=== PATIENT | female | born 1965 | race Caucasian/White ===

== ENCOUNTER → 2017-07-21 07:54 | Outpatient (CLI) | payer BC, SELFPAY ==
--- NOTE | 2017-07-21 08:01 | US_ITS ---
US liver HISTORY: ITS.REASON: ELEVATED LIVER ENZYMES ORDERING PHYSICIAN: Mary Aragon PATIENT AGE: 51 years COMPARISON: None FINDINGS: PANCREAS:Unremarkable. No obvious mass or abnormal fluid collection. No ductal dilatation. There is a small area of decreased echogenicity adjacent to the gallbladder in the left hepatic lobe measuring 7 mm nonspecific. LIVER:Increased echogenicity of the liver consistent with hepatic steatosis. No ductal dilatation. RIGHT KIDNEY:Unremarkable. Normal size and echogenicity. No hydronephrosis GALLBLADDER:No gallstones, gallbladder wall thickening, pericholecystic fluid, or biliary dilatation. IMPRESSION: 1. Fatty liver with small area of decreased echogenicity anterior to the gallbladder of questionable clinical significance. 2. Otherwise negative right upper quadrant ultrasound
== END ==
PROVIDERS: PCP Nurse Practitioner Family; Visit Provider Nurse Practitioner Family
DX: R74.8 Abnormal levels of other serum enzymes (principal)
CPT/HCPCS: 76705

== ENCOUNTER → 2017-08-03 08:17 | Outpatient (CLI) | payer BC, SELFPAY ==
--- NOTE | 2017-08-03 08:44 | MM_ITS ---
MM Dig screening mamm BI w/CAD CAD Screening COMPARISON: None, this is baseline INDICATION: There is a history of breast cancer patient's mother diagnosed at age 71 TECHNIQUE: Standard CC and MLO images were obtained. R2 CAD reviewed. FINDINGS: Moderate fibroglandular densities are seen in the central portions of both breast and the findings are bilateral and symmetrical. However there is a small asymmetric density inner quadrant of the right breast with benign features. There is faint arterial calcification in each breast. There are no suspicious microcalcifications. IMPRESSION: Moderate breast density with small asymmetric density right breast with benign features however the the family history and the fact that there are no previous studies for comparison. Recommend the patient have spot compression views right breast, ultrasound may be necessary as well. BI-RADS Category: 0 Need Additional Imaging Evaluation RECOMMENDED FOLLOW-UP: IMM - IMMEDIATE FOLLOW-UP RECOMMENDED (A letter has been sent to the patient regarding results of the study.)
== END ==
PROVIDERS: PCP Internal Medicine Adolescent Medicine; Visit Provider Nurse Practitioner Family
DX: I34.1 Nonrheumatic mitral (valve) prolapse (principal); R06.02 Shortness of breath; Z12.31 Encounter for screening mammogram for malignant neoplasm of breast
CPT/HCPCS: 77067

== ENCOUNTER → 2017-08-22 12:41 | Outpatient (CLI) | payer BC, SELFPAY ==
--- NOTE | 2017-08-22 12:45 | US_ITS ---
US breast RT complete COMPARISON: None HISTORY: Evaluation of asymmetric density on recent mammogram TECHNIQUE: Targeted ultrasound right breast FINDINGS: 2 tiny hypoechoic likely cystic lesions with internal debris arch is identified at the 2:00 position and 5:00 position, the 5:00 position cyst likely corresponding to the density on the mammogram. There is no suspicious solid lesions seen. See mammogram report for better description. IMPRESSION: Benign-appearing hypoechoic lesion is likely tiny debris-filled cysts one of which corresponds in size and location to the asymmetric density on recent mammogram and no additional evaluation is indicated.
--- NOTE | 2017-08-22 12:46 | MM_ITS ---
MM Dig mamm DX unilat RT CAD COMPARISON: Digital mammograms 08/03/2017 INDICATION: Evaluation of asymmetric density right breast TECHNIQUE: Spot compression MLO and CC views were obtained along with rolled CC views. FINDINGS: The small somewhat tubular asymmetric density is persistent and does not press out. It has benign features with fairly well-defined borders. Ultrasound performed same date showed a few tiny appearing cyst 1 which corresponds in size and location to the density on the mammogram at the 5:00 position measuring 0.3 x 0.1 0.3 cm. This is too small to definitely characterize but appears to have internal echoes likely cyst debris. There is a similar appearing small hypoechoic cystic lesion at the 2:00 position near the nipple measuring 0.3 x 0.5 0.3 cm also likely showing internal echoes. There is a normal-appearing node in the axilla. IMPRESSION: Benign-appearing density inner quadrant right breast likely secondary to a tiny debris-filled cyst I feel no additional evaluation is indicated, recommend the patient continue with yearly screening mammography BI-RADS Category: 2 Benign Finding(s) RECOMMENDED FOLLOW-UP: 1YR - 1 YEAR FOLLOW-UP (A letter has been sent to the patient regarding results of the study.)
== END ==
PROVIDERS: PCP Internal Medicine Adolescent Medicine; Visit Provider Nurse Practitioner Family
DX: R92.8 Other abnormal and inconclusive findings on diagnostic imaging of breast (principal)
CPT/HCPCS: 76641; 77065

== ENCOUNTER → 2018-08-23 19:10 | Outpatient (CLI) | payer BC, SELFPAY ==
[2018-08-23 19:22] LABS: Basophils # 0.1 K/mm3 (0-0.2); Basophils % 0.6 % (0.1-2.0); Eosinophils # 0.1 K/mm3 (0.0-0.4); Eosinophils % 0.9 % (0.1-12.0); Hematocrit 43.3 % (37.0-47.0); Hemoglobin 13.8 g/dL (12.2-16.2); Lymphocytes # 1.4 K/mm3 (0.7-4.5); Lymphocytes % 18.3 % (10-50); Mean Corpuscular HGB Conc 31.9 g/dL (31.8-35.4); Mean Corpuscular Volume 100.2 fl (81-99); Mean Platelet Volume 8.4 fl (7.4-10.4); Monocytes # 0.4 K/mm3 (0.1-1.0); Monocytes % 4.6 % (1.7-9.3); Neutrophils # 5.8 K/mm3 (1.8-7.8); Neutrophils % 75.6 % (37.0-80.0); Platelet Count 327 K/mm3 (142-424); Red Blood Count 4.32 M/mm3 (4.20-5.40); White Blood Count 7.7 K/mm3 (4.8-10.8)
[2018-08-23 19:56] LABS: Erythrocyte Sedimentation Rate 38 mm/hr (0-30)
[2018-08-23 19:58] LABS: Alanine Aminotransferase 49 U/L (12-78); Albumin Level 3.8 gm/dL (3.4-5.0); Albumin/Globulin Ratio 0.9 (1.1-1.8); Alkaline Phosphatase 299 U/L (46-116); Aspartate Amino Transferase 73 U/L (15-37); Bilirubin,Total 0.5 mg/dL (0.2-1.0); Blood Urea Nitrogen 6 mg/dL (7-18); Calcium 9.4 mg/dL (8.5-10.1); Carbon Dioxide 25 mmol/L (21.0-32.0); Chloride 101 mmol/L (98-107); Chol/HDL Ratio 5.4 (1-3.5); Cholesterol 194 mg/dL (140-200); Creatinine,Serum 0.72 mg/dL (0.55-1.02); Estimated Glomerular Filt Rate 84 ml/min (>60); Free T4 (Free Thyroxine) 0.84 ng/dl (0.76-1.46); GFR (African American) 102 ML/MIN (>60); Globulin 4.2 gm/dl (1.3-3.2); Glucose 101 mg/dL (74-106); HDL Cholesterol 36 mg/dL (29-89); LDL Cholesterol 134 mg/dL (0-130); Sodium 137 mmol/L (136-145); Triglycerides 122 mg/dL (30-200); VLDL Cholesterol 24 mg/dL (0-40)
[2018-08-25 23:10] LABS: Vitamin B12 327 pg/mL (232-1245)
[2018-08-25 23:11] LABS: Folate 3.7 ng/mL (>3.0); Vitamin D 25 Hydroxy 30.4 ng/mL (30.0-100.0)
== END ==
PROVIDERS: Visit Provider Emergency Medicine
DX: M79.604 Pain in right leg (principal); M79.605 Pain in left leg; R53.83 Other fatigue
CPT/HCPCS: 80053; 80061; 82607; 82652; 82746; 84439; 84443; 85025; 85651

== ENCOUNTER → 2018-09-20 13:27 | Outpatient (CLI) | payer BC, SELFPAY ==
[2018-09-20 15:08] LABS: Alanine Aminotransferase 44 U/L (12-78); Albumin Level 3.9 gm/dL (3.4-5.0); Albumin/Globulin Ratio 0.8 (1.1-1.8); Alkaline Phosphatase 375 U/L (46-116); Anion Gap 17.4 mEq/L (5-15); Aspartate Amino Transferase 62 U/L (15-37); Bilirubin,Total 0.5 mg/dL (0.2-1.0); Blood Urea Nitrogen 6 mg/dL (7-18); Calcium 9.4 mg/dL (8.5-10.1); Carbon Dioxide 24 mmol/L (21.0-32.0); Chloride 100 mmol/L (98-107); Estimated Glomerular Filt Rate 87 ml/min (>60); GFR (African American) 105 ML/MIN (>60); Globulin 4.8 gm/dl (1.3-3.2); Glucose 95 mg/dL (74-106); Potassium 4.4 mmoL/L (3.5-5.1); Sodium 137 mmol/L (136-145); Total Protein,Serum 8.7 gm/dL (6.4-8.2)
[2018-09-20 15:38] LABS: Gamma Glutamyl Transpeptidase 1473 U/L (5-55)
[2018-09-22 07:02] LABS: Mitochondrial (M2) Antibody 22.1 Units (0.0-20.0)
== END ==
PROVIDERS: Visit Provider Physician Assistant
DX: R74.8 Abnormal levels of other serum enzymes (principal)
CPT/HCPCS: 80053; 82977; 86256

== ENCOUNTER → 2020-01-29 09:30 | Outpatient (CLI) | payer BC, SELFPAY ==
--- NOTE | 2020-01-29 09:48 | XR_ITS ---
PROCEDURE: XR FOOT RT MIN 3V CLINICAL INDICATION: right foot pain COMPARISON: No exams were available for comparison FINDINGS: No fracture or dislocation. No lytic or blastic change. There is normal mineralization. The joint spaces are well-preserved. No significant degenerative/arthritic changes. No erosive changes evident. Other findings:None. IMPRESSION: No acute findings. Dictated by: Vick Laureano MD 01/29/2020 18:57 Vick Laureano MD in [place] 01/29/2020 18:57
--- NOTE | 2020-01-29 09:48 | XR_ITS ---
PROCEDURE: XR CHEST 2V CLINICAL HISTORY: cough COMPARISON: No exams were available for comparison FINDINGS: The cardiomediastinal silhouette and pulmonary vascularity are within normal limits. The lungs are clear without infiltrates, suspicious nodules, or pleural effusions. There is calcified granuloma in the left lower lobe. No lobar consolidation or collapse. No acute bony findings. IMPRESSION: No acute findings. Dictated by: Vick Laureano MD 01/29/2020 18:56 Vick Laureano MD in [facility] 01/29/2020 18:56
[2020-01-29 10:19] LABS: Basophils # 0.1 K/mm3 (0-0.2); Basophils % 0.6 % (0.1-2.0); Eosinophils # 0.2 K/mm3 (0.0-0.4); Eosinophils % 1.4 % (0.1-12.0); Hematocrit 36.7 % (37.0-47.0); Hemoglobin 11.9 g/dL (12.2-16.2); Lymphocytes # 1.5 K/mm3 (0.7-4.5); Mean Corpuscular HGB Conc 32.4 g/dL (31.8-35.4); Mean Corpuscular Hemoglobin 34.2 pg (27.0-31.2); Mean Corpuscular Volume 105.5 fl (81-99); Mean Platelet Volume 7.4 fl (7.4-10.4); Monocytes # 0.5 K/mm3 (0.1-1.0); Monocytes % 4.4 % (1.7-9.3); Neutrophils # 9.2 K/mm3 (1.8-7.8); Neutrophils % 80.6 % (37.0-80.0); Platelet Count 314 K/mm3 (142-424); Red Blood Count 3.48 M/mm3 (4.20-5.40); Red Cell Distribution Width 14.8 % (11.5-17.5); White Blood Count 11.4 K/mm3 (4.8-10.8)
[2020-01-29 12:10] LABS: Alanine Aminotransferase 43 U/L (12-78); Albumin Level 3.6 g/dl (3.5-5.0); Albumin/Globulin Ratio 0.8 (1.1-1.8); Alkaline Phosphatase 364 U/L (38-126); Anion Gap 12.2 mEq/L (5-15); Aspartate Amino Transferase 161 U/L (14-36); Bilirubin,Total 3.7 mg/dl (0.2-1.3); Blood Urea Nitrogen 5 mg/dl (7-17); Calcium 9.5 mg/dl (8.4-10.2); Carbon Dioxide 26 mmol/L (22.0-30.0); Chloride 103 mmol/L (98-107); Chol/HDL Ratio 6.7 (1-3.5); Cholesterol 180 mg/dl (140-200); Estimated Glomerular Filt Rate 128 ml/min (>60); GFR (African American) 154 ML/MIN (>60); Globulin 4.7 g/dL (1.3-3.2); Glucose 143 mg/dl (74-100); HDL Cholesterol 27 mg/dl (40-60); Potassium 4.2 mmoL/L (3.5-5.1); Sodium 137 mmol/L (136-145); Total Protein,Serum 8.3 g/dl (6.3-8.2); Triglycerides 132 mg/dl (30-150); VLDL Cholesterol 26 mg/dL (0-40)
[2020-01-29 12:22] LABS: Direct LDL Cholesterol 108.43 mg/dL (100-129)
[2020-01-29 12:27] LABS: 25-OH Vitamin D, Total 90.4 ng/mL (30-100)
[2020-01-29 12:29] LABS: T4 (Thyroxine) 13.6 ug/dl (5.53-11.0)
[2020-01-29 12:42] LABS: Thyroid Stimulating Hormone 9.87 uIU/mL (0.465-4.68)
[2020-01-29 13:17] LABS: Vitamin B12 950 pg/mL (239-931)
[2020-01-29 13:29] LABS: Folate 2.22 ng/mL
[2020-01-30 10:23] LABS: PSA, Free <0.02 ng/mL; Prostate Specific Ag <0.1 ng/mL (Not Estab.)
[2020-01-30 13:37] LABS: Hep A Ab, IgM Negative (Negative); Hepatitis B Core Antibody IgM Negative (Negative); Hepatitis B Surface Antigen Negative (Negative)
[2020-01-30 16:31] LABS: Hemoglobin A1C 5.2 % (4.0-6.0)
[2020-01-30 18:39] LABS: Hepatitis C Antibody 0.1 s/co ratio (0.0-0.9)
== END ==
PROVIDERS: Visit Provider Physician Assistant
DX: R06.02 Shortness of breath (principal); R05 Cough; I34.1 Nonrheumatic mitral (valve) prolapse; R53.83 Other fatigue; R60.9 Edema, unspecified; R73.09 Other abnormal glucose; R11.2 Nausea with vomiting, unspecified; R82.998 Other abnormal findings in urine; Z68.27 Body mass index [BMI] 27.0-27.9, adult
CPT/HCPCS: 36415; 71046; 73630; 80053; 80061; 80074; 82306; 82607; 82746; 83036; 84153; 84154; 84436; 84443; 85025

== ENCOUNTER → 2020-02-04 09:12 | Outpatient (CLI) | payer OTHER, BC, SELFPAY ==
--- NOTE | 2020-02-04 09:24 | US_ITS ---
PROCEDURE: US ABDOMEN COMPLETE CLINICAL INDICATION: ELEVATED LFT'S COMPARISON: No exams were available for comparison FINDINGS: PANCREAS: Unremarkable. No obvious mass or abnormal fluid collection. No ductal dilatation LIVER: There is heterogeneous echogenicity of the anterior aspect the left hepatic lobe with decreased echogenicity anteriorly with irregular margins between normal appearing and abnormal appearing liver. Turbulent blood flow is noted within the portal vein. Portal vein is not appear enlarged. No biliary dilatation. RIGHT KIDNEY: Unremarkable. Normal size and echogenicity. No hydronephrosis LEFT KIDNEY: Unremarkable. Normal size and echogenicity. No hydronephrosis GALLBLADDER: There is a small echogenic focus along the posterior wall the gallbladder and could represent a small polyp without posterior acoustical shadowing and non mobile. A nonshadowing adherent stone is included in the differential diagnosis. No gallbladder wall thickening or pericholecystic fluid. Common bile duct is normal at 4 mm. AORTA: No evidence of aneurysmal dilatation. SPLEEN: Borderline splenomegaly at 13 cm with echogenic foci in the spleen consistent with granulomas. ASCITES: None demonstrated. IMPRESSION: 1. Abnormal appearing liver with heterogeneous echogenicity anteriorly and some irregularity of the liver surface possibly related to cirrhosis. Consider CT without and with contrast to exclude underlying mass. 2. Turbulent blood flow within the portal vein 3. Probable small gallbladder wall polyp 4. Borderline splenomegaly Dictated by: Vick Laureano MD 02/04/2020 18:46 Vick Laureano MD in [place] 02/04/2020 18:46
--- NOTE | 2020-02-04 10:01 | CA_ITS ---
APPROVED REPORT EXAM: Comprehensive 2D, Doppler, and color-flow Echocardiogram Thaw Shed Heater Tender: Reyna Clemons RDCS Ht: 5 ft 6 in Wt: 178lbs BSA: 1.90 BP: 122/78 mmHg Indications: SOA.MVP,EDEMA, 2D Dimensions LVOT 1.83 cm (M/F) 1.5-2.5 M-Mode Dimensions RVDd 3.56 cm (0.9-2.6) LVDd 5.92 cm (3.5-5.7) LVDs 4.17 cm (3.5-5.7) IVSd 0.83 cm (0.6-1.1) PWd 1.10 cm (0.6-1.1) EF (Teich) 55.70% FS 29.60% EDV (Teich) 174.60 mL ESV (Teich) 77.30 mL Left Ventricle Left atrium is mildly enlarged, left ventricle is normal size, there is no concentric left ventricular hypertrophy, visually estimated ejection fraction 55% with no regional wall motion abnormality, diastolic parameters are inconclusive. Right Ventricle Right atrium right ventricular normal size and contractility. Aortic Valve Aortic valve is minimally thickened and fibrosed, there is no aortic stenosis or aortic insufficiency. Mitral Valve Mitral valve is grossly normal, there is no obvious mitral valve prolapse seen in this study, there is mild mitral regurgitation. Tricuspid Valve Tricuspid valve grossly normal, there is mild tricuspid regurgitation. Pulmonic Valve Pulmonic valve is poorly visualized. Great Vessels Aortic root is normal size. Pericardium No significant pericardial effusion noted Conclusion 1. Mildly enlarged left atrium, normal left ventricular size, visually estimated ejection fraction 55% with no regional wall motion abnormality, diastolic parameters are inconclusive. 2. No obvious mitral valve prolapse seen in this study, there is mild mitral regurgitation. 3. Mild tricuspid regurgitation. 4. No significant pericardial effusion noted. Electronically signed by : Krzysztof Alvarado, 02/04/2020 18:19:29
== END ==
PROVIDERS: PCP Physician Assistant; Visit Provider Physician Assistant
DX: R06.02 Shortness of breath (principal); R05 Cough; I34.1 Nonrheumatic mitral (valve) prolapse; R53.83 Other fatigue; R60.9 Edema, unspecified
CPT/HCPCS: 76700; 93306

== ENCOUNTER → 2020-02-15 09:15 | Outpatient (CLI) | payer OTHER, BC, SELFPAY ==
--- NOTE | 2020-02-15 09:26 | CT_ITS ---
PROCEDURE: CT ABDOMEN WO/W CON CLINICAL HISTORY: r/o underlying mass on liver Elevated LFTs, bloating COMPARISON: US LIVER US liver from 07/21/2017 US US ABDOMEN COMPLETE from 02/04/2020 TECHNIQUE: Hemangioma protocol without and with contrast. 75 mL Optiray 350 utilized IV Axial images obtained with sagittal and coronal reformats. All CT scans at the facility use one or more dose reduction, viz: automated exposure control, ma/kV adjustment per patient size (including targeted exams where dose is matched to indication, i.e. head), or iterative reconstruction technique. FINDINGS: There are mild atelectatic or fibrotic changes in the lung bases. There is heterogeneous density of the liver with irregular margins anteriorly. There is heterogeneous density of the liver throughout on all imaging sequences. Small cystic areas present in the right hepatic lobe anteriorly. There is a persistent rounded area of slight decrease heterogeneous density within the left hepatic lobe measuring 3.2 cm at segment 4 a just superior to the gallbladder fossa.. This has a somewhat suspicious appearance for a mass. There is generating nodule is also consideration. No other focal liver lesions are evident. There is mild splenomegaly at 13 cm. Varices are present in the perisplenic region and paraesophageal area and perigastric region consistent with portal hypertension. No evidence of portal vein thrombosis. There are some small nodes in the periportal area. There is a small amount fluid anterior to the liver There is haziness of the mesenteric fat. Increased density with stranding noted in the right upper quadrant adjacent to the duodenum there is a small hiatal hernia. There is moderate narrowing of the ostium of the celiac artery of at least 50 percent or greater. No acute bony findings. The kidneys, adrenal glands, and pancreas have an unremarkable appearance. IMPRESSION: 1. There is diffuse heterogeneous density of the hepatic parenchyma with some irregularity of the liver margin consistent with cirrhosis and portal hypertension with mild splenomegaly and associated varices. Small amount ascites 2. There is a rounded area of slight decreased heterogeneous density in the left hepatic lobe segment 4 a just superior to the gallbladder fossa which may represent a hepatic mass/neoplasm versus regenerating nodule. A recanalized umbilical vein is present along the anterior aspect of this lesion making percutaneous biopsy somewhat risky. Therefore would recommend MRI without and with gadolinium enhancement to confirm the presence of a nodule before percutaneous tissue sampling performed 3. Stranding of the fat in the right upper quadrant along the anterior pararenal fascia and lateral to the duodenum. This is nonspecific and may be seen with pancreatitis or duodenal inflammation. Dictated by: Vick Laureano MD 02/16/2020 07:50 Vick Laureano MD in [place] 02/16/2020 07:50
[2020-02-15 09:41] LABS: Chloride 101 mmol/L (98-107); Sodium 137 mmol/L (136-145)
[2020-02-15 09:45] LABS: Blood Urea Nitrogen 3 mg/dl (7-17); Calcium 9.3 mg/dl (8.4-10.2); Carbon Dioxide 26 mmol/L (22.0-30.0); Estimated Glomerular Filt Rate 103 ml/min (>60); GFR (African American) 125 ML/MIN (>60); Glucose 161 mg/dl (74-100)
== END ==
PROVIDERS: PCP Physician Assistant; Visit Provider Physician Assistant
DX: K74.60 Unspecified cirrhosis of liver (principal)
CPT/HCPCS: 36415; 74170; 80048; Q9967

== ENCOUNTER → 2020-02-18 14:23 | Outpatient (POV) | payer OTHER, BC, SELFPAY | PROVIDERS: Visit Provider Nurse Practitioner Family | DX: Z00.00 Encounter for general adult medical examination without abnormal findings (principal) ==

== ENCOUNTER → 2020-02-21 07:20 | Outpatient (CLI) | payer OTHER, BC, SELFPAY ==
[2020-02-21 08:12] LABS: Basophils # 0.1 K/mm3 (0-0.2); Basophils % 0.7 % (0.1-2.0); Eosinophils # 0.2 K/mm3 (0.0-0.4); Eosinophils % 1.5 % (0.1-12.0); Hematocrit 34.5 % (37.0-47.0); Hemoglobin 10.6 g/dL (12.2-16.2); Lymphocytes # 1.3 K/mm3 (0.7-4.5); Mean Corpuscular HGB Conc 30.7 g/dL (31.8-35.4); Mean Corpuscular Hemoglobin 33.3 pg (27.0-31.2); Mean Corpuscular Volume 108.6 fl (81-99); Mean Platelet Volume 7.3 fl (7.4-10.4); Monocytes # 0.5 K/mm3 (0.1-1.0); Monocytes % 4.7 % (1.7-9.3); Neutrophils # 8.1 K/mm3 (1.8-7.8); Neutrophils % 80.2 % (37.0-80.0); Platelet Count 244 K/mm3 (142-424); Red Blood Count 3.17 M/mm3 (4.20-5.40); Red Cell Distribution Width 15.8 % (11.5-17.5); White Blood Count 10.1 K/mm3 (4.8-10.8)
[2020-02-21 08:27] LABS: Ammonia 46 umol/L (9-30)
[2020-02-21 08:31] LABS: INR 1.37 (0.9-1.1); Prothrombin Time 14.8 seconds (9.4-11.8)
[2020-02-21 10:56] LABS: Chloride 102 mmol/L (98-107); Potassium 3.8 mmoL/L (3.5-5.1); Sodium 137 mmol/L (136-145)
[2020-02-21 10:58] LABS: Blood Urea Nitrogen 5 mg/dl (7-17); Estimated Glomerular Filt Rate 87 ml/min (>60); GFR (African American) 105 ML/MIN (>60)
[2020-02-21 10:59] LABS: Alanine Aminotransferase 30 U/L (12-78); Albumin Level 3.3 g/dl (3.5-5.0); Albumin/Globulin Ratio 0.7 (1.1-1.8); Alkaline Phosphatase 279 U/L (38-126); Anion Gap 14.8 mEq/L (5-15); Aspartate Amino Transferase 138 U/L (14-36); Bilirubin,Total 4.2 mg/dl (0.2-1.3); Calcium 9.1 mg/dl (8.4-10.2); Carbon Dioxide 24 mmol/L (22.0-30.0); Globulin 4.6 g/dL (1.3-3.2); Glucose 124 mg/dl (74-100); Iron 99 ug/dL (37-170); Total Protein,Serum 7.9 g/dl (6.3-8.2)
[2020-02-21 11:13] LABS: Total Iron Binding Capacity 169 ug/dL (265-497)
[2020-02-21 11:40] LABS: Ferritin 773 ng/ml (11.1-264)
[2020-02-22 11:53] LABS: Ceruloplasmin 19.5 mg/dL (19.0-39.0); Immunoglobulin A, Qn 595 mg/dL (87-352); Immunoglobulin G, Qn 2067 mg/dL (586-1602)
[2020-02-22 13:27] LABS: AFP, Tumor Marker 6.9 ng/mL (0.0-8.3); Immunoglobulin M, Qn 899 mg/dL (26-217)
[2020-02-22 18:36] LABS: Angiotensin Converting Enzyme 88 U/L (14-82)
[2020-02-23 10:24] LABS: Actin (Smooth Muscle) Antibody 10 Units (0-19); Deamidated Gliadin Abs, IgA 13 units (0-19); Deamidated Gliadin Abs, IgG 15 units (0-19); Endomysial IgA Antibody Negative (Negative); Mitochondrial (M2) Antibody 51.4 Units (0.0-20.0); Tissue Transglutaminase IgA Ab <2 U/mL (0-3); Tissue Transglutaminase IgG Ab 4 U/mL (0-5)
[2020-02-23 10:25] LABS: Reticulin IgA Antibody Negative titer (Neg:<1:2.5)
[2020-02-26 05:12] LABS: ALT (SGPT) P5P 25 IU/L (0-40); AST (SGOT) P5P 136 IU/L (0-40); Alpha 2-Macroglobulins, Qn 283 mg/dL (110-276); Apolipoprotein A-1 70 mg/dL (116-209); Bilirubin, Total 3.2 mg/dL (0.0-1.2); Cholesterol, Total 185 mg/dL (100-199); Fibrosis Score 0.94 (0.00-0.21); GGT 402 IU/L (0-60); Glucose 128 mg/dL (65-99); Haptoglobin 136 mg/dL (33-346); Triglycerides 130 mg/dL (0-149)
[2020-02-27 16:56] LABS: Alpha-1-Antitrypsin 210 mg/dL (101-187)
[2020-03-29 20:03] LABS: Antinuclear Antibodies (ANA) NEGATIVE
== END ==
PROVIDERS: Visit Provider Nurse Practitioner Family
DX: R11.2 Nausea with vomiting, unspecified (principal); R19.4 Change in bowel habit; R19.7 Diarrhea, unspecified; R14.0 Abdominal distension (gaseous); K70.31 Alcoholic cirrhosis of liver with ascites; K76.6 Portal hypertension; F10.10 Alcohol abuse, uncomplicated; R05 Cough
CPT/HCPCS: 36415; 80053; 81256; 82103; 82104; 82105; 82140; 82164; 82390; 82728; 82784; 83516; 83540; 83550; 85025; 85610; 86038; 86255; 86256; 86376

== ENCOUNTER → 2020-02-25 07:03 | Outpatient (CLI) | payer OTHER, BC, SELFPAY ==
--- NOTE | 2020-02-25 07:54 | MR_ITS ---
PROCEDURE: MR ABDOMEN WO/W CON CLINICAL INDICATION: ALTERED BOWEL FUNCTION abnormal ct 02-15-20. nausea and vomiting. swelling of rt foot. joint pain. x6-7months. 16ml prohance given. lot:[id number] exp: apr 2022 bun:5 cre:0.7 gfr:87. prior ct 02-15-20 COMPARISON: CT CT ABDOMEN WO/W CON from 02/15/2020 TECHNIQUE: Routine multiplanar multi echo sequences are performed without gadolinium enhancement. FINDINGS: There is diffuse heterogeneous signal intensity of the liver. There was a question of a nodule within the left hepatic lobe on the previous CT scan in and out of phase imaging does show some decreased signal in this area on the out of phase images suggesting focal fatty liver. Pre and post enhanced images of the liver show diffuse heterogeneous enhancement. The area of concern in the left hepatic lobe does not demonstrate any typical type enhancement pattern that would be suspicious has similar signal intensity on all post enhanced images. The liver margin has a slightly irregular appearance which could be seen with cirrhosis. Perisplenic varices are noted. The adrenal glands and kidneys and pancreas have an unremarkable appearance. There is a small hepatic cyst in the right hepatic lobe anteriorly at 7 mm. Previously noted ascites has resolved IMPRESSION: 1. There is diffuse heterogeneous signal intensity of the liver which shows some mild signal dropout on the out of phase images consistent with heterogeneous fatty liver replacement. The nodular area in the left hepatic lobe does not show any typical enhancement pattern and may be due to a regenerating nodule with an area of focal fatty infiltration. This does show some loss of signal on out of phase imaging. Suspect cirrhosis of the liver with somewhat irregular margin anteriorly. Recommend [address] follow-up without and with contrast to confirm stability. 2. Perisplenic varices. Dictated by: Vick Laureano MD 02/26/2020 10:01 Vick Laureano MD in [place] 02/26/2020 10:01
== END ==
PROVIDERS: PCP Physician Assistant; Visit Provider Nurse Practitioner Family
DX: R19.4 Change in bowel habit (principal); K59.00 Constipation, unspecified; R19.7 Diarrhea, unspecified; R14.0 Abdominal distension (gaseous); R11.2 Nausea with vomiting, unspecified; K70.31 Alcoholic cirrhosis of liver with ascites; K76.6 Portal hypertension; F10.10 Alcohol abuse, uncomplicated
CPT/HCPCS: 74183; A9576

== ENCOUNTER → 2020-03-08 11:00 | Outpatient (CLI) | payer OTHER, BC, SELFPAY ==
[2020-03-08 13:23] LABS: Coronavirus 19 IgG Antibody Negative (Negative); Coronavirus 19 IgM Antibody Negative (Negative)
== END ==
PROVIDERS: Visit Provider Internal Medicine Gastroenterology
DX: Z01.818 Encounter for other preprocedural examination (principal); Z13.810 Encounter for screening for upper gastrointestinal disorder; Z12.11 Encounter for screening for malignant neoplasm of colon
CPT/HCPCS: 36415; 86328

== ENCOUNTER → 2020-04-05 11:22 | Outpatient (CLI) | payer OTHER, BC, SELFPAY ==
[2020-04-05 12:45] LABS: Coronavirus 19 IgG Antibody Negative (Negative); Coronavirus 19 IgM Antibody Negative (Negative)
== END ==
PROVIDERS: Visit Provider Internal Medicine Gastroenterology
DX: Z01.818 Encounter for other preprocedural examination (principal); Z13.810 Encounter for screening for upper gastrointestinal disorder; Z12.11 Encounter for screening for malignant neoplasm of colon
CPT/HCPCS: 36415; 86328

== ENCOUNTER 2020-04-07 10:54 | Day surgery (SDC) | payer OTHER, BC, SELFPAY ==
[2020-03-27 13:54] VITALS: BMI 26.6
[2020-04-07 11:30] VITALS: BP 165/75; PULSE 85; RESP 18; TEMP 36.2; O2SAT 100
--- NOTE | 2020-04-07 12:32 | P.PCN_ITS ---
[facility] Procedure Note Procedure Note:: Upper Endoscopy Procedure Report: Esophagogastroduodenoscopy with cold biopsies Endoscopost: Aj Thomas II, MD Referring Physician: Martha De Jesus PA-C Date of Procedure: April 07, 2020 Equipment: Olympus GIF 180 standard upper endoscope Sedation: MAC sedation Indications: Mrs. Hendricks is a 54-year-old female with cirrhosis and elevated liver chemistries. She does have alcoholic liver disease and was drinking between 12 and 18 beers nightly up until 2 to 3 months ago. The patient did have fatty liver disease diagnosed several years ago. She did have ascites and lower extremity edema. She also had an ultrasound that showed cirrhosis with possible portal hypertension and possible liver mass. Her CAT scan showed cirrhosis with portal hypertension and mild splenomegaly. There was a small amount of ascites. The patient also reports some constipation and dyspepsia. She has had bloating, belching, gassiness and abdominal distention. She reports some nausea and fullness. She does have a history of psoriasis. Procedure: Prior to the procedure, a history and physical exam was performed, and patient's medications and allergies were reviewed. The risks, benefits and alternatives of the sedation and procedure were discussed with the patient. All questions were answered and informed consent was obtained. The patient was brought to the procedure room. Patient identification and proposed procedure were verified by the physician and the nurse. The patient was placed in a left lateral decubitus position and the scope was passed under direct vision. Throughout the procedure, the patient's blood pressure, pulse, and oxygen saturations were monitored continuously. The upper GI endoscopy was accomplished without difficulty. The patient tolerated the procedure well. Findings: The scope was passed directly into the upper esophagus and advanced to the third portion of the duodenum. The post bulbar duodenum and duodenal bulb were normal with normal mucosa and conniventes. The scope was withdrawn through a normal duodenal bulb and pylorus into the stomach. There was very mild reactive gastropathy of the antrum. There was no significant portal gastropathy or GAVE. There was no gastric varices. The remainder of the antrum, body and fundus of the stomach were grossly normal. Upon retroflexion there was a small 1 to 2 cm hiatal hernia. 2 biopsies were taken in the antrum and along the lesser curvature for histology to rule out gastritis and/or H pylori. The scope was then withdrawn into the esophagus. There were small grade 1 esophageal varices. There was also whitish exudate and cold biopsies were taken in the midesophagus to rule out mild candidal esophagitis. The remainder of the esophageal mucosa was normal. Impression: 1. Small grade 1 esophageal varices 2. Possible mild candidal esophagitis 3. Bile reflux with mild reactive gastropathy Plan: I will follow-up the biopsies. The patient does have some dyspepsia. Fortunately, there are no signs of significant portal hypertension. I will proceed with colonoscopy.
--- NOTE | 2020-04-07 12:34 | P.PN_ITS ---
[facility] Anesthesia Checklist - Patient Identification Patient Identification: Arm Band, Verbal (Name & ) - Structural Data Admitted From: Home Planned Operative Procedure/s: EGD/Colonoscopy Consent for Planned Operative Procedure(s) Verified: Yes Verified Documents: Surgical Consent, History and Physical - NPO Status Verified Time NPO: 00:00 - Chart Verification Results Verified: CBC, BMP, PT, PTT, INR - Additional verifications Anesthesia Reactions: No - Airway Assessment C-Spine Mobility Assessed: Yes TMJ Mobility Assessed: Yes Dentition: Good Dentition (missing teeth) - Neurological Assessment Level of Consciousness: Awake, Alert, Appropriate, Follows Commands Hx Seizures: No Numbness or tingling in extremities: No - Anesthesia Plan Anesthesia Risk discussed: Yes Anesthesia Plan: Verified ASA Class: III Anesthesia Type: MAC [facility] History I have reviewed the patient's past medical history: Yes Medical History: Reports:: Anxiety, Depression, Hypertension, Valvular Heart Disease Denies:: Cancer, Diabetes Mellitus Type 1, Diabetes Mellitus Type 2, Internal Pacemaker, Lung Disease, MRSA, Seizures *Have you ever received a pneumonia vaccine?: No *Have you received a flu vaccine this season?: No Other Medical History: Reports: Liver Disease (cirrhosis) Anesthesia experience/problems:: None Laterality Cases: Left: Arthroscopy Knee Other Surgeries: No: Pacemaker Amputation: No Fractures: No - *Social History Last grade of school completed: Some college Smoking Status: Never smoker Alcohol Intake: never Alcohol Intake Frequency:: 0-2 drinks per day Substance Use Type: denies use *Occupational Status:: employed Housing: house Household Members: family *Travel in the last 8 weeks: None - Psychiatric History Pschychiatric History:: Reports:: Anxiety, Depression Family Hx:: Coronary Artery Disease, Diabetes, Cancer, Heart Attack, Stroke, Hypertension, Thyroid Disorder, Asthma
--- NOTE | 2020-04-07 12:50 | HMH.PROC ---
[facility] Procedure Note Procedure Note:: Colonoscopy Procedure Report: Colonoscopy Endoscopist: Aj Thomas II, MD Referring physician: Martha De Jesus PA-C Date of Procedure: April 07, 2020 Equipment: Olympus 180 variable stiffness pediatric colonoscope Sedation: MAC sedation Indication: Mrs. Hendricks is a 54-year-old female who is here for diagnostic colonoscopy. The patient has had constipation with smaller caliber stools and incomplete defecation. She will have some intermittent breakthrough diarrhea. The patient also has had some bloating and abdominal distention. She reports some generalized abdominal discomfort. She reports no rectal bleeding, weight loss or family history of colon cancer. Her mother had cancer of unknown primary. This is the patient's initial colonoscopy. She does have cirrhosis. 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 She did have an elevated angiotensin-converting enzyme level and mitochondrial antibody. She also had elevated levels of immunoglobulins (elevated IgG, IgA and IgM). Her fibrotic markers were in the range of cirrhosis with marked steatosis. Her hemochromatosis genetic assay was indicative of no hemochromatosis. She also had some hepatic lesions. Her alpha-fetoprotein was 6.9. The patient did have normal values of antigliadin IgA and IgG antibody. Procedure: Prior to the procedure, a history and physical exam was performed, and patient's medications and allergies were reviewed. The risks, benefits and alternatives of the sedation and procedure were discussed with the patient. All questions were answered and informed consent was obtained. The patient was brought to the procedure room. Patient identification and proposed procedure were verified by the physician and the nurse. The patient was placed in a left lateral decubitus position and the scope was passed under direct vision. Throughout the procedure, the patient's blood pressure, pulse, and oxygen saturations were monitored continuously. The colonoscopy was accomplished without difficulty. The patient tolerated the procedure well. Findings: On digital rectal examination there was normal rectal tone. There were no external hemorrhoids. The colonoscope was introduced through the anal canal to the rectum and advanced to the cecum. The ileocecal valve and appendiceal orifice were identified. The scope was advanced a short distance into the ileum which appeared grossly normal. The scope was then withdrawn into the colon. The cecum, ascending and transverse colon and mucosa were grossly normal. There were scattered diverticuli throughout the descending and sigmoid colon (LEFT colon). The rectum itself was normal. Upon retroflexion within the rectum there were grade 1-2 internal hemorrhoids. The preparation was excellent throughout with [place] Preparation Score of 9. The cecal time was 12 minutes. Impression: 1. Left-sided diverticulosis 2. Grade 1-2 internal hemorrhoids Plan: The patient will not require screening/surveillance colonoscopy again for 10 years by ACS guidelines. I would continue the fiber bowel regimen (combined MiraLAX plus Citrucel) on a long-term daily maintenance basis.
[2020-04-07 12:51] VITALS: BP 120/73; PULSE 77; RESP 20; TEMP 36.2; O2SAT 92
[2020-04-07 13:01] VITALS: BP 154/85; PULSE 71; RESP 20; O2SAT 98
[2020-04-07 13:11] VITALS: BP 160/83; PULSE 71; RESP 20; O2SAT 99
[2020-04-07 13:21] VITALS: BP 141/76; PULSE 71; RESP 20; O2SAT 100
[2020-04-07 13:42] VITALS: BP 159/75; PULSE 73; RESP 20; O2SAT 100
[2020-04-07 14:17] LABS: Chloride 107 mmol/L (98-107); Potassium 4.3 mmoL/L (3.5-5.1); Sodium 141 mmol/L (136-145)
[2020-04-07 14:19] LABS: Alanine Aminotransferase 43 U/L (12-78); Aspartate Amino Transferase 79 U/L (14-36); Blood Urea Nitrogen 22 mg/dl (7-17); Creatinine Clearance Estimated 93 mL/min (50-200); Estimated Glomerular Filt Rate 74 ml/min (>60); GFR (African American) 90 ML/MIN (>60)
[2020-04-07 14:20] LABS: Albumin Level 4.2 g/dl (3.5-5.0); Alkaline Phosphatase 309 U/L (38-126); Anion Gap 14.3 mEq/L (5-15); Bilirubin,Total 3.7 mg/dl (0.2-1.3); Calcium 10.2 mg/dl (8.4-10.2); Carbon Dioxide 24 mmol/L (22.0-30.0); Globulin 4.3 g/dL (1.3-3.2); Glucose 131 mg/dl (74-100); Total Protein,Serum 8.5 g/dl (6.3-8.2)
== END 2020-04-07 13:42 | disposition home or self-care (01) ==
PROVIDERS: PCP Physician Assistant; Visit Provider Internal Medicine Gastroenterology
PROC: 0DJ08ZZ Inspection of Upper Intestinal Tract, Via Natural or Artificial Opening Endoscopic (ICD-10-PCS; CPT 43235; principal; 2020-04-07 11:30)
DX: K57.30 Diverticulosis of large intestine without perforation or abscess without bleeding (principal); K64.0 First degree hemorrhoids; I85.00 Esophageal varices without bleeding; K22.9 Disease of esophagus, unspecified; K31.9 Disease of stomach and duodenum, unspecified; K70.30 Alcoholic cirrhosis of liver without ascites; K75.4 Autoimmune hepatitis; Z80.9 Family history of malignant neoplasm, unspecified; R74.9 Abnormal serum enzyme level, unspecified; K70.0 Alcoholic fatty liver; R16.1 Splenomegaly, not elsewhere classified; R18.8 Other ascites
CPT/HCPCS: 45378; 43239; 36415; 80053; J2704

== ENCOUNTER 2020-04-17 13:05 | Outpatient (RCR) | payer OTHER, BC, SELFPAY ==
--- NOTE | 2020-04-17 14:34 | HMH.PTOPEV ---
PT Outpatient Evaluation Rehab PT Outpatient Evaluation Start: 04/17/20 13:17 Freq: Status: Active Protocol: Document 04/17/20 14:08 DIEGO (Rec: 04/17/20 14:34 DIEGO [id number]) Electronically Signed By Steve Agosto, PT 04/17/20 14:08 Outpatient Therapy Subjective History Subjective History Pt is 54 yowfm who presents with c/o generalized weakness for several years, but worse x ~ 4 mos after diagnosis of cirrhosis of the liver. She reports her condition is related to an autoimmune disorder, but does not know exactly what that might be. She had increased edema due to ascites, but this is more under control now with medication. She reports difficulty with sit/stand transfers and stairs. She also reports peripheral neuropathy to B feet and hands. PMH: anxiety, depression, HTN Chief Complaint Weakness Symptoms Relieved By Rest/Positioning Symptoms Aggravated By Physical Activity Prior Functional Limitations None Current Functional Limitations Recreation Activity,Stairs Symptom Description Activity Dependent Level of pain today (0-10) 0 Pain scale - at its worst (0-10) 0 Hip/Knee Eval MMT bilateral Hip Flexion Strength Grade 4- Good- Hip Abduction Strength Grade 4 Good Hip Adduction Strength Grade 5 Normal Hip Extension Strength Grade 5 Normal Gluteus Ag Strength Grade 4 Good Knee Extension Strength Grade 5 Normal Knee Flexion Strength Grade 5 Normal Balance Eval Gait/Posture Asssessment General Gait Observation Wide Based Gait,Shuffling Step Timed Up and Go Test 3. Is the Timed Up and Go Test result < yes 12 seconds? Outpatient Therapy Assessment Impairments Problems/Impairmments Impaired Strength,Impaired Endurance,Impaired Gait Pattern,Impaired Walking, Impaired Standing,Impaired Stair Climbing,Impaired Recreational Activities, Impaired Self Care/Self Management Prognosis Rehab Potential Good Clinical Impression Consistent with Diagnosis Yes Short Term Goals Number of Weeks 4 Increase Strength
== END 2020-04-17 13:10 | disposition home or self-care (01) ==
LOC: PT 13:05
PROVIDERS: PCP Physician Assistant; Visit Provider Physician Assistant
DX: M62.81 Muscle weakness (generalized) (principal); K74.60 Unspecified cirrhosis of liver
CPT/HCPCS: 97163

== ENCOUNTER → 2020-04-21 08:40 | Outpatient (CLI) | payer OTHER, BC, SELFPAY ==
[2020-04-21 09:12] LABS: Basophils % 0.1 % (0.1-2.0); Eosinophils # 0.1 K/mm3 (0.0-0.4); Eosinophils % 0.5 % (0.1-12.0); Hemoglobin 11.4 g/dL (12.2-16.2); Lymphocytes # 0.6 K/mm3 (0.7-4.5); Lymphocytes % 4.6 % (10-50); Mean Corpuscular HGB Conc 32.6 g/dL (31.8-35.4); Mean Corpuscular Hemoglobin 34.2 pg (27.0-31.2); Mean Corpuscular Volume 104.7 fl (81-99); Monocytes # 0.5 K/mm3 (0.1-1.0); Monocytes % 3.2 % (1.7-9.3); Neutrophils # 12.6 K/mm3 (1.8-7.8); Neutrophils % 91.6 % (37.0-80.0); Platelet Count 231 K/mm3 (142-424); Red Blood Count 3.35 M/mm3 (4.20-5.40); Red Cell Distribution Width 15.9 % (11.5-17.5); White Blood Count 13.8 K/mm3 (4.8-10.8)
[2020-04-21 09:28] LABS: MANUAL DIFFERENTIAL MANUAL DIFFERENTIAL (MANUAL DIFF)
[2020-04-21 10:19] LABS: Lymphocytes % 7 % (10-50); Monocytes % 2 % (2-9); Neutrophils % 91 % (42-76); Platelet Estimate Normal; Total Cells Counted 100
[2020-04-21 10:20] LABS: Macrocytosis 1+
[2020-04-21 15:52] LABS: Chloride 97 mmol/L (98-107); Sodium 133 mmol/L (136-145)
[2020-04-21 15:55] LABS: Alanine Aminotransferase 69 U/L (12-78); Alkaline Phosphatase 460 U/L (38-126); Aspartate Amino Transferase 58 U/L (14-36); Bilirubin,Total 2.3 mg/dl (0.2-1.3); Blood Urea Nitrogen 18 mg/dl (7-17); Calcium 9.5 mg/dl (8.4-10.2); Carbon Dioxide 26 mmol/L (22.0-30.0); Estimated Glomerular Filt Rate 57 ml/min (>60); GFR (African American) 69 ML/MIN (>60); Globulin 3.9 g/dL (1.3-3.2); Glucose 247 mg/dl (74-100); Total Protein,Serum 7.9 g/dl (6.3-8.2)
== END ==
PROVIDERS: Visit Provider Nurse Practitioner Family
DX: K70.31 Alcoholic cirrhosis of liver with ascites (principal); K75.4 Autoimmune hepatitis
CPT/HCPCS: 36415; 80053; 85007; 85025

== ENCOUNTER → 2020-04-21 10:41 | Outpatient (POV) | payer OTHER, BC, SELFPAY | PROVIDERS: Visit Provider Nurse Practitioner Family | DX: Z00.00 Encounter for general adult medical examination without abnormal findings (principal) ==

== ENCOUNTER → 2020-05-05 10:30 | Outpatient (CLI) | payer OTHER, BC, SELFPAY ==
[2020-05-05 10:57] LABS: Basophils % 0.1 % (0.1-2.0); Eosinophils # 0.1 K/mm3 (0.0-0.4); Eosinophils % 0.6 % (0.1-12.0); Hemoglobin 11.7 g/dL (12.2-16.2); Lymphocytes # 0.7 K/mm3 (0.7-4.5); Lymphocytes % 5.2 % (10-50); Mean Corpuscular HGB Conc 30.6 g/dL (31.8-35.4); Mean Corpuscular Hemoglobin 32.7 pg (27.0-31.2); Mean Corpuscular Volume 106.7 fl (81-99); Mean Platelet Volume 7.8 fl (7.4-10.4); Monocytes # 0.5 K/mm3 (0.1-1.0); Monocytes % 4.3 % (1.7-9.3); Neutrophils # 11.4 K/mm3 (1.8-7.8); Neutrophils % 89.8 % (37.0-80.0); Platelet Count 295 K/mm3 (142-424); Red Blood Count 3.56 M/mm3 (4.20-5.40); Red Cell Distribution Width 15.6 % (11.5-17.5); White Blood Count 12.7 K/mm3 (4.8-10.8)
[2020-05-05 10:59] LABS: MANUAL DIFFERENTIAL MANUAL DIFFERENTIAL (MANUAL DIFF)
[2020-05-05 11:12] LABS: Chloride 96 mmol/L (98-107); Sodium 134 mmol/L (136-145)
[2020-05-05 11:13] LABS: Potassium 3.7 mmoL/L (3.5-5.1)
[2020-05-05 11:15] LABS: Alanine Aminotransferase 85 U/L (12-78); Albumin Level 3.9 g/dl (3.5-5.0); Albumin/Globulin Ratio 1.1 (1.1-1.8); Alkaline Phosphatase 383 U/L (38-126); Anion Gap 11.7 mEq/L (5-15); Aspartate Amino Transferase 64 U/L (14-36); Bilirubin,Total 3.9 mg/dl (0.2-1.3); Blood Urea Nitrogen 12 mg/dl (7-17); Carbon Dioxide 30 mmol/L (22.0-30.0); Estimated Glomerular Filt Rate 74 ml/min (>60); GFR (African American) 90 ML/MIN (>60); Globulin 3.5 g/dL (1.3-3.2); Total Protein,Serum 7.4 g/dl (6.3-8.2)
[2020-05-05 11:16] LABS: Calcium 9.4 mg/dl (8.4-10.2)
[2020-05-05 11:23] LABS: Glucose 403 mg/dl (74-100)
[2020-05-05 12:14] LABS: Lymphocytes % 5 % (10-50); Macrocytosis 2+; Monocytes % 9 % (2-9); Neutrophils % 86 % (42-76); Platelet Estimate Normal; Total Cells Counted 100
== END ==
PROVIDERS: Visit Provider Nurse Practitioner Family
DX: K70.31 Alcoholic cirrhosis of liver with ascites (principal); K75.4 Autoimmune hepatitis; R11.2 Nausea with vomiting, unspecified; K76.6 Portal hypertension; F10.10 Alcohol abuse, uncomplicated; K76.9 Liver disease, unspecified; R19.4 Change in bowel habit; R19.7 Diarrhea, unspecified; K59.00 Constipation, unspecified; K30 Functional dyspepsia
CPT/HCPCS: 36415; 80053; 85007; 85025

== ENCOUNTER 2020-05-10 13:16 | Emergency (ER) | payer OTHER, BC, SELFPAY ==
[2020-05-10 13:45] VITALS: BP 152/72; PULSE 114; RESP 20; TEMP 36.3; O2SAT 96; BMI 26.6
--- NOTE | 2020-05-10 14:18 | HMH.EDUTC ---
[facility] [place] Clinical Impression: Viral syndrome, Exposure to COVID-19 virus Disposition: Home, Self-Care Condition on Discharge: Good Instructions: Preventing the Spread of Coronavirus Discharge Instructions Additional Instructions: Drink plenty of fluids. Take tylenol for pain or fever. Follow up with your regular doctor. GO TO THE ER FOR ANY WORSENING SYMPTOMS Referrals: Martha De Jesus PA [Primary Care Provider] - Time of Disposition: 14:34 Medical Decision Making - Medical Records Medical records reviewed: No: I reviewed the patient's medical records. - Timothy Inquiry Pt receiving controlled substance: No Vital Signs: 05/10/20 13:45 05/10/20 14:29 Temperature 97.4 F L 97.4 F L Temperature Source Oral Pulse Rate 114 H Pulse Rate [Right Brachial] 114 H Respiratory Rate 20 20 Blood Pressure 152/72 H Blood Pressure [Right Arm] 152/72 H Blood Pressure Mean [Right Arm] 98 Blood Pressure Source [Right Arm] Automatic Cuff Blood Pressure Position [Right Arm] Sitting 02 Sat by Pulse Oximetry 96 Oxygen Delivery Method Room Air Orders (Tests/Meds): ORDERS Category Date Time Status Covid-19 Nasal PCR ([facility]) Routine Lab 05/10/20 13:45 Received [facility] [place] HPI - General Stated complaint: cough Time Seen by Provider: 05/10/20 14:18 Mode of Arrival: Ambulatory Source of Information: Patient Limitations: No Limitations Description of Symptoms (Recalled from Triage Doc. by RN): PATIENT REQUESTING COVID TEST D/T RETURNING FROM [place]. C/O COUGH AND BODY ACHES HEENT Symptoms (Recalled from RN notes): No Resp Symptoms (Recalled from RN notes): No Skin Symptoms (Recalled from RN notes): No MS Symptoms (Recalled from RN notes): No Functional Status (Recalled from RN notes): WNL - History of Present Illness Provider Complaint: She states that since yesterday she as felt bad. She is also having chilling. She denies any documented fever. - Related Data Home Medications Medication Instructions Recorded Confirmed Furosemide [Furosemide 20mg Tab*] 20 mg PO DAILY 03/04/20 04/10/20 Spironolactone 50 mg PO DAILY 03/04/20 04/10/20 methylPREDNISolone 80 mg PO DAILY 03/27/20 04/10/20 [Methylprednisolone] ursodioL [Ursodiol] 500 mg PO DAILY 03/27/20 04/10/20 Previous Rx's Medication Instructions Recorded gabapentin 100 mg capsule 200 mg PO BID 30 Days #120 cap 03/28/20 nystatin 100,000 unit/mL oral 10 ml PO QID 10 Days #400 ml 04/28/20 suspension fluconazole 150 mg tablet 150 mg PO .every other day 6 Days 05/05/20 #3 tab Allergies Allergy/AdvReac Type Severity Reaction Status Date / Time No Known Allergies Allergy Verified 04/10/20 10:43 - Worker's Comp Is this a Worker's Comp case?: No [facility] History - Hepatitis A Screen Drug use history?: No High risk sexual behaviors?: No History of sexually transmitted infection?: No Currently employed?: No Childcare worker?: No Do you have indoor plumbing?: Yes Do you have electricity?: Yes Attestation statement:: This patient has been screened for Hepatitis A risk factors. I have reviewed the patient's past medical history: Yes Medical History: Reports:: Anxiety, Depression, Hypertension, Valvular Heart Disease Denies:: Cancer, Diabetes Mellitus Type 1, Diabetes Mellitus Type 2, Internal Pacemaker, Lung Disease, MRSA, Seizures Other Medical History: Reports: Liver Disease Laterality Cases: Left: Arthroscopy Knee Other Surgeries: Yes: Colonoscopy. No: Pacemaker Amputation: No Fractures: No - Social History Smoking Status: Never smoker Alcohol Intake: never Alcohol Intake Frequency:: 0-2 drinks per day Substance Use Type: denies use Occupational Status: other Housing: house Household Members: family - Psychiatric History Pschychiatric History:: Reports:: Anxiety, Depression Family Hx:: Coronary Artery Disease, Diabetes, Cancer, Heart Attack, Stroke, Hypertension, Thyroid Disorder, Asthma RO
[2020-05-10 14:29] VITALS: BP 152/72; PULSE 114; RESP 20; TEMP 36.3; O2SAT 96
== END 2020-05-10 14:30 | disposition home or self-care (01) ==
PROVIDERS: Emergency Provider Nurse Practitioner Family; PCP Physician Assistant
DX: Z20.822 Contact with and (suspected) exposure to COVID-19 (principal); B34.9 Viral infection, unspecified; I10 Essential (primary) hypertension; F41.8 Other specified anxiety disorders; Z79.899 Other long term (current) drug therapy
CPT/HCPCS: 99202; G0463; U0003

== ENCOUNTER 2020-05-12 20:22 | Inpatient (IN) | payer OTHER, BC, SELFPAY ==
[2020-05-12] VITALS (7 sets, daily range): BP systolic 117–172; BP diastolic 44–80; PULSE 106–124; RESP 16–22; TEMP 37.1–37.8; O2SAT 85–98; BMI 26.4
--- NOTE | 2020-05-12 20:26 | XR_ITS ---
PROCEDURE: XR CHEST PORTABLE CLINICAL HISTORY: soa Shortness of breath COMPARISON: DX XR CHEST 2V from 01/29/2020 FINDINGS: The cardiomediastinal silhouette and pulmonary vascularity are within normal limits. Diffuse increased density in the right upper and right lower lobe and left perihilar region consistent with bilateral pneumonia. No acute bony abnormalities. IMPRESSION: Bilateral pneumonia Dictated by: Vick Laureano MD 05/13/2020 05:20 Vick Laureano MD in [place] 05/13/2020 05:20
[2020-05-12 20:39] LABS: Adenovirus,PCR Not Detected (NotDetected); Bordetella Pertussis Not Detected (NotDetected); Chlamydophila Pneumoniae, PCR Not Detected (NotDetected); Coronavirus 19, PCR Not Detected (NotDetected); Coronavirus 229E Not Detected (NotDetected); Coronavirus NL63 Not Detected (NotDetected); Coronavirus OC43 Not Detected (NotDetected); Coronovirus HKU1,PCR Not Detected (NotDetected); Human Metapneumovirus Not Detected (NotDetected); Influenza A, PCR Not Detected (NotDetected); Influenza AH1, 2009 Not Detected (NotDetected); Influenza AH1, PCR Not Detected (NotDetected); Influenza AH3,PCR Not Detected (NotDetected); Influenza B, PCR Not Detected (NotDetected); Mycoplasma Pneumoniae, PCR Not Detected (NotDetected); Parainfluenza 1, PCR Not Detected (NotDetected); Parainfluenza 2, PCR Not Detected (NotDetected); Parainfluenza 3, PCR Not Detected (NotDetected); Parainfluenza 4, PCR Not Detected (NotDetected); Respiratory Syncytial Virus Not Detected (NotDetected); Rhinovirus/Enterovirus Not Detected (NotDetected)
--- NOTE | 2020-05-12 20:49 | HMH.EDGENADL ---
ED Disposition Clinical Impression: Acute respiratory failure with hypoxia Pneumonia Qualifiers: Pneumonia type: due to unspecified organism Laterality: bilateral Lung location: lower lobe of lung Qualified Code(s): J18.9 - Pneumonia, unspecified organism Disposition: Admitted As Inpatient Condition on Discharge: [facility] - Critical Care Critical Care Time: No Attestation: On , the high probability of a clinically significant, sudden or life threatening deterioration of the following system(s) required my full and direct attention, intervention and personal management. The time I documented below is in addition to time spent performing reported procedures but includes the following listed in this critical care notation. Medical Decision Making - Timothy Inquiry Pt receiving controlled substance: No Timothy was queried for this patient: No Vital Signs: 05/12/20 20:22 05/12/20 20:52 05/12/20 21:22 Temperature 100.0 F H Temperature Source Oral Pulse Rate Pulse Rate [Left Radial] 122 H 124 H 118 H Respiratory Rate 22 22 18 Blood Pressure Blood Pressure [Right Arm] 172/63 H 148/64 H 146/71 H Blood Pressure Mean [Right Arm] 99 92 96 Blood Pressure Source Blood Pressure Source [Right Arm] Automatic Cuff Automatic Cuff Automatic Cuff Blood Pressure Position Blood Pressure Position [Right Arm] Sitting Sitting Sitting 02 Sat by Pulse Oximetry 98 93 L 96 Oxygen Delivery Method Nasal Cannula Nasal Cannula Nasal Cannula Oxygen Flow Rate (LPM) 4 4 4 05/12/20 21:52 05/12/20 22:22 05/12/20 22:52 Temperature Temperature Source Pulse Rate Pulse Rate [Left Radial] 117 H 114 H 107 H Respiratory Rate 19 17 16 Blood Pressure Blood Pressure [Right Arm] 136/58 L 126/58 L 119/50 L Blood Pressure Mean [Right Arm] 84 80 73 Blood Pressure Source Blood Pressure Source [Right Arm] Automatic Cuff Automatic Cuff Automatic Cuff Blood Pressure Position Blood Pressure Position [Right Arm] Sitting Sitting Sitting 02 Sat by Pulse Oximetry 95 95 96 Oxygen Delivery Method Nasal Cannula Nasal Cannula Nasal Cannula Oxygen Flow Rate (LPM) 4 4 4 05/12/20 23:39 Temperature 98.7 F Temperature Source Oral Pulse Rate 106 H Pulse Rate [Left Radial] Respiratory Rate 16 Blood Pressure 117/44 L Blood Pressure [Right Arm] Blood Pressure Mean [Right Arm] Blood Pressure Source Automatic Cuff Blood Pressure Source [Right Arm] Blood Pressure Position Sitting Blood Pressure Position [Right Arm] 02 Sat by Pulse Oximetry Oxygen Delivery Method Nasal Cannula Oxygen Flow Rate (LPM) 4 - Lab Data Lab Results 05/12/20 20:30: Chlamy pneumoniae PCR Not detected, Adenovirus (PCR) Not detected, B. pertussis DNA (PCR) Not detected, Coronavirus OC43 (PCR) Not detected, Coronavirus HKU1 (PCR) Not detected, Coronavirus 229E (PCR) Not detected, SARS-CoV-2 (PCR) Not detected, Coronavirus NL63 (PCR) Not detected, Human Metapneumovir PCR Not detected, Influenza A (H1) PCR Not detected, Influ A (H1N1/09) PCR Not detected, Influenza A (H3) PCR Not detected, Influenza Type A (PCR) Not detected, Influenza Type B (PCR) Not detected, M. pneumoniae (PCR) Not detected, Parainfluenza 1 (PCR) Not detected, Parainfluenza 2 (PCR) Not detected, Parainfluenza 3 (PCR) Not detected, Parainfluenza 4 (PCR) Not detected, RSV (PCR) Not detected, Entero/Rhino (PCR) Not detected 05/12/20 20:40: WBC 19.8 H, RBC 3.74 L, Hgb 12.7, Hct 38.1, MCV 101.9 H, MCH 34.1 H, MCHC 33.4, RDW 15.6, Plt Count 299, MPV 9.1, Neut % (Auto) 88.2 H, Lymph % (Auto) 7.2 L, Owsley % (Auto) 2.0, Eos % (Auto) 1.8, Baso % (Auto) 0.8, Neut # (Auto) 17.4 H, Lymph # (Auto) 1.4, Owsley # (Auto) 0.4, Eos # (Auto) 0.4, Baso # (Auto) 0.2, Total Counted 100, Neutrophils % (Manual) 73, Band Neutrophils % 21.0 H, Lymphocytes % (Manual) 4 L, Monocytes % (Manual) 1 L, Eosinophils % (Manual) 1, Platelet Estimate Normal, RBC Morphology Normal, Macrocytosis 1+ 05/12/20 20:40: Sodium 129 L, Potassium 3.6,
[2020-05-12 20:52] LABS: Basophils # 0.2 K/mm3 (0-0.2); Basophils % 0.8 % (0.1-2.0); Eosinophils # 0.4 K/mm3 (0.0-0.4); Eosinophils % 1.8 % (0.1-12.0); Hematocrit 38.1 % (37.0-47.0); Hemoglobin 12.7 g/dL (12.2-16.2); Lymphocytes # 1.4 K/mm3 (0.7-4.5); Lymphocytes % 7.2 % (10-50); Mean Corpuscular HGB Conc 33.4 g/dL (31.8-35.4); Mean Corpuscular Hemoglobin 34.1 pg (27.0-31.2); Mean Corpuscular Volume 101.9 fl (81-99); Mean Platelet Volume 9.1 fl (7.4-10.4); Monocytes # 0.4 K/mm3 (0.1-1.0); Neutrophils # 17.4 K/mm3 (1.8-7.8); Neutrophils % 88.2 % (37.0-80.0); Platelet Count 299 K/mm3 (142-424); Red Blood Count 3.74 M/mm3 (4.20-5.40); Red Cell Distribution Width 15.6 % (11.5-17.5); White Blood Count 19.8 K/mm3 (4.8-10.8)
[2020-05-12 20:57] LABS: MANUAL DIFFERENTIAL MANUAL DIFFERENTIAL (MANUAL DIFF)
[2020-05-12 20:59] LABS: Chloride 90 mmol/L (98-107); Potassium 3.6 mmoL/L (3.5-5.1); Sodium 129 mmol/L (136-145)
[2020-05-12 21:01] LABS: Alanine Aminotransferase 52 U/L (12-78); Aspartate Amino Transferase 62 U/L (14-36); Blood Urea Nitrogen 13 mg/dl (7-17); Creatinine Clearance Estimated 92 mL/min (50-200); Estimated Glomerular Filt Rate 74 ml/min (>60); GFR (African American) 90 ML/MIN (>60)
[2020-05-12 21:02] LABS: Albumin Level 3.7 g/dl (3.5-5.0); Albumin/Globulin Ratio 1.1 (1.1-1.8); Alkaline Phosphatase 374 U/L (38-126); Anion Gap 16.6 mEq/L (5-15); Bilirubin,Total 6.5 mg/dl (0.2-1.3); Calcium 9.3 mg/dl (8.4-10.2); Carbon Dioxide 26 mmol/L (22.0-30.0); Globulin 3.5 g/dL (1.3-3.2); Glucose 144 mg/dl (74-100); Total Protein,Serum 7.2 g/dl (6.3-8.2)
[2020-05-12 21:10] LABS: Eosinophils % 1 % (0-3); Lymphocytes % 4 % (10-50); Macrocytosis 1+; Monocytes % 1 % (2-9); Neutrophils % 73 % (42-76); Platelet Estimate Normal; RBC Morphology Normal; Total Cells Counted 100
[2020-05-12 21:11] LABS: NT Pro Brain Natriuretic Pep. 460 pg/mL (0-125)
[2020-05-12 21:14] LABS: Troponin I 0.02 ng/ml (0.00-0.034)
[2020-05-12 21:34] LABS: INR 1.32 (0.9-1.1); Prothrombin Time 14.3 seconds (9.4-11.8)
[2020-05-12 22:26] LABS: Lactic Acid 4.3 mmol/L (0.7-2.1)
--- NOTE | 2020-05-12 22:31 | INFXCTL.NOTE ---
MD notified of critical lactic level and informed of the pt meeting septic shock and criteria for the sepsis bolus. stated that she didnt want the full bolus and only wanted to order 1L of fluid due to pts poor liver function.
--- NOTE | 2020-05-12 23:01 | PC.NURSE ---
Patient assigned to [id number]
--- NOTE | 2020-05-12 23:28 | PC.NURSE ---
ADVISED FLOOR SUPPLY CHAIN [id number] ARE READY FOR ADMIT OF PATIENT.
[2020-05-12 23:58] LABS: Troponin I 0.03 ng/ml (0.00-0.034)
[2020-05-13] VITALS (11 sets, daily range): BP systolic 115–140; BP diastolic 44–72; PULSE 90–111; RESP 17–21; TEMP 36.4–37.3; O2SAT 84–94; BMI 26.6
[2020-05-13 00:09] LABS: Reflex Lactic Add Lactic Reflex
--- NOTE | 2020-05-13 00:19 | PC.NURSE ---
PT ARRIVED TO THE FLOOR VIA WHEELCHAIR @ [id number]
[2020-05-13 00:54] LABS: Lactic Acid Follow Up (RFLX 1) 2.4 mmol/L (0.7-2.1)
[2020-05-13 02:21] LABS: Reflex Lactic (2 hrs) Add Lactic Reflex
[2020-05-13 03:12] LABS: Lactic Acid Follow up (RFLX 2) 2.2 mmol/L (0.7-2.1)
--- NOTE | 2020-05-13 06:00 | XR_ITS ---
PROCEDURE: XR CHEST PORTABLE CLINICAL HISTORY: pneumonia COMPARISON: DX XR CHEST 2V from 01/29/2020 CR XR CHEST PORTABLE from 05/12/2020 FINDINGS: The cardiomediastinal silhouette and pulmonary vascularity are within normal limits. There is diffuse bilateral pneumonia once again noted appears slightly worse in the left midlung unchanged on the right. No acute bony abnormalities. IMPRESSION: Diffuse bilateral pneumonia slightly worse on the left Dictated by: Vick Laureano MD 05/13/2020 06:52 Vick Laureano MD in [facility] 05/13/2020 06:52
--- NOTE | 2020-05-13 06:15 | PC.NURSE ---
0500 pt complained of nausea, states that Mylanta works best for her. pt had received a dose in ER at 2230. one time dose for 30ml maalox received from Dr Smith.
--- NOTE | 2020-05-13 06:20 | PC.NURSE ---
Patient has rested well since this RN assumed care. Only patient complaint is of nausea, received 1 time dose of maalox. nausea resolved. nad noted. will monitor.
[2020-05-13 06:57] LABS: Basophils # 0.1 K/mm3 (0-0.2); Basophils % 0.5 % (0.1-2.0); Eosinophils # 0.1 K/mm3 (0.0-0.4); Eosinophils % 0.8 % (0.1-12.0); Hematocrit 32.1 % (37.0-47.0); Lymphocytes # 0.4 K/mm3 (0.7-4.5); Lymphocytes % 2.6 % (10-50); Mean Corpuscular HGB Conc 33.9 g/dL (31.8-35.4); Mean Corpuscular Hemoglobin 34.3 pg (27.0-31.2); Mean Corpuscular Volume 101.2 fl (81-99); Mean Platelet Volume 7.7 fl (7.4-10.4); Monocytes # 0.4 K/mm3 (0.1-1.0); Monocytes % 2.4 % (1.7-9.3); Neutrophils # 13.9 K/mm3 (1.8-7.8); Neutrophils % 93.8 % (37.0-80.0); Platelet Count 206 K/mm3 (142-424); Red Blood Count 3.18 M/mm3 (4.20-5.40); Red Cell Distribution Width 15.6 % (11.5-17.5); White Blood Count 14.8 K/mm3 (4.8-10.8)
[2020-05-13 07:00] LABS: Hemoglobin 10.9 g/dL (12.2-16.2); MANUAL DIFFERENTIAL MANUAL DIFFERENTIAL (MANUAL DIFF)
[2020-05-13 07:06] LABS: Anion Gap 12.6 mEq/L (5-15); Blood Urea Nitrogen 14 mg/dl (7-17); Carbon Dioxide 26 mmol/L (22.0-30.0); Chloride 95 mmol/L (98-107); Creatinine Clearance Estimated 106 mL/min (50-200); Estimated Glomerular Filt Rate 87 ml/min (>60); GFR (African American) 105 ML/MIN (>60); Glucose 171 mg/dl (74-100); Potassium 3.6 mmoL/L (3.5-5.1); Sodium 130 mmol/L (136-145)
[2020-05-13 07:10] LABS: Calcium 8.3 mg/dl (8.4-10.2)
--- NOTE | 2020-05-13 07:41 | P.CONPHA_ITS ---
[facility] Pharmacy VTE Monitoring - Patient Demographics Admission date: 05/12/20 Report Date: 05/13/20 Time: 07:41 Allergies/Adverse Reactions: Patient Allergies No Known Allergies Allergy (Verified 04/10/20 10:43) Height: 1.68 m Weight: 74.928 kg Patient Problems: Current Active Problems Pneumonia (Acute) Acute respiratory failure with hypoxia (Acute) - VTE Risk Labs: VTE Related Lab Results Hgb 10.9 g/dL (12.2-16.2) L D 05/13/20 06:50 Hct 32.1 % (37.0-47.0) L 05/13/20 06:50 Plt Count 206 K/mm3 (142-424) D 05/13/20 06:50 PT 14.3 seconds (9.4-11.8) H 05/12/20 21:10 INR 1.32 (0.9-1.1) H 05/12/20 21:10 BUN 14 mg/dl (7-17) 05/13/20 06:50 Creatinine 0.70 mg/dl (0.52-1.04) 05/13/20 06:50 Estimated Creat Clear 106 mL/min (50-200) 05/13/20 06:50 Was VTE Risk Assessment Performed: Yes VTE Score: 1 VTE Risk Level: Very Low Risk - Prophylaxis VTE Prophylaxis Ordered?: Yes Types of VTE Prophylaxis: IPCS Thigh High Location of Applied Device: Bilateral Lower Extremeties
--- NOTE | 2020-05-13 08:59 | PC.NURSE ---
patient states that she could not take medication at this time.
[2020-05-13 09:03] LABS: Lymphocytes % 19 % (10-50); Monocytes % 3 % (2-9); Neutrophils % 78 % (42-76); Platelet Estimate Normal; RBC Morphology Normal; Total Cells Counted 100
--- NOTE | 2020-05-13 09:38 | HMH.HP ---
*Admission Date: 05/12/20 *Chief complaint: sob *History of present illness: this pt with progressive sob and cough and dec po intake over the last few days presented to the ed - he patient is a 54 year old female with a history of autoimmune hepatitis who presents to the ED with shortness of breath. The patient states for the last 2 days she had had cough and shortness of breath. She also notes subjective fever and chills. She has chronic diarrhea but no new nausea vomiting or abdominal pain. She had a negative COVID test 2 days ago. She had recent travel to [place] over the holidaysh patient is a 54 year old female with a history of autoimmune hepatitis who presents to the ED with shortness of breath and cough. On arrival she has an elevated temperature to 100.0F and is tachycardic, she is satting in the mid 80s on room air. She was placed on 5L NC with improvement to the mid 90s. She has coarse bilateral breath sounds on exam. Labs including CBC, CMP, INR, troponin, BNP were ordered. BNP was elevated to the 400s. WBC was 19. INR was mildly elevated. CXR was obtained which shows bilateral diffuse infiltrates. Despite her recent covid negative test I am concerned for COVID-19 pneumonia based on her presentation and work up. COVID PCR was ordered. She was given ceftriaxone and azithromycin IV for possible overlying bacterial pneumonia. Spoke with Dr. Smith who agreed to admit the patient for pneumonia and acute hypoxic respiratory failure- pt with underlying liver disease followed by dr freed and cap with hypoxia - admitted for ivf and abx and resp treatment [facility] History I have reviewed the patient's past medical history: Yes Medical History: Reports:: Anxiety, Depression, Hypertension, Valvular Heart Disease Denies:: Cancer, Diabetes Mellitus Type 1, Diabetes Mellitus Type 2, Internal Pacemaker, Lung Disease, MRSA, Seizures *Have you ever received a pneumonia vaccine?: Yes *Have you received a flu vaccine this season?: Yes Other Medical History: Reports: Hypothyroidism, Liver Disease Laterality Cases: Left: Arthroscopy Knee Other Surgeries: Yes: Colonoscopy. No: Pacemaker Amputation: No Fractures: No - *Social History Last grade of school completed: Some college Smoking Status: Never smoker Alcohol Intake: former Alcohol Intake Frequency:: 0-2 drinks per day Substance Use Type: denies use *Occupational Status:: employed Housing: house Household Members: children *Travel in the last 8 weeks: Inside the [place] - Psychiatric History Pschychiatric History:: Reports:: Anxiety, Depression Family Hx:: Cancer Review of Systems - Review of Systems Review of systems:: pertinent systems reviewed and negative unless documented below - Constitutional Reports fatigue, Reports malaise, Denies fever(s) - Eyes Denies change in vision - ENT Denies dizziness - *Cardiovascular Reports shortness of breath, Denies chest pain at rest - *Respiratory Reports cough, Reports shortness of breath, Denies coughing up blood - *Gastrointestinal Denies abdominal pain - *Genitourinary Denies blood in urine - *Musculoskeletal Denies joint pain - Integumentary/Breasts Denies rash - *Neurologic Denies seizure-like activity, Denies headache(s), Denies tingling/numbness/burning sensations, Denies seizure-like activity Meds Home Medications Medication Instructions Recorded Confirmed Type Furosemide [Furosemide 20mg Tab*] 20 mg PO DAILY 03/04/20 05/12/20 History Spironolactone 50 mg PO DAILY 03/04/20 05/12/20 History methylPREDNISolone 4 mg PO DAILY 03/27/20 05/13/20 History [Methylprednisolone] ursodioL [Ursodiol] 300 mg PO BID 03/27/20 05/13/20 History gabapentin 100 mg capsule 200 mg PO BID 30 Days #120 cap 03/28/20 05/12/20 Rx Levothyroxine Sodium 25 mcg PO DAILY 05/12/20 05/12/20 History [Levothyroxine] Allergies Allergy/AdvReac Type Severity Reaction Status Date / Time No Known Allergies Allergy Verified
--- NOTE | 2020-05-13 09:47 | CA_ITS ---
APPROVED REPORT EXAM: Comprehensive 2D, Doppler, and color-flow Echocardiogram Debarker Operator: Katia Lemos CRT Ht: 5 ft 6 in Wt: 165lbs BSA: 1.84 BP: 140/65 mmHg Indications: Mitral Valve Prolapse, Shortness of Breath, Hypertension/HDD, cirrhosis, hepatitis, pneumonia 2D Dimensions LVOT 1.86 cm (M/F) 1.5-2.5 M-Mode Dimensions RVDd 2.49 cm (0.9-2.6) LA Diam 4.41 cm (1.9-4.0) LVDd 4.94 cm (3.5-5.7) Ao Diam 3.28 cm (2.0-3.7) LVDs 3.53 cm (3.5-5.7) IVSd 1.81 cm (0.6-1.1) PWd 1.00 cm (0.6-1.1) EF (Teich) 54.90% FS 28.50% EDV (Teich) 115.00 mL ESV (Teich) 51.90 mL LV Diastology E Decel Time 213.00 (160-240 msec) E/A Ratio 0.90 MED E' 8.60 (< 7 cm/sec) E'/MED E' Ratio 9.26 (>14) LAT E' 6.20 (<10 cm/sec) E/LAT E' Ratio 12.84 (>14) Aortic Valve LVOT Max 183.00 (70-110 cm/s) LVOT VTI 32.23 cm AoV Peak Jose Luis. 190.00 (50-130 cm/s) AO Peak GR. 14.50 mmHg AO Mean GR. 6.80 (<5 mmHg) AO VTI 30.34 (18-25 cm) GUSTAVO (VTI) 2.89 (2.5-4.5 cm2) Mitral Valve MV A Velocity 89.00 (40-130 cm/s) E/A Ratio 0.90 MV Decel. Time 213.00 (160-240 ms) Pulmonary Valve PV Peak Velocity 85.00 (50-150 cm/s) Tricuspid Valve TR P. Velocity 263.00 cm/s RAP Estimate 10.00 mmHg RVSP 37.70 mmHg Left Ventricle Left atrium is normal size, left ventricle is normal size, hyperdynamic left ventricular systolic function, visually estimated ejection fraction over 65% with no regional wall motion abnormality. Diastolic parameters are inconclusive. Right Ventricle Right atrium and right ventricle are normal size and contractility. Aortic Valve Aortic valve is minimally thickened and fibrosed, there is no aortic stenosis or aortic insufficiency. Mitral Valve Mitral valve is grossly normal, there is no obvious mitral valve prolapse seen, there is no mitral regurgitation. Tricuspid Valve Tricuspid valve is grossly normal, there is trace tricuspid regurgitation. Pulmonic Valve Pulmonic valve is poorly visualized. Great Vessels Aortic root is normal size. Pericardium No significant pericardial effusion noted. Conclusion 1. Normal left ventricular size, hyperdynamic left ventricular systolic function, visually estimated ejection fraction over 65% with no regional wall motion abnormality, diastolic parameters are inconclusive. 2. No obvious mitral valve prolapse seen, there is no mitral regurgitation. 3. Trace tricuspid regurgitation. 4. No significant pericardial effusion noted. Electronically signed by : Krzysztof Alvarado, 05/14/2020 05:56:04
--- NOTE | 2020-05-13 09:59 | HMH.PULMCON ---
*Admission Date: 05/12/20 *Reason for consult:: Acute hypoxic respiratory failure, community-acquired pneumonia *History of present illness: Ms. Hendricks is 54-year-old female never smoker no prior respiratory complaints history of autoimmune hepatitis has been on ursodiol, decompensated cirrhosis with ascites, on spironolactone and Lasix at home, recently completed a course of high-dose steroids presented to the emergency department complaining of 5-day history of fevers along with worsening cough and pleuritic chest pain. Patient denies any productive phlegm with her cough. Patient denies any sick contacts. Patient denies any hemoptysis. Patient denies any history of prior respiratory infections. Denies any childhood or frequent respiratory infections [facility] History Medical History: Reports:: Anxiety, Depression, Hypertension, Valvular Heart Disease Denies:: Cancer, Diabetes Mellitus Type 1, Diabetes Mellitus Type 2, Internal Pacemaker, Lung Disease, MRSA, Seizures *Have you ever received a pneumonia vaccine?: Yes *Have you received a flu vaccine this season?: Yes Other Medical History: Reports: Hypothyroidism, Liver Disease Laterality Cases: Left: Arthroscopy Knee Other Surgeries: Yes: Colonoscopy. No: Pacemaker Amputation: No Fractures: No - *Social History Last grade of school completed: Some college Smoking Status: Never smoker Alcohol Intake: former Alcohol Intake Frequency:: 0-2 drinks per day Substance Use Type: denies use *Occupational Status:: employed Housing: house Household Members: children *Travel in the last 8 weeks: Inside the [place] - Psychiatric History Pschychiatric History:: Reports:: Anxiety, Depression Family Hx:: Cancer ROS - Review of Systems Review of systems:: pertinent systems reviewed and negative unless documented below - Cons Reports body ache(s), Reports chills, Reports fatigue, Reports fever(s) - Card Reports chest pain, Reports excessive sweating, Reports shortness of breath, Reports shortness of breath with activity - Resp Respiratory: Yes shortness of breath, Yes chest congestion, Yes cough, Yes non-productive cough, Yes dyspnea on exertion, No coughing up blood, Yes pain on inspiration, Yes pain with cough, No cough with sputum production, Yes pain with breathing - GI Gastrointestingal: Reports: system reviewed and no additional complaints, except as docu - [place] Musculoskeletal: Reports system reviewed and no additional complaints, except as docu Meds Home Medications Medication Instructions Recorded Confirmed Type Furosemide [Furosemide 20mg Tab*] 20 mg PO DAILY 03/04/20 05/12/20 History Spironolactone 50 mg PO DAILY 03/04/20 05/12/20 History methylPREDNISolone 4 mg PO DAILY 03/27/20 05/13/20 History [Methylprednisolone] ursodioL [Ursodiol] 300 mg PO BID 03/27/20 05/13/20 History gabapentin 100 mg capsule 200 mg PO BID 30 Days #120 cap 03/28/20 05/12/20 Rx Levothyroxine Sodium 25 mcg PO DAILY 05/12/20 05/12/20 History [Levothyroxine] Allergies Allergy/AdvReac Type Severity Reaction Status Date / Time No Known Allergies Allergy Verified 04/10/20 10:43 Exam Radiology reports for Last 24 Hours: Chest x-ray from admission reviewed showing bilateral airspace disease. Chest x-ray from March 2020 within normal limits - Constitutional Constitutional:: comfortable Comment:: Mild respiratory distress - HENMT Exam HENMT: normocephalic, atraumatic - Eye Exam Eyes:: eyelids normal - Neck Exam Neck:: normal visual inspection, thyroid normal, no lymphadenopathy - Respiratory Exam Respiratory:: able to speak in complete sentences (Mild respiratory distress. Bilateral coarse breath sounds in mid lung carrillo. No wheeze heard. Able to talk in complete sentences.) - Cardiovascular Exam Cardiac:: S1, S2 - GI Exam GI:: soft, no hepatosplenomegaly - Skin Exam Skin: warm, no rash - Neurological Exam Neurological: alert, awake, normal co
--- NOTE | 2020-05-13 10:23 | PC.NURSE ---
patient noted to be nauseated and continues to refuse meds till 1200. she is stating that she feels like she is continually going to the bathroom. notified md about patient request for maalox stating it helped better than zofran, then asked about getting a diarrhea panel, he stated to place order and to start patient on flagyl 500mg iv tid. maaolx 30ml q6hprn for nausea.
--- NOTE | 2020-05-13 12:08 | HMH.PHAINT ---
MEDICATION RECONCILIATION COMPLETED ON PATIENT USING EXTERNAL FILL HISTORY FROM PHARMACY AND LIST ROM MD OFFICE. -IMTIAZ BYERSD
--- NOTE | 2020-05-13 12:50 | PC.NURSE ---
Addendum entered by Claudia Yao RN 05/13/20 12:56: patient rechecked and is 88%. does not wear oxygen at home. no distress noted Original Note: patient switched over to a 50% venti mask with sats at 87%. contacted pulmonology to see what they wanted us to maintain patient sats at. patient complains of slight shortness of breath but no other symptoms.
[2020-05-13 15:15] LABS: Adenovirus F 40/41, stool Not Detected (NotDetected); Astrovirus Not Detected (NotDetected); Campylobacter Not Detected (NotDetected); Clostridium Difficile A/B, PCR Not Detected (NotDetected); Cryptosporidium Not Detected (NotDetected); Cyclospora Cayetanesis Not Detected (NotDetected); Entamoeba histolytica Not Detected (NotDetected); Enteroaggregative E coli Not Detected (NotDetected); Enteropathogenic E coli Not Detected (NotDetected); Enterotoxigenic E coli Not Detected (NotDetected); Giardia lamblia Not Detected (NotDetected); Norovirus Not Detected (NotDetected); Plesimonas Shigalloides, PCR Not Detected (NotDetected); Rotavirus A Not Detected (NotDetected); Salmonella, PCR Not Detected (NotDetected); Shiga-like toxin E coli Not Detected (NotDetected); Shigella Enterovasive E coli Not Detected (NotDetected); Vibrio Cholerae Not Detected (NotDetected); Vibrio, PCR Not Detected (NotDetected); Yersinia Entercolitica, PCR Not Detected (NotDetected)
--- NOTE | 2020-05-13 16:16 | PC.NURSE ---
patient has been weak this shift. she has been incontinent of stool this shift. this morning it was brown and liquid, and now has become yellow mucous. she has tolerated her venti mask at 50% well. patient mood has been a little better. not tolerating food. only urinated once this shift. lungs have some ronchi but seemed clear. patient states nausea mathias so may be heart burn she states, maalox tends to help. states she sees richard edmonds in dr. freed office for her autoimmune disease. refusing all vitamins at this time stating they upset her stomach too much. she has been somewhat short of breath but states the mask has helped. vitals stable.
[2020-05-14] VITALS (9 sets, daily range): BP systolic 119–157; BP diastolic 48–90; PULSE 88–107; RESP 20–44; TEMP 35.6–37.1; O2SAT 87–95; BMI 26.9
--- NOTE | 2020-05-14 05:45 | PC.NURSE ---
Pt has rested well since taking a shower this shift. when sleeping pt is noted to take the venti mask off and requires frequent checks. when pt is sleeping with mask off, she is noted to make grunting like sounds in her sleep. pt was given an IS ans is attempting to use it. nad noted, will continue to monitor.
--- NOTE | 2020-05-14 10:30 | CT_ITS ---
PROCEDURE: CT ANGIO CHEST CLINCIAL INDICATION: pneumonia Shortness of air, cough, Covid19 positive COMPARISON: CR XR CHEST PORTABLE from 05/13/2020 TECHNIQUE: IV Contrast: 70ML Isovue 370 Axial images obtained with sagittal and coronal reformats. All CT scans at the facility use one or more dose reduction, viz: automated exposure control, ma/kV adjustment per patient size (including targeted exams where dose is matched to indication, i.e. head), or iterative reconstruction technique. FINDINGS: No evidence of aortic aneurysm or dissection. There is mild cardiomegaly. No central pulmonary embolus is apparent. Mild motion artifact somewhat obscures fine detail of the peripheral pulmonary arteries. There is diffuse bilateral airspace consolidation with some sparing of the peripheral aspect of the lung carrillo. There is also some sparing of the lung bases from consolidation but there are atelectatic changes noted in the lung bases. There are trace bilateral pleural effusions. No cavitation. No mediastinal or hilar adenopathy. The diffuse bilateral airspace opacification could very well obscure underlying pulmonary nodules. There is a small hiatal hernia. Upper abdominal images show mild perihepatic fluid. The liver contour is slightly irregular. There is a 8 mm hypodense nodule in the right hepatic lobe superiorly. There is mild thickening of the distal esophagus which is nonspecific. Perisplenic varices are present. IMPRESSION: 1. No evidence of pulmonary embolus. 2. Diffuse bilateral alveolar consolidation which may represent diffuse pneumonia. Pulmonary edema would be included in the differential diagnosis. There are trace bilateral effusions and bibasilar atelectasis. 3. Cirrhosis with portal hypertension with perisplenic varices and trace perihepatic fluid with nonspecific 8 mm hypodense lesion in the hepatic dome. Dictated by: Vick Laureano MD 05/15/2020 09:35 Vick Laureano MD in [place] 05/15/2020 09:35
--- NOTE | 2020-05-14 10:47 | [facility]H.PULMPN ---
Internal Medicine - PN: Subj *Date: 05/14/20 *Time: 10:47 Interval history: Respiratory status worsened from yesterday, so requirement escalated to Ventimask, saturating 95% this morning. Exam - Constitutional Constitutional:: no acute distress, comfortable - HENMT Exam HENMT: normocephalic, atraumatic - Eye Exam Eyes:: eyelids normal, normal conjunctiva - Neck Exam Neck:: thyroid normal, no lymphadenopathy - Respiratory Exam Respiratory:: able to speak in complete sentences Comments: Patient appeared to be in mild respiratory distress, auscultation reveals worsening coarse breath sounds in the right lung carrillo. Left lung field auscultation remained the same. No audible wheeze heard. - Cardiovascular Exam Cardiac:: S1, S2 - GI Exam GI:: soft, no hepatosplenomegaly - Skin Exam Skin: warm, no rash - Neurological Exam Neurological: alert, awake, normal cognition - Extremities Exam Extremities: no cyanosis, no clubbing, edema Assessment and Plan (1) Acute respiratory failure with hypoxia Status: Acute Category: Medical Code(s): J96.01 - Acute respiratory failure with hypoxia (2) Cirrhosis Status: Chronic Qualifiers: Hepatic cirrhosis type: unspecified hepatic cirrhosis Ascites presence: unspecified Qualified Code(s): K74.60 - Unspecified cirrhosis of liver Category: Medical Code(s): K74.60 - Unspecified cirrhosis of liver (3) Neuropathy Status: Chronic Category: Medical Code(s): G62.9 - Polyneuropathy, unspecified (4) Severe sepsis with acute organ dysfunction Status: Acute Category: Medical Code(s): A41.9 - Sepsis, unspecified organism; R65.20 - Severe sepsis without septic shock (5) Hyponatremia Status: Acute Category: Medical Code(s): E87.1 - Hypo-osmolality and hyponatremia (6) Hypothyroidism (acquired) Status: Acute Category: Medical Code(s): E03.9 - Hypothyroidism, unspecified (7) Overweight (BMI 25.0-29.9) Status: Acute Category: Medical Code(s): E66.3 - Overweight - Assessment and plan all Dx Assessment and Plan for all problems:: #Acute hypoxic respiratory failure: #Community-acquired pneumonia: #Pneumonia in immunocompromised: 54-year-old autoimmune hepatitis decompensated cirrhosis on Lasix and spironolactone, recently completed one month of high-dose steroids 80 mg of methylprednisolone daily currently on taper presented with worsening respiratory failure, pleuritic chest pain and chest x-ray showed bilateral pulmonary infiltrates consistent with pneumonia. No prior respiratory complaints. Patient last dose of high-dose steroids was 10 years ago. Never Smoker. ~Patient respiratory failure likely from community-acquired pneumonia however given immunocompromise state atypical organisms cannot be completely ruled out. Resp viral PCR including COVID-19 PCR resulted negative. CBC left shift with leukocytosis. Interval update: Patient respiratory status slightly worsened from yesterday, milligrams increased to Ventimask. Auscultation of worsening coarse breath sounds in the right lung carrillo. Given patient's immunocompromise state will escalate ceftriaxone to cefepime. Echo performed, relatively normal with EF 65%. Diastolic parameters inconclusive. Plan: - Follow with CT PE protocol - Continue azithromycin and change ceftriaxone to cefepime -Continue home diuretic regimen - F/U sputum for bacterial, silver and VIVIAN stain, and culture - F/U LDH, beta glucan and galactomannan -F/U Urine strep Legionella antigens -We will monitor clinically for improvement of patient over to worsen will consider bronchoscopy if the sputum studies are unyielding #Thank you for involving pulmonary in this patient care. We will continue to follow.
[2020-05-14 10:58] LABS: Lactate Dehydrogenase 479 U/L (313-618)
--- NOTE | 2020-05-14 11:52 | HMH.ACPN2 ---
Internal Medicine - PN: Subj *Date: 05/14/20 *Time: 14:39 Interval history: 54-year-old female patient resting in bed with Ventimask on, currently oxygen saturations 93%. She does report she feels better today but there has been an increase in oxygen requirements. Pulmonology has seen and recommends: Plan: - Continue ceftriaxone azithromycin for possible community-acquired pneumonia. - We will induce sputum for bacterial, silver and VIVIAN stain, and culture -Serum LDH, beta glucan and galactomannan -Urine strep Legionella antigens -We will monitor clinically for improvement of patient over to worsen will consider bronchoscopy if the sputum studies are unyielding Exam Vital signs and Labs for Last 24 Hours: Temp Pulse Resp BP Pulse Ox 97.9 F 99 H 24 157/73 H 95 05/14/20 08:00 05/14/20 08:00 05/14/20 08:00 05/14/20 08:00 05/14/20 08:00 Laboratory Results - last 24 hr 05/14/20 10:18: Lactate Dehydrogenase 479 I & O for Last 24 hours: Intake & Output 05/11/20 05/12/20 05/13/20 05/14/20 23:59 23:59 23:59 23:59 Intake Total 2647 / 2647 1447 / 1447 Balance 2647 / 2647 1447 / 1447 Weight 164 lb 165 lb 3 oz 167 lb 8.821 oz - Constitutional no acute distress - *Routine HEENT Exam Head: Present: normocephalic, facial swelling ENT: Present: mucous membranes moist - *Routine Neck Exam Present: supple, trachea midline. Absent: tracheal deviation - *Routine Respiratory Exam Present: rales. Absent: accessory muscle use - *Routine Cardiovascular Exam Present: RRR - *Routine Abdominal Exam Present: soft, normoactive bowel sounds. Absent: rigid, hernia - *Routine Extremities Exam Present: full ROM, pulses intact. Absent: cyanosis, calf tenderness - *Routine Skin Exam Present: intact, dry, warm. Absent: cyanosis, erythema - *Routine Neurological Exam Present: alert, oriented X3. Absent: altered mental status - Routine Psychiatric Exam Present: normal affect, normal thought process. Absent: auditory hallucinations, visual hallucinations Assessment and Plan (1) Acute respiratory failure with hypoxia Status: Acute Category: Medical Code(s): J96.01 - Acute respiratory failure with hypoxia (2) Cirrhosis Status: Chronic Qualifiers: Hepatic cirrhosis type: unspecified hepatic cirrhosis Ascites presence: unspecified Qualified Code(s): K74.60 - Unspecified cirrhosis of liver Category: Medical Code(s): K74.60 - Unspecified cirrhosis of liver (3) Neuropathy Status: Chronic Category: Medical Code(s): G62.9 - Polyneuropathy, unspecified (4) Severe sepsis with acute organ dysfunction Status: Acute Category: Medical Code(s): A41.9 - Sepsis, unspecified organism; R65.20 - Severe sepsis without septic shock (5) Hyponatremia Status: Acute Category: Medical Code(s): E87.1 - Hypo-osmolality and hyponatremia (6) Hypothyroidism (acquired) Status: Acute Category: Medical Code(s): E03.9 - Hypothyroidism, unspecified (7) Overweight (BMI 25.0-29.9) Status: Acute Category: Medical Code(s): E66.3 - Overweight - Assessment and plan all Dx Assessment and Plan for all problems:: Rounded with Dr. Friedman, all orders per Dr. Friedman: 1. Covid-[address]
--- NOTE | 2020-05-14 12:21 | PC.NURSE ---
patient pump beeping and turned pump off twice so cefepime is still running will give flagyl once done
--- NOTE | 2020-05-14 14:51 | PC.NURSE ---
md is aware that patient is covid positive. precautions had been implemented. transferred patient over to covid unit. report given to al craig. patient in stable condition. tolerating venturi mask well. has been up to bsc. still some episodes of incontinence. vitas stable.
--- NOTE | 2020-05-14 17:20 | DIET.NUTRFU ---
Addendum entered by Wendy Key 05/16/20 15:46: Pt with improvement PO intakes- 50-75%, Boost TID, plus snacks by request. Volume overload and hyperglycemia(~220) both noted. Diet altered to No Salt Added with sugar free beverages/desserts. Weight not taken today but has remained stable within 3#. Original Note: Nutritional assessment, IP completed. Pt at risk malnutrition rt COVID-19 with Cirrhosis. Will continue Regular diet (without salt on trays) given minimal intakes/poor ability to tolerate PO intakes and diarrhea. Fat free clear liquid protein supplement TID on diet order. Will monitor closely and adjust nutritional care plan as indicated.
--- NOTE | 2020-05-14 19:00 | PC.NURSE ---
WHILE UNDER THIS NURSE'S CARE, PT TOLERATED 15L ON VENTI MASK OK. SHE DESATS QUICKLY IF SHE TAKES IT OFF TO GET A DRINK OF TALKS ON THE PHONE, BUT RECOVERS WITHIN A FEW MINUTES. RESPIRATIONS REGULAR AND UNLABORED. ACTIVE BOWEL SOUNDS HEARD IN ALL 4 QUADRANTS. SOFT AND NONTENDER ABDOMEN. +2 PULSES NOTED THROUGHOUT. HAND SUPERVISOR FISH PROCESSING EQUAL. PT VOIDS PER BSC WITH STANDBY ASSIST. 1 LOOSE BM NOTED. NO REPORTS OF NAUSEA. PT HAS REMAINED AFEBRILE. CALL LIGHT WITHIN REACH. BED IN LOWEST POSITION. VSS. WILL CONTINUE TO MONITOR.
[2020-05-14 19:18] LABS: Basophils # 0.1 K/mm3 (0-0.2); Basophils % 0.6 % (0.1-2.0); Eosinophils % 0.1 % (0.1-12.0); Hematocrit 35.1 % (37.0-47.0); Hemoglobin 11.7 g/dL (12.2-16.2); Lymphocytes # 0.7 K/mm3 (0.7-4.5); Lymphocytes % 3.3 % (10-50); Mean Corpuscular HGB Conc 33.3 g/dL (31.8-35.4); Mean Corpuscular Hemoglobin 33.7 pg (27.0-31.2); Mean Corpuscular Volume 101.2 fl (81-99); Monocytes # 0.5 K/mm3 (0.1-1.0); Monocytes % 2.1 % (1.7-9.3); Neutrophils # 20.5 K/mm3 (1.8-7.8); Platelet Count 278 K/mm3 (142-424); Red Blood Count 3.47 M/mm3 (4.20-5.40); Red Cell Distribution Width 17.2 % (11.5-17.5); White Blood Count 21.8 K/mm3 (4.8-10.8)
[2020-05-14 19:22] LABS: Chloride 100 mmol/L (98-107); Sodium 134 mmol/L (136-145)
[2020-05-14 19:25] LABS: Alanine Aminotransferase 45 U/L (12-78); Alkaline Phosphatase 329 U/L (38-126); Aspartate Amino Transferase 59 U/L (14-36); Bilirubin,Total 2.3 mg/dl (0.2-1.3); Blood Urea Nitrogen 19 mg/dl (7-17); Creatinine Clearance Estimated 108 mL/min (50-200); Estimated Glomerular Filt Rate 87 ml/min (>60); GFR (African American) 105 ML/MIN (>60); MANUAL DIFFERENTIAL MANUAL DIFFERENTIAL (MANUAL DIFF)
[2020-05-14 19:26] LABS: Albumin Level 3.4 g/dl (3.5-5.0); Calcium 8.8 mg/dl (8.4-10.2); Globulin 3.3 g/dL (1.3-3.2); Glucose 331 mg/dl (74-100); Potassium 2.8 mmoL/L (3.5-5.1); Total Protein,Serum 6.7 g/dl (6.3-8.2)
[2020-05-14 20:22] LABS: Lymphocytes % 2 % (10-50); Macrocytosis 1+; Neutrophils % 97 % (42-76); Platelet Estimate Normal; RBC Morphology Normal; Total Cells Counted 100
[2020-05-14 20:23] LABS: Burr Cells 1+
[2020-05-14 20:53] LABS: Anion Gap 14.8 mEq/L (5-15); Carbon Dioxide 22 mmol/L (22.0-30.0)
--- NOTE | 2020-05-14 21:06 | PC.NURSE ---
Pt O2 desat to 75% on venti mask 50%. Pt was placed on 100% nonrebreather. MD Goldberg notified of pt condition and potassium of 2.8. Potassium 60 mg PO ordered x1.
[2020-05-15] VITALS (12 sets, daily range): BP systolic 126–135; BP diastolic 59–81; PULSE 99–114; RESP 20–34; TEMP 36.2–36.9; O2SAT 88–97; BMI 27.1
--- NOTE | 2020-05-15 00:20 | PC.NURSE ---
Addendum entered by Amaya Munoz RN 05/15/20 00:23: Per MD Goldberg: Keep O2 sats 85% or greater. Original Note: Attempted to place pt back on venti mask @50%. Pt desat in the 70s. Pt placed back on 100% nonrebreather. O2 sat is currently 93%.
--- NOTE | 2020-05-15 04:54 | PC.NURSE ---
No acute changes since last assessment. Pt remains on 100% nonrebreather. She has c/o soa at times and is tachypneic. Lungs are diminished t/o. Other VSS. Medications administered per jul. Pt has been incontinent of urine this shift. No other concerns at this time. Will continue to monitor.
[2020-05-15 08:24] LABS: Basophils % 0.1 % (0.1-2.0); Eosinophils % 0.2 % (0.1-12.0); Hematocrit 33.6 % (37.0-47.0); Lymphocytes # 0.7 K/mm3 (0.7-4.5); Lymphocytes % 4.2 % (10-50); Mean Corpuscular HGB Conc 30.3 g/dL (31.8-35.4); Mean Corpuscular Hemoglobin 32.6 pg (27.0-31.2); Mean Corpuscular Volume 107.5 fl (81-99); Mean Platelet Volume 7.7 fl (7.4-10.4); Monocytes # 0.4 K/mm3 (0.1-1.0); Neutrophils # 16.9 K/mm3 (1.8-7.8); Neutrophils % 93.6 % (37.0-80.0); Platelet Count 240 K/mm3 (142-424); Red Blood Count 3.12 M/mm3 (4.20-5.40); Red Cell Distribution Width 15.6 % (11.5-17.5); White Blood Count 18.1 K/mm3 (4.8-10.8)
[2020-05-15 08:25] LABS: MANUAL DIFFERENTIAL MANUAL DIFFERENTIAL (MANUAL DIFF)
[2020-05-15 08:37] LABS: Anion Gap 12.7 mEq/L (5-15); Blood Urea Nitrogen 17 mg/dl (7-17); Calcium 8.7 mg/dl (8.4-10.2); Carbon Dioxide 23 mmol/L (22.0-30.0); Chloride 105 mmol/L (98-107); Creatinine Clearance Estimated 108 mL/min (50-200); Estimated Glomerular Filt Rate 87 ml/min (>60); GFR (African American) 105 ML/MIN (>60); Glucose 247 mg/dl (74-100); Potassium 4.7 mmoL/L (3.5-5.1); Sodium 136 mmol/L (136-145)
[2020-05-15 09:05] LABS: Alanine Aminotransferase 37 U/L (12-78); Albumin Level 3.1 g/dl (3.5-5.0); Alkaline Phosphatase 297 U/L (38-126); Amylase 56 U/L (30-110); Aspartate Amino Transferase 57 U/L (14-36); Bilirubin,Indirect 0.8 mg/dL (0.0-0.9); Bilirubin,Total 1.8 mg/dl (0.2-1.3); Bilirubin,Unconjugated 0.8 mg/dL (0.0-1.1); Lipase 136 U/L (23-300); Phosphorous 2.7 mg/dl (2.5-4.5); Total Protein,Serum 6.3 g/dl (6.3-8.2)
[2020-05-15 09:55] LABS: Lymphocytes % 2 % (10-50); Monocytes % 2 % (2-9); Neutrophils % 96 % (42-76); Platelet Estimate Normal; Total Cells Counted 100
[2020-05-15 09:56] LABS: Macrocytosis 2+
[2020-05-15 10:01] LABS: Hemoglobin 10.2 g/dL (12.2-16.2)
--- NOTE | 2020-05-15 10:43 | HMH.PULMPN ---
Internal Medicine - PN: Subj *Date: 05/15/20 *Time: 10:43 Interval history: Patient respiratory status improved to remained stable yesterday, this morning on 6 L nasal cannula saturating 92 to 94%. Patient also tested positive for COVID-19 by nasal MRSA PCR yesterday after 2 negative tests, eventually was transferred to ICU Exam - Constitutional Constitutional:: no acute distress, comfortable - HENMT Exam HENMT: normocephalic, atraumatic - Eye Exam Eyes:: eyelids normal, normal conjunctiva - Neck Exam Neck:: thyroid normal, no lymphadenopathy - Respiratory Exam Respiratory:: able to speak in complete sentences, bibailar crackels heard Comments: Mild respiratory distress. Bibasilar crackles and coarse breath sounds bilaterally. No audible wheeze heard. - Cardiovascular Exam Cardiac:: S1, S2 - GI Exam GI:: soft Comments: No guarding. No rebound tenderness. - Skin Exam Skin: no rash, dry - Neurological Exam Neurological: alert, normal cognition - Extremities Exam Extremities: no cyanosis, no clubbing, edema - Psychiatric Exam Psychiatric: normal affect Assessment and Plan (1) Acute respiratory failure with hypoxia Status: Acute Category: Medical Code(s): J96.01 - Acute respiratory failure with hypoxia (2) Cirrhosis Status: Chronic Qualifiers: Hepatic cirrhosis type: unspecified hepatic cirrhosis Ascites presence: unspecified Qualified Code(s): K74.60 - Unspecified cirrhosis of liver Category: Medical Code(s): K74.60 - Unspecified cirrhosis of liver (3) Neuropathy Status: Chronic Category: Medical Code(s): G62.9 - Polyneuropathy, unspecified (4) Severe sepsis with acute organ dysfunction Status: Acute Category: Medical Code(s): A41.9 - Sepsis, unspecified organism; R65.20 - Severe sepsis without septic shock (5) Hyponatremia Status: Acute Category: Medical Code(s): E87.1 - Hypo-osmolality and hyponatremia (6) Hypothyroidism (acquired) Status: Acute Category: Medical Code(s): E03.9 - Hypothyroidism, unspecified (7) Overweight (BMI 25.0-29.9) Status: Acute Category: Medical Code(s): E66.3 - Overweight - Assessment and plan all Dx Assessment and Plan for all problems:: #Acute hypoxic respiratory failure: #Community-acquired pneumonia: #Pneumonia in immunocompromised: #COVID-19 pneumonia 54-year-old autoimmune hepatitis decompensated cirrhosis on Lasix and spironolactone, recently completed one month of high-dose steroids 80 mg of methylprednisolone daily currently on taper presented with worsening respiratory failure, pleuritic chest pain and chest x-ray showed bilateral pulmonary infiltrates consistent with pneumonia. CT PE did not show any evidence of pulmonary them but showed bilateral diffuse groundglass opacity along with trace pleural effusions patient during the hospital course on day 3 tested positive for COVID-19 after prior negative testing on admission. Patient along with continuation of antibiotics for possible community-acquired pneumonia, with Ceftipime azithromycin patient was started on remdesivir dexamethasone for COVID-19 pneumonia. Yesterday patient respiratory status relatively stable/slightly improved, this morning on 6 L nasal cannula saturating 93 to 94%. [address] also showed evidence of cirrhosis with portal hypertension. Sputum VIVIAN did not show any fungal elements. Awaiting bacterial Gram stain culture. Blood cultures no growth at 48 hours Serum LDH at 479, less concerned for PJP pneumonia at this point of time. Will monitor clinically. Plan: - Continue home diuretic regimen with strict I&O's, achieve net negative volume status daily - Continue remdesivir and dexamethasone for COVID-19 pneumonia - Continue azithromycin and cefepime - F/U sputum for bacterial culture - F/U beta glucan and galactomannan -F/U Urine strep Legionella antigens #Thank you for involving pulmonary in this patient care. We will continu
--- NOTE | 2020-05-15 14:09 | HMH.ACPN2 ---
Internal Medicine - PN: Subj *Date: 05/15/20 *Time: 09:00 Interval history: pt sitting on side of bed. Exam Vital signs and Labs for Last 24 Hours: Temp Pulse Resp BP Pulse Ox 97.1 F L 104 H 28 H 132/72 88 L 05/15/20 03:36 05/15/20 06:40 05/15/20 04:00 05/15/20 04:00 05/15/20 06:40 Laboratory Results - last 24 hr 05/14/20 18:59: WBC 21.8 H* D, RBC 3.47 L, Hgb 11.7 L, Hct 35.1 L, MCV 101.2 H, MCH 33.7 H, MCHC 33.3, RDW 17.2, Plt Count 278 D, MPV 11.0 H, Neut % (Auto) 94.0 H, Lymph % (Auto) 3.3 L, [place] % (Auto) 2.1, Eos % (Auto) 0.1, Baso % (Auto) 0.6, Neut # (Auto) 20.5 H, Lymph # (Auto) 0.7, [place] # (Auto) 0.5, Eos # (Auto) 0.0, Baso # (Auto) 0.1, Total Counted 100, Neutrophils % (Manual) 97 H, Band Neutrophils % 1.0, Lymphocytes % (Manual) 2 L, Platelet Estimate Normal, RBC Morphology Normal, Macrocytosis 1+, Ruben Cells 1+ 05/14/20 18:59: Sodium 134 L, Potassium 2.8 L* D, Chloride 100, Carbon Dioxide 22, Anion Gap 14.8, BUN 19 H D, Creatinine 0.70, Estimated Creat Clear 108, Estimated GFR 87, Est GFR ( Amer) 105, Glucose 331 H, Calcium 8.8, Total Bilirubin 2.3 H, AST 59 H, ALT 45, Alkaline Phosphatase 329 H, Total Protein 6.7, Albumin 3.4 L, Globulin 3.3 H, Albumin/Globulin Ratio 1.0 L 05/15/20 08:08: WBC 18.1 H, RBC 3.12 L, Hgb 10.2 L D, Hct 33.6 L, MCV 107.5 H, MCH 32.6 H, MCHC 30.3 L, RDW 15.6, Plt Count 240, MPV 7.7, Neut % (Auto) 93.6 H, Lymph % (Auto) 4.2 L, [place] % (Auto) 2.0, Eos % (Auto) 0.2, Baso % (Auto) 0.1, Neut # (Auto) 16.9 H, Lymph # (Auto) 0.7, [place] # (Auto) 0.4, Eos # (Auto) 0.0, Baso # (Auto) 0.0, Total Counted 100, Neutrophils % (Manual) 96 H, Lymphocytes % (Manual) 2 L, Monocytes % (Manual) 2, Platelet Estimate Normal, Macrocytosis 2+ 05/15/20 08:08: Sodium 136, Potassium 4.7 D, Chloride 105, Carbon Dioxide 23, Anion Gap 12.7, BUN 17, Creatinine 0.70, Estimated Creat Clear 108, Estimated GFR 87, Est GFR ( Amer) 105, Glucose 247 H D, Calcium 8.7 05/15/20 08:08: Phosphorus 2.7, Total Bilirubin 1.8 H, Direct Bilirubin 1.0 H, Conjugated Bilirubin 0.0, Indirect Bilirubin 0.8, Unconjugated Bilirubin 0.8, AST 57 H, ALT 37, Alkaline Phosphatase 297 H, Total Protein 6.3, Albumin 3.1 L, Amylase 56, Lipase 136 I & O for Last 24 hours: Intake & Output 05/13/20 05/14/20 05/15/20 05/16/20 11:59 11:59 11:59 11:59 Intake Total 240 / 240 3854 / 3854 621 / 621 Balance 240 / 240 3854 / 3854 621 / 621 Weight 165 lb 3 oz 167 lb 8.821 oz 168 lb 8 oz Microbiology Reports for the Last 24 Hours: Microbiology 05/14/20 08:14 Sputum - Expectorated Sputum Gram Stain - Final 05/14/20 08:14 Sputum - Expectorated Sputum Sputum Culture - Preliminary 05/12/20 20:40 Blood Blood Culture - Preliminary NO GROWTH AFTER 48 HOURS 05/12/20 20:40 Blood Blood Culture - Preliminary NO GROWTH AFTER 48 HOURS 05/14/20 10:18 Nasopharyngeal Coronavirus COVID-19 PCR - Final 05/14/20 08:14 Sputum - Expectorated Sputum VIVIAN Preparation - Final - Constitutional no acute distress - *Routine HEENT Exam Head: Present: normocephalic Eye: Present: PERRL ENT: Present: mucous membranes moist - *Routine Neck Exam Present: supple. Absent: lymphadenopathy - *Routine Respiratory Exam Present: CTA bilaterally - *Routine Cardiovascular Exam Present: RRR - *Routine Abdominal Exam Present: soft, normoactive bowel sounds. Absent: tenderness - *Routine Extremities Exam Present: normal capillary refill. Absent: cyanosis, clubbing, edema - *Routine Skin Exam Present: warm. Absent: rash - *Routine Neurological Exam Present: alert, oriented X3 - Routine Psychiatric Exam Present: normal affect Assessment and Plan (1) Acute respiratory failure with hypoxia Status: Acute Category: Medical Code(s): J96.01 - Acute respiratory failure with hypoxia (2) Cirrhosis Status: Chronic Qualifiers: Hepatic cirrhosis type: unspecified
--- NOTE | 2020-05-15 18:09 | PC.NURSE ---
RT gave pt. cup for SPT and told her to call nurse if she does cough up anything. Pt agrees.
--- NOTE | 2020-05-15 19:10 | PC.NURSE ---
PATIENT A&O X4, LUNGS CLEAR, PULSES EQUAL. PATIENT HAS BEEN SWITCHED TO VAPOTHERM AND HAS TOLERATED WELL. PATIENT UP TO BEDSIDE COMMODE 2X DURING THIS RN SHIFT. PATIENT HAS TOLERATED MEALS. NO NEW CONCERNS AT THIS TIME.
[2020-05-16] VITALS (10 sets, daily range): BP systolic 126–159; BP diastolic 61–83; PULSE 95–111; RESP 20–26; TEMP 36.3–37; O2SAT 91–95
--- NOTE | 2020-05-16 04:15 | PC.NURSE ---
Pt is A&Ox4 and has ambulated to the [facility] with staff assist and tolerated well. Lungs diminished and scattered rhonchi noted on auscultation. Pt has removed O2 on multiple occasions for several different reasons, mostly while asleep and pt was slightly confused when attempting to replace Vapotherm NC. Pt c/o tightness around neck and heaviness of O2 tubing, pt educated on proper mechanics of Vapotherm tubing and to keep clip in place to alleviate pulling and pressure but pt will reposition tubing on own after staff leaves and has caused it to kink the tubing on occasion. O2 sat while at sleep and rest was 93-96%. Room air sat this shift was 83%. Pt has had a persistent cough, non-productive but pt feels like she might cough up some phlegm late . Pt instructed on the need for sputum sample and has cup at bedside. Pt has had loose stool today and incontinent of bowel with exertion, brief in place. Pt received total basin bath sitting at bedside and tolerated very well with no SOA expierience and sat stayed 89-91%. Vapotherm has been maintained at 35LPM and 55% FiO2. Lovenox for VTE. No edema noted. Pulses and RELATIONS COORDINATOR WNL. Heart rate has continued to be tachy, low 100s. Pt was afebrile t/to shift.
[2020-05-16 07:55] LABS: Aspergillus Antigen, BAL/Serum 0.04 Index (0.00-0.49); Fungitell(Beta D-Glucan) Serum >500 pg/mL (<80)
[2020-05-16 08:48] LABS: Hematocrit 32.1 % (37.0-47.0); Hemoglobin 10.3 g/dL (12.2-16.2); Lymphocytes # 0.9 K/mm3 (0.7-4.5); Lymphocytes % 7.6 % (10-50); Mean Corpuscular HGB Conc 32.2 g/dL (31.8-35.4); Mean Corpuscular Hemoglobin 33.5 pg (27.0-31.2); Mean Corpuscular Volume 104.2 fl (81-99); Mean Platelet Volume 8.7 fl (7.4-10.4); Monocytes # 0.3 K/mm3 (0.1-1.0); Monocytes % 2.5 % (1.7-9.3); Neutrophils # 10.6 K/mm3 (1.8-7.8); Neutrophils % 89.7 % (37.0-80.0); Platelet Count 251 K/mm3 (142-424); Red Blood Count 3.08 M/mm3 (4.20-5.40); Red Cell Distribution Width 15.9 % (11.5-17.5); White Blood Count 11.8 K/mm3 (4.8-10.8)
[2020-05-16 08:49] LABS: MANUAL DIFFERENTIAL MANUAL DIFFERENTIAL (MANUAL DIFF)
[2020-05-16 08:55] LABS: Chloride 105 mmol/L (98-107); Sodium 133 mmol/L (136-145)
[2020-05-16 08:58] LABS: Alanine Aminotransferase 34 U/L (12-78); Alkaline Phosphatase 263 U/L (38-126); Aspartate Amino Transferase 58 U/L (14-36); Bilirubin,Total 1.9 mg/dl (0.2-1.3); Blood Urea Nitrogen 22 mg/dl (7-17); Carbon Dioxide 18 mmol/L (22.0-30.0); Creatinine Clearance Estimated 95 mL/min (50-200); Estimated Glomerular Filt Rate 74 ml/min (>60); GFR (African American) 90 ML/MIN (>60)
[2020-05-16 08:59] LABS: Albumin Level 2.9 g/dl (3.5-5.0); Albumin/Globulin Ratio 0.9 (1.1-1.8); Calcium 8.4 mg/dl (8.4-10.2); Globulin 3.1 g/dL (1.3-3.2); Glucose 282 mg/dl (74-100)
--- NOTE | 2020-05-16 09:23 | HMH.ACPN2 ---
Internal Medicine - PN: Subj *Date: 05/16/20 *Time: 09:23 Interval history: pt sitting up in bed states she feels better not as soa Exam Vital signs and Labs for Last 24 Hours: Temp Pulse Resp BP Pulse Ox 97.9 F 102 H 26 H 126/77 93 L 05/16/20 00:00 05/16/20 06:47 05/16/20 04:41 05/16/20 00:00 05/16/20 06:47 Laboratory Results - last 24 hr 05/13/20 11:56: A. galactomannan Ag 0.04, Beta-(1,3)-D-Glucan >500 H 05/15/20 08:08: Hgb 10.2 L D, Total Counted 100, Neutrophils % (Manual) 96 H, Lymphocytes % (Manual) 2 L, Monocytes % (Manual) 2, Platelet Estimate Normal, Macrocytosis 2+ 05/16/20 05:15: WBC 11.8 H D, RBC 3.08 L, Hgb 10.3 L, Hct 32.1 L, MCV 104.2 H, MCH 33.5 H, MCHC 32.2, RDW 15.9, Plt Count 251, MPV 8.7, Neut % (Auto) 89.7 H, Lymph % (Auto) 7.6 L, [place] % (Auto) 2.5, Eos % (Auto) 0.0 L, Baso % (Auto) 0.0 L, Neut # (Auto) 10.6 H, Lymph # (Auto) 0.9, [place] # (Auto) 0.3, Eos # (Auto) 0.0, Baso # (Auto) 0.0 05/16/20 05:15: Sodium 133 L, Potassium 4.0, Chloride 105, Carbon Dioxide 18 L D, Anion Gap 14.0, BUN 22 H D, Creatinine 0.80, Estimated Creat Clear 95, Estimated GFR 74, Est GFR ( Amer) 90, Glucose 282 H, Calcium 8.4, Total Bilirubin 1.9 H, AST 58 H, ALT 34, Alkaline Phosphatase 263 H, Total Protein 6.0 L, Albumin 2.9 L, Globulin 3.1, Albumin/Globulin Ratio 0.9 L I & O for Last 24 hours: Intake & Output 05/13/20 05/14/20 05/15/2021 11:59 11:59 11:59 11:59 Intake Total 240 / 240 3854 / 3854 741 / 741 4213 / 4213 Output Total 1401 / 1401 Balance 240 / 240 3854 / 3854 741 / 741 2812 / 2812 Weight 165 lb 3 oz 167 lb 8.821 oz 168 lb 8 oz Microbiology Reports for the Last 24 Hours: Microbiology 05/14/20 08:14 Sputum - Expectorated Sputum Gram Stain - Final 05/14/20 08:14 Sputum - Expectorated Sputum Sputum Culture - Final Normal Respiratory Kaycee - Constitutional no acute distress - *Routine HEENT Exam Head: Present: normocephalic Eye: Present: PERRL ENT: Present: mucous membranes moist - *Routine Neck Exam Present: supple. Absent: lymphadenopathy - *Routine Respiratory Exam Present: CTA bilaterally - *Routine Cardiovascular Exam Present: RRR - *Routine Abdominal Exam Present: soft, normoactive bowel sounds. Absent: tenderness - *Routine Extremities Exam Present: normal capillary refill. Absent: cyanosis, clubbing, edema - *Routine Skin Exam Present: warm. Absent: rash - *Routine Neurological Exam Present: alert, oriented X3 - Routine Psychiatric Exam Present: normal affect Assessment and Plan (1) Acute respiratory failure with hypoxia Status: Acute Category: Medical Code(s): J96.01 - Acute respiratory failure with hypoxia (2) Cirrhosis Status: Chronic Qualifiers: Hepatic cirrhosis type: unspecified hepatic cirrhosis Ascites presence: unspecified Qualified Code(s): K74.60 - Unspecified cirrhosis of liver Category: Medical Code(s): K74.60 - Unspecified cirrhosis of liver (3) Neuropathy Status: Chronic Category: Medical Code(s): G62.9 - Polyneuropathy, unspecified (4) Severe sepsis with acute organ dysfunction Status: Acute Category: Medical Code(s): A41.9 - Sepsis, unspecified organism; R65.20 - Severe sepsis without septic shock (5) Hyponatremia Status: Acute Category: Medical Code(s): E87.1 - Hypo-osmolality and hyponatremia (6) Hypothyroidism (acquired) Status: Acute Category: Medical Code(s): E03.9 - Hypothyroidism, unspecified (7) Overweight (BMI 25.0-29.9) Status: Acute Category: Medical Code(s): E66.3 - Overweight - Assessment and plan all Dx Assessment and Plan for all problems:: rounded with dr ordaz all orders per dr ordaz
[2020-05-16 09:29] LABS: Anisocytosis 1+; Lymphocytes % 6 % (10-50); Macrocytosis 1+; Monocytes % 5 % (2-9); Neutrophils % 89 % (42-76); Platelet Estimate Normal; Total Cells Counted 100
--- NOTE | 2020-05-16 13:44 | P.PN_ITS ---
Internal Medicine - PN: Subj *Date: 05/16/20 *Time: 13:44 Exam Vital signs and Labs for Last 24 Hours: Temp Pulse Resp BP Pulse Ox 98.0 F 101 H 24 159/83 H 91 L 05/16/20 12:00 05/16/20 13:04 05/16/20 12:00 05/16/20 12:00 05/16/20 12:00 Laboratory Results - last 24 hr 05/13/20 11:56: A. galactomannan Ag 0.04, Beta-(1,3)-D-Glucan >500 H 05/16/20 05:15: WBC 11.8 H D, RBC 3.08 L, Hgb 10.3 L, Hct 32.1 L, MCV 104.2 H, MCH 33.5 H, MCHC 32.2, RDW 15.9, Plt Count 251, MPV 8.7, Neut % (Auto) 89.7 H, Lymph % (Auto) 7.6 L, [place] % (Auto) 2.5, Eos % (Auto) 0.0 L, Baso % (Auto) 0.0 L , Neut # (Auto) 10.6 H, Lymph # (Auto) 0.9, [place] # (Auto) 0.3, Eos # (Auto) 0.0, Baso # (Auto) 0.0, Total Counted 100, Neutrophils % (Manual) 89 H, Lymphocytes % (Manual) 6 L, Monocytes % (Manual) 5, Platelet Estimate Normal, Anisocytosis 1+, Macrocytosis 1+ 05/16/20 05:15: Sodium 133 L, Potassium 4.0, Chloride 105, Carbon Dioxide 18 L D , Anion Gap 14.0, BUN 22 H D, Creatinine 0.80, Estimated Creat Clear 95, Estimated GFR 74, Est GFR ( Amer) 90, Glucose 282 H, Calcium 8.4, Total Bilirubin 1.9 H, AST 58 H, ALT 34, Alkaline Phosphatase 263 H, Total Protein 6.0 L, Albumin 2.9 L, Globulin 3.1, Albumin/Globulin Ratio 0.9 L I & O for Last 24 hours: Intake & Output 05/13/20 05/14/20 05/15/20 05/16/20 23:59 23:59 23:59 23:59 Intake Total 2647 / 2647 2068 / 2068 2848 / 2848 1725 / 1725 Output Total 400 / 400 1001 / 1001 Balance 264 / 7 2067 2448 / 2448 724 / 724 Weight 74.928 kg 76 kg 76.43 kg Microbiology Reports for the Last 24 Hours: Microbiology 05/14/20 08:14 Sputum - Expectorated Sputum Gram Stain - Final 05/14/20 08:14 Sputum - Expectorated Sputum Sputum Culture - Final Normal Respiratory Kaycee Assessment and Plan (1) Acute respiratory failure with hypoxia Status: Acute Category: Medical Code(s): J96.01 - Acute respiratory failure with hypoxia (2) Cirrhosis Status: Chronic Qualifiers: Hepatic cirrhosis type: unspecified hepatic cirrhosis Ascites presence: unspecified Qualified Code(s): K74.60 - Unspecified cirrhosis of liver Category: Medical Code(s): K74.60 - Unspecified cirrhosis of liver (3) Neuropathy Status: Chronic Category: Medical Code(s): G62.9 - Polyneuropathy, unspecified (4) Severe sepsis with acute organ dysfunction Status: Acute Category: Medical Code(s): A41.9 - Sepsis, unspecified organism; R65.20 - Severe sepsis without septic shock (5) Hyponatremia Status: Acute Category: Medical Code(s): E87.1 - Hypo-osmolality and hyponatremia (6) Hypothyroidism (acquired) Status: Acute Category: Medical Code(s): E03.9 - Hypothyroidism, unspecified (7) Overweight (BMI 25.0-29.9) Status: Acute Category: Medical Code(s): E66.3 - Overweight The patient's infection will respond to the chosen ABx?: Yes Is the patient receiving the right drug, dose, and route?: Yes Could a more targeted ABx be ordered?: No
--- NOTE | 2020-05-16 14:38 | HMH.PULMPN ---
Internal Medicine - PN: Subj *Date: 05/16/20 *Time: 14:38 Interval history: No acute respiratory events overnight. Patient respiratory status remained stable. Exam - Constitutional Constitutional:: no acute distress, comfortable - HENMT Exam HENMT: normocephalic, atraumatic - Neck Exam Neck:: thyroid normal, no lymphadenopathy - Respiratory Exam Respiratory:: able to speak in complete sentences Comments: Bilateral coarse breath sounds unchanged from yesterday. - Cardiovascular Exam Cardiac:: S1, S2 - GI Exam GI:: soft, no hepatosplenomegaly - Skin Exam Skin: warm - Neurological Exam Neurological: alert, awake, normal cognition - Extremities Exam Extremities: no cyanosis, no clubbing, edema - Psychiatric Exam Psychiatric: normal affect, appearance grossly normal Assessment and Plan (1) Acute respiratory failure with hypoxia Status: Acute Category: Medical Code(s): J96.01 - Acute respiratory failure with hypoxia (2) Cirrhosis Status: Chronic Qualifiers: Hepatic cirrhosis type: unspecified hepatic cirrhosis Ascites presence: unspecified Qualified Code(s): K74.60 - Unspecified cirrhosis of liver Category: Medical Code(s): K74.60 - Unspecified cirrhosis of liver (3) Neuropathy Status: Chronic Category: Medical Code(s): G62.9 - Polyneuropathy, unspecified (4) Severe sepsis with acute organ dysfunction Status: Acute Category: Medical Code(s): A41.9 - Sepsis, unspecified organism; R65.20 - Severe sepsis without septic shock (5) Hyponatremia Status: Acute Category: Medical Code(s): E87.1 - Hypo-osmolality and hyponatremia (6) Hypothyroidism (acquired) Status: Acute Category: Medical Code(s): E03.9 - Hypothyroidism, unspecified (7) Overweight (BMI 25.0-29.9) Status: Acute Category: Medical Code(s): E66.3 - Overweight - Assessment and plan all Dx Assessment and Plan for all problems:: #Acute hypoxic respiratory failure: #Community-acquired pneumonia: #Pneumonia in immunocompromised: #COVID-19 pneumonia 54-year-old autoimmune hepatitis decompensated cirrhosis on Lasix and spironolactone, recently completed one month of high-dose steroids 80 mg of methylprednisolone daily currently on taper presented with worsening respiratory failure, pleuritic chest pain and chest x-ray showed bilateral pulmonary infiltrates consistent with pneumonia. CT PE did not show any evidence of pulmonary them but showed bilateral diffuse groundglass opacity along with trace pleural effusions patient during the hospital course on day 3 tested positive for COVID-19 after prior negative testing on admission. Patient along with continuation of antibiotics for possible community-acquired pneumonia, with Ceftipime azithromycin patient was started on remdesivir dexamethasone for COVID-[address] also showed evidence of cirrhosis with portal hypertension. Sputum VIVIAN did not show any fungal elements. Awaiting bacterial Gram stain culture. Blood cultures no growth at 48 hours Serum LDH at 479, less concerned for PJP pneumonia at this point of time. Interval update: Patient respiratory status remained stable with no worsening. Auscultation bilateral coarse breath sounds unchanged. Serum beta glucan elevated galactomannan within normal limits. Given patient is on high-dose steroids and elevated serum beta glucan highly concerned for P RUTH pneumonia. Patient also appears to be volume overloaded today. Sputum culture normal respiratory radhames Plan: - Initiate Bactrim DS once daily for PJP pneumonia - Lasix 40 mg IV once today along with 20 mg IV daily from tomorrow - Sputum for PJP PCR / Silver staining - Continue remdesivir and dexamethasone for COVID-19 pneumonia - Continue azithromycin x 5 days and cefepime x 7 days - F/U Urine strep Legionella antigens #Thank you for involving pulmonary in this patient care. We will continue to follow.
[2020-05-16 14:51] LABS: Body Fluid Culture, Sterile Not indicated. (.); Organism ID Not indicated. (.); Specimen Source Urine (.); Streptococcus pneumoniae Ag Negative (Negative)
[2020-05-16 17:10] LABS: Sapovirus Not Detected (NotDetected)
--- NOTE | 2020-05-16 18:41 | PC.NURSE ---
PATIENT A&O X4, LUNGS CLEAR, PULSES EQUAL. PATIENT UP TO BEDSIDE COMMODE SEVERAL TIMES DURING THIS RN SHIFT. AFTER ADMINISTRATION OF 40 LASIX IV, PATIENT TOTAL OUTPUT FOR THIS RN 4000 ML. PATIENT TOLERATED WELL. NO NEW CONCERNS AT THIS TIME.
[2020-05-16 18:54] LABS: Legionella pneumophila Urinary Negative (Negative)
[2020-05-17] VITALS (11 sets, daily range): BP systolic 107–165; BP diastolic 58–79; PULSE 88–112; RESP 20–22; TEMP 36.4–36.9; O2SAT 90–96
[2020-05-17 06:32] LABS: Basophils % 0.3 % (0.1-2.0); Eosinophils % 0.1 % (0.1-12.0); Hematocrit 35.1 % (37.0-47.0); Hemoglobin 10.9 g/dL (12.2-16.2); Lymphocytes % 8.6 % (10-50); Mean Corpuscular Hemoglobin 32.9 pg (27.0-31.2); Mean Corpuscular Volume 106.2 fl (81-99); Mean Platelet Volume 8.9 fl (7.4-10.4); Monocytes # 0.3 K/mm3 (0.1-1.0); Monocytes % 2.4 % (1.7-9.3); Neutrophils # 10.6 K/mm3 (1.8-7.8); Neutrophils % 88.6 % (37.0-80.0); Platelet Count 247 K/mm3 (142-424); Red Blood Count 3.31 M/mm3 (4.20-5.40); Red Cell Distribution Width 15.7 % (11.5-17.5)
[2020-05-17 06:35] LABS: MANUAL DIFFERENTIAL MANUAL DIFFERENTIAL (MANUAL DIFF)
[2020-05-17 06:37] LABS: Chloride 100 mmol/L (98-107)
[2020-05-17 06:41] LABS: Blood Urea Nitrogen 19 mg/dl (7-17); Calcium 8.8 mg/dl (8.4-10.2); Carbon Dioxide 17 mmol/L (22.0-30.0); Creatinine Clearance Estimated 108 mL/min (50-200); Estimated Glomerular Filt Rate 87 ml/min (>60); GFR (African American) 105 ML/MIN (>60); Glucose 304 mg/dl (74-100); Sodium 130 mmol/L (136-145)
[2020-05-17 07:15] LABS: Hypochromasia 1+; Lymphocytes % 3 % (10-50); Macrocytosis 1+; Monocytes % 4 % (2-9); Neutrophils % 92 % (42-76); Platelet Estimate Normal; RBC Morphology Normal; Total Cells Counted 100
--- NOTE | 2020-05-17 07:28 | PC.NURSE ---
Pt is A&Ox4. Pt did not sleep at all this shift. Pt has had many tearful episodes this shift, but would quickly calm down after speaking with staff. Scattered expiratory rhonchi heard per auscultation. Dry, nonproductive cough noted this shift. Spec cup placed at bedside, pt educated on need for a sputum sample. Pt verbalized understanding. Pt continues to be on vapotherm and is tolerating appropriately. No other acute changes or complaints at this time.
[2020-05-17 07:30] LABS: Anion Gap 17.9 mEq/L (5-15); Potassium 4.9 mmoL/L (3.5-5.1)
--- NOTE | 2020-05-17 09:47 | HMH.ACPN2 ---
Internal Medicine - PN: Subj *Date: 05/17/20 *Time: 09:48 Interval history: doing better - has sense of anxiety in covid-19 unit Exam Vital signs and Labs for Last 24 Hours: Temp Pulse Resp BP Pulse Ox 97.9 F 98 H 22 146/79 H 90 L 05/17/20 07:43 05/17/20 07:43 05/17/20 07:43 05/17/20 07:43 05/17/20 07:43 Laboratory Results - last 24 hr 05/13/20 14:47: Stl Aeromonas (PCR) Not detected, Stl C. cayetanensis PCR Not detected, Stool Rotavirus (PCR) Not detected, Stl Adenov F 40/41 PCR Not detected, Stool Astrovirus (PCR) Not detected, Stool Campylobacter PCR Not detected, Stl C.difficile Tox PCR Not detected, Stool Cryptosporidium PCR Not detected, Stl E.coli Shiga Tox PCR Not detected, Stool E coli O157 PCR Not detected, Stl Enterotoxigenic E PCR Not detected, Stool EPEC (PCR) Not detected, Stool EAEC (PCR) Not detected, Stl E. histolytica PCR Not detected, Stool Giardia Lamblia PCR Not detected, Stool Salmonella PCR Not detected, Stool Sapovirus (PCR) Not detected, Stl P. shigelloides PCR Not detected, Stl Shigella/EIEC PCR Not detected, St Y.enterocolitica PCR Not detected, Stool Vibrio (PCR) Not detected, Stl Vibrio cholerae PCR Not detected, Stl Norovirus GI/GII PCR Not detected 05/14/20 10:30: Ur L.pneumophila Ag Negative 05/14/20 10:30: Fluid Culture Not indicated., S. pneumoniae Antigen Negative, S. pneumoniae Ag Source Urine, Organism ID Not indicated. 05/17/20 04:30: WBC 12.0 H, RBC 3.31 L, Hgb 10.9 L, Hct 35.1 L, MCV 106.2 H, MCH 32.9 H, MCHC 31.0 L, RDW 15.7, Plt Count 247, MPV 8.9, Neut % (Auto) 88.6 H, Lymph % (Auto) 8.6 L, [place] % (Auto) 2.4, Eos % (Auto) 0.1, Baso % (Auto) 0.3, Neut # (Auto) 10.6 H, Lymph # (Auto) 1.0, [place] # (Auto) 0.3, Eos # (Auto) 0.0, Baso # (Auto) 0.0, Total Counted 100, Neutrophils % (Manual) 92 H, Band Neutrophils % 1.0, Lymphocytes % (Manual) 3 L, Monocytes % (Manual) 4, Platelet Estimate Normal, RBC Morphology Normal, Hypochromasia 1+, Macrocytosis 1+ 05/17/20 04:30: Sodium 130 L, Potassium 4.9 D, Chloride 100, Carbon Dioxide 17 L, Anion Gap 17.9 H, BUN 19 H, Creatinine 0.70, Estimated Creat Clear 108, Estimated GFR 87, Est GFR ( Amer) 105, Glucose 304 H, Calcium 8.8 I & O for Last 24 hours: Intake & Output 05/14/20 05/15/20 05/16/20 05/17/20 11:59 11:59 11:59 11:59 Intake Total 3854 / 3854 741 / 741 4453 / 4453 2120 / 2120 Output Total 1401 / 1401 1150 / 1150 Balance 3854 / 3854 741 / 741 3052 / 3052 970 / 970 Weight 167 lb 8.821 oz 168 lb 8 oz Microbiology Reports for the Last 24 Hours: Microbiology 05/14/20 08:14 Sputum - Expectorated Sputum Gram Stain - Final 05/14/20 08:14 Sputum - Expectorated Sputum Sputum Culture - Final Normal Respiratory Kaycee - Constitutional no acute distress - *Routine HEENT Exam Head: Present: normocephalic Eye: Present: EOMI, PERRL ENT: Present: mucous membranes dry - *Routine Neck Exam Present: supple - *Routine Respiratory Exam Present: decreased breath sounds - *Routine Cardiovascular Exam Present: RRR, murmur - *Routine Abdominal Exam Present: soft - *Routine Extremities Exam Present: edema. Absent: calf tenderness - *Routine Skin Exam Present: intact - *Routine Neurological Exam Present: alert, oriented X3, CN II-XII intact. Absent: motor deficit - Routine Psychiatric Exam Present: anxious Assessment and Plan (1) Acute respiratory failure with hypoxia Status: Acute Category: Medical Code(s): J96.01 - Acute respiratory failure with hypoxia (2) Cirrhosis Status: Chronic Qualifiers: Hepatic cirrhosis type: unspecified hepatic cirrhosis Ascites presence: unspecified Qualified Code(s): K74.60 - Unspecified cirrhosis of liver Category: Medical Code(s): K74.60 - Unspecified cirrhosis of liver (3) Neuropathy Status: Chronic Category: Medical Code(s): G62.9 - Polyneuropathy, unspecified (4) Severe sepsis with acute organ dysfunc
--- NOTE | 2020-05-17 09:51 | XR_ITS ---
PROCEDURE: XR CHEST PORTABLE CLINICAL HISTORY: sob-icu Shortness of breath, pneumonia COMPARISON: DX XR CHEST 2V from 01/29/2020 CR XR CHEST PORTABLE from 05/12/2020 CR XR CHEST PORTABLE from 05/13/[address] ANGIO CHEST from 05/14/2020 FINDINGS: The cardiomediastinal silhouette and pulmonary vascularity are within normal limits. There remains diffuse bilateral pneumonia. This appears slightly worse in the left upper lobe and right lower lobe. No acute bony abnormalities. IMPRESSION: Slight worsening bilateral pneumonia Dictated by: Vick Laureano MD 05/17/2020 11:28 Vick Laureano MD in [facility] 05/17/2020 11:28
--- NOTE | 2020-05-17 12:17 | HMH.ACPN ---
Internal Medicine - PN: Subj *Date: 05/17/20 *Time: 12:17 Exam Vital signs and Labs for Last 24 Hours: Temp Pulse Resp BP Pulse Ox 97.6 F 112 H 22 107/58 L 92 L 05/17/20 11:57 05/17/20 11:57 05/17/20 11:57 05/17/20 11:57 05/17/20 11:57 Laboratory Results - last 24 hr 05/13/20 14:47: Stl Aeromonas (PCR) Not detected, Stl C. cayetanensis PCR Not detected, Stool Rotavirus (PCR) Not detected, Stl Adenov F 40/41 PCR Not detected, Stool Astrovirus (PCR) Not detected, Stool Campylobacter PCR Not detected, Stl C.difficile Tox PCR Not detected, Stool Cryptosporidium PCR Not detected, Stl E.coli Shiga Tox PCR Not detected, Stool E coli O157 PCR Not detected, Stl Enterotoxigenic E PCR Not detected, Stool EPEC (PCR) Not detected, Stool EAEC (PCR) Not detected, Stl E. histolytica PCR Not detected, Stool Giardia Lamblia PCR Not detected, Stool Salmonella PCR Not detected, Stool Sapovirus (PCR) Not detected, Stl P. shigelloides PCR Not detected, Stl Shigella/EIEC PCR Not detected, St Y.enterocolitica PCR Not detected, Stool Vibrio (PCR) Not detected, Stl Vibrio cholerae PCR Not detected, Stl Norovirus GI/GII PCR Not detected 05/14/20 10:30: Ur L.pneumophila Ag Negative 05/14/20 10:30: Fluid Culture Not indicated., S. pneumoniae Antigen Negative, S. pneumoniae Ag Source Urine, Organism ID Not indicated. 05/17/20 04:30: WBC 12.0 H, RBC 3.31 L, Hgb 10.9 L, Hct 35.1 L, MCV 106.2 H, MCH 32.9 H, MCHC 31.0 L, RDW 15.7, Plt Count 247, MPV 8.9, Neut % (Auto) 88.6 H, Lymph % (Auto) 8.6 L, [place] % (Auto) 2.4, Eos % (Auto) 0.1, Baso % (Auto) 0.3, Neut # (Auto) 10.6 H, Lymph # (Auto) 1.0, [place] # (Auto) 0.3, Eos # (Auto) 0.0, Baso # (Auto) 0.0, Total Counted 100, Neutrophils % (Manual) 92 H, Band Neutrophils % 1.0, Lymphocytes % (Manual) 3 L, Monocytes % (Manual) 4, Platelet Estimate Normal, RBC Morphology Normal, Hypochromasia 1+, Macrocytosis 1+ 05/17/20 04:30: Sodium 130 L, Potassium 4.9 D, Chloride 100, Carbon Dioxide 17 L, Anion Gap 17.9 H, BUN 19 H, Creatinine 0.70, Estimated Creat Clear 108, Estimated GFR 87, Est GFR ( Amer) 105, Glucose 304 H, Calcium 8.8 I & O for Last 24 hours: Intake & Output 05/14/20 05/15/20 05/16/20 05/17/20 23:59 23:59 23:59 23:59 Intake Total 2067 2848 / 2848 2585 / 3365 1260 / 1260 Output Total 400 / 400 1001 / 2151 1150 / 1150 Balance 2067 2448 / 2448 1584 / 1214 110 / 110 Weight 76 kg 76.43 kg Microbiology Reports for the Last 24 Hours: Microbiology 05/14/20 08:14 Sputum - Expectorated Sputum Gram Stain - Final 05/14/20 08:14 Sputum - Expectorated Sputum Sputum Culture - Final Normal Respiratory Kaycee Assessment and Plan (1) Acute respiratory failure with hypoxia Status: Acute Category: Medical Code(s): J96.01 - Acute respiratory failure with hypoxia (2) Cirrhosis Status: Chronic Qualifiers: Hepatic cirrhosis type: unspecified hepatic cirrhosis Ascites presence: unspecified Qualified Code(s): K74.60 - Unspecified cirrhosis of liver Category: Medical Code(s): K74.60 - Unspecified cirrhosis of liver (3) Neuropathy Status: Chronic Category: Medical Code(s): G62.9 - Polyneuropathy, unspecified (4) Severe sepsis with acute organ dysfunction Status: Acute Category: Medical Code(s): A41.9 - Sepsis, unspecified organism; R65.20 - Severe sepsis without septic shock (5) Hyponatremia Status: Acute Category: Medical Code(s): E87.1 - Hypo-osmolality and hyponatremia (6) Hypothyroidism (acquired) Status: Acute Category: Medical Code(s): E03.9 - Hypothyroidism, unspecified (7) Overweight (BMI 25.0-29.9) Status: Acute Category: Medical Code(s): E66.3 - Overweight (8) Anxiety Status: Acute Category: Medical Code(s): F41.9 - Anxiety disorder, unspecified (9) COVID-19 virus detected Status: Acute Category: Medical Code(s): U07.1 - COVID-19 The patient's infection will respond t
--- NOTE | 2020-05-17 18:17 | PC.NURSE ---
PT HAS BEEN AWAKE ENTIRE SHIFT, HAS MADE LENGTHY PHONE CALLS THROUGHOUT THE DAY. O2 >90% ON VAPOTHERM. CURRENT SETTINGS ARE 30L 45%. WILL CONT. TO MONITOR.
[2020-05-18] VITALS (10 sets, daily range): BP systolic 123–151; BP diastolic 62–81; PULSE 95–112; RESP 19–22; TEMP 36.1–37; O2SAT 90–98; BMI 27.6
[2020-05-18 06:19] LABS: Basophils % 0.2 % (0.1-2.0); Eosinophils % 0.1 % (0.1-12.0); Hematocrit 30.4 % (37.0-47.0); Lymphocytes # 0.9 K/mm3 (0.7-4.5); Lymphocytes % 9.3 % (10-50); Mean Corpuscular HGB Conc 32.7 g/dL (31.8-35.4); Mean Corpuscular Hemoglobin 33.8 pg (27.0-31.2); Mean Corpuscular Volume 103.4 fl (81-99); Mean Platelet Volume 8.5 fl (7.4-10.4); Monocytes # 0.3 K/mm3 (0.1-1.0); Monocytes % 3.7 % (1.7-9.3); Neutrophils # 8.1 K/mm3 (1.8-7.8); Neutrophils % 86.7 % (37.0-80.0); Platelet Count 203 K/mm3 (142-424); Red Blood Count 2.94 M/mm3 (4.20-5.40); Red Cell Distribution Width 15.9 % (11.5-17.5); White Blood Count 9.4 K/mm3 (4.8-10.8)
[2020-05-18 06:30] LABS: MANUAL DIFFERENTIAL MANUAL DIFFERENTIAL (MANUAL DIFF)
--- NOTE | 2020-05-18 07:50 | PC.NURSE ---
Pt has been increasingly confused this shift following PRN ativan administration for anxiety and restlessness. Pt would continuously be disoriented and stated I'm where the aly are, there are aly everywhere , pt would be easily reoriented when staff would speak to her and let her know where she was. Pt has pulled off vapotherm countless times this shift w/ o2 sats dropping to 68%. Pt would recover after about five minutes back to 89-91%. No other acute changes or complaints at this time.
[2020-05-18 07:58] LABS: Anisocytosis 1+; Lymphocytes % 11 % (10-50); Macrocytosis 1+; Monocytes % 6 % (2-9); Neutrophils % 83 % (42-76); Platelet Estimate Normal; Total Cells Counted 100
--- NOTE | 2020-05-18 09:54 | HMH.ACPN2 ---
Internal Medicine - PN: Subj *Date: 05/18/20 *Time: 08:45 Interval history: alert still on vasotherm - cxr report reviewed Exam Vital signs and Labs for Last 24 Hours: Temp Pulse Resp BP Pulse Ox 97.7 F 97 H 20 123/65 98 05/18/20 08:00 05/18/20 08:00 05/18/20 08:00 05/18/20 08:00 05/18/20 08:00 Laboratory Results - last 24 hr 05/18/20 05:15: WBC 9.4, RBC 2.94 L, Hgb 10.0 L, Hct 30.4 L, MCV 103.4 H, MCH 33.8 H, MCHC 32.7, RDW 15.9, Plt Count 203, MPV 8.5, Neut % (Auto) 86.7 H, Lymph % (Auto) 9.3 L, [place] % (Auto) 3.7, Eos % (Auto) 0.1, Baso % (Auto) 0.2, Neut # (Auto) 8.1 H, Lymph # (Auto) 0.9, [place] # (Auto) 0.3, Eos # (Auto) 0.0, Baso # (Auto) 0.0, Total Counted 100, Neutrophils % (Manual) 83 H, Lymphocytes % (Manual) 11, Monocytes % (Manual) 6, Platelet Estimate Normal, Anisocytosis 1+, Macrocytosis 1+ I & O for Last 24 hours: Intake & Output 05/15/20 05/16/20 05/17/20 05/18/20 11:59 11:59 11:59 11:59 Intake Total 741 / 741 4453 / 4453 2120 / 2120 2160 / 2160 Output Total 1401 / 1401 1150 / 1150 2150 / 2150 Balance 741 / 741 3052 / 3052 970 / 970 Weight 168 lb 8 oz 172 lb 4.8 oz Microbiology Reports for the Last 24 Hours: Microbiology 05/12/20 20:40 Blood Blood Culture - Final NO GROWTH AFTER 5 DAYS 05/12/20 20:40 Blood Blood Culture - Final NO GROWTH AFTER 5 DAYS - Constitutional no acute distress - *Routine HEENT Exam Head: Present: normocephalic Eye: Present: EOMI, PERRL ENT: Present: mucous membranes dry - *Routine Neck Exam Present: supple - *Routine Respiratory Exam Present: decreased breath sounds - *Routine Cardiovascular Exam Present: RRR - *Routine Abdominal Exam Present: soft - *Routine Extremities Exam Absent: calf tenderness - *Routine Skin Exam Present: intact - *Routine Neurological Exam Present: alert, CN II-XII intact - Routine Psychiatric Exam Present: normal affect Assessment and Plan (1) Acute respiratory failure with hypoxia Status: Acute Category: Medical Code(s): J96.01 - Acute respiratory failure with hypoxia (2) Cirrhosis Status: Chronic Qualifiers: Hepatic cirrhosis type: unspecified hepatic cirrhosis Ascites presence: unspecified Qualified Code(s): K74.60 - Unspecified cirrhosis of liver Category: Medical Code(s): K74.60 - Unspecified cirrhosis of liver (3) Neuropathy Status: Chronic Category: Medical Code(s): G62.9 - Polyneuropathy, unspecified (4) Severe sepsis with acute organ dysfunction Status: Acute Category: Medical Code(s): A41.9 - Sepsis, unspecified organism; R65.20 - Severe sepsis without septic shock (5) Hyponatremia Status: Acute Category: Medical Code(s): E87.1 - Hypo-osmolality and hyponatremia (6) Hypothyroidism (acquired) Status: Acute Category: Medical Code(s): E03.9 - Hypothyroidism, unspecified (7) Overweight (BMI 25.0-29.9) Status: Acute Category: Medical Code(s): E66.3 - Overweight (8) Anxiety Status: Acute Category: Medical Code(s): F41.9 - Anxiety disorder, unspecified (9) COVID-19 virus detected Status: Acute Category: Medical Code(s): U07.1 - COVID-19 (10) Anemia Status: Acute Qualifiers: Anemia type: unspecified type Qualified Code(s): D64.9 - Anemia, unspecified Category: Medical Code(s): D64.9 - Anemia, unspecified
--- NOTE | 2020-05-18 18:22 | PC.NURSE ---
pt done well today. pt did not want to get up to the chair today. she states she will tomorrow. vss. will cont. to monitor.
[2020-05-19] VITALS (10 sets, daily range): BP systolic 145–155; BP diastolic 74–80; PULSE 92–104; RESP 16–24; TEMP 36.5–36.8; O2SAT 92–98; BMI 28.6
--- NOTE | 2020-05-19 03:55 | PC.NURSE ---
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 Pt is A&Ox4. Diminished breath sounds heard bilat t/o all lung carrillo. Pt continues to have a dry nonproductive cough this shift. Pt remains on 30 L and 45% FiO2 on vapotherm and has tolerated well w/ o2 sats 90-97%. Active bowel sounds in all 4 quads. Pt has had x1 loose stool and x1 soft, formed, brown stool this shift. Pt has required x1 assistance getting to BSC stating she's too weak . No other acute changes or complaints at this time.
[2020-05-19 06:16] LABS: Basophils % 0.3 % (0.1-2.0); Eosinophils % 0.1 % (0.1-12.0); Hemoglobin 10.2 g/dL (12.2-16.2); Lymphocytes # 0.9 K/mm3 (0.7-4.5); Lymphocytes % 8.8 % (10-50); Mean Corpuscular HGB Conc 31.8 g/dL (31.8-35.4); Mean Corpuscular Hemoglobin 34.3 pg (27.0-31.2); Mean Corpuscular Volume 107.9 fl (81-99); Mean Platelet Volume 8.5 fl (7.4-10.4); Monocytes # 0.5 K/mm3 (0.1-1.0); Monocytes % 4.6 % (1.7-9.3); Neutrophils # 9.1 K/mm3 (1.8-7.8); Neutrophils % 86.3 % (37.0-80.0); Platelet Count 217 K/mm3 (142-424); Red Blood Count 2.96 M/mm3 (4.20-5.40); White Blood Count 10.6 K/mm3 (4.8-10.8)
[2020-05-19 06:21] LABS: MANUAL DIFFERENTIAL MANUAL DIFFERENTIAL (MANUAL DIFF)
--- NOTE | 2020-05-19 09:34 | P.PN_ITS ---
Internal Medicine - PN: Subj *Date: 05/19/20 *Time: 08:30 Interval history: pt sitting up in bed states she is feeling the best she has felt in awhile today. Exam Vital signs and Labs for Last 24 Hours: Temp Pulse Resp BP Pulse Ox 98.0 F 96 H 20 155/76 H 93 L 05/19/20 04:00 05/19/20 06:20 05/19/20 04:00 05/19/20 04:00 05/19/20 06:20 Laboratory Results - last 24 hr 05/19/20 05:25: WBC 10.6, RBC 2.96 L, Hgb 10.2 L, Hct 32.0 L, MCV 107.9 H, MCH 34.3 H, MCHC 31.8, RDW 16.0, Plt Count 217, MPV 8.5, Neut % (Auto) 86.3 H, Lymph % (Auto) 8.8 L, [place] % (Auto) 4.6, Eos % (Auto) 0.1, Baso % (Auto) 0.3, Neut # (Auto) 9.1 H, Lymph # (Auto) 0.9, [place] # (Auto) 0.5, Eos # (Auto) 0.0, Baso # (Auto) 0.0 I & O for Last 24 hours: Intake & Output 05/16/20 05/17/20 05/18/20 05/19/20 11:59 11:59 11:59 11:59 Intake Total 4453 / 4453 2120 / 2120 2160 / 2160 1790 / 1790 Output Total 1401 / 1401 1150 / 1150 2150 / 2150 Balance 3052 / 3052 970 / 970 1790 / 1790 Weight 172 lb 4.8 oz 178 lb 3.2 oz - Constitutional no acute distress - *Routine HEENT Exam Head: Present: normocephalic Eye: Present: PERRL ENT: Present: mucous membranes moist - *Routine Neck Exam Present: supple. Absent: lymphadenopathy - *Routine Respiratory Exam Present: CTA bilaterally - *Routine Cardiovascular Exam Present: RRR - *Routine Abdominal Exam Present: soft, normoactive bowel sounds. Absent: tenderness - *Routine Extremities Exam Present: normal capillary refill. Absent: cyanosis, clubbing, edema - *Routine Skin Exam Present: warm. Absent: rash - *Routine Neurological Exam Present: alert, oriented X3 - Routine Psychiatric Exam Present: normal affect Assessment and Plan (1) Acute respiratory failure with hypoxia Status: Acute Category: Medical Code(s): J96.01 - Acute respiratory failure with hypoxia (2) Cirrhosis Status: Chronic Qualifiers: Hepatic cirrhosis type: unspecified hepatic cirrhosis Ascites presence: unspecified Qualified Code(s): K74.60 - Unspecified cirrhosis of liver Category: Medical Code(s): K74.60 - Unspecified cirrhosis of liver (3) Neuropathy Status: Chronic Category: Medical Code(s): G62.9 - Polyneuropathy, unspecified (4) Severe sepsis with acute organ dysfunction Status: Acute Category: Medical Code(s): A41.9 - Sepsis, unspecified organism; R65.20 - Severe sepsis without septic shock (5) Hyponatremia Status: Acute Category: Medical Code(s): E87.1 - Hypo-osmolality and hyponatremia (6) Hypothyroidism (acquired) Status: Acute Category: Medical Code(s): E03.9 - Hypothyroidism, unspecified (7) Overweight (BMI 25.0-29.9) Status: Acute Category: Medical Code(s): E66.3 - Overweight (8) Anxiety Status: Acute Category: Medical Code(s): F41.9 - Anxiety disorder, unspecified (9) COVID-19 virus detected Status: Acute Category: Medical Code(s): U07.1 - COVID-19 (10) Anemia Status: Acute Qualifiers: Anemia type: unspecified type Qualified Code(s): D64.9 - Anemia, unspecified Category: Medical Code(s): D64.9 - Anemia, unspecified - Assessment and plan all Dx Assessment and Plan for all problems:: rounded with dr ordaz all orders per dr ordaz
[2020-05-19 09:39] LABS: Lymphocytes % 17 % (10-50); Monocytes % 4 % (2-9); Neutrophils % 77 % (42-76); Platelet Estimate Normal; RBC Morphology Normal; Total Cells Counted 100
--- NOTE | 2020-05-19 11:21 | HMH.PULMPN ---
Internal Medicine - PN: Subj *Date: 05/19/20 *Time: :21 Interval history: Patient respiratory status remained stable over the weekend, on high flow nasal cannula at 30 L and 45%. Exam - Constitutional Constitutional:: no acute distress, comfortable - HENMT Exam HENMT: normocephalic, atraumatic - Neck Exam Neck:: normal visual inspection - Respiratory Exam Respiratory:: able to speak in complete sentences, no respiratory distress - Neurological Exam Neurological: alert, awake, normal cognition - Extremities Exam Extremities: no cyanosis, no clubbing, edema - Psychiatric Exam Psychiatric: normal affect, appearance grossly normal Assessment and Plan (1) Acute respiratory failure with hypoxia Status: Acute Category: Medical Code(s): J96.01 - Acute respiratory failure with hypoxia (2) Cirrhosis Status: Chronic Qualifiers: Hepatic cirrhosis type: unspecified hepatic cirrhosis Ascites presence: unspecified Qualified Code(s): K74.60 - Unspecified cirrhosis of liver Category: Medical Code(s): K74.60 - Unspecified cirrhosis of liver (3) Neuropathy Status: Chronic Category: Medical Code(s): G62.9 - Polyneuropathy, unspecified (4) Severe sepsis with acute organ dysfunction Status: Acute Category: Medical Code(s): A41.9 - Sepsis, unspecified organism; R65.20 - Severe sepsis without septic shock (5) Hyponatremia Status: Acute Category: Medical Code(s): E87.1 - Hypo-osmolality and hyponatremia (6) Hypothyroidism (acquired) Status: Acute Category: Medical Code(s): E03.9 - Hypothyroidism, unspecified (7) Overweight (BMI 25.0-29.9) Status: Acute Category: Medical Code(s): E66.3 - Overweight (8) Anxiety Status: Acute Category: Medical Code(s): F41.9 - Anxiety disorder, unspecified (9) COVID-19 virus detected Status: Acute Category: Medical Code(s): U07.1 - COVID-19 (10) Anemia Status: Acute Qualifiers: Anemia type: unspecified type Qualified Code(s): D64.9 - Anemia, unspecified Category: Medical Code(s): D64.9 - Anemia, unspecified - Assessment and plan all Dx Assessment and Plan for all problems:: #Acute hypoxic respiratory failure: #Community-acquired pneumonia: #Fungal pneumonia, likely PGP #COVID-19 pneumonia 54-year-old autoimmune hepatitis decompensated cirrhosis on Lasix and spironolactone, recently completed one month of high-dose steroids 80 mg of methylprednisolone daily currently on taper presented with worsening respiratory failure, pleuritic chest pain and chest x-ray showed bilateral pulmonary infiltrates consistent with pneumonia. CT PE did not show any evidence of pulmonary them but showed bilateral diffuse groundglass opacity along with trace pleural effusions patient during the hospital course on day 3 tested positive for COVID-19 after prior negative testing on admission. Patient along with continuation of antibiotics for possible community-acquired pneumonia, with Cefipime azithromycin patient was started on remdesivir dexamethasone for COVID-[address] also showed evidence of cirrhosis with portal hypertension. Sputum VIVIAN did not show any fungal elements. Serum LDH at 479, less concerned for PJP pneumonia at this point of time. We will continue current antibiotic course with cefepime and Bactrim for PJP pneumonia. Patient appears volume overloaded, will give her 40 of additional IV Lasix today and will change her from 20 to 40mg from tomorrow. Spironolactone was stopped given concern for interaction with Bactrim and possible hyperkalemia. Plan: -Continue Bactrim DS once daily for PJP pneumonia x 21 days - Lasix 40 mg IV once today along with 40 mg IV daily from tomorrow - Sputum for PJP PCR / Silver staining -need to be collected - Continue remdesivir and dexamethasone x 10 days for COVID-19 pneumonia - Continue cefepime x 7 days (completed 5-day course of azithromycin, discontinued) #Thank you
--- NOTE | 2020-05-19 17:03 | DIET.NUTRFU ---
PO intake avg. 50% + protein supplement TID, with improvement today of 100% of 2 meals. 6# weight gain past 24 hrs. Also of note pt has had continued hyperglycemia t/o stay despite sugar free beverages/desserts on diet order. While hyperglycemia is expected with COVID, pt has had 2 readings >300. Recommend A1C be taken prior to dc. Continuing to monitor, no changes to nutritional care plan at this time.
--- NOTE | 2020-05-19 18:14 | PC.NURSE ---
Patient is alert and oriented x 5 sitting in recliner. Has been in her recliner since 1200. Respiratory: Patient has been titrated down to 6l nc and is currently satting 95%. IS at bedside. Frequent prompting to use. GI: Patient has had no n/d/v. 1 bm today. Appetite is adequate. : Patient is voiding in bedside. No issues. Lasix 60 mg given today iv. Patient has voided 1000cc in urine. Skin is c/d/i. No issues. Patient is assist x 1 at beginning of shift but as day has worn on patient has been ambulating independently, she states that its because she is losing so much water and edema. Edema is improved in bilateral feet. Still +2. No issues or concerns for patient. Will continue to monitor.
--- NOTE | 2020-05-19 19:40 | PC.NURSE ---
Patient has had a good day day. No issues with orientation. Is currently on 6l nc. NO issues or concerns.
[2020-05-20 00:05] VITALS: BP 140/56; PULSE 107; RESP 20; TEMP 36.4; O2SAT 96
[2020-05-20 04:00] VITALS: BP 140/56; PULSE 97; RESP 20; TEMP 36.8; O2SAT 96
--- NOTE | 2020-05-20 05:00 | PC.NURSE ---
Pt is a&o x4. No acute changes overnight. Pt slept well through the night with no c/o pain or discomfort. Pt was able to be weaned from 6L NC down to 4L NC, with sats in the mid 90s. Lung sounds are diminished with fine crackles scattered throughout. Pt was up to BSC independently, with sats in the 90s during ambulation. UOP was adequate, bowel sounds positive x4, abd soft and nontender. Pt is tolerating diet well and has had adequate intake. VSS, call light in reach. No concerns at this time.
[2020-05-20 06:23] LABS: Anion Gap 15.3 mEq/L (5-15); Blood Urea Nitrogen 19 mg/dl (7-17); Calcium 9.2 mg/dl (8.4-10.2); Carbon Dioxide 23 mmol/L (22.0-30.0); Chloride 93 mmol/L (98-107); Creatinine Clearance Estimated 100 mL/min (50-200); Estimated Glomerular Filt Rate 74 ml/min (>60); GFR (African American) 90 ML/MIN (>60); Potassium 4.3 mmoL/L (3.5-5.1); Sodium 127 mmol/L (136-145)
[2020-05-20 06:31] LABS: Glucose 564 mg/dl (74-100)
--- NOTE | 2020-05-20 06:45 | PC.NURSE ---
reported critical glucose of [address] Rey @ 5116. NOs for Humalog Insulin 10units SQ 1x dose now, check FS in 2hr (0845). Add ACHS FS and Low Intensity SSI (LISSI).
[2020-05-20 06:52] LABS: Basophils # 0.1 K/mm3 (0-0.2); Basophils % 0.8 % (0.1-2.0); Eosinophils % 0.1 % (0.1-12.0); Hematocrit 37.9 % (37.0-47.0); Hemoglobin 12.2 g/dL (12.2-16.2); Lymphocytes % 7.4 % (10-50); Mean Corpuscular HGB Conc 32.2 g/dL (31.8-35.4); Mean Corpuscular Hemoglobin 34.5 pg (27.0-31.2); Mean Corpuscular Volume 107.1 fl (81-99); Mean Platelet Volume 8.4 fl (7.4-10.4); Monocytes # 0.6 K/mm3 (0.1-1.0); Monocytes % 4.3 % (1.7-9.3); Neutrophils # 11.8 K/mm3 (1.8-7.8); Neutrophils % 87.4 % (37.0-80.0); Platelet Count 227 K/mm3 (142-424); Red Blood Count 3.54 M/mm3 (4.20-5.40); Red Cell Distribution Width 15.7 % (11.5-17.5); White Blood Count 13.5 K/mm3 (4.8-10.8)
[2020-05-20 07:12] LABS: MANUAL DIFFERENTIAL MANUAL DIFFERENTIAL (MANUAL DIFF)
--- NOTE | 2020-05-20 07:15 | PC.NURSE ---
@ 0600 Titrated NS to 3LPM and pt tolerated very well main sats 95-97%
[2020-05-20 07:41] VITALS: BP 146/79; PULSE 106; RESP 20; O2SAT 96
[2020-05-20 08:40] LABS: Lymphocytes % 37 % (10-50); Monocytes % 2 % (2-9); Neutrophils % 61 % (42-76); Platelet Estimate Normal; RBC Morphology Normal; Total Cells Counted 100
[2020-05-20 09:28] LABS: POC Glucose,Bedside 469 (70-110)
--- NOTE | 2020-05-20 09:47 | HMH.PULMPN ---
Internal Medicine - PN: Subj *Date: 05/20/20 *Time: 13:25 Interval history: No acute respiratory meds overnight., Patient respiratory status improved, weaned to 3 L nasal cannula today Exam - Constitutional Constitutional:: no acute distress, comfortable - HENMT Exam HENMT: normocephalic, atraumatic - Eye Exam Eyes:: eyelids normal, normal conjunctiva - Neck Exam Neck:: thyroid normal, no lymphadenopathy - Respiratory Exam Respiratory:: able to speak in complete sentences, bibailar crackels heard - Cardiovascular Exam Cardiac:: regular rhythm, S1, S2 - GI Exam GI:: soft, no hepatosplenomegaly - Skin Exam Skin: warm, no rash - Neurological Exam Neurological: alert, awake, normal cognition - Extremities Exam Extremities: no cyanosis, no clubbing, edema - Psychiatric Exam Psychiatric: normal affect Assessment and Plan (1) Acute respiratory failure with hypoxia Status: Acute Category: Medical Code(s): J96.01 - Acute respiratory failure with hypoxia (2) Cirrhosis Status: Chronic Qualifiers: Hepatic cirrhosis type: unspecified hepatic cirrhosis Ascites presence: unspecified Qualified Code(s): K74.60 - Unspecified cirrhosis of liver Category: Medical Code(s): K74.60 - Unspecified cirrhosis of liver (3) Neuropathy Status: Chronic Category: Medical Code(s): G62.9 - Polyneuropathy, unspecified (4) Severe sepsis with acute organ dysfunction Status: Acute Category: Medical Code(s): A41.9 - Sepsis, unspecified organism; R65.20 - Severe sepsis without septic shock (5) Hyponatremia Status: Acute Category: Medical Code(s): E87.1 - Hypo-osmolality and hyponatremia (6) Hypothyroidism (acquired) Status: Acute Category: Medical Code(s): E03.9 - Hypothyroidism, unspecified (7) Overweight (BMI 25.0-29.9) Status: Acute Category: Medical Code(s): E66.3 - Overweight (8) Anxiety Status: Acute Category: Medical Code(s): F41.9 - Anxiety disorder, unspecified (9) COVID-19 virus detected Status: Acute Category: Medical Code(s): U07.1 - COVID-19 (10) Anemia Status: Acute Qualifiers: Anemia type: unspecified type Qualified Code(s): D64.9 - Anemia, unspecified Category: Medical Code(s): D64.9 - Anemia, unspecified - Assessment and plan all Dx Assessment and Plan for all problems:: #Acute hypoxic respiratory failure: #Community-acquired pneumonia: #Fungal pneumonia, likely PGP #COVID-19 pneumonia 54-year-old autoimmune hepatitis decompensated cirrhosis on Lasix and spironolactone, recently completed one month of high-dose steroids 80 mg of methylprednisolone daily currently on taper presented with worsening respiratory failure, pleuritic chest pain and chest x-ray showed bilateral pulmonary infiltrates consistent with pneumonia. CT PE did not show any evidence of pulmonary them but showed bilateral diffuse groundglass opacity along with trace pleural effusions patient during the hospital course on day 3 tested positive for COVID-19 after prior negative testing on admission. Patient along with continuation of antibiotics for possible community-acquired pneumonia, with Cefipime azithromycin patient was started on remdesivir dexamethasone for COVID-[address] also showed evidence of cirrhosis with portal hypertension. Sputum VIVIAN did not show any fungal elements. Serum LDH at 479, hpwever serum Beta-D - glucan elevated and was initiated on bactrim Rx for PJP pneumonia as patient has been on high-dose steroids for the last 1 month. Patient respiratory status gradually improved throughout the hospital admission at 1 point high flow nasal 100%, eventually weaned to 3 L nasal cannula today. Patient also appeared to be volume overloaded throughout her hospital admission and was given Lasix. Interval update: Respiratory significantly improved, weaned from high flow 3 L nasal oxygen supplementation of maintaining oxygen saturations above 92%.
--- NOTE | 2020-05-20 10:13 | SW/DCPLANNER ---
Addendum entered by Claudia Crowley 05/20/20 12:25: Order has also been faxed to [facility] for a bedside commode. Bedside commode will be delivered to patients home. Addendum entered by Claudia Crowley 05/20/20 11:36: Lima with [facility] has stated that portable O2 has been delivered and home concentrator will be set up at home. Original Note: Patient information and order for home O2 and portable tank has been faxed to [facility]. Patient may discharge later today. I will continue to follow up with Carisa until patient information is reviewed.
--- NOTE | 2020-05-20 11:07 | HMH.DCSUM ---
General - General Admission date:: 05/12/20 Discharge date: 05/20/20 HPI HPI: this pt with progressive sob and cough and dec po intake over the last few days presented to the ed - he patient is a 54 year old female with a history of autoimmune hepatitis who presents to the ED with shortness of breath. The patient states for the last 2 days she had had cough and shortness of breath. She also notes subjective fever and chills. She has chronic diarrhea but no new nausea vomiting or abdominal pain. She had a negative COVID test 2 days ago. She had recent travel to [place] over the holidayshe patient is a 54 year old female with a history of autoimmune hepatitis who presents to the ED with shortness of breath and cough. On arrival she has an elevated temperature to 100.0F and is tachycardic, she is satting in the mid 80s on room air. She was placed on 5L NC with improvement to the mid 90s. She has coarse bilateral breath sounds on exam. Labs including CBC, CMP, INR, troponin, BNP were ordered. BNP was elevated to the 400s. WBC was 19. INR was mildly elevated. CXR was obtained which shows bilateral diffuse infiltrates. Despite her recent covid negative test I am concerned for COVID-19 pneumonia based on her presentation and work up. COVID PCR was ordered. She was given ceftriaxone and azithromycin IV for possible overlying bacterial pneumonia. Spoke with Dr. Smith who agreed to admit the patient for pneumonia and acute hypoxic respiratory failure- pt with underlying liver disease followed by dr freed and cap with hypoxia - admitted for ivf and abx and resp treatment Hospital Course Hospital Course: 54-year-old female patient presented to the emergency department with complaints of shortness of breath. She reports she has been short of breath for the last 2 days and having a nonproductive cough. She does have complaints of fever and chills, chronic diarrhea but denies nausea, vomiting, or abdominal pain. She does have a Covid negative test 2 days prior. She does have a past medical history of autoimmune hepatitis and a fever of 100.0 and is tachycardic presently. She was satting 80% on room air, placed on 5 L per nasal cannula and improved to mid 90s. In the emergency department she received azithromycin 500 mg IV, ceftriaxone 1 g IV, and Solu-Medrol 125 mg IV and admitted to the floor After being admitted for 2 days Covid was retested and she did test positive on this 1 05/13/20 ECHO: Conclusion 1. Normal left ventricular size, hyperdynamic left ventricular systolic function, visually estimated ejection fraction over 65% with no regional wall motion abnormality, diastolic parameters are inconclusive. 2. No obvious mitral valve prolapse seen, there is no mitral regurgitation. 3. Trace tricuspid regurgitation. 4. No significant pericardial effusion noted. Electronically signed by : Krzysztof Alvarado 05/14/20 Chest CTA: FINDINGS: No evidence of aortic aneurysm or dissection. There is mild cardiomegaly. No central pulmonary embolus is apparent. Mild motion artifact somewhat obscures fine detail of the peripheral pulmonary arteries. There is diffuse bilateral airspace consolidation with some sparing of the peripheral aspect of the lung carrillo. There is also some sparing of the lung bases from consolidation but there are atelectatic changes noted in the lung bases. There are trace bilateral pleural effusions. No cavitation. No mediastinal or hilar adenopathy. The diffuse bilateral airspace opacification could very well obscure underlying pulmonary nodules. There is a small hiatal hernia. Upper abdominal images show mild perihepatic fluid. The liver contour is slightly irregular. There is a 8 mm hypodense nodule in the right hepatic lobe superiorly. There is mild thickening of the distal esophagus which is nonspecific. Perisplenic varices are present. IMPRESSION: 1. No evidence of pulmonary embolus. 2. Diffuse bila
[2020-05-20 11:27] VITALS: BP 154/81; PULSE 105; RESP 20; TEMP 36; O2SAT 94
--- NOTE | 2020-05-20 12:19 | PC.NURSE ---
PT WILL NEED AQ BEDSIDE COMMODE DUE TO SHORTNESS OF BREATH FROM COVID DIAGNOSIS AND DISTANCE TO RESTROOM IN HOME
[2020-05-20 12:22] LABS: Glucose,Random 482 mg/dL (74-100)
--- NOTE | 2020-05-20 12:23 | PC.NURSE ---
lab called. Glucose is 482. Updated primary RN (Mary), who reports that she will notify Dr. Friedman.
[2020-05-20 12:29] VITALS: TEMP 36.9
--- NOTE | 2020-05-20 12:51 | PC.NURSE ---
20UNITS HUMALOG GIVEN PER DR MURRY FOR GLUCOSE OF 501
== END 2020-05-20 14:19 | disposition home or self-care (01) | DRG 177 ==
LOC: ER 21:46 → 2ND 23:20 → ICU 05-14 14:34
PROVIDERS: Family Medicine; Internal Medicine Adolescent Medicine; Internal Medicine Pulmonary Disease; Nurse Practitioner Family; Admitting Provider Family Medicine; Emergency Provider Emergency Medicine; Visit Provider Emergency Medicine
DX: U07.1 COVID-19 (principal); J12.82 Pneumonia due to coronavirus disease 2019; J96.01 Acute respiratory failure with hypoxia; E03.9 Hypothyroidism, unspecified; K75.4 Autoimmune hepatitis; K74.69 Other cirrhosis of liver
CPT/HCPCS: 36415; 71045; 71275; 80048; 80053; 80076; 82150; 82947; 82962; 83605; 83615; 83690; 83880; 84100; 84484; 85007; 85025; 85610; 87040; 87070; 87081; 87205; 87220; 87305; 87449; 87506; 87581; 87633; 87798; 87899; 93306; 94640; 94760; 94761; 96365; 96367; 96375; 99285; J0456; J0692; J2405; Q9967; U0003

== ENCOUNTER 2020-05-29 19:37 | Emergency (ER) | payer OTHER, BC, SELFPAY ==
[2020-05-29 19:39] VITALS: BP 119/67; PULSE 107; RESP 24; TEMP 37.1; O2SAT 90; BMI 26.3
--- NOTE | 2020-05-29 19:53 | XR_ITS ---
PROCEDURE: XR CHEST PORTABLE CLINICAL HISTORY: soro Covid19 positive COMPARISON: CR XR CHEST PORTABLE from 05/12/2020 CR XR CHEST PORTABLE from 05/13/[address] ANGIO CHEST from 05/14/2020 CR XR CHEST PORTABLE from 05/17/2020 FINDINGS: There is cardiomegaly. There is diffuse bilateral pneumonia in both upper and lower lobes. This has progressed in the upper lobes compared to the previous exam. No evidence of pneumothorax. There are low lung volumes. IMPRESSION: Worsening bilateral pneumonia. Dictated by: Vick Laureano MD 05/29/2020 20:25 Vick Laureano MD in [facility] 05/29/2020 20:25
[2020-05-29 20:06] LABS: Basophils # 0.1 K/mm3 (0-0.2); Basophils % 0.7 % (0.1-2.0); Eosinophils # 0.2 K/mm3 (0.0-0.4); Eosinophils % 1.1 % (0.1-12.0); Hematocrit 32.9 % (37.0-47.0); Hemoglobin 11.2 g/dL (12.2-16.2); Lymphocytes # 2.4 K/mm3 (0.7-4.5); Lymphocytes % 13.5 % (10-50); Mean Corpuscular HGB Conc 34.2 g/dL (31.8-35.4); Mean Corpuscular Hemoglobin 33.4 pg (27.0-31.2); Mean Corpuscular Volume 97.8 fl (81-99); Mean Platelet Volume 7.3 fl (7.4-10.4); Monocytes # 1.1 K/mm3 (0.1-1.0); Monocytes % 6.5 % (1.7-9.3); Neutrophils # 13.7 K/mm3 (1.8-7.8); Neutrophils % 78.3 % (37.0-80.0); Platelet Count 264 K/mm3 (142-424); Red Blood Count 3.36 M/mm3 (4.20-5.40); White Blood Count 17.5 K/mm3 (4.8-10.8)
[2020-05-29 20:08] LABS: MANUAL DIFFERENTIAL MANUAL DIFFERENTIAL (MANUAL DIFF)
--- NOTE | 2020-05-29 20:10 | CT_ITS ---
PROCEDURE: CT ANGIO CHEST CLINCIAL INDICATION: SOA Shortness of air Covid19, COMPARISON: CT CT ANGIO CHEST from 05/14/2020 TECHNIQUE: IV Contrast: 70ML Isovue 370 Axial images obtained with sagittal and coronal reformats. All CT scans at the facility use one or more dose reduction, viz: automated exposure control, ma/kV adjustment per patient size (including targeted exams where dose is matched to indication, i.e. head), or iterative reconstruction technique. FINDINGS: HEART AND MEDIASTINAL STRUCTURES: No evidence of pulmonary embolus aortic aneurysm or dissection. LUNGS AND PLEURAL SPACES: The diffuse ground-glass attenuation has shown some improvement. However, there is now multiple areas of consolidation with atelectatic change/fibrotic bands. There are trace bilateral pleural effusions. The findings are consistent with late stage Covid19 pneumonia. BONY STRUCTURES: Degenerative changes thoracic spine UPPER ABDOMEN: Heterogeneous density of the liver which may be due to scattered areas of fatty replacement. There is some lobularity of the liver surface suggesting cirrhosis with a small amount of perihepatic fluid noted. Multiple perisplenic varices are present. ADDITIONAL FINDINGS: No other significant abnormalities. IMPRESSION: 1. No evidence of pulmonary embolus. 2. Findings compatible with late stage Covid19 pneumonia with bilateral effusions. 3. Cirrhosis with perisplenic varices and ascites Dictated by: Vick Laureano MD 05/30/2020 06:46 Vick Laureano MD in [facility] 05/30/2020 06:46
--- NOTE | 2020-05-29 20:11 | ECG_ITS ---
APPROVED REPORT Exam: Resting ECG HR:97 bpm ECG Measurements Heart Rate 97 AXES WY 164 P 11 QRSd 102 QRS -44 QT 372 T 78 QTc 472 Conclusion Normal sinus rhythm Left axis deviation NSSTTW changes Abnormal ECG Electronically signed by : Irving Goldberg, 05/30/2020 18:05:25
[2020-05-29 20:12] LABS: Alanine Aminotransferase 37 U/L (12-78); Albumin/Globulin Ratio 0.9 (1.1-1.8); Alkaline Phosphatase 321 U/L (38-126); Anion Gap 2.4 mEq/L (5-15); Aspartate Amino Transferase 67 U/L (14-36); Bilirubin,Total 3.7 mg/dl (0.2-1.3); Blood Urea Nitrogen 12 mg/dl (7-17); Calcium 9.5 mg/dl (8.4-10.2); Chloride 88 mmol/L (98-107); Creatinine Clearance Estimated 122 mL/min (50-200); Estimated Glomerular Filt Rate 103 ml/min (>60); GFR (African American) 125 ML/MIN (>60); Globulin 3.2 g/dL (1.3-3.2); Glucose 130 mg/dl (74-100); Lymphocytes % 19 % (10-50); Monocytes % 9 % (2-9); Neutrophils % 72 % (42-76); Potassium 3.4 mmoL/L (3.5-5.1); Sodium 127 mmol/L (136-145); Total Cells Counted 100; Total Protein,Serum 6.2 g/dl (6.3-8.2)
[2020-05-29 20:13] LABS: Carbon Dioxide 40 mmol/L (22.0-30.0); Platelet Estimate Normal; RBC Morphology Normal
[2020-05-29 20:17] LABS: C-Reactive Protein 57.1 mg/L (0-4)
--- NOTE | 2020-05-29 20:29 | HMH.EDSOB ---
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 The time I documented below is in addition to time spent performing reported procedures but includes the following listed in this critical care notation. Medical Decision Making - Medical Records Medical records reviewed: Yes: I reviewed the patient's medical records. - Timothy Inquiry Pt receiving controlled substance: No Vital Signs: 05/29/20 19:39 05/30/20 00:07 05/30/20 00:30 Temperature 98.7 F Temperature Source Oral Pulse Rate [Right] 107 H 98 H 91 H Respiratory Rate 24 16 17 Blood Pressure [Right Arm] 119/67 135/78 129/63 Blood Pressure Mean [Right Arm] 84 97 85 Blood Pressure Source [Right Arm] Automatic Cuff Automatic Cuff Automatic Cuff Blood Pressure Position [Right Arm] Supine Sitting Sitting 02 Sat by Pulse Oximetry 90 L 98 98 Oxygen Delivery Method Nasal Cannula Nasal Cannula Nasal Cannula Oxygen Flow Rate (LPM) 4 3 3 05/30/20 01:00 05/30/20 01:30 05/30/20 02:00 Temperature Temperature Source Pulse Rate [Right] 86 91 H 83 Respiratory Rate 18 18 16 Blood Pressure [Right Arm] 121/60 146/67 H 124/58 L Blood Pressure Mean [Right Arm] 80 93 80 Blood Pressure Source [Right Arm] Automatic Cuff Automatic Cuff Automatic Cuff Blood Pressure Position [Right Arm] Sitting Sitting Sitting 02 Sat by Pulse Oximetry 97 96 96 Oxygen Delivery Method Nasal Cannula Nasal Cannula Nasal Cannula Oxygen Flow Rate (LPM) 3 3 3 05/30/20 02:30 05/30/20 03:00 05/30/20 03:30 Temperature Temperature Source Pulse Rate [Right] 79 74 72 Respiratory Rate 18 16 16 Blood Pressure [Right Arm] 140/59 L 138/56 L 138/62 Blood Pressure Mean [Right Arm] 86 83 87 Blood Pressure Source [Right Arm] Blood Pressure Position [Right Arm] 02 Sat by Pulse Oximetry 96 96 96 Oxygen Delivery Method Nasal Cannula Nasal Cannula Nasal Cannula Oxygen Flow Rate (LPM) 3 3 3 05/30/20 04:00 05/30/20 04:30 05/30/20 05:00 Temperature Temperature Source Pulse Rate [Right] 78 72 70 Respiratory Rate 16 16 16 Blood Pressure [Right Arm] 128/54 L 126/62 122/54 L Blood Pressure Mean [Right Arm] 78 83 76 Blood Pressure Source [Right Arm] Blood Pressure Position [Right Arm] 02 Sat by Pulse Oximetry 96 97 97 Oxygen Delivery Method Nasal Cannula Nasal Cannula Oxygen Flow Rate (LPM) 3 3 3 05/30/20 05:30 05/30/20 06:00 05/30/20 06:37 Temperature Temperature Source Pulse Rate [Right] 69 73 72 Respiratory Rate 16 16 18 Blood Pressure [Right Arm] 120/49 L 127/55 L 106/43 L Blood Pressure Mean [Right Arm] 72 79 64 Blood Pressure Source [Right Arm] Blood Pressure Position [Right Arm] 02 Sat by Pulse Oximetry 96 98 96 Oxygen Delivery Method Nasal Cannula Nasal Cannula Oxygen Flow Rate (LPM) 3 3 3 05/30/20 07:40 Temperature Temperature Source Pulse Rate [Right] 77 Respiratory Rate Blood Pressure [Right Arm] 105/45 L Blood Pressure Mean [Right Arm] 65 Blood Pressure Source [Right Arm] Blood Pressure Position [Right Arm] 02 Sat by Pulse Oximetry 99 Oxygen Delivery Method Oxygen Flow Rate (LPM) - Lab Data Lab results reviewed: Yes: I reviewed the patient's lab results. Lab Results 05/29/20 00:00: Urine Color Yellow, Urine Appearance Clear, Urine pH 6.0, Ur Specific [place] <= 1.005, Urine Protein Negative, Urine Glucose (UA) Negative, Urine Ketones Negative,
[2020-05-29 20:30] LABS: Troponin I 0.01 ng/ml (0.00-0.034)
[2020-05-29 20:31] LABS: Procalcitonin 0.164 ng/mL (0.0-2.0)
[2020-05-29 21:03] LABS: Erythrocyte Sedimentation Rate > 140 mm/hr (0-30)
[2020-05-29 21:13] LABS: ABG Base Excess 7.9 mmol/L (-2.4-2.3); ABG HCO3 30.7 mmhg (22.0-26.0); ABG Oxygen Saturation 93 % (90-100); ABG PCO2 38.5 mmhg (35.0-45.0); ABG PH 7.52 mmol/L (7.35-7.45); ABG PO2 65.3 mmhg (80-100); ABG TCO2 31.9 mmhg (23-27)
[2020-05-29 21:14] LABS: Allen's Test Acceptable; Source Right Radial
[2020-05-30] VITALS (16 sets, daily range): BP systolic 105–146; BP diastolic 43–78; PULSE 69–98; RESP 16–18; TEMP 36.6; O2SAT 96–99
[2020-05-30 00:17] LABS: Adenovirus,PCR Not Detected (NotDetected); Bordetella Pertussis Not Detected (NotDetected); Chlamydophila Pneumoniae, PCR Not Detected (NotDetected); Coronavirus 19, PCR Not Detected (NotDetected); Coronavirus 229E Not Detected (NotDetected); Coronavirus NL63 Not Detected (NotDetected); Coronavirus OC43 Not Detected (NotDetected); Coronovirus HKU1,PCR Not Detected (NotDetected); Human Metapneumovirus Not Detected (NotDetected); Influenza A, PCR Not Detected (NotDetected); Influenza AH1, 2009 Not Detected (NotDetected); Influenza AH1, PCR Not Detected (NotDetected); Influenza AH3,PCR Not Detected (NotDetected); Influenza B, PCR Not Detected (NotDetected); Mycoplasma Pneumoniae, PCR Not Detected (NotDetected); Parainfluenza 1, PCR Not Detected (NotDetected); Parainfluenza 2, PCR Not Detected (NotDetected); Parainfluenza 3, PCR Not Detected (NotDetected); Parainfluenza 4, PCR Not Detected (NotDetected); Respiratory Syncytial Virus Not Detected (NotDetected); Rhinovirus/Enterovirus Not Detected (NotDetected)
[2020-05-30 00:25] LABS: Lactic Acid 1.4 mmol/L (0.7-2.1)
[2020-05-30 00:49] LABS: Microscopic, Urine URINE MICROSCOPIC (MICROSCOPIC)
[2020-05-30 00:52] LABS: Appearance,Urine CLEAR (Clear); Bilirubin,Urine Negative (Negative); Blood, Urine TRACE-I (Negative); Color,Urine YELLOW (Yellow); Glucose,Urine (UA) Negative (Negative); Ketones,Urine Negative (Negative); Leukocyte Esterase,Urine TRACE (Negative); Nitrate,Urine Negative (Negative); Protein,Urine Negative (Negative); Specific Gravity, Urine <= 1.005 (1.005-1.030); Urobilinogen,Urine 0.2 EU/dl (0.2)
[2020-05-30 01:13] LABS: Bacteria,Urine 1+ /lpf
[2020-05-30 03:03] LABS: Ammonia 15 umol/L (9-30)
--- NOTE | 2020-05-30 03:12 | PC.NURSE ---
pt given soup, crackers and a drink. tolerated well
--- NOTE | 2020-05-30 03:23 | PC.NURSE ---
Pt repositioned for comfort, no c/o at this time
--- NOTE | 2020-05-30 04:12 | PC.NURSE ---
Pt resting quietly
--- NOTE | 2020-05-30 05:22 | PC.NURSE ---
Pt resting quietly, v.s. stable
--- NOTE | 2020-05-30 06:13 | PC.NURSE ---
pt sat upright and given breakfast meal to eat.
[2020-05-30 07:30] LABS: Blood Urea Nitrogen 19 mg/dl (7-17); Carbon Dioxide 34 mmol/L (22.0-30.0); Chloride 91 mmol/L (98-107); Creatinine Clearance Estimated 105 mL/min (50-200); Estimated Glomerular Filt Rate 87 ml/min (>60); GFR (African American) 105 ML/MIN (>60); Glucose 327 mg/dl (74-100); Sodium 128 mmol/L (136-145)
--- NOTE | 2020-05-30 07:47 | PC.NURSE ---
spoke with care management regarding possible admission for rehab.
[2020-05-30 07:51] LABS: Basophils % 0.1 % (0.1-2.0); Calcium 8.5 mg/dl (8.4-10.2); Hematocrit 30.1 % (37.0-47.0); Hemoglobin 10.1 g/dL (12.2-16.2); Lymphocytes # 0.8 K/mm3 (0.7-4.5); Lymphocytes % 7.6 % (10-50); Mean Corpuscular HGB Conc 33.7 g/dL (31.8-35.4); Mean Corpuscular Hemoglobin 33.4 pg (27.0-31.2); Mean Corpuscular Volume 99.2 fl (81-99); Mean Platelet Volume 7.5 fl (7.4-10.4); Monocytes # 0.1 K/mm3 (0.1-1.0); Monocytes % 1.4 % (1.7-9.3); Neutrophils # 9.4 K/mm3 (1.8-7.8); Neutrophils % 90.9 % (37.0-80.0); Platelet Count 241 K/mm3 (142-424); Red Blood Count 3.04 M/mm3 (4.20-5.40); Red Cell Distribution Width 14.8 % (11.5-17.5); White Blood Count 10.3 K/mm3 (4.8-10.8)
[2020-05-30 07:53] LABS: MANUAL DIFFERENTIAL MANUAL DIFFERENTIAL (MANUAL DIFF)
[2020-05-30 08:16] LABS: Lymphocytes % 5 % (10-50); Monocytes % 1 % (2-9); Neutrophils % 94 % (42-76); Platelet Estimate Normal; RBC Morphology Normal; Total Cells Counted 100
--- NOTE | 2020-05-30 09:00 | PC.NURSE ---
pt updated on plan of care
--- NOTE | 2020-05-30 09:15 | SW/DCPLANNER ---
Addendum entered by Claudia Crowley 06/05/20 14:24: I just received a call from [facility] of home health nurse (Ludivina Suero) and she has stated that this patient has refused all home health services at this time. Addendum entered by Claudia Crowley 06/02/20 12:00: This patient does have a home health policy under her health insurance. Patient information and order has been faxed to [facility]. Carmen with [facility] has stated that she will follow up patient at home regarding services. Services could start tomorrow if patient is willing to accept services. Addendum entered by Claudia Crowley 05/30/20 11:19: Roro has reviewed this patients information and stated that patient is NOT a candidate for [facility] pending due to fam Medicaid . Patient would have to admit at any skilled facility under private pay. I have informed patient that private pay rate for [facility] would be roughly $190/day. Patient has stated this is not an options. I have faxed patient demographics to [facility]: still waiting to hear back if patient has a home health policy. Patient stated that her son is now COVID positive and she has nowhere to go. I did offer patient a homeless prison resource list and patient has denied at this time. Patient is not interested in private pay at skilled facility or homeless shelters. I provided patient with COVID relief information (explained her this is not a quick fix but future reference) to provide her with a [employer]. I did speak with Dr Friedman regarding discharge plans and he has stated that patient does not medically have a reason to be admitted. I informed patient of situation and explained if admitted this would not change discharge plans. I explained to patient the importance of speaking with her family and friends. Original Note: I have spoke with this patient regarding discharge plans. Patient stated that she is residing at home with her son but needs more care at this time. Patient is interested placement at this time. I have discussed options of Medicaid pending/private pay. Patient is agreeable to [facility] pending at this time and has no preference as to which agency. Patient information has been faxed to [facility] at this time. I will continue to follow up with Roro from [facility] and patient.
--- NOTE | 2020-05-30 10:14 | PC.NURSE ---
pt updated on plan of care. pt given crackers and sprite
--- NOTE | 2020-05-30 11:32 | PC.NURSE ---
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
--- NOTE | 2020-05-30 12:00 | PC.NURSE ---
pt given lunch tray
== END 2020-05-30 14:05 | disposition home or self-care (01) ==
PROVIDERS: Emergency Provider Emergency Medicine
DX: B94.8 Sequelae of other specified infectious and parasitic diseases (principal); Z86.16 Personal history of COVID-19; K74.60 Unspecified cirrhosis of liver; I10 Essential (primary) hypertension; F41.8 Other specified anxiety disorders; E03.9 Hypothyroidism, unspecified; Z79.899 Other long term (current) drug therapy; Z99.81 Dependence on supplemental oxygen
CPT/HCPCS: 71045; 71275; 80048; 80053; 81001; 82140; 82803; 83605; 84145; 84484; 85007; 85025; 85651; 86140; 87040; 87581; 87633; 87798; 93005; 96365; 96375; 99284; J2405; Q9967; U0003

== ENCOUNTER → 2020-06-05 18:29 | Outpatient (CLI) | payer OTHER, BC, SELFPAY ==
--- NOTE | 2020-06-05 18:55 | XR_ITS ---
PROCEDURE: XR ANKLE RT MIN 3V CLINICAL INDICATION: right ankle pain s/p fall Posttraumatic COMPARISON: No exams were available for comparison FINDINGS: No fracture or dislocation. Mild soft tissue swelling medially and. IMPRESSION: Soft tissue swelling otherwise negative Dictated by: Vick Laureano MD 06/06/2020 05:52 Vick Laureano MD in [place] 06/06/2020 05:52
== END ==
PROVIDERS: PCP Physician Assistant; Visit Provider Physician Assistant
DX: M25.571 Pain in right ankle and joints of right foot (principal)
CPT/HCPCS: 73610

== ENCOUNTER → 2020-06-16 10:00 | Outpatient (CLI) | payer OTHER, BC, SELFPAY ==
[2020-06-16 10:29] LABS: Basophils # 0.1 K/mm3 (0-0.2); Basophils % 1.3 % (0.1-2.0); Eosinophils # 0.2 K/mm3 (0.0-0.4); Eosinophils % 1.7 % (0.1-12.0); Hematocrit 31.1 % (37.0-47.0); Hemoglobin 9.9 g/dL (12.2-16.2); Lymphocytes # 3.3 K/mm3 (0.7-4.5); Lymphocytes % 36.2 % (10-50); Mean Corpuscular HGB Conc 31.8 g/dL (31.8-35.4); Mean Corpuscular Hemoglobin 31.3 pg (27.0-31.2); Mean Corpuscular Volume 98.4 fl (81-99); Monocytes # 0.4 K/mm3 (0.1-1.0); Monocytes % 4.2 % (1.7-9.3); Neutrophils # 5.2 K/mm3 (1.8-7.8); Neutrophils % 56.5 % (37.0-80.0); Platelet Count 376 K/mm3 (142-424); Red Blood Count 3.16 M/mm3 (4.20-5.40); Red Cell Distribution Width 14.5 % (11.5-17.5); White Blood Count 9.2 K/mm3 (4.8-10.8)
[2020-06-16 10:40] LABS: Ammonia 21 umol/L (9-30)
[2020-06-16 10:53] LABS: Chloride 107 mmol/L (98-107)
[2020-06-16 10:54] LABS: Potassium 4.1 mmoL/L (3.5-5.1); Sodium 137 mmol/L (136-145)
[2020-06-16 10:56] LABS: Alanine Aminotransferase 28 U/L (12-78); Alkaline Phosphatase 287 U/L (38-126); Aspartate Amino Transferase 53 U/L (14-36); Bilirubin,Total 2.8 mg/dl (0.2-1.3); Blood Urea Nitrogen 4 mg/dl (7-17); Estimated Glomerular Filt Rate 103 ml/min (>60); GFR (African American) 125 ML/MIN (>60)
[2020-06-16 10:57] LABS: Albumin Level 3.6 g/dl (3.5-5.0); Anion Gap 7.1 mEq/L (5-15); Calcium 9.8 mg/dl (8.4-10.2); Carbon Dioxide 27 mmol/L (22.0-30.0); Globulin 3.5 g/dL (1.3-3.2); Glucose 137 mg/dl (74-100); Iron 106 ug/dL (37-170); Total Protein,Serum 7.1 g/dl (6.3-8.2)
[2020-06-16 11:06] LABS: Total Iron Binding Capacity 231 ug/dL (265-497)
[2020-06-16 11:29] LABS: INR 1.14 (0.9-1.1); Prothrombin Time 12.5 seconds (9.4-11.8)
[2020-06-16 11:32] LABS: Ferritin 481 ng/ml (11.1-264)
[2020-06-17 19:34] LABS: AFP, Tumor Marker 9.7 ng/mL (0.0-8.3)
== END ==
PROVIDERS: Visit Provider Nurse Practitioner Family
DX: K70.31 Alcoholic cirrhosis of liver with ascites (principal); R94.5 Abnormal results of liver function studies; K75.4 Autoimmune hepatitis; K76.9 Liver disease, unspecified; K76.6 Portal hypertension; K59.00 Constipation, unspecified; R11.2 Nausea with vomiting, unspecified; F10.10 Alcohol abuse, uncomplicated
CPT/HCPCS: 36415; 80053; 82105; 82140; 82728; 83540; 83550; 85025; 85610

== ENCOUNTER → 2020-11-03 10:02 | Outpatient (CLI) | payer OTHER, BC, SELFPAY ==
[2020-11-03 10:34] LABS: Basophils # 0.1 K/mm3 (0-0.2); Basophils % 1.2 % (0.1-2.0); Eosinophils # 0.3 K/mm3 (0.0-0.4); Eosinophils % 3.9 % (0.1-12.0); Hematocrit 40.6 % (37.0-47.0); Hemoglobin 13.5 g/dL (12.2-16.2); Lymphocytes # 2.1 K/mm3 (0.7-4.5); Lymphocytes % 24.6 % (10-50); Mean Corpuscular HGB Conc 33.3 g/dL (31.8-35.4); Mean Corpuscular Volume 96.2 fl (81-99); Mean Platelet Volume 7.4 fl (7.4-10.4); Monocytes # 0.6 K/mm3 (0.1-1.0); Neutrophils # 5.3 K/mm3 (1.8-7.8); Neutrophils % 63.3 % (37.0-80.0); Platelet Count 258 K/mm3 (142-424); Red Blood Count 4.22 M/mm3 (4.20-5.40); Red Cell Distribution Width 14.4 % (11.5-17.5); White Blood Count 8.4 K/mm3 (4.8-10.8)
[2020-11-03 11:10] LABS: Alanine Aminotransferase 20 U/L (12-78); Albumin Level 4.9 g/dl (3.5-5.0); Albumin/Globulin Ratio 1.2 (1.1-1.8); Alkaline Phosphatase 208 U/L (38-126); Anion Gap 18.3 mEq/L (5-15); Aspartate Amino Transferase 53 U/L (14-36); Bilirubin,Total 5.6 mg/dl (0.2-1.3); Blood Urea Nitrogen 10 mg/dl (7-17); Calcium 10.3 mg/dl (8.4-10.2); Carbon Dioxide 24 mmol/L (22.0-30.0); Chloride 104 mmol/L (98-107); Estimated Glomerular Filt Rate 74 ml/min (>60); GFR (African American) 89 ML/MIN (>60); Globulin 4.1 g/dL (1.3-3.2); Glucose 89 mg/dl (74-100); Potassium 4.3 mmoL/L (3.5-5.1); Sodium 142 mmol/L (136-145)
[2020-11-03 11:16] LABS: C-Reactive Protein 7.2 mg/L (0-4)
[2020-11-03 11:21] LABS: Erythrocyte Sedimentation Rate 31 mm/hr (0-30)
[2020-11-03 12:00] LABS: Vitamin B12 570 pg/mL (239-931)
[2020-11-04 11:26] LABS: RA Latex Turbid. <10.0 IU/mL (0.0-13.9)
[2020-11-04 13:12] LABS: Anti-Centromere B Antibodies <0.2 AI (0.0-0.9); Anti-DNA (DS) Ab Qn 4 IU/mL (0-9); Anti-Jo-1 <0.2 AI (0.0-0.9); Anti-Smith Antibody <0.2 AI (0.0-0.9); Antichromatin Antibodies <0.2 AI (0.0-0.9); Antiscleroderma-70 Antibodies <0.2 AI (0.0-0.9); RNP Antibodies <0.2 AI (0.0-0.9); Sjogren's Anti-SS-A <0.2 AI (0.0-0.9); Sjogren's Anti-SS-B <0.2 AI (0.0-0.9)
[2020-11-05 00:14] LABS: Anti-Cyclic Citrullinated Pept 7 units (0-19)
[2020-11-06 01:08] LABS: Lupus Reflex Interpretation Comment: (.); dRVVT 42.5 sec (0.0-47.0)
== END ==
PROVIDERS: Visit Provider Physician Assistant
DX: M25.50 Pain in unspecified joint (principal); K74.60 Unspecified cirrhosis of liver; B94.8 Sequelae of other specified infectious and parasitic diseases
CPT/HCPCS: 36415; 80053; 82607; 85025; 85613; 85651; 86140; 86200; 86225; 86235; 86431; 86618

== ENCOUNTER → 2020-11-18 09:15 | Outpatient (CLI) | payer OTHER, BC, SELFPAY | PROVIDERS: Visit Provider Physician Assistant | DX: N89.8 Other specified noninflammatory disorders of vagina (principal) | CPT/HCPCS: 87210 ==

== ENCOUNTER → 2021-01-29 10:10 | Outpatient (CLI) | payer OTHER, BC, SELFPAY ==
--- NOTE | 2021-01-29 10:13 | MM_ITS ---
PROCEDURE: MM DIG SCREENING MAMM BI W/CAD Digital Breast Tomosynthesis Included CLINICAL INDICATION: screening There is a history of breast cancer in the patient's mother diagnosed at age 71. COMPARISON: MG SCBI MM Dig screening mamm BI w/CAD from 08/03/2017 MG DXRT MM Dig mamm DX unilat RT CAD from 08/22/2017 TECHNIQUE: Standard CC and MLO images and 3D Tomosynthesis was obtained. R2 CAD reviewed. FINDINGS: Moderate somewhat heterogenic fibroglandular densities are seen in the subareolar regions and central portions both breast. There is a mole marker right breast. CAD markings on each breast were reviewed they appear to be benign primarily due to arterial calcification. There is moderate arterial calcification in each breast. There is no suspicious lesion in either breast and no suspicious microcalcifications. IMPRESSION: Moderate breast density with no suspicious lesions seen BI-RAD Category: 2 Benign Finding(s) FOLLOW-UP: 1YR 1 Year Follow-up (A letter has been sent to the patient regarding results of the study.) Dictated by: Dr. Jeronimo Stone MD 02/12/2021 12:48 Dr. Jeronimo Stone MD in [place] 02/12/2021 12:48
== END ==
PROVIDERS: PCP Physician Assistant; Visit Provider Physician Assistant
DX: Z12.31 Encounter for screening mammogram for malignant neoplasm of breast (principal)
CPT/HCPCS: 77063; 77067

== ENCOUNTER → 2021-02-28 09:07 | Outpatient (CLI) | payer OTHER, BC, SELFPAY ==
[2021-02-28 09:50] LABS: Basophils % 0.5 % (0.1-2.0); Eosinophils # 0.2 K/mm3 (0.0-0.4); Eosinophils % 2.4 % (0.1-12.0); Hematocrit 35.9 % (37.0-47.0); Hemoglobin 11.4 g/dL (12.2-16.2); Lymphocytes # 1.5 K/mm3 (0.7-4.5); Mean Corpuscular HGB Conc 31.6 g/dL (31.8-35.4); Mean Corpuscular Hemoglobin 34.6 pg (27.0-31.2); Mean Corpuscular Volume 109.2 fl (81-99); Mean Platelet Volume 8.1 fl (7.4-10.4); Monocytes # 0.5 K/mm3 (0.1-1.0); Monocytes % 6.9 % (1.7-9.3); Neutrophils # 4.3 K/mm3 (1.8-7.8); Neutrophils % 67.1 % (37.0-80.0); Platelet Count 196 K/mm3 (142-424); Red Blood Count 3.29 M/mm3 (4.20-5.40); Red Cell Distribution Width 14.4 % (11.5-17.5); White Blood Count 6.5 K/mm3 (4.8-10.8)
[2021-02-28 10:08] LABS: Chloride 101 mmol/L (98-107); Sodium 137 mmol/L (136-145)
[2021-02-28 10:11] LABS: Alanine Aminotransferase 37 U/L (12-78); Albumin Level 4.1 g/dl (3.5-5.0); Alkaline Phosphatase 177 U/L (38-126); Ammonia 26 umol/L (9-30); Aspartate Amino Transferase 97 U/L (14-36); Bilirubin,Total 4.8 mg/dl (0.2-1.3); Blood Urea Nitrogen 11 mg/dl (7-17); Calcium 9.7 mg/dl (8.4-10.2); Carbon Dioxide 25 mmol/L (22.0-30.0); Estimated Glomerular Filt Rate 86 ml/min (>60); GFR (African American) 104 ML/MIN (>60); Globulin 4.1 g/dL (1.3-3.2); Glucose 132 mg/dl (74-100); Total Protein,Serum 8.2 g/dl (6.3-8.2)
[2021-02-28 10:41] LABS: Thyroid Stimulating Hormone 2.53 uIU/mL (0.465-4.68)
== END ==
PROVIDERS: PCP Physician Assistant; Visit Provider Physician Assistant
DX: K74.60 Unspecified cirrhosis of liver (principal)
CPT/HCPCS: 36415; 80053; 82140; 84443; 85025

== ENCOUNTER → 2021-04-29 11:02 | Outpatient (CLI) | payer OTHER, BC, SELFPAY | PROVIDERS: PCP Physician Assistant; Visit Provider Nurse Practitioner | DX: Z20.822 Contact with and (suspected) exposure to COVID-19 (principal) | CPT/HCPCS: C9803; U0003; U0005 ==

== ENCOUNTER → 2021-04-30 09:49 | Outpatient (CLI) | payer OTHER, BC, SELFPAY ==
[2021-04-30 10:17] LABS: Hematocrit 32.3 % (37.0-47.0); Hemoglobin 10.5 g/dL (12.2-16.2); Mean Corpuscular HGB Conc 32.4 g/dL (31.8-35.4); Mean Corpuscular Hemoglobin 34.8 pg (27.0-31.2); Mean Corpuscular Volume 107.5 fl (81-99); Platelet Count 121 K/mm3 (142-424); Red Blood Count 3.01 M/mm3 (4.20-5.40); Red Cell Distribution Width 17.5 % (11.5-17.5); White Blood Count 6.4 K/mm3 (4.8-10.8)
[2021-04-30 10:23] LABS: Activated Partial Thrombo Time 32.9 seconds (22.8-30.6); INR 1.41 (0.9-1.1); Prothrombin Time 15.5 seconds (10.1-12.5)
[2021-04-30 11:41] LABS: Chloride 102 mmol/L (98-107); Potassium 4.3 mmoL/L (3.5-5.1); Sodium 139 mmol/L (136-145)
[2021-04-30 11:44] LABS: Alanine Aminotransferase 21 U/L (12-78); Albumin Level 4.3 g/dl (3.5-5.0); Albumin/Globulin Ratio 1.3 (1.1-1.8); Alkaline Phosphatase 265 U/L (38-126); Anion Gap 14.3 mEq/L (5-15); Aspartate Amino Transferase 57 U/L (14-36); Bilirubin,Total 6.7 mg/dl (0.2-1.3); Blood Urea Nitrogen 8 mg/dl (7-17); Carbon Dioxide 27 mmol/L (22.0-30.0); Estimated Glomerular Filt Rate 86 ml/min (>60); GFR (African American) 104 ML/MIN (>60); Globulin 3.4 g/dL (1.3-3.2); Total Protein,Serum 7.7 g/dl (6.3-8.2)
[2021-04-30 11:45] LABS: Calcium 10.3 mg/dl (8.4-10.2); Glucose 104 mg/dl (74-100)
== END ==
PROVIDERS: Visit Provider Physician Assistant
DX: K72.90 Hepatic failure, unspecified without coma (principal)
CPT/HCPCS: 36415; 80053; 85014; 85018; 85048; 85049; 85610; 85730

== ENCOUNTER 2021-06-25 11:03 | Emergency (ER) | payer BC, SELFPAY ==
[2021-06-25 11:24] VITALS: BP 143/55; PULSE 86; RESP 15; TEMP 37; O2SAT 98; BMI 24.5
--- NOTE | 2021-06-25 11:52 | HMH.EDUTC ---
[facility] [place] Disposition Clinical Impression: Right foot pain, Right leg swelling, Ganglion of right ankle and foot Cellulitis Qualifiers: Site of cellulitis: extremity Site of cellulitis of extremity: lower extremity Laterality: right Qualified Code(s): L03.115 - Cellulitis of right lower limb Cirrhosis Qualifiers: Hepatic cirrhosis type: unspecified hepatic cirrhosis Ascites presence: unspecified Qualified Code(s): K74.60 - Unspecified cirrhosis of liver Disposition: Home, Self-Care Condition on Discharge: Good Instructions: Cellulitis, DI for Foot Pain Additional Instructions: Rest the extremity, Elevate the extremity as tolerated while you are resting. Follow up with your transplant team. Follow up with your regular doctor. GO TO THE ER FOR ANY WORSENING SYMPTOMS I recommend that you follow up with podiatry. I put in a referral to Dr. Magana. Please call her office and get an appointment to get your foot rechecked. Prescriptions: methylPREDNISolone [Medrol] 4 mg PO DIRECTED 6 Days #21 packet Transmission Status: Received by [facility] Cefdinir [Omnicef 300mg Capsule] 300 mg PO BID #20 cap Transmission Status: Received by [facility] Referrals: Martha De Jesus PA [Primary Care Provider] - Yu Magana DPM [Staff Physician] - Time of Disposition: 14:30 Medical Decision Making - Medical Records Medical records reviewed: No: I reviewed the patient's medical records. - Timothy Inquiry Pt receiving controlled substance: No Vital Signs: 06/25/21 11:24 06/25/21 14:42 Temperature 98.6 F 98.6 F Temperature Source Oral Pulse Rate 86 Pulse Rate [Left] 86 Respiratory Rate 15 15 Blood Pressure 143/55 H Blood Pressure [Right Arm] 143/55 H Blood Pressure Mean [Right Arm] 84 02 Sat by Pulse Oximetry 98 - Lab Data Lab results reviewed: Yes: I reviewed the patient's lab results. Lab Results 06/25/21 13:25: WBC 5.6, RBC 3.56 L, Hgb 12.1 L, Hct 36.7 L, MCV 103.3 H, MCH 33.9 H, MCHC 32.8, RDW 14.2, Plt Count 170, MPV 7.5, Neut % (Auto) 61.3, Lymph % (Auto) 24.6, [place] % (Auto) 5.6, Eos % (Auto) 6.8, Baso % (Auto) 1.7, Neut # (Auto) 3.4, Lymph # (Auto) 1.4, [place] # (Auto) 0.3, Eos # (Auto) 0.4, Baso # (Auto) 0.1, ESR 24 06/25/21 13:25: Sodium 136, Potassium 4.3, Chloride 103, Carbon Dioxide 27, Anion Gap 10.3, BUN 6 L, Creatinine 0.70, Estimated Creat Clear 97, Estimated GFR 86, Est GFR ( Amer) 104, Glucose 94, Calcium 9.5, Total Bilirubin 7.7 H, AST 63 H, ALT 27, Alkaline Phosphatase 376 H, C-Reactive Protein 7.9 H, Total Protein 7.4, Albumin 4.3, Globulin 3.1, Albumin/Globulin Ratio 1.4 06/25/21 13:25: Uric Acid 3.7 Result diagrams: 06/25/21 13:25 06/25/21 13:25 - Radiology Data #1 Image(s): Foot/Toes Image Reviewed: Yes I reviewed the patient's radiology image, Yes I have reviewed radiologist's interpretation Preliminary Findings: Normal/NAD, No Fracture Seen FINAL REPORT CLINICAL HISTORY: pain FINDINGS: RIGHT FOOT: Three views of the right foot were obtained. There is no acute fracture or dislocation. The joint spaces are intact. There is a small plantar calcaneal spur. IMPRESSION: No acute bony abnormality. Reviewed, Interpreted and Dictated by Igor English III, MD Transcribed by Owen Buckley Authenticated by Igor English III, MD on 06/25/2021 01:27:46 PM [facility] #2 Image(s): Ankle Image Reviewed: Yes I reviewed the patient's radiology image, Yes I have reviewed radiologist's interpretation Preliminary Findings: Normal/NAD, No Fracture Seen FINAL REPORT CLINICAL HISTORY: pain FINDINGS: RIGHT ANKLE: Three views of the right ankle were obtained. There is no acute fracture or dislocation. The joint spaces and mortise are intact. There is a small plantar calcaneal spur. There is soft tissue swelling. IMPRESSION: Swelling with no acute bony abnormality. Reviewed, Interpreted and Dictated by Valerie
--- NOTE | 2021-06-25 12:05 | XR_ITS ---
FINAL REPORT CLINICAL HISTORY: pain FINDINGS: RIGHT FOOT: Three views of the right foot were obtained. There is no acute fracture or dislocation. The joint spaces are intact. There is a small plantar calcaneal spur. IMPRESSION: No acute bony abnormality. Reviewed, Interpreted and Dictated by Igor English III, MD Transcribed by Owen Buckley Authenticated by Igor English III, MD on 06/25/2021 01:27:46 PM [facility]
--- NOTE | 2021-06-25 12:05 | XR_ITS ---
FINAL REPORT CLINICAL HISTORY: pain FINDINGS: RIGHT ANKLE: Three views of the right ankle were obtained. There is no acute fracture or dislocation. The joint spaces and mortise are intact. There is a small plantar calcaneal spur. There is soft tissue swelling. IMPRESSION: Swelling with no acute bony abnormality. Reviewed, Interpreted and Dictated by Igor English III, MD Transcribed by Owen Buckley Authenticated by Igor English III, MD on 06/25/2021 01:27:51 PM [facility]
--- NOTE | 2021-06-25 12:06 | CA_ITS ---
FINAL REPORT TECHNIQUE: Color Doppler, duplex Doppler and compression sonography of the right lower extremity venous system was performed. CLINICAL HISTORY: burning pain from the knee down rle,knot top of rt foot x l day very tender,cirrhosis-needs liver transplant FINDINGS: There is no evidence of deep venous thrombosis from the level of the groin to the calf. The veins are patent and compressible. There is a 1.3 cm partially cystic mass on the top of the right foot of uncertain etiology. This could represent a ganglion cyst or other mass. IMPRESSION: No evidence of deep venous thrombosis right lower extremity. 1.3 cm partially cystic mass at the top of the right foot may represent ganglion cyst or other mass. Reviewed, Interpreted and Dictated by Igor English III, MD Transcribed by ITZEL Berrios Authenticated by Igor English III, MD on 06/25/2021 01:59:[address] [facility]
[2021-06-25 13:41] LABS: Basophils # 0.1 K/mm3 (0-0.2); Basophils % 1.7 % (0.1-2.0); Eosinophils # 0.4 K/mm3 (0.0-0.4); Eosinophils % 6.8 % (0.1-12.0); Hematocrit 36.7 % (37.0-47.0); Hemoglobin 12.1 g/dL (12.2-16.2); Lymphocytes # 1.4 K/mm3 (0.7-4.5); Lymphocytes % 24.6 % (10-50); Mean Corpuscular HGB Conc 32.8 g/dL (31.8-35.4); Mean Corpuscular Hemoglobin 33.9 pg (27.0-31.2); Mean Corpuscular Volume 103.3 fl (81-99); Mean Platelet Volume 7.5 fl (7.4-10.4); Monocytes # 0.3 K/mm3 (0.1-1.0); Monocytes % 5.6 % (1.7-9.3); Neutrophils # 3.4 K/mm3 (1.8-7.8); Neutrophils % 61.3 % (37.0-80.0); Platelet Count 170 K/mm3 (142-424); Red Blood Count 3.56 M/mm3 (4.20-5.40); Red Cell Distribution Width 14.2 % (11.5-17.5); White Blood Count 5.6 K/mm3 (4.8-10.8)
[2021-06-25 13:53] LABS: Chloride 103 mmol/L (98-107); Potassium 4.3 mmoL/L (3.5-5.1); Sodium 136 mmol/L (136-145)
[2021-06-25 13:56] LABS: Alanine Aminotransferase 27 U/L (12-78); Albumin Level 4.3 g/dl (3.5-5.0); Albumin/Globulin Ratio 1.4 (1.1-1.8); Alkaline Phosphatase 376 U/L (38-126); Anion Gap 10.3 mEq/L (5-15); Aspartate Amino Transferase 63 U/L (14-36); Bilirubin,Total 7.7 mg/dl (0.2-1.3); Blood Urea Nitrogen 6 mg/dl (7-17); Carbon Dioxide 27 mmol/L (22.0-30.0); Creatinine Clearance Estimated 97 mL/min (50-200); Estimated Glomerular Filt Rate 86 ml/min (>60); GFR (African American) 104 ML/MIN (>60); Globulin 3.1 g/dL (1.3-3.2); Total Protein,Serum 7.4 g/dl (6.3-8.2)
[2021-06-25 13:57] LABS: Calcium 9.5 mg/dl (8.4-10.2); Glucose 94 mg/dl (74-100)
[2021-06-25 14:02] LABS: C-Reactive Protein 7.9 mg/L (0-4)
[2021-06-25 14:15] LABS: Erythrocyte Sedimentation Rate 24 mm/hr (0-30)
[2021-06-25 14:26] LABS: Uric Acid 3.7 mg/dl (2.5-6.2)
[2021-06-25 14:42] VITALS: BP 143/55; PULSE 86; RESP 15; TEMP 37
== END 2021-06-25 14:44 | disposition home or self-care (01) ==
PROVIDERS: Emergency Provider Nurse Practitioner Family; PCP Physician Assistant
DX: L03.115 Cellulitis of right lower limb (principal); K74.60 Unspecified cirrhosis of liver; F41.8 Other specified anxiety disorders; E03.9 Hypothyroidism, unspecified; I10 Essential (primary) hypertension; Z79.899 Other long term (current) drug therapy
CPT/HCPCS: 73610; 73630; 80053; 84550; 85025; 85651; 86140; 93971; 99202; 99212; 99213; G0463

== ENCOUNTER → 2021-08-05 17:17 | Outpatient (CLI) | payer BC, SELFPAY ==
[2021-08-05 17:52] LABS: Chloride 98 mmol/L (98-107)
[2021-08-05 17:53] LABS: Sodium 137 mmol/L (136-145)
[2021-08-05 17:55] LABS: Alanine Aminotransferase 33 U/L (12-78); Ammonia 40 umol/L (9-30); Aspartate Amino Transferase 72 U/L (14-36); Blood Urea Nitrogen 12 mg/dl (7-17); Carbon Dioxide 30 mmol/L (22.0-30.0); Estimated Glomerular Filt Rate 57 ml/min (>60); GFR (African American) 69 ML/MIN (>60)
[2021-08-05 17:56] LABS: Albumin Level 4.3 g/dl (3.5-5.0); Albumin/Globulin Ratio 1.5 (1.1-1.8); Alkaline Phosphatase 216 U/L (38-126); Bilirubin,Total 14.1 mg/dl (0.2-1.3); Calcium 8.8 mg/dl (8.4-10.2); Globulin 2.8 g/dL (1.3-3.2); Glucose 112 mg/dl (74-100); Total Protein,Serum 7.1 g/dl (6.3-8.2)
== END ==
PROVIDERS: PCP Physician Assistant; Visit Provider Physician Assistant
DX: L29.9 Pruritus, unspecified (principal)
CPT/HCPCS: 36415; 80053; 82140

== ENCOUNTER 2021-11-21 14:01 | Emergency (ER) | payer BC, SELFPAY ==
[2021-11-21 14:32] VITALS: BP 149/39; PULSE 92; RESP 20; TEMP 37.1; O2SAT 99; BMI 23.3
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
[2021-11-21 15:55] LABS: Basophils # 0.2 K/mm3 (0-0.2); Basophils % 1.6 % (0.1-2.0); Eosinophils # 0.9 K/mm3 (0.0-0.4); Eosinophils % 9.9 % (0.1-12.0); Hemoglobin 9.6 g/dL (12.2-16.2); Lymphocytes # 1.5 K/mm3 (0.7-4.5); Lymphocytes % 16.4 % (10-50); Mean Corpuscular HGB Conc 32.1 g/dL (31.8-35.4); Mean Corpuscular Hemoglobin 33.9 pg (27.0-31.2); Mean Corpuscular Volume 105.4 fl (81-99); Mean Platelet Volume 8.4 fl (7.4-10.4); Monocytes # 0.9 K/mm3 (0.1-1.0); Monocytes % 9.8 % (1.7-9.3); Neutrophils # 5.7 K/mm3 (1.8-7.8); Neutrophils % 62.3 % (37.0-80.0); Platelet Count 162 K/mm3 (142-424); Red Blood Count 2.84 M/mm3 (4.20-5.40); Red Cell Distribution Width 17.2 % (11.5-17.5); White Blood Count 9.1 K/mm3 (4.8-10.8)
[2021-11-21 15:57] LABS: Alanine Aminotransferase 43 U/L (12-78); Albumin Level 3.5 g/dl (3.5-5.0); Albumin/Globulin Ratio 1.4 (1.1-1.8); Alkaline Phosphatase 331 U/L (38-126); Anion Gap 14.6 mEq/L (5-15); Aspartate Amino Transferase 73 U/L (14-36); Bilirubin,Total 13.1 mg/dl (0.2-1.3); Blood Urea Nitrogen 22 mg/dl (7-17); Calcium 9.7 mg/dl (8.4-10.2); Carbon Dioxide 27 mmol/L (22.0-30.0); Chloride 98 mmol/L (98-107); Creatinine Clearance Estimated 58 mL/min (50-200); Estimated Glomerular Filt Rate 51 ml/min (>60); GFR (African American) 62 ML/MIN (>60); Globulin 2.5 g/dL (1.3-3.2); Glucose 227 mg/dl (74-100); Potassium 3.6 mmoL/L (3.5-5.1); Sodium 136 mmol/L (136-145)
[2021-11-21 16:50] VITALS: BP 145/50; PULSE 90; RESP 18; TEMP 36.9; O2SAT 99
== END 2021-11-21 16:55 | disposition home or self-care (01) ==
PROVIDERS: Emergency Provider Nurse Practitioner Family; PCP Physician Assistant
DX: R60.9 Edema, unspecified (principal); K72.00 Acute and subacute hepatic failure without coma; I10 Essential (primary) hypertension
CPT/HCPCS: 80053; 85025; 96374; 99212; G0463

== ENCOUNTER 2021-11-25 11:54 | Emergency (ER) | payer BC, SELFPAY ==
[2021-11-25 12:08] VITALS: BP 162/52; PULSE 89; RESP 16; TEMP 36.6; O2SAT 100; BMI 24.3
--- NOTE | 2021-11-25 12:29 | HMH.EDUTC ---
[facility] [place] Clinical Impression: Dependent edema, Nausea Disposition: Home, Self-Care Condition on Discharge: Good Instructions: DI for Peripheral Edema -- Bilateral, Ondansetron Injection, Furosemide Injection Additional Instructions: Go home and rest with your feet elevated. It would be best if you rested tomorrow too. Take the oral medications as directed. Follow up with your regular doctor. GO TO THE ER FOR ANY WORSENING SYMPTOMS OR CONCERN Prescriptions: Ondansetron [Zofran 4mg ODT] 4 mg PO Q8HP PRN #20 tab PRN Reason: Nausea Transmission Status: Received by [facility] Referrals: Martha De Jesus PA [Primary Care Provider] - Time of Disposition: 12:41 Medical Decision Making - Medical Records Medical records reviewed: No: I reviewed the patient's medical records. - Timothy Inquiry Pt receiving controlled substance: No Vital Signs: 11/25/21 12:08 11/25/21 13:16 Temperature 97.9 F 97.9 F Temperature Source Oral Oral Pulse Rate 84 Pulse Rate [Left Radial] 89 Respiratory Rate 16 18 Blood Pressure 155/60 H Blood Pressure [Right Arm] 162/52 H Blood Pressure Mean [Right Arm] 88 02 Sat by Pulse Oximetry 100 Oxygen Delivery Method Room Air - Lab Data Lab results reviewed: Yes: I reviewed the patient's lab results. Orders (Tests/Meds): ED MEDICATIONS Discontinued Medications Generic Name Dose Route Start Last Admin Trade Name Freq PRN Reason Stop Dose Admin Furosemide 60 mg 11/25/21 12:35 11/25/21 13:09 Furosemide 40mg/4ml Vial IV 11/25/21 12:36 40 mg ONCE ONE Administration Ondansetron HCl 4 mg 11/25/21 12:37 11/25/21 13:09 Ondansetron 4mg/2ml Vial IM 11/25/21 12:38 4 mg ONCE ONE Administration [facility] [place]PI - General Stated complaint: Weeping Edema Time Seen by Provider: 11/25/21 12:29 Mode of Arrival: Ambulatory Source of Information: Patient Limitations: No Limitations Description of Symptoms (Recalled from Triage Doc. by RN): pt to [facility] c/o recurring bilateral LE edema. pt states she takes prescribed lasix. HEENT Symptoms (Recalled from RN notes): No Resp Symptoms (Recalled from RN notes): No Skin Symptoms (Recalled from RN notes): Yes MS Symptoms (Recalled from RN notes): No Functional Status (Recalled from RN notes): na - History of Present Illness Provider Complaint: She is back to follow up over her pitting edema. She states that after she recieved the lasix 60 im 3 days ago her swelling got much better. She would like a repeat of this and she has had nausea today that she request zofran im for. - Related Data Home Medications Medication Instructions Recorded Confirmed ursodioL [Ursodiol] 300 mg PO BID 03/27/20 06/15/21 furosemide 20 mg tablet 20 mg PO DAILY PRN 11/03/20 06/15/21 spironolactone 50 mg tablet 50 mg PO DAILY PRN 11/03/20 06/15/21 nadolol 20 mg tablet 40 mg PO DAILY 05/15/21 06/15/21 Previous Rx's Medication Instructions Recorded albuterol sulfate 1.25 mg/3 mL 1.25 mg INHALATION QID PRN #90 ml 06/03/20 solution for nebulization oxazepam 10 mg capsule 10 mg PO TID PRN #30 cap 06/10/20 sodium chloride-aloe vera nasal 1 spray INTRANASAL BID PRN #22 ml 06/10/20 spray albuterol sulfate 90 mcg/actuation 1 inh INHALATION QID PRN #8.5 g 07/21/20 aerosol inhaler azelastine 137 mcg (0.1 %) nasal 1 spray INTRANASAL BID PRN #30 ml 07/21/20 spray aerosol cetirizine 10 mg tablet 10 mg PO DAILY PRN #60 tab 07/21/20 fluticasone propionate 50 1 spray INTRANASAL DAILY #16 g 07/21/20 mcg/actuation nasal spray,suspension gabapentin 300 mg capsule 300 mg PO Q8H #90 cap 05/15/21 sulfamethoxazole 800 1 tab PO BID 10 Days #20 tab 06/15/21 mg-trimethoprim 160 mg tablet Cefdinir [Omnicef 300mg Capsule] 300 mg PO BID #20 cap 06/25/21 methylPREDNISolone [Medrol] 4 mg PO DIRECTED 6 Days #21 06/25/21 packet ondansetron 4 mg disintegrating 4 mg PO Q8H #30 tab 07/17/21 tablet desvenlafa
[2021-11-25 13:16] VITALS: BP 155/60; PULSE 84; RESP 18; TEMP 36.6; O2SAT 100
== END 2021-11-25 13:17 | disposition home or self-care (01) ==
PROVIDERS: Emergency Provider Nurse Practitioner Family; PCP Physician Assistant
DX: R60.0 Localized edema (principal); R11.0 Nausea
CPT/HCPCS: 96374; 96375; 99213; G0463; J2405

== ENCOUNTER 2021-11-30 04:50 | Emergency (ER) | payer BC, SELFPAY ==
[2021-11-30 04:59] VITALS: BP 117/47; PULSE 88; RESP 18; TEMP 36.9; O2SAT 99; BMI 23.3
[2021-11-30 05:00] LABS: Coronavirus 19, PCR Not Detected (NotDetected); Influenza A, PCR Not Detected (NotDetected); Influenza B, PCR Not Detected (NotDetected)
--- NOTE | 2021-11-30 05:04 | XR_ITS ---
PROCEDURE INFORMATION: Exam: XR Chest Exam date and time: 11/30/2021 5:11 AM Age: 56 years old Clinical indication: Cough TECHNIQUE: Imaging protocol: Radiologic exam of the chest. Views: 2 views. COMPARISON: CR XR CHEST PORTABLE 05/29/2020 8:25 PM FINDINGS: Lungs: There is been interval marked improvement in the appearance of the multifocal airspace disease seen on the prior exam. Focal airspace disease versus atelectasis in the right lung base. Diffuse interstitial prominence. Small focus consolidation in the right apex. Pleural spaces: No pleural effusion. No pneumothorax. Heart/Mediastinum: No acute findings or cardiomegaly. Bones/joints: No acute findings. IMPRESSION: Marked interval improvement in the appearance of multifocal pneumonia. Persistent or new mild patchy airspace disease/consolidation in the right lung base and right apex with diffuse mild interstitial prominence.
--- NOTE | 2021-11-30 05:09 | ECG_ITS ---
APPROVED REPORT Exam: Resting ECG HR:84 bpm ECG Measurements Heart Rate 84 AXES VT 145 P 17 QRSd 109 QRS -54 QT 401 T 50 QTc 442 Conclusion SINUS RHYTHM WITH OCCASIONAL VENTRICULAR PREMATURE COMPLEXES LEFT ANTERIOR FASCICULAR BLOCK [QRS AXIS <= -45, QR IN I, RS IN II] ABNORMAL ECG UNCONFIRMED REPORT Electronically signed by : Irving Goldberg MD 12/01/2021 21:10:06
[2021-11-30 05:13] LABS: Basophils # 0.1 K/mm3 (0-0.2); Eosinophils # 0.7 K/mm3 (0.0-0.4); Eosinophils % 5.7 % (0.1-12.0); Hemoglobin 8.4 g/dL (12.2-16.2); Lymphocytes # 2.2 K/mm3 (0.7-4.5); Lymphocytes % 18.7 % (10-50); Mean Corpuscular HGB Conc 35.1 g/dL (31.8-35.4); Mean Corpuscular Hemoglobin 34.4 pg (27.0-31.2); Mean Corpuscular Volume 97.9 fl (81-99); Mean Platelet Volume 7.4 fl (7.4-10.4); Monocytes # 0.9 K/mm3 (0.1-1.0); Monocytes % 7.8 % (1.7-9.3); Neutrophils # 7.7 K/mm3 (1.8-7.8); Neutrophils % 66.9 % (37.0-80.0); Platelet Count 144 K/mm3 (142-424); Red Blood Count 2.43 M/mm3 (4.20-5.40); Red Cell Distribution Width 16.7 % (11.5-17.5); White Blood Count 11.6 K/mm3 (4.8-10.8)
[2021-11-30 05:16] LABS: Hematocrit 23.8 % (37.0-47.0)
--- NOTE | 2021-11-30 05:19 | PC.NURSE ---
pt to xray via wheelchair
[2021-11-30 05:22] LABS: Alanine Aminotransferase 42 U/L (12-78); Albumin Level 3.2 g/dl (3.5-5.0); Albumin/Globulin Ratio 1.3 (1.1-1.8); Alkaline Phosphatase 292 U/L (38-126); Amylase 102 U/L (30-110); Anion Gap 6.2 mEq/L (5-15); Aspartate Amino Transferase 101 U/L (14-36); Bilirubin,Total 16.5 mg/dl (0.2-1.3); Blood Urea Nitrogen 19 mg/dl (7-17); Calcium 9.2 mg/dl (8.4-10.2); Carbon Dioxide 37 mmol/L (22.0-30.0); Chloride 96 mmol/L (98-107); Creatinine Clearance Estimated 91 mL/min (50-200); Estimated Glomerular Filt Rate 86 ml/min (>60); GFR (African American) 104 ML/MIN (>60); Globulin 2.5 g/dL (1.3-3.2); Glucose 140 mg/dl (74-100); Lipase 311 U/L (23-300); Magnesium 1.8 mg/dl (1.6-2.3); Potassium 3.2 mmoL/L (3.5-5.1); Sodium 136 mmol/L (136-145); Total Protein,Serum 5.7 g/dl (6.3-8.2)
[2021-11-30 05:23] LABS: Acetone, Serum (Rapid) None Detected (None Detect)
[2021-11-30 05:27] LABS: C-Reactive Protein 6.7 mg/L (0-4)
[2021-11-30 05:31] VITALS: BP 140/55; PULSE 84; O2SAT 94
[2021-11-30 05:35] LABS: Ammonia 11 umol/L (9-30)
[2021-11-30 05:36] LABS: Troponin I 0.05 ng/ml (0.00-0.034)
[2021-11-30 05:40] LABS: Erythrocyte Sedimentation Rate 7 mm/hr (0-30)
[2021-11-30 05:41] LABS: Procalcitonin 0.326 ng/mL (0.0-2.0)
[2021-11-30 05:43] LABS: NT Pro Brain Natriuretic Pep. 621 pg/mL (0-125)
[2021-11-30 06:01] VITALS: BP 104/34; PULSE 84; O2SAT 95
[2021-11-30 06:07] VITALS: BP 103/40; PULSE 84
--- NOTE | 2021-11-30 07:37 | PC.NURSE ---
ER at BS at this time going over results and POC with pt
--- NOTE | 2021-11-30 07:41 | HMH.EDURI ---
ED Disposition Clinical Impression: Cirrhosis of liver Qualifiers: Hepatic cirrhosis type: unspecified hepatic cirrhosis Ascites presence: unspecified Qualified Code(s): K74.60 - Unspecified cirrhosis of liver Disposition: Home, Self-Care Condition on Discharge: Fair Instructions: DI for Cirrhosis Additional Instructions: fluids and see pcp for follow up Prescriptions: Ondansetron [Zofran 4mg ODT] 4 mg PO TIDP PRN #30 tab PRN Reason: Nausea And Vomiting Transmission Status: Pending to [facility] Referrals: Martha De Jesus PA [Primary Care Provider] - - Critical Care Critical Care Time: No Attestation: On 11/30/21, the high probability of a clinically significant, sudden or life threatening deterioration of the following system(s) required my full and direct attention, intervention and personal management. The time I documented below is in addition to time spent performing reported procedures but includes the following listed in this critical care notation. Medical Decision Making - Medical Records Medical records reviewed: Yes: I reviewed the patient's medical records. - Timothy Inquiry Pt receiving controlled substance: No Vital Signs: 11/30/21 04:59 Temperature 98.4 F Temperature Source Oral Pulse Rate [Apical] 88 Respiratory Rate 18 Blood Pressure [Right Arm] 117/47 L Blood Pressure Mean [Right Arm] 70 Blood Pressure Source [Right Arm] Automatic Cuff Blood Pressure Position [Right Arm] Sitting 02 Sat by Pulse Oximetry 99 Oxygen Delivery Method Room Air - Lab Data Lab results reviewed: Yes: I reviewed the patient's lab results. Lab Results 11/30/21 04:55: SARS-CoV-2 (PCR) Not detected, Influenza A Untype (PCR) Not detected, Influenza Type B (PCR) Not detected 11/30/21 05:02: WBC 11.6 H, RBC 2.43 L, Hgb 8.4 L, Hct 23.8 L, MCV 97.9, MCH 34.4 H, MCHC 35.1, RDW 16.7, Plt Count 144, MPV 7.4, Neut % (Auto) 66.9, Lymph % (Auto) 18.7, [place] % (Auto) 7.8, Eos % (Auto) 5.7, Baso % (Auto) 1.0, Neut # (Auto) 7.7, Lymph # (Auto) 2.2, [place] # (Auto) 0.9, Eos # (Auto) 0.7 H, Baso # (Auto) 0.1, ESR 7 11/30/21 05:02: Sodium 136, Potassium 3.2 L, Chloride 96 L, Carbon Dioxide 37 H, Anion Gap 6.2, BUN 19 H, Creatinine 0.70, Estimated Creat Clear 91, Estimated GFR 86, Est GFR ( Amer) 104, Glucose 140 H, Calcium 9.2, Magnesium 1.8, Total Bilirubin 16.5 H*, AST 101 H, ALT 42, Alkaline Phosphatase 292 H, Troponin I 0.05 H, C-Reactive Protein 6.7 H, Total Protein 5.7 L, Albumin 3.2 L, Globulin 2.5, Albumin/Globulin Ratio 1.3, Amylase 102, Lipase 311 H, Procalcitonin 0.326 11/30/21 05:02: NT-Pro-B Natriuret Pep 621 H, Acetone Level None detected 11/30/21 05:17: Ammonia 11 Result diagrams: 11/30/21 05:02 11/30/21 05:02 Orders (Tests/Meds): ED MEDICATIONS Discontinued Medications Generic Name Dose Route Start Last Admin Trade Name Freq PRN Reason Stop Dose Admin Sodium Chloride 1,000 mls @ 999 mls/hr 11/30/21 05:15 11/30/21 05:43 Sod Chlor 0.9% 1000ml Bag IV 11/30/21 06:15 999 mls/hr .Q1H1M REUBEN Administration Ondansetron HCl 4 mg 11/30/21 05:21 11/30/21 05:42 Ondansetron 4mg/2ml Vial IV 11/30/21 05:22 4 mg ONCE ONE Administration ORDERS Category Date Time Status Troponin I Q3H Lab 11/30/21 08:15 Ordered Troponin I Q3H Lab 11/30/21 11:15 Ordered - Radiology Data #1 Image(s): Chest Image Reviewed: Yes I have reviewed radiologist's interpretation Preliminary Findings: Normal/NAD - ECG Data Tracing #1 Normal Sinus Rhythm: Yes Ischemic changes: non-specific ST-T wave changes Medical Decision Narrative: has sig liver dis and has treatment plan - but stable exam URI/Sore Throat HPI - General Chief Complaint: Upper Respiratory Infection Stated Complaint: SOA, weakness, body aches Time Seen by Provider: 11/30/21 05:10 Mode of Arrival: EMS Source of Information: Patient, EMS, Medical Record Limitations: No Limitations Descrip
--- NOTE | 2021-11-30 07:41 | PC.NURSE ---
RICHARD PEREZ reported to staff at this time he is going to be working on pt d/c paperwork and she is going to call her son to pick her up.
[2021-11-30 08:20] VITALS: BP 130/64; PULSE 100; RESP 18; TEMP 37.2; O2SAT 100
== END 2021-11-30 08:25 | disposition home or self-care (01) ==
PROVIDERS: Emergency Provider Emergency Medicine; PCP Physician Assistant
DX: K74.60 Unspecified cirrhosis of liver (principal); Z79.899 Other long term (current) drug therapy; F41.9 Anxiety disorder, unspecified; F32.A Depression, unspecified; I10 Essential (primary) hypertension; I25.10 Atherosclerotic heart disease of native coronary artery without angina pectoris
CPT/HCPCS: 71046; 80053; 82009; 82140; 82150; 83690; 83735; 83880; 84145; 84484; 85025; 85651; 86140; 93005; 96365; 96375; 99284; C9803; J2405; U0003; U0005

== ENCOUNTER 2021-12-02 08:13 | Emergency (ER) | payer BC, SELFPAY ==
[2021-12-02] VITALS (7 sets, daily range): BP systolic 100–148; BP diastolic 48–64; PULSE 71–89; RESP 17–19; TEMP 36.6; O2SAT 97–100; BMI 28.0; BMI 23.3
--- NOTE | 2021-12-02 | US_ITS ---
FINAL REPORT CLINICAL HISTORY: POSS PARACENTESIS. FINDINGS: Limited sonographic images of the abdomen were obtained. There is a small amount of ascites in all 4 quadrants. The largest pocket in the left upper quadrant is 3 cm in depth. IMPRESSION: All amount of ascites. Reviewed, Interpreted and Dictated by Igor English III, MD Transcribed by Alexsandra Cardona Authenticated and [facility]
--- NOTE | 2021-12-02 09:03 | HMH.EDUTC ---
[facility] [place] Disposition Clinical Impression: Alcoholic cirrhosis of liver with ascites, Peripheral edema Disposition: Home, Self-Care Condition on Discharge: Fair Instructions: DI for Ascites, DI for Cirrhosis, DI for Peripheral Edema -- Bilateral Additional Instructions: Follow-up with your gastroenterology specialist in [place] for further care. Referrals: Martha De Jesus PA [Primary Care Provider] - Time of Disposition: 09:25 Medical Decision Making - Timothy Inquiry Pt receiving controlled substance: No Timothy was queried for this patient: No Vital Signs: 12/02/21 08:45 12/02/21 09:20 12/02/21 09:24 Temperature 97.8 F 97.8 F Temperature Source Oral Oral Pulse Rate 71 Pulse Rate [Left] 89 89 Respiratory Rate 19 17 Blood Pressure 148/48 H Blood Pressure [Right Arm] 145/58 H 148/48 H Blood Pressure Mean 78 Blood Pressure Mean [Right Arm] 87 81 02 Sat by Pulse Oximetry 100 98 99 Oxygen Delivery Method Room Air Room Air 12/02/21 10:01 12/02/21 10:20 12/02/21 11:58 Temperature Temperature Source Pulse Rate 84 84 85 Pulse Rate [Left] Respiratory Rate 18 Blood Pressure 140/55 L 100/53 L 145/64 H Blood Pressure [Right Arm] Blood Pressure Mean 79 70 84 Blood Pressure Mean [Right Arm] 02 Sat by Pulse Oximetry 99 99 97 Oxygen Delivery Method 12/02/21 12:57 Temperature 97.8 F Temperature Source Pulse Rate 85 Pulse Rate [Left] Respiratory Rate 18 Blood Pressure 145/64 H Blood Pressure [Right Arm] Blood Pressure Mean Blood Pressure Mean [Right Arm] 02 Sat by Pulse Oximetry Oxygen Delivery Method Room Air - Lab Data Lab Results 12/02/21 09:56: PT 15.3 H, INR 1.39 H 12/02/21 09:56: Sodium 133 L, Potassium 3.7, Chloride 97 L, Carbon Dioxide 29, Anion Gap 10.7, BUN 21 H, Creatinine 1.00 D, Estimated Creat Clear 64, Estimated GFR 57 L, Est GFR ( Amer) 69 D, Glucose 241 H, Calcium 9.0, Total Bilirubin 15.8 H*, AST 128 H D, ALT 43, Alkaline Phosphatase 383 H, Total Protein 6.3, Albumin 3.5, Globulin 2.8, Albumin/Globulin Ratio 1.3 12/02/21 09:56: Lactate Dehydrogenase 1047 H 12/02/21 10:19: WBC 16.2 H D, RBC 2.37 L, Hgb 8.3 L, Hct 24.4 L, MCV 102.6 H, MCH 34.9 H, MCHC 34.0, RDW 17.8 H, Plt Count 145, MPV 8.0, Neut % (Auto) 76.1, Lymph % (Auto) 12.0, [place] % (Auto) 5.6, Eos % (Auto) 5.7, Baso % (Auto) 0.6, Neut # (Auto) 12.3 H, Lymph # (Auto) 2.0, [place] # (Auto) 0.9, Eos # (Auto) 0.9 H, Baso # (Auto) 0.1, Total Counted 100, Neutrophils % (Manual) 76, Lymphocytes % (Manual) 16, Monocytes % (Manual) 6, Eosinophils % (Manual) 2, Platelet Estimate Slight decrease, Anisocytosis 1+, Macrocytosis 1+, Acanthocytes (Spur) 2+ 12/02/21 11:22: Lactate 2.2 H 12/02/21 12:25: Urine Color [place], Urine Appearance Clear, Urine pH 6.0, Ur Specific [place] 1.025, Urine Protein Negative, Urine Glucose (UA) Negative, Urine Ketones Trace, Urine Blood 1+, Urine Nitrate Positive, Urine Bilirubin 3+ A, Urine Urobilinogen 2.0, Ur Leukocyte Esterase Negative, Urine RBC None, Urine WBC 3-5, Ur Squamous Epith Cells Occasional, Urine Bacteria 1+, Hyaline Casts Occasional Result diagrams: 12/02/21 10:19 12/02/21 09:56 Orders (Tests/Meds): ED MEDICATIONS Discontinued Medications Generic Name Dose Route Start Last Admin Trade Name Freq PRN Reason Stop Dose Admin Furosemide 80 mg 12/02/21 12:02 12/02/21 12:17 Furosemide 40mg/4ml Vial IV 12/02/21 12:03 80 mg ONCE ONE Administration Sodium Chloride 10 ml 12/02/21 09:59 Sodium Chloride 0.9% 10ml Flush Syringe IV 01/01/22 09:58 NEEDED PRN Maintain IV Site ORDERS Category Date Time Status Blood Culture Stat Micro 12/02/21 11:13 Received Medical Decision Narrative: Patient reports hx of Cirrhosis and swelling in abdomen reports unable to button her pants that is worse than normal over the last few days and makes her feel like she cannot get a good breath when she is sitting Due to patient hx and curr
--- NOTE | 2021-12-02 09:18 | PC.NURSE ---
wendie RN assiting pt in bed after transported from [facility] to be seen in ED
--- NOTE | 2021-12-02 09:23 | PC.NURSE ---
pt to ed room 7 from [facility] via wheelchair
--- NOTE | 2021-12-02 09:43 | HMH.EDGENADL ---
ED Disposition Clinical Impression: Alcoholic cirrhosis of liver with ascites, Peripheral edema Disposition: Home, Self-Care Condition on Discharge: Fair Instructions: DI for Cirrhosis, DI for Ascites, DI for Peripheral Edema -- Bilateral Additional Instructions: Follow-up with your gastroenterology specialist in [place] for further care. Referrals: Martha De Jesus PA [Primary Care Provider] - - Critical Care Critical Care Time: No Attestation: On 12/02/21, the high probability of a clinically significant, sudden or life threatening deterioration of the following system(s) required my full and direct attention, intervention and personal management. The time I documented below is in addition to time spent performing reported procedures but includes the following listed in this critical care notation. Medical Decision Making - Timothy Inquiry Pt receiving controlled substance: No Vital Signs: 12/02/21 08:45 12/02/21 09:20 12/02/21 09:24 Temperature 97.8 F 97.8 F Temperature Source Oral Oral Pulse Rate 71 Pulse Rate [Left] 89 89 Respiratory Rate 19 17 Blood Pressure 148/48 H Blood Pressure [Right Arm] 145/58 H 148/48 H Blood Pressure Mean 78 Blood Pressure Mean [Right Arm] 87 81 02 Sat by Pulse Oximetry 100 98 99 Oxygen Delivery Method Room Air Room Air 12/02/21 10:01 12/02/21 10:20 12/02/21 11:58 Temperature Temperature Source Pulse Rate 84 84 85 Pulse Rate [Left] Respiratory Rate 18 Blood Pressure 140/55 L 100/53 L 145/64 H Blood Pressure [Right Arm] Blood Pressure Mean 79 70 84 Blood Pressure Mean [Right Arm] 02 Sat by Pulse Oximetry 99 99 97 Oxygen Delivery Method - Lab Data Lab Results 12/02/21 09:56: PT 15.3 H, INR 1.39 H 12/02/21 09:56: Sodium 133 L, Potassium 3.7, Chloride 97 L, Carbon Dioxide 29, Anion Gap 10.7, BUN 21 H, Creatinine 1.00 D, Estimated Creat Clear 64, Estimated GFR 57 L, Est GFR ( Amer) 69 D, Glucose 241 H, Calcium 9.0, Total Bilirubin 15.8 H*, AST 128 H D, ALT 43, Alkaline Phosphatase 383 H, Total Protein 6.3, Albumin 3.5, Globulin 2.8, Albumin/Globulin Ratio 1.3 12/02/21 09:56: Lactate Dehydrogenase 1047 H 07/27/22 10:19: WBC 16.2 H D, RBC 2.37 L, Hgb 8.3 L, Hct 24.4 L, MCV 102.6 H, MCH 34.9 H, MCHC 34.0, RDW 17.8 H, Plt Count 145, MPV 8.0, Neut % (Auto) 76.1, Lymph % (Auto) 12.0, [place] % (Auto) 5.6, Eos % (Auto) 5.7, Baso % (Auto) 0.6, Neut # (Auto) 12.3 H, Lymph # (Auto) 2.0, [place] # (Auto) 0.9, Eos # (Auto) 0.9 H, Baso # (Auto) 0.1, Total Counted 100, Neutrophils % (Manual) 76, Lymphocytes % (Manual) 16, Monocytes % (Manual) 6, Eosinophils % (Manual) 2, Platelet Estimate Slight decrease, Anisocytosis 1+, Macrocytosis 1+, Acanthocytes (Spur) 2+ 12/02/21 11:22: Lactate 2.2 H Result diagrams: 12/02/21 10:19 12/02/21 09:56 Orders (Tests/Meds): ED MEDICATIONS Generic Name Dose Route Start Last Admin Trade Name Freq PRN Reason Stop Dose Admin Sodium Chloride 10 ml 12/02/21 09:59 Sodium Chloride 0.9% 10ml Flush Syringe IV 01/01/22 09:58 NEEDED PRN Maintain IV Site Discontinued Medications Generic Name Dose Route Start Last Admin Trade Name Freq PRN Reason Stop Dose Admin Furosemide 80 mg 12/02/21 12:02 Furosemide 40mg/4ml Vial IV 12/02/21 12:03 ONCE ONE ORDERS Category Date Time Status XR chest portable Stat Exams 12/02/21 10:57 Ordered Body Fluid: Cell Count w/ Diff Stat Lab 12/02/21 10:56 Ordered Urinalysis and Microscopic Stat Lab 12/02/21 10:57 Ordered Blood Culture Stat Micro 12/02/21 11:13 Received Body Fluid Cult & Gram Stain Stat Micro 12/02/21 11:24 Ordered Paracentesis [US Paracentesis] Stat Ultrasound 12/02/21 10:10 Ordered Medical Decision Narrative: 10:10 AM: I spoke with Ankita, medical coding technician. She says that they should be able to do a paracentesis around 1130. Order placed. 12:00 PM: Radiology reports unable to obtain any fluid on
--- NOTE | 2021-12-02 09:50 | PC.NURSE ---
RICHARD PEREZ at for patient eval
--- NOTE | 2021-12-02 09:57 | PC.NURSE ---
Dr. Lin speaking with Radiology
--- NOTE | 2021-12-02 09:58 | PC.NURSE ---
blood obtained and sent to the lab
--- NOTE | 2021-12-02 09:59 | PC.NURSE ---
spoke to radiology inquiring with the PA about a possible paracentesis. states they will call us back
--- NOTE | 2021-12-02 10:01 | PC.NURSE ---
checked in on pt and placed BP cuff and p. OX
--- NOTE | 2021-12-02 10:07 | PC.NURSE ---
per nilson in lab purple top is clotted, requested they send someone to recollect blood r/t pt was difficult initial stick. notified pt primary nurse luisrn
--- NOTE | 2021-12-02 10:11 | PC.NURSE ---
ER states he has spoken with radiology staff regarding possible paracentesis. Reports pt should be able to go up for procedure between 11-11:30 per Ankita (radiation / chemistry technician).
[2021-12-02 10:14] LABS: Alanine Aminotransferase 43 U/L (12-78); Albumin Level 3.5 g/dl (3.5-5.0); Albumin/Globulin Ratio 1.3 (1.1-1.8); Alkaline Phosphatase 383 U/L (38-126); Anion Gap 10.7 mEq/L (5-15); Aspartate Amino Transferase 128 U/L (14-36); Bilirubin,Total 15.8 mg/dl (0.2-1.3); Blood Urea Nitrogen 21 mg/dl (7-17); Carbon Dioxide 29 mmol/L (22.0-30.0); Chloride 97 mmol/L (98-107); Creatinine Clearance Estimated 64 mL/min (50-200); Estimated Glomerular Filt Rate 57 ml/min (>60); GFR (African American) 69 ML/MIN (>60); Globulin 2.8 g/dL (1.3-3.2); Glucose 241 mg/dl (74-100); Potassium 3.7 mmoL/L (3.5-5.1); Sodium 133 mmol/L (136-145); Total Protein,Serum 6.3 g/dl (6.3-8.2)
--- NOTE | 2021-12-02 10:16 | PC.NURSE ---
MD at the bedside speaking with pt about radiology update.
--- NOTE | 2021-12-02 10:16 | PC.NURSE ---
lab at the bedside for lab draw
[2021-12-02 10:24] LABS: INR 1.39 (0.9-1.1); Prothrombin Time 15.3 seconds (10.1-12.5)
[2021-12-02 10:25] LABS: Basophils # 0.1 K/mm3 (0-0.2); Basophils % 0.6 % (0.1-2.0); Eosinophils # 0.9 K/mm3 (0.0-0.4); Eosinophils % 5.7 % (0.1-12.0); Hematocrit 24.4 % (37.0-47.0); Hemoglobin 8.3 g/dL (12.2-16.2); Mean Corpuscular Hemoglobin 34.9 pg (27.0-31.2); Mean Corpuscular Volume 102.6 fl (81-99); Monocytes # 0.9 K/mm3 (0.1-1.0); Monocytes % 5.6 % (1.7-9.3); Neutrophils # 12.3 K/mm3 (1.8-7.8); Neutrophils % 76.1 % (37.0-80.0); Platelet Count 145 K/mm3 (142-424); Red Blood Count 2.37 M/mm3 (4.20-5.40); Red Cell Distribution Width 17.8 % (11.5-17.5); White Blood Count 16.2 K/mm3 (4.8-10.8)
[2021-12-02 10:27] LABS: MANUAL DIFFERENTIAL MANUAL DIFFERENTIAL (MANUAL DIFF)
--- NOTE | 2021-12-02 10:41 | PC.NURSE ---
attempted IV access with ultrasound without success. Have contacted outpt nursing staff to come assist with IV insertion. Pt given warm blanket and made aware I have contacted other staff to attempted IV insertion, per verbalized understanding
[2021-12-02 10:46] LABS: Eosinophils % 2 % (0-3); Lymphocytes % 16 % (10-50); Monocytes % 6 % (2-9); Neutrophils % 76 % (42-76); Platelet Estimate Slight Decrease; Total Cells Counted 100
[2021-12-02 10:47] LABS: Acanthocytes 2+; Anisocytosis 1+; Macrocytosis 1+
--- NOTE | 2021-12-02 10:56 | PC.NURSE ---
notified ER of pt WBC increased from pt lab work on 11/30/21
--- NOTE | 2021-12-02 10:59 | PC.NURSE ---
nilson SEARS from Out patient is attempting ultrasound guided IV
--- NOTE | 2021-12-02 11:16 | PC.NURSE ---
u/s guided IV established by RENU clements. pt to radiology at this time via wheelchair
--- NOTE | 2021-12-02 11:17 | PC.NURSE ---
say from radiology at BS to transport pt to radiology for procedure.
--- NOTE | 2021-12-02 11:22 | PC.NURSE ---
pt being transported to radiology for paracentesis via wheelchair per rad staff
[2021-12-02 11:26] LABS: Lactate Dehydrogenase 1047 U/L (313-618)
--- NOTE | 2021-12-02 11:26 | PC.NURSE ---
notified electricity trading analyst of body fluid orders placed
--- NOTE | 2021-12-02 11:28 | PC.NURSE ---
v/s delayed d/t attempts to establish IV
[2021-12-02 11:50] LABS: Lactic Acid 2.2 mmol/L (0.7-2.1)
--- NOTE | 2021-12-02 11:55 | PC.NURSE ---
ian from u/s gave verbal report on paracentesis. states PA was unable to retrieve fluid from abdomen. electricity trading analyst states pt refused chest xr. pt back in room at this time from u/s and requests to stay in wheelchair for comfort. no needs voiced by pt at this time.
--- NOTE | 2021-12-02 12:04 | PC.NURSE ---
pt in room sitting in WC she states she wanted to sit in the chair awhile. gave warm blanket to and pt needs nothing else
[2021-12-02 12:33] LABS: Microscopic, Urine URINE MICROSCOPIC (MICROSCOPIC)
[2021-12-02 12:34] LABS: Appearance,Urine CLEAR (Clear); Blood, Urine 1+ (Negative); Color,Urine ORANGE (Yellow); Glucose,Urine (UA) Negative (Negative); Ketones,Urine TRACE (Negative); Leukocyte Esterase,Urine Negative (Negative); Nitrate,Urine POSITIVE (Negative); Protein,Urine Negative (Negative); Specific Gravity, Urine 1.025 (1.005-1.030)
[2021-12-02 12:36] LABS: Bilirubin,Urine 3+ (Negative)
--- NOTE | 2021-12-02 12:37 | PC.NURSE ---
Elsa RN in room to give IM Lasix
--- NOTE | 2021-12-02 12:41 | PC.NURSE ---
IV infiltrated during lasix push. IV was d/c and warm compress applied. MD notified and instructed to give medication IM. medication given. pt remains in the chair with no needs voiced.
[2021-12-02 12:52] LABS: Bacteria,Urine 1+ /lpf; Hyaline Casts,Urine Occasional #/lpf (0); Squamous Epithelial Cell,Urine Occasional #/hpf (0-5)
[2021-12-02 15:37] LABS: Reflex Lactic Add Lactic Reflex
== END 2021-12-02 12:57 | disposition home or self-care (01) ==
LOC: UTC 08:17 → ER 09:18
PROVIDERS: Emergency Provider Emergency Medicine; PCP Physician Assistant
DX: K70.31 Alcoholic cirrhosis of liver with ascites (principal); R60.0 Localized edema; Z79.899 Other long term (current) drug therapy; I10 Essential (primary) hypertension; I25.10 Atherosclerotic heart disease of native coronary artery without angina pectoris; F41.9 Anxiety disorder, unspecified; F32.A Depression, unspecified; E03.9 Hypothyroidism, unspecified
CPT/HCPCS: 76705; 80053; 81001; 83605; 83615; 85007; 85025; 85610; 87040; 87077; 87186; 96374; 99284

== ENCOUNTER 2022-03-12 14:00 | Outpatient (RCR) | payer BC, SELFPAY | END 2022-03-12 14:05 | disposition home or self-care (01) | LOC: PT 14:00 | PROVIDERS: PCP Physician Assistant; Visit Provider Physician Assistant | DX: K72.10 Chronic hepatic failure without coma (principal); E44.0 Moderate protein-calorie malnutrition; R53.1 Weakness | CPT/HCPCS: 97110; 97163; 97530 ==

== ENCOUNTER → 2022-04-14 15:02 | Outpatient (CLI) | payer BC, SELFPAY ==
--- NOTE | 2022-04-14 15:05 | XR_ITS ---
FINAL REPORT TECHNIQUE: Chest PA & Lateral CLINICAL HISTORY: SOA, cough x 1 week COMPARISON: 11/2021 FINDINGS: 2 views of the chest were performed. The heart size is normal. The mediastinum is within normal limits. There is no acute cardiopulmonary process. There are no pleural effusions. There is no pneumothorax. The bony thorax appears intact. IMPRESSION: No acute cardiopulmonary process. Reviewed, Interpreted and Dictated by Igor English III, MD Transcribed by Owen Buckley Authenticated and [facility]
== END ==
PROVIDERS: PCP Nurse Practitioner Family; Visit Provider Nurse Practitioner Family
DX: J20.8 Acute bronchitis due to other specified organisms (principal); B96.89 Other specified bacterial agents as the cause of diseases classified elsewhere
CPT/HCPCS: 71046

== ENCOUNTER → 2022-08-24 23:34 | Outpatient (CLI) | payer MEDICARE, BC, SELFPAY ==
[2022-08-24 16:59] LABS: Adenovirus,PCR Not Detected (NotDetected); Bordetella Pertussis Not Detected (NotDetected); Chlamydophila Pneumoniae, PCR Not Detected (NotDetected); Coronavirus 19, PCR Not Detected (NotDetected); Coronavirus 229E Not Detected (NotDetected); Coronavirus NL63 Not Detected (NotDetected); Coronavirus OC43 Not Detected (NotDetected); Coronovirus HKU1,PCR Not Detected (NotDetected); Human Metapneumovirus Not Detected (NotDetected); Influenza A, PCR Not Detected (NotDetected); Influenza AH1, 2009 Not Detected (NotDetected); Influenza AH1, PCR Not Detected (NotDetected); Influenza AH3,PCR Not Detected (NotDetected); Influenza B, PCR Not Detected (NotDetected); Mycoplasma Pneumoniae, PCR Not Detected (NotDetected); Parainfluenza 1, PCR Not Detected (NotDetected); Parainfluenza 2, PCR Not Detected (NotDetected); Parainfluenza 4, PCR Not Detected (NotDetected); Respiratory Syncytial Virus Not Detected (NotDetected); Rhinovirus/Enterovirus Not Detected (NotDetected)
[2022-08-25] LABS: Parainfluenza 3, PCR Detected (NotDetected)
== END ==
PROVIDERS: PCP Student in an Organized Health Care Education/Training Program; Visit Provider Student in an Organized Health Care Education/Training Program
DX: J02.9 Acute pharyngitis, unspecified (principal); R06.02 Shortness of breath; B34.8 Other viral infections of unspecified site; R06.2 Wheezing; R05.8 Other specified cough
CPT/HCPCS: 87070; 87581; 87632; 87798; C9803; U0003; U0005

== ENCOUNTER 2023-07-26 10:19 | Outpatient (CLI) | payer MEDICARE, BC, SELFPAY ==
[2023-07-26 11:04] LABS: Basophils # 0.1 K/mm3 (0-0.2); Basophils % 1.4 % (0.1-2.0); Eosinophils # 0.3 K/mm3 (0.0-0.4); Eosinophils % 2.9 % (0.1-12.0); Hematocrit 40.1 % (37.0-47.0); Hemoglobin 13.7 g/dL (12.2-16.2); Lymphocytes # 1.2 K/mm3 (0.7-4.5); Lymphocytes % 14.1 % (10-50); Mean Corpuscular HGB Conc 34.1 g/dL (31.8-35.4); Mean Corpuscular Hemoglobin 31.9 pg (27.0-31.2); Mean Corpuscular Volume 93.7 fl (81-99); Mean Platelet Volume 7.3 fl (7.4-10.4); Monocytes # 0.3 K/mm3 (0.1-1.0); Monocytes % 3.4 % (1.7-9.3); Neutrophils # 6.7 K/mm3 (1.8-7.8); Neutrophils % 78.3 % (37.0-80.0); Platelet Count 492 K/mm3 (142-424); Red Blood Count 4.28 M/mm3 (4.20-5.40); Red Cell Distribution Width 13.9 % (11.5-17.5); White Blood Count 8.5 K/mm3 (4.8-10.8)
[2023-07-26 11:09] LABS: Alanine Aminotransferase 29 U/L (12-78); Albumin Level 4.8 g/dl (3.5-5.0); Albumin/Globulin Ratio 1.8 (1.1-1.8); Alkaline Phosphatase 90 U/L (38-126); Anion Gap 16.5 mEq/L (5-15); Aspartate Amino Transferase 34 U/L (14-36); Bilirubin,Total 0.7 mg/dl (0.2-1.3); Blood Urea Nitrogen 23 mg/dl (7-17); Calcium 10.8 mg/dl (8.4-10.2); Carbon Dioxide 22 mmol/L (22.0-30.0); Chloride 101 mmol/L (98-107); Estimated Glomerular Filt Rate 46 ml/min (>60); GFR (African American) 56 ML/MIN (>60); Gamma Glutamyl Transpeptidase 61 U/L (12-43); Globulin 2.7 g/dL (1.3-3.2); Glucose 165 mg/dl (74-100); Magnesium 1.8 mg/dl (1.6-2.3); Potassium 4.5 mmoL/L (3.5-5.1); Sodium 135 mmol/L (136-145); Total Protein,Serum 7.5 g/dl (6.3-8.2)
[2023-07-30 12:30] LABS: Tacrolimus (Prograf) 7.6
== END 2023-07-26 23:59 ==
LOC: LAB 10:21
PROVIDERS: PCP Physician Assistant; Visit Provider Nurse Practitioner Family
DX: Z94.4 Liver transplant status (principal)
CPT/HCPCS: 36415; 80053; 80197; 82977; 83735; 85025

== ENCOUNTER 2023-08-09 12:06 | Outpatient (CLI) | payer MEDICARE, BC, SELFPAY ==
[2023-08-09 14:32] LABS: Gamma Glutamyl Transpeptidase 41 U/L (12-43)
[2023-08-09 15:39] LABS: Alanine Aminotransferase 29 U/L (12-78); Albumin Level 4.8 g/dl (3.5-5.0); Albumin/Globulin Ratio 1.8 (1.1-1.8); Alkaline Phosphatase 106 U/L (38-126); Anion Gap 15.6 mEq/L (5-15); Aspartate Amino Transferase 33 U/L (14-36); Bilirubin,Total 0.5 mg/dl (0.2-1.3); Blood Urea Nitrogen 29 mg/dl (7-17); Calcium 10.4 mg/dl (8.4-10.2); Carbon Dioxide 22 mmol/L (22.0-30.0); Chloride 105 mmol/L (98-107); Estimated Glomerular Filt Rate 46 ml/min (>60); GFR (African American) 56 ML/MIN (>60); Globulin 2.6 g/dL (1.3-3.2); Glucose 205 mg/dl (74-100); Magnesium 1.7 mg/dl (1.6-2.3); Potassium 4.6 mmoL/L (3.5-5.1); Sodium 138 mmol/L (136-145); Total Protein,Serum 7.4 g/dl (6.3-8.2)
[2023-08-13 10:47] LABS: Tacrolimus (Prograf) 3.6
== END 2023-08-09 23:59 ==
LOC: LAB 12:08
PROVIDERS: PCP Physician Assistant; Visit Provider Nurse Practitioner Family
DX: Z94.4 Liver transplant status (principal)
CPT/HCPCS: 36415; 80053; 80197; 82977; 83735

== ENCOUNTER 2023-08-15 08:54 | Outpatient (CLI) | payer MEDICARE, BC, SELFPAY ==
[2023-08-15 09:42] LABS: Hematocrit 43.1 % (37.0-47.0); Hemoglobin 13.8 g/dL (12.2-16.2); Mean Corpuscular HGB Conc 32.1 g/dL (31.8-35.4); Mean Corpuscular Volume 93.5 fl (81-99); Platelet Count 316 K/mm3 (142-424); Red Blood Count 4.61 M/mm3 (4.20-5.40); Red Cell Distribution Width 14.2 % (11.5-17.5); White Blood Count 8.3 K/mm3 (4.8-10.8)
[2023-08-15 10:32] LABS: Alanine Aminotransferase 31 U/L (12-78); Albumin Level 4.6 g/dl (3.5-5.0); Albumin/Globulin Ratio 1.7 (1.1-1.8); Alkaline Phosphatase 98 U/L (38-126); Anion Gap 13.3 mEq/L (5-15); Aspartate Amino Transferase 32 U/L (14-36); Bilirubin,Total 0.5 mg/dl (0.2-1.3); Blood Urea Nitrogen 23 mg/dl (7-17); Calcium 10.5 mg/dl (8.4-10.2); Carbon Dioxide 26 mmol/L (22.0-30.0); Chloride 103 mmol/L (98-107); Estimated Glomerular Filt Rate 64 ml/min (>60); GFR (African American) 77 ML/MIN (>60); Gamma Glutamyl Transpeptidase 35 U/L (12-43); Globulin 2.7 g/dL (1.3-3.2); Glucose 144 mg/dl (74-100); Magnesium 1.9 mg/dl (1.6-2.3); Potassium 4.3 mmoL/L (3.5-5.1); Sodium 138 mmol/L (136-145); Total Protein,Serum 7.3 g/dl (6.3-8.2)
[2023-08-18 08:39] LABS: Tacrolimus (Prograf) 4.1
== END 2023-08-15 23:59 ==
LOC: LAB 08:55
PROVIDERS: PCP Physician Assistant; Visit Provider Nurse Practitioner Family
DX: Z94.4 Liver transplant status (principal); Z79.899 Other long term (current) drug therapy
CPT/HCPCS: 36415; 80053; 80197; 82977; 83735; 85014; 85018; 85048; 85049

== ENCOUNTER 2023-08-29 08:19 | Outpatient (CLI) | payer MEDICARE, BC, SELFPAY ==
[2023-08-29 08:41] LABS: Basophils # 0.1 K/mm3 (0-0.2); Basophils % 1.8 % (0.1-2.0); Eosinophils # 0.1 K/mm3 (0.0-0.4); Eosinophils % 1.9 % (0.1-12.0); Hematocrit 42.2 % (37.0-47.0); Hemoglobin 13.7 g/dL (12.2-16.2); Lymphocytes # 1.4 K/mm3 (0.7-4.5); Lymphocytes % 27.7 % (10-50); Mean Corpuscular HGB Conc 32.4 g/dL (31.8-35.4); Mean Corpuscular Hemoglobin 29.9 pg (27.0-31.2); Mean Corpuscular Volume 92.5 fl (81-99); Mean Platelet Volume 7.1 fl (7.4-10.4); Monocytes # 0.3 K/mm3 (0.1-1.0); Monocytes % 6.4 % (1.7-9.3); Neutrophils # 3.1 K/mm3 (1.8-7.8); Neutrophils % 62.4 % (37.0-80.0); Platelet Count 298 K/mm3 (142-424); Red Blood Count 4.57 M/mm3 (4.20-5.40); Red Cell Distribution Width 14.6 % (11.5-17.5)
[2023-08-29 09:48] LABS: Alanine Aminotransferase 37 U/L (12-78); Albumin Level 4.7 g/dl (3.5-5.0); Albumin/Globulin Ratio 1.8 (1.1-1.8); Alkaline Phosphatase 102 U/L (38-126); Anion Gap 12.7 mEq/L (5-15); Aspartate Amino Transferase 36 U/L (14-36); Bilirubin,Total 0.5 mg/dl (0.2-1.3); Blood Urea Nitrogen 26 mg/dl (7-17); Calcium 10.2 mg/dl (8.4-10.2); Carbon Dioxide 26 mmol/L (22.0-30.0); Chloride 105 mmol/L (98-107); Estimated Glomerular Filt Rate 57 ml/min (>60); GFR (African American) 68 ML/MIN (>60); Gamma Glutamyl Transpeptidase 34 U/L (12-43); Globulin 2.6 g/dL (1.3-3.2); Glucose 106 mg/dl (74-100); Magnesium 1.7 mg/dl (1.6-2.3); Potassium 4.7 mmoL/L (3.5-5.1); Sodium 139 mmol/L (136-145); Total Protein,Serum 7.3 g/dl (6.3-8.2)
[2023-09-01 08:46] LABS: Tacrolimus (Prograf) 6.3
== END 2023-08-29 23:59 | disposition home or self-care (01) ==
PROVIDERS: PCP Physician Assistant; Visit Provider Nurse Practitioner Family
DX: Z94.4 Liver transplant status (principal); Z79.899 Other long term (current) drug therapy
CPT/HCPCS: 36415; 80053; 80197; 82977; 83735; 85025

== ENCOUNTER 2023-09-12 09:53 | Outpatient (CLI) | payer MEDICARE, BC, SELFPAY ==
[2023-09-12 11:20] LABS: Basophils # 0.1 K/mm3 (0-0.2); Eosinophils # 0.1 K/mm3 (0.0-0.4); Hematocrit 40.8 % (37.0-47.0); Hemoglobin 13.1 g/dL (12.2-16.2); Lymphocytes # 1.9 K/mm3 (0.7-4.5); Lymphocytes % 58.5 % (10-50); Mean Corpuscular HGB Conc 32.2 g/dL (31.8-35.4); Mean Corpuscular Hemoglobin 29.5 pg (27.0-31.2); Mean Corpuscular Volume 91.7 fl (81-99); Mean Platelet Volume 7.6 fl (7.4-10.4); Monocytes # 0.2 K/mm3 (0.1-1.0); Monocytes % 6.9 % (1.7-9.3); Neutrophils % 30.6 % (37.0-80.0); Platelet Count 312 K/mm3 (142-424); Red Blood Count 4.45 M/mm3 (4.20-5.40); Red Cell Distribution Width 14.4 % (11.5-17.5); White Blood Count 3.2 K/mm3 (4.8-10.8)
[2023-09-12 11:24] LABS: MANUAL DIFFERENTIAL MANUAL DIFFERENTIAL (MANUAL DIFF)
[2023-09-12 11:36] LABS: Alanine Aminotransferase 31 U/L (12-78); Albumin Level 4.6 g/dl (3.5-5.0); Alkaline Phosphatase 105 U/L (38-126); Anion Gap 12.3 mEq/L (5-15); Aspartate Amino Transferase 29 U/L (14-36); Bilirubin,Total 0.5 mg/dl (0.2-1.3); Blood Urea Nitrogen 20 mg/dl (7-17); Calcium 10.2 mg/dl (8.4-10.2); Carbon Dioxide 27 mmol/L (22.0-30.0); Chloride 106 mmol/L (98-107); Estimated Glomerular Filt Rate 64 ml/min (>60); GFR (African American) 77 ML/MIN (>60); Gamma Glutamyl Transpeptidase 33 U/L (12-43); Globulin 2.3 g/dL (1.3-3.2); Glucose 114 mg/dl (74-100); Magnesium 1.6 mg/dl (1.6-2.3); Potassium 4.3 mmoL/L (3.5-5.1); Sodium 141 mmol/L (136-145); Total Protein,Serum 6.9 g/dl (6.3-8.2)
[2023-09-12 12:19] LABS: Eosinophils % 4 % (0-3); Lymphocytes % 51 % (10-50); Monocytes % 7 % (2-9); Neutrophils % 38 % (42-76); Platelet Estimate Normal; RBC Morphology Normal; Total Cells Counted 100
== END 2023-09-12 23:59 | disposition home or self-care (01) ==
LOC: LAB 09:54
PROVIDERS: PCP Physician Assistant; Visit Provider Nurse Practitioner Family
DX: Z94.4 Liver transplant status (principal)
CPT/HCPCS: 36415; 80053; 80197; 82977; 83735; 85007; 85025

== ENCOUNTER 2023-09-19 09:33 | Outpatient (CLI) | payer MEDICARE, BC, SELFPAY ==
[2023-09-19 10:37] LABS: Basophils # 0.1 K/mm3 (0-0.2); Basophils % 1.1 % (0.1-2.0); Eosinophils # 0.1 K/mm3 (0.0-0.4); Hematocrit 41.2 % (37.0-47.0); Hemoglobin 13.1 g/dL (12.2-16.2); Lymphocytes # 1.7 K/mm3 (0.7-4.5); Mean Corpuscular HGB Conc 31.8 g/dL (31.8-35.4); Mean Corpuscular Hemoglobin 29.2 pg (27.0-31.2); Mean Corpuscular Volume 91.7 fl (81-99); Mean Platelet Volume 6.8 fl (7.4-10.4); Monocytes # 0.2 K/mm3 (0.1-1.0); Monocytes % 3.7 % (1.7-9.3); Neutrophils # 3.2 K/mm3 (1.8-7.8); Neutrophils % 62.2 % (37.0-80.0); Platelet Count 290 K/mm3 (142-424); Red Blood Count 4.49 M/mm3 (4.20-5.40); Red Cell Distribution Width 14.2 % (11.5-17.5); White Blood Count 5.2 K/mm3 (4.8-10.8)
[2023-09-19 11:20] LABS: Chloride 107 mmol/L (98-107); Potassium 4.2 mmoL/L (3.5-5.1); Sodium 138 mmol/L (136-145)
[2023-09-19 11:22] LABS: Blood Urea Nitrogen 25 mg/dl (7-17); Estimated Glomerular Filt Rate 64 ml/min (>60); GFR (African American) 77 ML/MIN (>60)
[2023-09-19 11:23] LABS: Alanine Aminotransferase 26 U/L (12-78); Albumin Level 4.3 g/dl (3.5-5.0); Albumin/Globulin Ratio 1.7 (1.1-1.8); Alkaline Phosphatase 105 U/L (38-126); Anion Gap 10.2 mEq/L (5-15); Aspartate Amino Transferase 27 U/L (14-36); Bilirubin,Total 0.4 mg/dl (0.2-1.3); Calcium 10.1 mg/dl (8.4-10.2); Carbon Dioxide 25 mmol/L (22.0-30.0); Globulin 2.6 g/dL (1.3-3.2); Glucose 99 mg/dl (74-100); Magnesium 1.5 mg/dl (1.6-2.3); Total Protein,Serum 6.9 g/dl (6.3-8.2)
[2023-09-19 12:05] LABS: Gamma Glutamyl Transpeptidase 30 U/L (12-43)
== END 2023-09-19 23:59 | disposition home or self-care (01) ==
LOC: LAB 09:35
PROVIDERS: PCP Physician Assistant; Visit Provider Nurse Practitioner Family
DX: Z94.4 Liver transplant status (principal); Z79.899 Other long term (current) drug therapy
CPT/HCPCS: 36415; 80053; 80197; 82977; 83735; 85025

== ENCOUNTER 2023-10-04 10:10 | Outpatient (CLI) | payer MEDICARE, BC, SELFPAY ==
[2023-10-04 10:57] LABS: Basophils # 0.1 K/mm3 (0-0.2); Basophils % 1.4 % (0.1-2.0); Eosinophils # 0.1 K/mm3 (0.0-0.4); Eosinophils % 1.8 % (0.1-12.0); Hematocrit 41.9 % (37.0-47.0); Hemoglobin 13.5 g/dL (12.2-16.2); Lymphocytes # 1.3 K/mm3 (0.7-4.5); Lymphocytes % 24.7 % (10-50); Mean Corpuscular HGB Conc 32.2 g/dL (31.8-35.4); Mean Corpuscular Hemoglobin 28.2 pg (27.0-31.2); Mean Corpuscular Volume 87.3 fl (81-99); Mean Platelet Volume 7.1 fl (7.4-10.4); Monocytes # 0.3 K/mm3 (0.1-1.0); Monocytes % 5.4 % (1.7-9.3); Neutrophils # 3.6 K/mm3 (1.8-7.8); Neutrophils % 66.7 % (37.0-80.0); Platelet Count 256 K/mm3 (142-424); Red Blood Count 4.79 M/mm3 (4.20-5.40); Red Cell Distribution Width 14.4 % (11.5-17.5); White Blood Count 5.4 K/mm3 (4.8-10.8)
[2023-10-04 11:28] LABS: Alanine Aminotransferase 28 U/L (12-78); Albumin Level 4.3 g/dl (3.5-5.0); Albumin/Globulin Ratio 1.7 (1.1-1.8); Alkaline Phosphatase 98 U/L (38-126); Anion Gap 13.5 mEq/L (5-15); Aspartate Amino Transferase 35 U/L (14-36); Bilirubin,Total 0.5 mg/dl (0.2-1.3); Blood Urea Nitrogen 19 mg/dl (7-17); Calcium 10.1 mg/dl (8.4-10.2); Carbon Dioxide 27 mmol/L (22.0-30.0); Chloride 102 mmol/L (98-107); Estimated Glomerular Filt Rate 51 ml/min (>60); GFR (African American) 61 ML/MIN (>60); Gamma Glutamyl Transpeptidase 31 U/L (12-43); Globulin 2.5 g/dL (1.3-3.2); Glucose 108 mg/dl (74-100); Magnesium 1.7 mg/dl (1.6-2.3); Potassium 4.5 mmoL/L (3.5-5.1); Sodium 138 mmol/L (136-145); Total Protein,Serum 6.8 g/dl (6.3-8.2)
[2023-10-09 08:20] LABS: Tacrolimus (Prograf) 5.9
== END 2023-10-04 23:59 | disposition home or self-care (01) ==
LOC: LAB 10:11
PROVIDERS: PCP Physician Assistant; Visit Provider Nurse Practitioner Family
DX: Z94.4 Liver transplant status (principal)
CPT/HCPCS: 36415; 80053; 80197; 82977; 83735; 85025

== ENCOUNTER 2023-10-18 09:16 | Outpatient (CLI) | payer MEDICARE, SELFPAY ==
[2023-10-18 09:57] LABS: Hematocrit 41.8 % (37.0-47.0); Hemoglobin 13.6 g/dL (12.2-16.2); Mean Corpuscular HGB Conc 32.6 g/dL (31.8-35.4); Mean Corpuscular Hemoglobin 28.2 pg (27.0-31.2); Mean Corpuscular Volume 86.7 fl (81-99); Platelet Count 349 K/mm3 (142-424); Red Blood Count 4.82 M/mm3 (4.20-5.40); Red Cell Distribution Width 13.9 % (11.5-17.5); White Blood Count 7.5 K/mm3 (4.8-10.8)
[2023-10-18 10:52] LABS: Chloride 104 mmol/L (98-107); Potassium 5.2 mmoL/L (3.5-5.1); Sodium 139 mmol/L (136-145)
[2023-10-18 10:55] LABS: Albumin Level 4.6 g/dl (3.5-5.0); Albumin/Globulin Ratio 1.8 (1.1-1.8); Alkaline Phosphatase 111 U/L (38-126); Anion Gap 16.2 mEq/L (5-15); Bilirubin,Total 0.3 mg/dl (0.2-1.3); Calcium 10.5 mg/dl (8.4-10.2); Carbon Dioxide 24 mmol/L (22.0-30.0); Globulin 2.6 g/dL (1.3-3.2); Glucose 116 mg/dl (74-100); Magnesium 1.8 mg/dl (1.6-2.3); Total Protein,Serum 7.2 g/dl (6.3-8.2)
[2023-10-18 13:20] LABS: Alanine Aminotransferase 24 U/L (12-78); Aspartate Amino Transferase 26 U/L (14-36); Blood Urea Nitrogen 24 mg/dl (7-17); Estimated Glomerular Filt Rate 57 ml/min (>60); GFR (African American) 68 ML/MIN (>60); Gamma Glutamyl Transpeptidase 34 U/L (12-43)
== END 2023-10-18 23:59 | disposition home or self-care (01) ==
LOC: LAB 09:18
PROVIDERS: PCP Physician Assistant; Visit Provider Nurse Practitioner Family
DX: Z94.4 Liver transplant status (principal); Z79.899 Other long term (current) drug therapy
CPT/HCPCS: 36415; 80053; 80197; 82977; 83735; 85014; 85018; 85048; 85049

== ENCOUNTER 2023-11-07 07:54 | Outpatient (CLI) | payer MEDICARE, SELFPAY ==
[2023-11-07 08:22] LABS: Hemoglobin 12.8 g/dL (12.2-16.2)
[2023-11-07 09:30] LABS: Chloride 105 mmol/L (98-107); Potassium 5.2 mmoL/L (3.5-5.1); Sodium 138 mmol/L (136-145)
[2023-11-07 09:32] LABS: Blood Urea Nitrogen 26 mg/dl (7-17); Estimated Glomerular Filt Rate 51 ml/min (>60); GFR (African American) 61 ML/MIN (>60)
[2023-11-07 09:33] LABS: Alanine Aminotransferase 22 U/L (12-78); Albumin Level 4.3 g/dl (3.5-5.0); Albumin/Globulin Ratio 1.7 (1.1-1.8); Alkaline Phosphatase 119 U/L (38-126); Anion Gap 13.2 mEq/L (5-15); Aspartate Amino Transferase 28 U/L (14-36); Bilirubin,Total 0.5 mg/dl (0.2-1.3); Calcium 10.2 mg/dl (8.4-10.2); Carbon Dioxide 25 mmol/L (22.0-30.0); Globulin 2.5 g/dL (1.3-3.2); Glucose 129 mg/dl (74-100); Magnesium 1.7 mg/dl (1.6-2.3); Total Protein,Serum 6.8 g/dl (6.3-8.2)
[2023-11-07 10:17] LABS: Gamma Glutamyl Transpeptidase 30 U/L (12-43)
== END 2023-11-07 23:59 | disposition home or self-care (01) ==
LOC: LAB 07:55
PROVIDERS: PCP Physician Assistant; Visit Provider Nurse Practitioner Family
DX: Z94.4 Liver transplant status (principal); Z79.899 Other long term (current) drug therapy
CPT/HCPCS: 36415; 80053; 80197; 82977; 83735; 85018

== ENCOUNTER 2023-11-21 09:24 | Outpatient (CLI) | payer MEDICARE, SELFPAY ==
[2023-11-21 10:05] LABS: Basophils # 0.1 K/mm3 (0-0.2); Eosinophils # 0.1 K/mm3 (0.0-0.4); Eosinophils % 2.4 % (0.1-12.0); Hematocrit 41.6 % (37.0-47.0); Hemoglobin 13.7 g/dL (12.2-16.2); Lymphocytes # 1.3 K/mm3 (0.7-4.5); Lymphocytes % 21.5 % (10-50); Mean Corpuscular HGB Conc 32.9 g/dL (31.8-35.4); Mean Corpuscular Volume 85.1 fl (81-99); Mean Platelet Volume 7.2 fl (7.4-10.4); Monocytes # 0.3 K/mm3 (0.1-1.0); Monocytes % 5.5 % (1.7-9.3); Neutrophils # 4.1 K/mm3 (1.8-7.8); Neutrophils % 69.7 % (37.0-80.0); Platelet Count 241 K/mm3 (142-424); Red Blood Count 4.89 M/mm3 (4.20-5.40); Red Cell Distribution Width 14.3 % (11.5-17.5)
[2023-11-21 10:34] LABS: Alanine Aminotransferase 26 U/L (12-78); Albumin Level 4.5 g/dl (3.5-5.0); Albumin/Globulin Ratio 1.7 (1.1-1.8); Alkaline Phosphatase 135 U/L (38-126); Anion Gap 11.1 mEq/L (5-15); Aspartate Amino Transferase 31 U/L (14-36); Bilirubin,Total 0.8 mg/dl (0.2-1.3); Blood Urea Nitrogen 23 mg/dl (7-17); Calcium 10.3 mg/dl (8.4-10.2); Carbon Dioxide 24 mmol/L (22.0-30.0); Chloride 107 mmol/L (98-107); Estimated Glomerular Filt Rate 64 ml/min (>60); GFR (African American) 77 ML/MIN (>60); Gamma Glutamyl Transpeptidase 32 U/L (12-43); Globulin 2.6 g/dL (1.3-3.2); Glucose 125 mg/dl (74-100); Magnesium 1.4 mg/dl (1.6-2.3); Potassium 4.1 mmoL/L (3.5-5.1); Sodium 138 mmol/L (136-145); Total Protein,Serum 7.1 g/dl (6.3-8.2)
[2023-12-26 14:44] LABS: Tacrolimus (FK506), Blood 6.3
== END 2023-11-21 23:59 | disposition home or self-care (01) ==
LOC: LAB 09:26
PROVIDERS: PCP Physician Assistant; Visit Provider Nurse Practitioner Family
DX: Z94.4 Liver transplant status (principal)
CPT/HCPCS: 36415; 80053; 80197; 82977; 83735; 85025

== ENCOUNTER 2023-12-05 07:32 | Outpatient (CLI) | payer MEDICARE, SELFPAY ==
[2023-12-05 08:01] LABS: Basophils # 0.1 K/mm3 (0-0.2); Basophils % 1.1 % (0.1-2.0); Eosinophils # 0.1 K/mm3 (0.0-0.4); Eosinophils % 1.9 % (0.1-12.0); Hematocrit 40.9 % (37.0-47.0); Hemoglobin 12.9 g/dL (12.2-16.2); Lymphocytes # 1.4 K/mm3 (0.7-4.5); Lymphocytes % 27.7 % (10-50); Mean Corpuscular HGB Conc 31.6 g/dL (31.8-35.4); Mean Corpuscular Hemoglobin 27.7 pg (27.0-31.2); Mean Corpuscular Volume 87.5 fl (81-99); Mean Platelet Volume 7.4 fl (7.4-10.4); Monocytes # 0.3 K/mm3 (0.1-1.0); Monocytes % 5.8 % (1.7-9.3); Neutrophils # 3.3 K/mm3 (1.8-7.8); Neutrophils % 63.4 % (37.0-80.0); Platelet Count 261 K/mm3 (142-424); Red Blood Count 4.67 M/mm3 (4.20-5.40); Red Cell Distribution Width 14.3 % (11.5-17.5); White Blood Count 5.1 K/mm3 (4.8-10.8)
[2023-12-05 08:26] LABS: Alanine Aminotransferase 32 U/L (12-78); Albumin Level 4.2 g/dl (3.5-5.0); Albumin/Globulin Ratio 1.7 (1.1-1.8); Alkaline Phosphatase 117 U/L (38-126); Anion Gap 10.3 mEq/L (5-15); Aspartate Amino Transferase 35 U/L (14-36); Bilirubin,Total 0.4 mg/dl (0.2-1.3); Blood Urea Nitrogen 28 mg/dl (7-17); Calcium 9.7 mg/dl (8.4-10.2); Carbon Dioxide 27 mmol/L (22.0-30.0); Chloride 106 mmol/L (98-107); Estimated Glomerular Filt Rate 51 ml/min (>60); GFR (African American) 61 ML/MIN (>60); Gamma Glutamyl Transpeptidase 29 U/L (12-43); Globulin 2.5 g/dL (1.3-3.2); Glucose 100 mg/dl (74-100); Magnesium 1.8 mg/dl (1.6-2.3); Potassium 4.3 mmoL/L (3.5-5.1); Sodium 139 mmol/L (136-145); Total Protein,Serum 6.7 g/dl (6.3-8.2)
[2023-12-12 16:00] LABS: Tacrolimus (FK506), Blood 5.8
== END 2023-12-05 23:59 | disposition home or self-care (01) ==
LOC: LAB 07:33
PROVIDERS: PCP Physician Assistant; Visit Provider Nurse Practitioner Family
DX: Z94.4 Liver transplant status (principal)
CPT/HCPCS: 36415; 80053; 80197; 82977; 83735; 85025

== ENCOUNTER 2023-12-16 07:52 | Outpatient (CLI) | payer MEDICARE, SELFPAY ==
--- NOTE | 2023-12-16 07:52 | MM_ITS ---
PROCEDURE INFORMATION: Exam: MG Bilateral Screening 3D Mammography Exam date and time: 12/16/2023 7:49 AM Age: 58 years old Clinical indication: Screening. Her mother had breast cancer at age 71. TECHNIQUE: Imaging protocol: Bilateral Screening tomosynthesis and 2D mammography including computer-aided detection (CAD) when performed. COMPARISON: 1. MG MM DIG SCREENING MAMM BI W/CAD 01/29/2021 10:21 AM 2. MG DXRT MM Dig mamm DX unilat RT CAD 08/22/2017 1:18 PM 3. MG SCBI MM Dig screening mamm BI w/CAD 08/03/2017 9:01 AM 4. BREASTRT US breast RT complete 08/22/2017 1:59 PM FINDINGS: MAMMOGRAPHY: Breast composition: The breasts are heterogeneously dense, which may obscure small masses. Mass: None. Architectural distortion: None. Calcifications: No suspicious calcifications. Asymmetric density: No developing asymmetry. Skin thickening: None. Axillary adenopathy: None. IMPRESSION: No mammographic evidence of malignancy. Annual screening is recommended unless otherwise clinically indicated. ASSESSMENT: BI-RADS Category 1: Negative
== END 2023-12-16 23:59 | disposition home or self-care (01) ==
LOC: RAD 07:52
PROVIDERS: PCP Internal Medicine; Visit Provider Internal Medicine
DX: Z12.31 Encounter for screening mammogram for malignant neoplasm of breast (principal)
CPT/HCPCS: 77063; 77067

== ENCOUNTER 2023-12-19 07:14 | Outpatient (CLI) | payer MEDICARE, SELFPAY ==
[2023-12-19 07:37] LABS: Basophils # 0.1 K/mm3 (0-0.2); Basophils % 1.4 % (0.1-2.0); Eosinophils # 0.1 K/mm3 (0.0-0.4); Eosinophils % 2.7 % (0.1-12.0); Hematocrit 44.3 % (37.0-47.0); Hemoglobin 13.9 g/dL (12.2-16.2); Lymphocytes # 1.3 K/mm3 (0.7-4.5); Lymphocytes % 28.3 % (10-50); Mean Corpuscular HGB Conc 31.4 g/dL (31.8-35.4); Mean Corpuscular Hemoglobin 27.5 pg (27.0-31.2); Mean Corpuscular Volume 87.8 fl (81-99); Mean Platelet Volume 7.3 fl (7.4-10.4); Monocytes # 0.3 K/mm3 (0.1-1.0); Monocytes % 6.1 % (1.7-9.3); Neutrophils # 2.7 K/mm3 (1.8-7.8); Neutrophils % 61.5 % (37.0-80.0); Platelet Count 317 K/mm3 (142-424); Red Blood Count 5.04 M/mm3 (4.20-5.40); Red Cell Distribution Width 14.5 % (11.5-17.5); White Blood Count 4.4 K/mm3 (4.8-10.8)
[2023-12-19 08:02] LABS: Albumin Level 4.8 g/dl (3.5-5.0); Chloride 108 mmol/L (98-107); Sodium 139 mmol/L (136-145)
[2023-12-19 08:04] LABS: Blood Urea Nitrogen 15 mg/dl (7-17); Estimated Glomerular Filt Rate 57 ml/min (>60); GFR (African American) 68 ML/MIN (>60)
[2023-12-19 08:05] LABS: Alanine Aminotransferase 28 U/L (12-78); Albumin/Globulin Ratio 1.9 (1.1-1.8); Alkaline Phosphatase 148 U/L (38-126); Aspartate Amino Transferase 40 U/L (14-36); Bilirubin,Total 0.9 mg/dl (0.2-1.3); Calcium 9.8 mg/dl (8.4-10.2); Carbon Dioxide 25 mmol/L (22.0-30.0); Globulin 2.5 g/dL (1.3-3.2); Glucose 122 mg/dl (74-100); Magnesium 1.7 mg/dl (1.6-2.3); Total Protein,Serum 7.3 g/dl (6.3-8.2)
[2023-12-19 08:25] LABS: Gamma Glutamyl Transpeptidase 32 U/L (12-43)
[2023-12-30 09:35] LABS: Tacrolimus (FK506), Blood 7.1
== END 2023-12-19 23:59 | disposition home or self-care (01) ==
PROVIDERS: PCP Physician Assistant; Visit Provider Nurse Practitioner Family
DX: Z94.4 Liver transplant status (principal)
CPT/HCPCS: 36415; 80053; 80197; 82977; 83735; 85025

== ENCOUNTER 2024-01-11 07:35 | Outpatient (CLI) | payer MEDICARE, SELFPAY ==
[2024-01-11 07:56] LABS: Hematocrit 43.8 % (37.0-47.0); Hemoglobin 13.8 g/dL (12.2-16.2); Mean Corpuscular HGB Conc 31.6 g/dL (31.8-35.4); Mean Corpuscular Volume 88.7 fl (81-99); Platelet Count 296 K/mm3 (142-424); Red Blood Count 4.94 M/mm3 (4.20-5.40); Red Cell Distribution Width 14.6 % (11.5-17.5); White Blood Count 5.8 K/mm3 (4.8-10.8)
[2024-01-11 09:45] LABS: Alanine Aminotransferase 24 U/L (12-78); Albumin Level 4.3 g/dl (3.5-5.0); Albumin/Globulin Ratio 1.5 (1.1-1.8); Alkaline Phosphatase 134 U/L (38-126); Anion Gap 10.4 mEq/L (5-15); Aspartate Amino Transferase 32 U/L (14-36); Bilirubin,Total 0.6 mg/dl (0.2-1.3); Blood Urea Nitrogen 16 mg/dl (7-17); Calcium 9.9 mg/dl (8.4-10.2); Carbon Dioxide 27 mmol/L (22.0-30.0); Chloride 106 mmol/L (98-107); Estimated Glomerular Filt Rate 73 ml/min (>60); GFR (African American) 89 ML/MIN (>60); Gamma Glutamyl Transpeptidase 27 U/L (12-43); Globulin 2.8 g/dL (1.3-3.2); Glucose 115 mg/dl (74-100); Magnesium 1.6 mg/dl (1.6-2.3); Potassium 4.4 mmoL/L (3.5-5.1); Sodium 139 mmol/L (136-145); Total Protein,Serum 7.1 g/dl (6.3-8.2)
[2024-01-15 07:00] LABS: Tacrolimus (FK506), Blood 7.5
== END 2024-01-11 23:59 | disposition home or self-care (01) ==
LOC: LAB 07:36
PROVIDERS: PCP Physician Assistant; Visit Provider Nurse Practitioner Family
DX: Z94.4 Liver transplant status (principal); Z79.899 Other long term (current) drug therapy
CPT/HCPCS: 36415; 80053; 80197; 82977; 83735; 85014; 85018; 85048; 85049

== ENCOUNTER 2024-01-25 07:43 | Outpatient (CLI) | payer MEDICARE, SELFPAY ==
[2024-01-25 08:13] LABS: Basophils # 0.1 K/mm3 (0-0.2); Basophils % 0.9 % (0.1-2.0); Eosinophils # 0.2 K/mm3 (0.0-0.4); Eosinophils % 2.8 % (0.1-12.0); Hematocrit 44.1 % (37.0-47.0); Hemoglobin 13.8 g/dL (12.2-16.2); Lymphocytes # 1.6 K/mm3 (0.7-4.5); Mean Corpuscular HGB Conc 31.3 g/dL (31.8-35.4); Mean Corpuscular Hemoglobin 27.7 pg (27.0-31.2); Mean Corpuscular Volume 88.5 fl (81-99); Mean Platelet Volume 6.6 fl (7.4-10.4); Monocytes # 0.4 K/mm3 (0.1-1.0); Monocytes % 6.9 % (1.7-9.3); Neutrophils # 3.1 K/mm3 (1.8-7.8); Neutrophils % 58.3 % (37.0-80.0); Platelet Count 283 K/mm3 (142-424); Red Blood Count 4.99 M/mm3 (4.20-5.40); Red Cell Distribution Width 14.1 % (11.5-17.5); White Blood Count 5.3 K/mm3 (4.8-10.8)
[2024-01-25 09:17] LABS: Alanine Aminotransferase 22 U/L (12-78); Albumin Level 4.2 g/dl (3.5-5.0); Albumin/Globulin Ratio 1.6 (1.1-1.8); Alkaline Phosphatase 135 U/L (38-126); Anion Gap 10.4 mEq/L (5-15); Aspartate Amino Transferase 28 U/L (14-36); Bilirubin,Total 0.5 mg/dl (0.2-1.3); Blood Urea Nitrogen 16 mg/dl (7-17); Carbon Dioxide 25 mmol/L (22.0-30.0); Chloride 109 mmol/L (98-107); Estimated Glomerular Filt Rate 73 ml/min (>60); GFR (African American) 89 ML/MIN (>60); Gamma Glutamyl Transpeptidase 27 U/L (12-43); Globulin 2.6 g/dL (1.3-3.2); Glucose 112 mg/dl (74-100); Magnesium 1.4 mg/dl (1.6-2.3); Potassium 4.4 mmoL/L (3.5-5.1); Sodium 140 mmol/L (136-145); Total Protein,Serum 6.8 g/dl (6.3-8.2)
[2024-02-01 10:03] LABS: Tacrolimus (FK506), Blood 5.5
== END 2024-01-25 23:59 | disposition home or self-care (01) ==
LOC: LAB 07:44
PROVIDERS: PCP Physician Assistant; Visit Provider Nurse Practitioner Family
DX: Z94.4 Liver transplant status (principal)
CPT/HCPCS: 36415; 80053; 80197; 82977; 83735; 85025

== ENCOUNTER 2024-02-07 08:41 | Outpatient (CLI) | payer MEDICARE, SELFPAY ==
[2024-02-07 09:00] LABS: Mean Corpuscular HGB Conc 31.8 g/dL (31.8-35.4); Mean Corpuscular Hemoglobin 28.4 pg (27.0-31.2); Mean Corpuscular Volume 89.4 fl (81-99); Platelet Count 272 K/mm3 (142-424); Red Blood Count 4.92 M/mm3 (4.20-5.40); Red Cell Distribution Width 14.5 % (11.5-17.5); White Blood Count 6.6 K/mm3 (4.8-10.8)
[2024-02-07 10:34] LABS: Alanine Aminotransferase 31 U/L (12-78); Albumin Level 4.7 g/dl (3.5-5.0); Alkaline Phosphatase 144 U/L (38-126); Anion Gap 9.5 mEq/L (5-15); Aspartate Amino Transferase 41 U/L (14-36); Bilirubin,Total 0.7 mg/dl (0.2-1.3); Blood Urea Nitrogen 25 mg/dl (7-17); Calcium 10.3 mg/dl (8.4-10.2); Carbon Dioxide 27 mmol/L (22.0-30.0); Chloride 102 mmol/L (98-107); Estimated Glomerular Filt Rate 64 ml/min (>60); GFR (African American) 77 ML/MIN (>60); Gamma Glutamyl Transpeptidase 28 U/L (12-43); Globulin 2.4 g/dL (1.3-3.2); Glucose 99 mg/dl (74-100); Magnesium 1.7 mg/dl (1.6-2.3); Potassium 4.5 mmoL/L (3.5-5.1); Sodium 134 mmol/L (136-145); Total Protein,Serum 7.1 g/dl (6.3-8.2)
[2024-02-10 16:07] LABS: Tacrolimus (FK506), Blood 6.2 ng/mL (2.0-20.0)
== END 2024-02-07 23:59 | disposition home or self-care (01) ==
LOC: LAB 08:42
PROVIDERS: PCP Physician Assistant; Visit Provider Nurse Practitioner Family
DX: Z94.4 Liver transplant status (principal)
CPT/HCPCS: 36415; 80053; 80197; 82977; 83735; 85027

== ENCOUNTER 2024-02-22 07:45 | Outpatient (CLI) | payer MEDICARE, SELFPAY ==
--- NOTE | 2024-02-22 08:02 | XR_ITS ---
FINAL REPORT CLINICAL HISTORY: Chronic R knee pain FINDINGS: Right knee Two views were obtained. There is no acute fracture or dislocation. The joint spaces appear normal. No soft tissue abnormality is identified. IMPRESSION: No acute process. Reviewed, Interpreted and Dictated by Dg Hall MD Transcribed by Alexsandra Cardona Authenticated and [facility] [place]
--- NOTE | 2024-02-22 08:02 | XR_ITS ---
FINAL REPORT CLINICAL HISTORY: chronic RLE joint pain FINDINGS: Right hip Three views were obtained. There is no acute fracture or dislocation. The joint spaces appear normal. No soft tissue abnormality is identified. IMPRESSION: No acute process. Reviewed, Interpreted and Dictated by Dg Hall MD Transcribed by Alexsandra Cardona Authenticated and [facility]
--- NOTE | 2024-02-22 08:02 | XR_ITS ---
FINAL REPORT CLINICAL HISTORY: chronic RLE joint pain COMPARISON: 06/25/2021 FINDINGS: Right ankle Three views were obtained. There is no acute fracture or dislocation. The joint spaces appear normal. The mortise is intact. The previously identified soft tissue swelling has been resolved. IMPRESSION: No acute process. Reviewed, Interpreted and Dictated by Dg Hall MD Transcribed by Alexsandra Cardona Authenticated and [facility]
--- NOTE | 2024-02-22 08:02 | XR_ITS ---
FINAL REPORT CLINICAL HISTORY: chronic back pain FINDINGS: THORACIC SPINE Three views demonstrate no acute fracture. The disc spaces are well preserved. There is minimal anterior osteophyte formation. There is no malalignment. IMPRESSION: No acute process. Reviewed, Interpreted and Dictated by Dg Hall MD Transcribed by Alexsandra Cardona Authenticated and [facility]
--- NOTE | 2024-02-22 08:02 | XR_ITS ---
FINAL REPORT CLINICAL HISTORY: cough, wheezing COMPARISON: 11/30/2021 FINDINGS: TWO-VIEW CHEST The heart size is normal. The mediastinum is normal. The lungs are underinflated with mild chronic changes at the bases. There is no pneumothorax. IMPRESSION: No acute cardiopulmonary process. Reviewed, Interpreted and Dictated by Dg Hall MD Transcribed by Alexsandra Cardona Authenticated and [facility]
[2024-02-22 08:36] LABS: Hemoglobin 13.1 g/dL (12.2-16.2); Mean Corpuscular HGB Conc 33.6 g/dL (31.8-35.4); Mean Corpuscular Hemoglobin 27.8 pg (27.0-31.2); Mean Corpuscular Volume 82.8 fl (81-99); Platelet Count 221 K/mm3 (142-424); Red Blood Count 4.71 M/mm3 (4.20-5.40); Red Cell Distribution Width 14.2 % (11.5-17.5); White Blood Count 6.1 K/mm3 (4.8-10.8)
[2024-02-22 08:49] LABS: Hemoglobin A1C 5.5 % (4.0-6.0)
[2024-02-22 08:55] LABS: Alanine Aminotransferase 27 U/L (12-78); Albumin Level 4.2 g/dl (3.5-5.0); Alkaline Phosphatase 146 U/L (38-126); Anion Gap 5.3 mEq/L (5-15); Aspartate Amino Transferase 34 U/L (14-36); Bilirubin,Total 0.6 mg/dl (0.2-1.3); Blood Urea Nitrogen 19 mg/dl (7-17); Calcium 9.5 mg/dl (8.4-10.2); Carbon Dioxide 26 mmol/L (22.0-30.0); Chloride 108 mmol/L (98-107); Estimated Glomerular Filt Rate 73 ml/min (>60); GFR (African American) 89 ML/MIN (>60); Gamma Glutamyl Transpeptidase 29 U/L (12-43); Globulin 2.1 g/dL (1.3-3.2); Glucose 104 mg/dl (74-100); Magnesium 1.5 mg/dl (1.6-2.3); Potassium 4.3 mmoL/L (3.5-5.1); Sodium 135 mmol/L (136-145); Total Protein,Serum 6.3 g/dl (6.3-8.2)
[2024-02-22 08:56] LABS: Chol/HDL Ratio 2.4 (1-3.5); Cholesterol 188 mg/dl (140-200); HDL Cholesterol 79 mg/dl (40-60); Triglycerides 80 mg/dl (30-150); VLDL Cholesterol 16 mg/dL (0-40)
[2024-02-22 09:07] LABS: Direct LDL Cholesterol 88.07 mg/dL (100-129)
[2024-02-22 09:14] LABS: 25-OH Vitamin D, Total 50.2 ng/mL (30-100); Free T4 (Free Thyroxine) 0.83 ng/dl (0.78-2.19)
[2024-02-22 09:57] LABS: Thyroid Stimulating Hormone 3.31 uIU/mL (0.465-4.68)
[2024-02-22 10:02] LABS: Vitamin B12 771 pg/mL (239-931)
[2024-02-22 10:11] LABS: Folate > 20.00 ng/mL
[2024-02-23 08:23] LABS: RA Latex Turbid. <10.0 IU/mL (<14.0)
[2024-02-23 13:26] LABS: Anti-Cyclic Citrullinated Pept 5 units (0-19)
[2024-02-23 14:24] LABS: Anti-Centromere B Antibodies <0.2 AI (0.0-0.9); Anti-DNA (DS) Ab Qn 4 IU/mL (0-9); Anti-Jo-1 <0.2 AI (0.0-0.9); Anti-Smith Antibody <0.2 AI (0.0-0.9); Antichromatin Antibodies <0.2 AI (0.0-0.9); Antiscleroderma-70 Antibodies <0.2 AI (0.0-0.9); RNP Antibodies 0.3 AI (0.0-0.9); Sjogren's Anti-SS-A <0.2 AI (0.0-0.9); Sjogren's Anti-SS-B <0.2 AI (0.0-0.9)
[2024-02-25 01:08] LABS: Tacrolimus (FK506), Blood 4.5 ng/mL (2.0-20.0)
== END 2024-02-22 23:59 | disposition home or self-care (01) ==
LOC: LAB 07:47
PROVIDERS: Nurse Practitioner Family; PCP Student in an Organized Health Care Education/Training Program; Visit Provider Student in an Organized Health Care Education/Training Program
DX: M54.2 Cervicalgia (principal); G89.29 Other chronic pain; M85.80 Other specified disorders of bone density and structure, unspecified site; E03.9 Hypothyroidism, unspecified; R73.9 Hyperglycemia, unspecified; Z94.4 Liver transplant status; M25.551 Pain in right hip; M54.9 Dorsalgia, unspecified; M25.561 Pain in right knee; M25.571 Pain in right ankle and joints of right foot; R05.9 Cough, unspecified; R06.2 Wheezing
CPT/HCPCS: 36415; 71046; 72072; 73502; 73560; 73610; 80053; 80061; 80197; 82306; 82607; 82746; 82977; 83036; 83735; 84439; 84443; 85027; 86200; 86225; 86235; 86431

== ENCOUNTER 2024-03-12 07:41 | Outpatient (CLI) | payer MEDICARE, SELFPAY ==
[2024-03-12 08:20] LABS: Hematocrit 43.3 % (37.0-47.0); Hemoglobin 14.3 g/dL (12.2-16.2); Mean Corpuscular HGB Conc 33.1 g/dL (31.8-35.4); Mean Corpuscular Volume 81.8 fl (81-99); Platelet Count 273 K/mm3 (142-424); Red Blood Count 5.29 M/mm3 (4.20-5.40); White Blood Count 5.2 K/mm3 (4.8-10.8)
[2024-03-12 08:55] LABS: Iron 73 ug/dL (37-170); Magnesium 1.8 mg/dl (1.6-2.3)
[2024-03-12 08:57] LABS: Alanine Aminotransferase 20 U/L (12-78); Albumin Level 4.3 g/dl (3.5-5.0); Alkaline Phosphatase 145 U/L (38-126); Anion Gap 7.5 mEq/L (5-15); Aspartate Amino Transferase 27 U/L (14-36); Bilirubin,Total 0.6 mg/dl (0.2-1.3); Blood Urea Nitrogen 10 mg/dl (7-17); Calcium 9.5 mg/dl (8.4-10.2); Carbon Dioxide 27 mmol/L (22.0-30.0); Chloride 105 mmol/L (98-107); Estimated Glomerular Filt Rate 85 ml/min (>60); GFR (African American) 103 ML/MIN (>60); Gamma Glutamyl Transpeptidase 28 U/L (12-43); Globulin 2.2 g/dL (1.3-3.2); Glucose 97 mg/dl (74-100); Potassium 4.5 mmoL/L (3.5-5.1); Sodium 135 mmol/L (136-145); Total Protein,Serum 6.5 g/dl (6.3-8.2)
[2024-03-12 09:01] LABS: C-Reactive Protein 6.6 mg/L (0-4); Erythrocyte Sedimentation Rate 23 mm/hr (0-30)
[2024-03-12 09:04] LABS: Total Iron Binding Capacity 326 ug/dL (265-497)
[2024-03-12 09:31] LABS: Ferritin 35.8 ng/ml (11.1-264)
[2024-03-15 00:08] LABS: Tacrolimus (FK506), Blood 3.6 ng/mL (2.0-20.0)
[2024-03-19 18:09] LABS: HLA-B27 Positive (.)
== END 2024-03-12 23:59 | disposition home or self-care (01) ==
LOC: LAB 07:42
PROVIDERS: Nurse Practitioner Family; PCP Student in an Organized Health Care Education/Training Program; Visit Provider Student in an Organized Health Care Education/Training Program
DX: M54.9 Dorsalgia, unspecified (principal); G89.29 Other chronic pain; M19.90 Unspecified osteoarthritis, unspecified site; R79.89 Other specified abnormal findings of blood chemistry; M45.9 Ankylosing spondylitis of unspecified sites in spine; M54.50 Low back pain, unspecified; R70.0 Elevated erythrocyte sedimentation rate; E83.42 Hypomagnesemia; Z94.4 Liver transplant status
CPT/HCPCS: 36415; 80053; 80197; 82728; 82977; 83540; 83550; 83735; 85027; 85651; 86140; 86812

== ENCOUNTER 2024-04-02 12:03 | Outpatient (CLI) | payer MEDICARE, SELFPAY ==
[2024-04-02 13:22] LABS: Basophils # 0.1 K/mm3 (0-0.2); Basophils % 1.6 % (0.1-2.0); Eosinophils % 0.7 % (0.1-12.0); Hemoglobin 16.3 g/dL (12.2-16.2); Lymphocytes # 1.2 K/mm3 (0.7-4.5); Lymphocytes % 32.9 % (10-50); Mean Corpuscular Hemoglobin 31.6 pg (27.0-31.2); Mean Corpuscular Volume 83.3 fl (81-99); Mean Platelet Volume 7.4 fl (7.4-10.4); Monocytes # 0.3 K/mm3 (0.1-1.0); Monocytes % 9.1 % (1.7-9.3); Neutrophils % 55.7 % (37.0-80.0); Platelet Count 185 K/mm3 (142-424); Red Blood Count 5.16 M/mm3 (4.20-5.40); Red Cell Distribution Width 14.1 % (11.5-17.5); White Blood Count 3.6 K/mm3 (4.8-10.8)
[2024-04-02 13:49] LABS: Alanine Aminotransferase 25 U/L (12-78); Albumin Level 4.5 g/dl (3.5-5.0); Alkaline Phosphatase 158 U/L (38-126); Anion Gap 16.4 mEq/L (5-15); Aspartate Amino Transferase 34 U/L (14-36); Bilirubin,Total 0.6 mg/dl (0.2-1.3); Blood Urea Nitrogen 23 mg/dl (7-17); Calcium 9.4 mg/dl (8.4-10.2); Carbon Dioxide 23 mmol/L (22.0-30.0); Chloride 103 mmol/L (98-107); Estimated Glomerular Filt Rate 57 ml/min (>60); GFR (African American) 68 ML/MIN (>60); Gamma Glutamyl Transpeptidase 28 U/L (12-43); Globulin 2.2 g/dL (1.3-3.2); Glucose 144 mg/dl (74-100); Magnesium 1.8 mg/dl (1.6-2.3); Potassium 4.4 mmoL/L (3.5-5.1); Sodium 138 mmol/L (136-145); Total Protein,Serum 6.7 g/dl (6.3-8.2)
[2024-04-05 13:09] LABS: Tacrolimus (FK506), Blood 7.5 ng/mL (2.0-20.0)
== END 2024-04-02 23:59 | disposition home or self-care (01) ==
LOC: RAD 12:07
PROVIDERS: Nurse Practitioner Family; PCP Student in an Organized Health Care Education/Training Program; Visit Provider Student in an Organized Health Care Education/Training Program
DX: Z94.4 Liver transplant status (principal); Z79.899 Other long term (current) drug therapy
CPT/HCPCS: 36415; 80053; 80197; 82977; 83735; 85025

== ENCOUNTER 2024-04-10 09:17 | Outpatient (CLI) | payer MEDICARE, SELFPAY ==
--- NOTE | 2024-04-10 09:20 | XR_ITS ---
FINAL REPORT CLINICAL HISTORY: Foot pain COMPARISON: None FINDINGS: LEFT FOOT: Three views of the left foot were obtained. There is no acute fracture or dislocation. There are mild degenerative changes. There is no soft tissue abnormality. The small calcaneal spurs are noted. There is a pes planus deformity. IMPRESSION: Degenerative changes without acute bony abnormality. Reviewed, Interpreted and Dictated by Igor English III, MD Transcribed by Chyna Hernandez Authenticated and . [facility]
--- NOTE | 2024-04-10 09:20 | XR_ITS ---
FINAL REPORT CLINICAL HISTORY: Foot pain COMPARISON: 06/25/2021 FINDINGS: RIGHT FOOT: Three views of the right foot were obtained. There is no acute fracture or dislocation. There are mild degenerative changes. There is no soft tissue abnormality. There is a small calcaneal spur. There is a pes planus deformity. IMPRESSION: Degenerative changes without acute bony abnormality. Reviewed, Interpreted and Dictated by Igor English III, MD Transcribed by Chyna Hernandez Authenticated and . [facility]
--- NOTE | 2024-04-10 09:20 | XR_ITS ---
FINAL REPORT CLINICAL HISTORY: Foot pain COMPARISON: 02/22/2024 FINDINGS: RIGHT ANKLE: Three views of the right ankle were obtained. There is no acute fracture or dislocation. The joint spaces and mortise are intact. There is no soft tissue abnormality. IMPRESSION: No acute bony abnormality. Reviewed, Interpreted and Dictated by Igor English III, MD Transcribed by Chyna Hernandez Authenticated and [facility]
--- NOTE | 2024-04-10 09:20 | XR_ITS ---
FINAL REPORT CLINICAL HISTORY: Foot pain COMPARISON: None FINDINGS: LEFT ANKLE: Three views of the left ankle were obtained. There is no acute fracture or dislocation. Mild degenerative change is present. There is a probable small loose body medial to the tibiotalar joint. There is no soft tissue abnormality. IMPRESSION: No acute bony abnormality. Probable small loose body medial to the tibiotalar joint. Reviewed, Interpreted and Dictated by Igor English III, MD Transcribed by Leonila Chavez Authenticated and [facility]
== END 2024-04-10 23:59 | disposition home or self-care (01) ==
LOC: RAD 09:18
PROVIDERS: PCP Student in an Organized Health Care Education/Training Program; Visit Provider Student in an Organized Health Care Education/Training Program
DX: M79.671 Pain in right foot (principal); M79.672 Pain in left foot
CPT/HCPCS: 73610; 73630

== ENCOUNTER 2024-04-23 08:12 | Outpatient (CLI) | payer MEDICARE, SELFPAY ==
[2024-04-23 08:43] LABS: Basophils % 0.9 % (0.1-2.0); Eosinophils # 0.1 K/mm3 (0.0-0.4); Eosinophils % 2.7 % (0.1-12.0); Hematocrit 40.8 % (37.0-47.0); Hemoglobin 13.5 g/dL (12.2-16.2); Lymphocytes # 1.1 K/mm3 (0.7-4.5); Lymphocytes % 24.3 % (10-50); Mean Corpuscular HGB Conc 33.1 g/dL (31.8-35.4); Mean Corpuscular Hemoglobin 27.7 pg (27.0-31.2); Mean Corpuscular Volume 83.6 fl (81-99); Monocytes # 0.3 K/mm3 (0.1-1.0); Monocytes % 5.6 % (1.7-9.3); Neutrophils # 3.1 K/mm3 (1.8-7.8); Neutrophils % 66.5 % (37.0-80.0); Platelet Count 252 K/mm3 (142-424); Red Blood Count 4.88 M/mm3 (4.20-5.40); Red Cell Distribution Width 14.3 % (11.5-17.5); White Blood Count 4.6 K/mm3 (4.8-10.8)
[2024-04-23 09:06] LABS: Albumin Level 4.2 g/dl (3.5-5.0); Chloride 106 mmol/L (98-107); Potassium 4.3 mmoL/L (3.5-5.1); Sodium 133 mmol/L (136-145)
[2024-04-23 09:09] LABS: Alanine Aminotransferase 21 U/L (12-78); Alkaline Phosphatase 157 U/L (38-126); Anion Gap 7.3 mEq/L (5-15); Aspartate Amino Transferase 30 U/L (14-36); Bilirubin,Total 0.7 mg/dl (0.2-1.3); Blood Urea Nitrogen 18 mg/dl (7-17); Calcium 9.2 mg/dl (8.4-10.2); Carbon Dioxide 24 mmol/L (22.0-30.0); Estimated Glomerular Filt Rate 73 ml/min (>60); GFR (African American) 89 ML/MIN (>60); Globulin 2.1 g/dL (1.3-3.2); Glucose 142 mg/dl (74-100); Magnesium 1.6 mg/dl (1.6-2.3); Total Protein,Serum 6.3 g/dl (6.3-8.2)
[2024-04-23 17:31] LABS: Gamma Glutamyl Transpeptidase 24 U/L (12-43)
[2024-04-25 05:02] LABS: Tacrolimus (FK506), Blood 7.3 ng/mL (2.0-20.0)
== END 2024-04-23 23:59 | disposition home or self-care (01) ==
LOC: LAB 08:16
PROVIDERS: PCP Student in an Organized Health Care Education/Training Program; Visit Provider Nurse Practitioner Family
DX: Z94.4 Liver transplant status (principal); Z79.899 Other long term (current) drug therapy
CPT/HCPCS: 36415; 80053; 80197; 82977; 83735; 85025

== ENCOUNTER 2024-05-08 14:00 | Outpatient (RCR) | payer MEDICARE, SELFPAY ==
--- NOTE | 2024-04-19 11:29 | HMH.PTOPEV ---
PT Outpatient Evaluation Rehab PT Outpatient Evaluation Start: 04/19/24 11:03 Freq: Status: Active Protocol: Document 04/19/24 11:03 BRODY (Rec: 04/19/24 11:29 BRODY [id number]) E-signed By Andrea Blood, PT Outpatient Therapy Subjective History Subjective History Patient is a 58 year old female presenting to outpatient PT with reports of chronic thoracolumbar spine pain with associated intermittent RLE radicular symptoms. Symptoms of insidious onset following a liver transplant 06/2023. Main complaint is overall generalized deconditioning. Other comorbidities include hx of R knee arthroscopy. New diagnosis of cancer in past 12 No months? Chief Complaint Pain,Paresthesia Symptom Type Ache,Throb Symptoms Aggravated By Standing,Bending/Stooping, Physical Activity,Lifting Prior Functional Limitations None Current Functional Limitations Lifting,Housework,Standing, Squatting,Walking,Bending/ Stooping Symptom Description Constant but Variable Level of pain today (0-10) 2 Pain scale - at its best (0-10) 2 Pain scale - at its worst (0-10) 8 Lumbopelvic Eval Posture Thoracic Spine Posture Standing Position Increased Kyphosis Lumbar Spine Posture Standing Position Increased Lordosis Palapation tenderness bilateral lumbar spinal tenderness Yes: L3-S1 3/4 Accessory Movement L3 bilateral L4 bilateral L5 bilateral S1 bilateral Range of Motion Lumbar Spine Active Flexion Range of 55 Motion (degrees) Lumbar Spine Active Extension Range of 18 Motion (degrees) Left Lumbar Spine Lateral Flexion Active 12 Range of Motion (degrees) Right Lumbar Spine Lateral Flexion 14 Active Range of Motion (degrees) Lumbar Spine ROM Limitations Soft Tissue Tightness,Bony Restriction Manual Muscle Test Bilateral Knee Extension Strength Grade 4 Good Knee Flexion Strength Grade 4 Good Hip Flexion Strength Grade 4- Good- Extensor Hallucis Longus Strength Grade 4 Good Ankle Dorsiflexion Strength Grade 4 Good Gastronemius/Soleus Strength Grade 4 Good Altered Sensation Right LE Dermatome Level L4,L5,S1 Comment intermittent NT Special Tests Hip Gray (JAVAN) Test Positive Left,Positive Right Hip Evi Test Positive Left,Positive Right Hip Piriformis Test Positive Left,Positive Right Jin Test Positive Sacroiliac Joint Compression Test Negative Left,Negative Right Sacroiliac Joint Distraction Test Negative Left,Negative Right Lumbar [place] Distraction Test/Manual Positive Traction Oswestry Index Section 1 Pain Intensity The pain comes and goes and is severe Section 2 Personal Care (Washing,Dresing) my way of washing or dressing even though it causes some pain Section 3 Lifting lifting heavy weights off the floor, but I can manage if they are Section 4 Walking I cannot walk more than 1/4 mile without increasing pain Section 5 Sitting I can sit in my favorite chair for as long as I like Section 6 Standing I cannot stand more than 10 minutes without increasing pain Section 7 Sleeping Because of my pain, my normal night's sleep is less than 6 hours sleep Section 8 Social Life Pain has restricted my social life to my home Section 9 Traveling I get extra pain while traveling which compels me to seek alternate fo Section 10 Changing Degreee of Pain My pain is gradually getting worse Score and Risk Level Oswestry Sc 30 Oswestry Risk Level Severe Disability Outpatient Therapy Assessment Prognosis Rehab Potential Good Clinical Impression Consistent with Diagnosis Yes Short Term Goals Number of Weeks 2 Decrease Subjective C/O Pain Yes: 5/10 at worst Patient to be Ind w/ HEP Yes Pipe Stem Aligner Goals Number of Weeks 4-6 Decreased Palpation Tenderness Yes: 1/4 Increase Strength Yes: BLE 5/5 Increase Ability to Walk Yes: 30' without difficulty Increase Ability to Stand Yes: Improve Ability For Household Care Yes Improve Ability to Climb Stairs Yes: 1 flight up/down without difficulty Improve Oswestry Score Yes: mild disability Decrease Subjective C/O Pain Yes: 2/10 at worst Outpatient Therapy Plan of Care Treatment Plan May Include Therapeutic Exercise Including Home Yes Exercise Program Manual Therapy Techniques Yes Neuromuscular Re-education Yes Therapeutic Activities to Return to Yes Previous Functional/Work Level Gait Training Yes ADL/Self Care Education Yes Mechanical Traction Yes Dry Needling Yes Thermal Modalities Yes Electrical Stimulation Yes Ultrasound/Phonophoresis Yes Iontophoresis Yes Orthotics/Bracing/Splinting Yes Massage Yes Eval/Re-Eval Yes Aquatic Therapy Yes Frequency Times per week 2-3 Duration Number of Weeks 4-6 Addendums This patient is a candidate for social No or vocational rehab? Patient/Guardian verbally acknowledges Yes understanding of treatment program and consents to further treatment? Patient/Guardian verbally acknowledges Yes understanding of diagnosis, prognosis and goals for treatment? Eval Complexity PT Charges 29227 - Moderate Complexity Shoulder/Elbow Eval Shoulder Objective Measurements Elbow Objective Measurements PHYSICIAN CERTIFICATION: I certify the specified therapy services for Krista Hendricks are required, authorized, and reviewed every 30 days.
== END 2024-05-08 23:59 | disposition home or self-care (01) ==
LOC: PT 14:00
PROVIDERS: PCP Student in an Organized Health Care Education/Training Program; Visit Provider Student in an Organized Health Care Education/Training Program
DX: M79.604 Pain in right leg (principal); M54.9 Dorsalgia, unspecified; G89.29 Other chronic pain
CPT/HCPCS: 97014; 97110; 97163; 97530; G0283

== ENCOUNTER 2024-05-21 08:09 | Outpatient (CLI) | payer MEDICARE, SELFPAY ==
[2024-05-21 08:33] LABS: Hematocrit 41.1 % (37.0-47.0); Hemoglobin 13.4 g/dL (12.2-16.2); Mean Corpuscular HGB Conc 32.6 g/dL (31.8-35.4); Mean Corpuscular Volume 82.7 fl (81-99); Platelet Count 236 K/mm3 (142-424); Red Blood Count 4.97 M/mm3 (4.20-5.40); White Blood Count 4.2 K/mm3 (4.8-10.8)
[2024-05-21 09:09] LABS: Alanine Aminotransferase 23 U/L (12-78); Albumin Level 4.3 g/dl (3.5-5.0); Albumin/Globulin Ratio 2.2 (1.1-1.8); Alkaline Phosphatase 152 U/L (38-126); Anion Gap 14.3 mEq/L (5-15); Aspartate Amino Transferase 30 U/L (14-36); Bilirubin,Total 0.3 mg/dl (0.2-1.3); Blood Urea Nitrogen 19 mg/dl (7-17); Calcium 9.3 mg/dl (8.4-10.2); Carbon Dioxide 25 mmol/L (22.0-30.0); Chloride 103 mmol/L (98-107); Estimated Glomerular Filt Rate 64 ml/min (>60); GFR (African American) 77 ML/MIN (>60); Gamma Glutamyl Transpeptidase 24 U/L (12-43); Glucose 94 mg/dl (74-100); Magnesium 1.8 mg/dl (1.6-2.3); Potassium 4.3 mmoL/L (3.5-5.1); Sodium 138 mmol/L (136-145); Total Protein,Serum 6.3 g/dl (6.3-8.2)
[2024-05-24 09:10] LABS: Tacrolimus (FK506), Blood 11.3 ng/mL (2.0-20.0)
== END 2024-05-21 23:59 | disposition home or self-care (01) ==
LOC: LAB 08:10
PROVIDERS: PCP Student in an Organized Health Care Education/Training Program; Visit Provider Nurse Practitioner Family
DX: Z94.4 Liver transplant status (principal); Z79.899 Other long term (current) drug therapy
CPT/HCPCS: 36415; 80053; 80197; 82977; 83735; 85027

== ENCOUNTER 2024-05-22 08:00 | Outpatient (RCR) | payer MEDICARE, SELFPAY | END 2024-05-22 23:59 | disposition home or self-care (01) | LOC: PT 08:00 | PROVIDERS: PCP Student in an Organized Health Care Education/Training Program; Visit Provider Student in an Organized Health Care Education/Training Program | DX: M79.604 Pain in right leg (principal); M54.9 Dorsalgia, unspecified; G89.29 Other chronic pain | CPT/HCPCS: 97014; 97110; 97530; G0283 ==

== ENCOUNTER 2024-05-28 08:14 | Outpatient (CLI) | payer MEDICARE, SELFPAY ==
[2024-05-28 08:33] LABS: Hematocrit 41.2 % (37.0-47.0); Hemoglobin 13.4 g/dL (12.2-16.2); Mean Corpuscular HGB Conc 32.5 g/dL (31.8-35.4); Mean Corpuscular Hemoglobin 27.2 pg (27.0-31.2); Mean Corpuscular Volume 83.7 fl (81-99); Platelet Count 274 K/mm3 (142-424); Red Blood Count 4.92 M/mm3 (4.20-5.40); Red Cell Distribution Width 13.1 % (11.5-17.5); White Blood Count 5.6 K/mm3 (4.8-10.8)
[2024-05-28 09:10] LABS: Albumin Level 4.4 g/dl (3.5-5.0); Chloride 104 mmol/L (98-107)
[2024-05-28 09:11] LABS: Potassium 4.6 mmoL/L (3.5-5.1); Sodium 139 mmol/L (136-145)
[2024-05-28 09:13] LABS: Alanine Aminotransferase 27 U/L (12-78); Albumin/Globulin Ratio 1.9 (1.1-1.8); Anion Gap 14.6 mEq/L (5-15); Aspartate Amino Transferase 30 U/L (14-36); Blood Urea Nitrogen 18 mg/dl (7-17); Carbon Dioxide 25 mmol/L (22.0-30.0); Estimated Glomerular Filt Rate 73 ml/min (>60); GFR (African American) 89 ML/MIN (>60); Globulin 2.3 g/dL (1.3-3.2); Total Protein,Serum 6.7 g/dl (6.3-8.2)
[2024-05-28 09:14] LABS: Alkaline Phosphatase 148 U/L (38-126); Bilirubin,Total 0.4 mg/dl (0.2-1.3); Glucose 100 mg/dl (74-100); Magnesium 1.7 mg/dl (1.6-2.3)
[2024-05-28 10:05] LABS: Gamma Glutamyl Transpeptidase 23 U/L (12-43)
[2024-05-30 12:09] LABS: Tacrolimus (FK506), Blood 5.4 ng/mL (2.0-20.0)
== END 2024-05-28 23:59 | disposition home or self-care (01) ==
LOC: LAB 08:15
PROVIDERS: PCP Student in an Organized Health Care Education/Training Program; Visit Provider Nurse Practitioner Family
DX: Z94.4 Liver transplant status (principal); Z79.899 Other long term (current) drug therapy
CPT/HCPCS: 36415; 80053; 80197; 82977; 83735; 85027

== ENCOUNTER 2024-06-16 08:55 | Outpatient (CLI) | payer MEDICARE, SELFPAY ==
[2024-06-16 09:31] LABS: Hematocrit 42.4 % (37.0-47.0); Mean Corpuscular Hemoglobin 27.3 pg (27.0-31.2); Mean Corpuscular Volume 82.7 fl (81-99); Platelet Count 174 K/mm3 (142-424); Red Blood Count 5.13 M/mm3 (4.20-5.40); Red Cell Distribution Width 13.2 % (11.5-17.5); White Blood Count 3.5 K/mm3 (4.8-10.8)
[2024-06-16 10:19] LABS: Alanine Aminotransferase 28 U/L (12-78); Albumin Level 4.6 g/dl (3.5-5.0); Albumin/Globulin Ratio 2.2 (1.1-1.8); Alkaline Phosphatase 141 U/L (38-126); Anion Gap 17.6 mEq/L (5-15); Aspartate Amino Transferase 38 U/L (14-36); Bilirubin,Total 0.3 mg/dl (0.2-1.3); Blood Urea Nitrogen 22 mg/dl (7-17); Calcium 8.9 mg/dl (8.4-10.2); Carbon Dioxide 27 mmol/L (22.0-30.0); Chloride 98 mmol/L (98-107); Estimated Glomerular Filt Rate 64 ml/min (>60); GFR (African American) 77 ML/MIN (>60); Gamma Glutamyl Transpeptidase 25 U/L (12-43); Globulin 2.1 g/dL (1.3-3.2); Glucose 107 mg/dl (74-100); Magnesium 2.1 mg/dl (1.6-2.3); Potassium 4.6 mmoL/L (3.5-5.1); Sodium 138 mmol/L (136-145); Total Protein,Serum 6.7 g/dl (6.3-8.2)
[2024-06-20 07:09] LABS: Tacrolimus (FK506), Blood 10.7 ng/mL (5.0-20.0)
== END 2024-06-16 23:59 | disposition home or self-care (01) ==
LOC: LAB 08:58
PROVIDERS: Visit Provider Nurse Practitioner Family
DX: Z94.4 Liver transplant status (principal); Z79.899 Other long term (current) drug therapy
CPT/HCPCS: 36415; 80053; 80197; 82977; 83735; 85027

== ENCOUNTER 2024-06-28 07:43 | Outpatient (CLI) | payer MEDICARE, SELFPAY ==
[2024-06-28 08:09] LABS: Basophils # 0.1 K/mm3 (0-0.2); Basophils % 1.1 % (0.1-2.0); Eosinophils # 0.1 K/mm3 (0.0-0.4); Hematocrit 42.4 % (37.0-47.0); Lymphocytes # 1.3 K/mm3 (0.7-4.5); Lymphocytes % 30.1 % (10-50); Mean Corpuscular Hemoglobin 27.5 pg (27.0-31.2); Mean Corpuscular Volume 83.1 fl (81-99); Mean Platelet Volume 8.9 fl (7.4-10.4); Monocytes # 0.3 K/mm3 (0.1-1.0); Monocytes % 7.1 % (1.7-9.3); Neutrophils # 2.5 K/mm3 (1.8-7.8); Neutrophils % 58.5 % (37.0-80.0); Platelet Count 309 K/mm3 (142-424); Red Cell Distribution Width 13.1 % (11.5-17.5); White Blood Count 4.4 K/mm3 (4.8-10.8)
[2024-06-28 08:37] LABS: Albumin Level 4.6 g/dl (3.5-5.0); Chloride 106 mmol/L (98-107); Potassium 4.3 mmoL/L (3.5-5.1); Sodium 140 mmol/L (136-145)
[2024-06-28 08:40] LABS: Alanine Aminotransferase 23 U/L (12-78); Albumin/Globulin Ratio 1.9 (1.1-1.8); Alkaline Phosphatase 150 U/L (38-126); Anion Gap 13.3 mEq/L (5-15); Aspartate Amino Transferase 33 U/L (14-36); Bilirubin,Total 0.8 mg/dl (0.2-1.3); Blood Urea Nitrogen 18 mg/dl (7-17); Calcium 9.6 mg/dl (8.4-10.2); Carbon Dioxide 25 mmol/L (22.0-30.0); Cholesterol 155 mg/dl (140-200); Estimated Glomerular Filt Rate 85 ml/min (>60); GFR (African American) 103 ML/MIN (>60); Globulin 2.4 g/dL (1.3-3.2); Glucose 108 mg/dl (74-100); Triglycerides 114 mg/dl (30-150); VLDL Cholesterol 23 mg/dL (0-40)
[2024-06-28 08:41] LABS: Chol/HDL Ratio 2.5 (1-3.5); HDL Cholesterol 63 mg/dl (40-60); Magnesium 1.7 mg/dl (1.6-2.3)
[2024-06-28 08:52] LABS: Direct LDL Cholesterol 64.13 mg/dL (100-129)
[2024-06-28 10:41] LABS: Hemoglobin A1C 5.6 % (4.0-6.0)
[2024-06-28 17:42] LABS: Gamma Glutamyl Transpeptidase 24 U/L (12-43)
[2024-06-30 21:26] LABS: Tacrolimus (FK506), Blood 5.1 ng/mL (5.0-20.0)
== END 2024-06-28 23:59 | disposition home or self-care (01) ==
LOC: LAB 07:47
PROVIDERS: Visit Provider Transplant Surgery
DX: Z94.4 Liver transplant status (principal); Z79.899 Other long term (current) drug therapy
CPT/HCPCS: 36415; 80053; 80061; 80197; 82977; 83036; 83735; 85025

== ENCOUNTER 2024-07-31 08:41 | Outpatient (CLI) | payer MEDICARE, SELFPAY ==
[2024-07-31 09:11] LABS: Hematocrit 43.1 % (37.0-47.0); Mean Corpuscular HGB Conc 32.5 g/dL (31.8-35.4); Mean Corpuscular Hemoglobin 27.6 pg (27.0-31.2); Platelet Count 251 K/mm3 (142-424); Red Blood Count 5.07 M/mm3 (4.20-5.40); Red Cell Distribution Width 13.1 % (11.5-17.5)
[2024-07-31 09:39] LABS: Alanine Aminotransferase 39 U/L (12-78); Albumin Level 4.7 g/dl (3.5-5.0); Albumin/Globulin Ratio 1.9 (1.1-1.8); Alkaline Phosphatase 118 U/L (38-126); Aspartate Amino Transferase 40 U/L (14-36); Bilirubin,Total 0.6 mg/dl (0.2-1.3); Blood Urea Nitrogen 22 mg/dl (7-17); Carbon Dioxide 28 mmol/L (22.0-30.0); Chloride 104 mmol/L (98-107); Estimated Glomerular Filt Rate 85 ml/min (>60); GFR (African American) 103 ML/MIN (>60); Gamma Glutamyl Transpeptidase 25 U/L (12-43); Globulin 2.5 g/dL (1.3-3.2); Glucose 99 mg/dl (74-100); Magnesium 2.1 mg/dl (1.6-2.3); Sodium 137 mmol/L (136-145); Total Protein,Serum 7.2 g/dl (6.3-8.2)
[2024-07-31 09:57] LABS: Anion Gap 9.5 mEq/L (5-15); Potassium 4.5 mmoL/L (3.5-5.1)
[2024-08-03 16:12] LABS: Tacrolimus (FK506), Blood 4.5 ng/mL (5.0-20.0)
== END 2024-07-31 23:59 | disposition home or self-care (01) ==
LOC: LAB 08:43
PROVIDERS: Visit Provider Nurse Practitioner Acute Care
DX: Z94.4 Liver transplant status (principal)
CPT/HCPCS: 36415; 80053; 80197; 82977; 83735; 85027

== ENCOUNTER 2024-08-08 14:00 | Outpatient (CLI) | payer MEDICARE, SELFPAY ==
[2024-08-08 19:44] LABS: Microalbumin/Creatinine Ratio 19.8
[2024-08-08 20:08] LABS: Creatinine,Urine Random 114 mg/dL (Not Estab.)
== END 2024-08-08 23:59 | disposition home or self-care (01) ==
LOC: LAB.DROPOF 08-09 09:43
PROVIDERS: PCP Nurse Practitioner Family; Visit Provider Nurse Practitioner Family
DX: Z94.4 Liver transplant status (principal)
CPT/HCPCS: 82043; 82570

== ENCOUNTER 2024-09-10 07:55 | Outpatient (CLI) | payer MEDICARE, SELFPAY ==
--- OUTSIDE RECORDS SUMMARY | 2024-09-10 07:58 | XMS_ITS | Continuity of Care Document ---
Author Organization [facility]. If a dditional information is needed, contact Health Information Management at [phone] Address [address] [place] [address] Phone Care Team Providers Care Type Casting Machine Operator Name Role Phone Unavailable Unavailable Unavailable
--- OUTSIDE RECORDS SUMMARY | 2024-09-10 07:58 | XMS_ITS ---
Author Organization Unknown TREATMENT PLAN Planned Care Start Date Provider Encounter for Check-up [phone] [facility]
[2024-09-10 08:17] LABS: Hemoglobin 13.9 g/dL (12.2-16.2); Mean Corpuscular HGB Conc 32.3 g/dL (31.8-35.4); Mean Corpuscular Hemoglobin 28.1 pg (27.0-31.2); Nucleated Red Blood Cells # 0 10^3/uL; Nucleated Red Blood Cells % 0 %; Platelet Count 227 K/mm3 (142-424); Red Blood Count 4.94 M/mm3 (4.20-5.40); Red Cell Distribution Width 13.4 % (11.5-17.5); Red Cell Distribution Width-SD 42.5 fL
[2024-09-10 08:36] LABS: Alanine Aminotransferase 168 U/L (12-78); Albumin Level 4.6 g/dl (3.5-5.0); Albumin/Globulin Ratio 1.7 (1.1-1.8); Alkaline Phosphatase 167 U/L (38-126); Anion Gap 10.1 mEq/L (5-15); Aspartate Amino Transferase 163 U/L (14-36); Bilirubin,Total 0.5 mg/dl (0.2-1.3); Blood Urea Nitrogen 17 mg/dl (7-17); Calcium 9.8 mg/dl (8.4-10.2); Carbon Dioxide 28 mmol/L (22.0-30.0); Chloride 107 mmol/L (98-107); Estimated Glomerular Filt Rate 85 ml/min (>60); GFR (African American) 103 ML/MIN (>60); Gamma Glutamyl Transpeptidase 95 U/L (12-43); Globulin 2.7 g/dL (1.3-3.2); Glucose 93 mg/dl (74-100); Potassium 5.1 mmoL/L (3.5-5.1); Sodium 140 mmol/L (136-145); Total Protein,Serum 7.3 g/dl (6.3-8.2)
[2024-09-13 17:14] LABS: Tacrolimus (FK506), Blood 3.6 ng/mL (5.0-20.0)
== END 2024-09-10 23:59 | disposition home or self-care (01) ==
LOC: LAB 07:56
PROVIDERS: PCP Nurse Practitioner Family; Visit Provider Nurse Practitioner Acute Care
DX: Z94.4 Liver transplant status (principal); Z79.899 Other long term (current) drug therapy
CPT/HCPCS: 36415; 80053; 80197; 82977; 83735; 85027

== ENCOUNTER 2024-09-18 08:12 | Outpatient (CLI) | payer MEDICARE, SELFPAY ==
--- OUTSIDE RECORDS SUMMARY | 2024-09-18 08:14 | XMS_ITS | Continuity of Care Document ---
Author Organization [facility]. If a dditional information is needed, contact Health Information Management at [phone] Address [address] [place] [address] Phone Care Team Providers Care Surgical Instruments Inspector Name Role Phone Unavailable Unavailable Unavailable
[2024-09-18 08:30] LABS: Hemoglobin 14.5 g/dL (12.2-16.2); Mean Corpuscular HGB Conc 32.2 g/dL (31.8-35.4); Mean Corpuscular Hemoglobin 27.9 pg (27.0-31.2); Mean Corpuscular Volume 86.7 fl (81-99); Nucleated Red Blood Cells # 0 10^3/uL; Nucleated Red Blood Cells % 0 %; Platelet Count 274 K/mm3 (142-424); Red Blood Count 5.19 M/mm3 (4.20-5.40); Red Cell Distribution Width 13.3 % (11.5-17.5); Red Cell Distribution Width-SD 42.5 fL; White Blood Count 7.9 K/mm3 (4.8-10.8)
[2024-09-18 08:55] LABS: Alanine Aminotransferase 67 U/L (12-78); Albumin Level 4.4 g/dl (3.5-5.0); Albumin/Globulin Ratio 1.7 (1.1-1.8); Alkaline Phosphatase 165 U/L (38-126); Aspartate Amino Transferase 41 U/L (14-36); Bilirubin,Total 0.6 mg/dl (0.2-1.3); Blood Urea Nitrogen 16 mg/dl (7-17); Calcium 9.2 mg/dl (8.4-10.2); Carbon Dioxide 28 mmol/L (22.0-30.0); Chloride 106 mmol/L (98-107); Estimated Glomerular Filt Rate 85 ml/min (>60); GFR (African American) 103 ML/MIN (>60); Gamma Glutamyl Transpeptidase 94 U/L (12-43); Globulin 2.6 g/dL (1.3-3.2); Glucose 96 mg/dl (74-100); Magnesium 2.1 mg/dl (1.6-2.3); Sodium 137 mmol/L (136-145)
== END 2024-09-18 23:59 | disposition home or self-care (01) ==
LOC: LAB 08:13
PROVIDERS: Nurse Practitioner Family; PCP Nurse Practitioner Family; Visit Provider Nurse Practitioner Acute Care
DX: Z94.4 Liver transplant status (principal); Z79.899 Other long term (current) drug therapy
CPT/HCPCS: 80053; 80197; 82977; 83735; 85027

== ENCOUNTER 2024-10-11 07:22 | Outpatient (CLI) | payer MEDICARE, SELFPAY ==
[2024-10-11 07:48] LABS: Basophils % 0.4 % (0.1-2.0); Eosinophils # 0.1 Kmm3 (0.0-0.4); Eosinophils % 0.9 % (0.1-12.0); Hematocrit 44.2 % (37.0-47.0); Hemoglobin 14.6 g/dL (12.2-16.2); Immature Granulocytes # 0.08 10^3uL; Immature Granulocytes % 0.8 %; Lymphocytes # 3.2 K/mm3 (0.7-4.5); Lymphocytes % 33.2 % (10-50); Mean Corpuscular Hemoglobin 28.6 pg (27.0-31.2); Mean Corpuscular Volume 86.5 fl (81-99); Monocytes # 0.6 K/mm3 (0.1-1.0); Monocytes % 6.7 % (1.7-9.3); Neutrophils # 5.5 K/mm3 (1.8-7.8); Nucleated Red Blood Cells # 0 10^3/uL; Nucleated Red Blood Cells % 0 %; Platelet Count 254 K/mm3 (142-424); Red Blood Count 5.11 M/mm3 (4.20-5.40); Red Cell Distribution Width 13.1 % (11.5-17.5); Red Cell Distribution Width-SD 41.1 fL; White Blood Count 9.5 K/mm3 (4.8-10.8)
[2024-10-11 08:29] LABS: Albumin Level 4.3 g/dl (3.5-5.0); Chloride 104 mmol/L (98-107)
[2024-10-11 08:30] LABS: Potassium 4.6 mmoL/L (3.5-5.1); Sodium 136 mmol/L (136-145)
[2024-10-11 08:32] LABS: Anion Gap 11.6 mEq/L (5-15); Blood Urea Nitrogen 19 mg/dl (7-17); Carbon Dioxide 25 mmol/L (22.0-30.0); Estimated Glomerular Filt Rate 85 ml/min (>60); GFR (African American) 103 ML/MIN (>60)
[2024-10-11 08:33] LABS: Alanine Aminotransferase 53 U/L (12-78); Albumin/Globulin Ratio 1.5 (1.1-1.8); Alkaline Phosphatase 152 U/L (38-126); Aspartate Amino Transferase 37 U/L (14-36); Bilirubin,Total 0.7 mg/dl (0.2-1.3); Calcium 9.2 mg/dl (8.4-10.2); Globulin 2.8 g/dL (1.3-3.2); Glucose 142 mg/dl (74-100); Magnesium 1.8 mg/dl (1.6-2.3); Total Protein,Serum 7.1 g/dl (6.3-8.2)
[2024-10-11 08:56] LABS: Gamma Glutamyl Transpeptidase 156 U/L (12-43)
== END 2024-10-11 23:59 | disposition home or self-care (01) ==
LOC: LAB 07:23
PROVIDERS: Nurse Practitioner Family; PCP Nurse Practitioner Family; Visit Provider Nurse Practitioner Acute Care
DX: Z94.4 Liver transplant status (principal)
CPT/HCPCS: 36415; 80053; 80197; 82977; 83735; 85025

== ENCOUNTER 2024-10-26 08:26 | Outpatient (CLI) | payer MEDICARE, SELFPAY ==
--- OUTSIDE RECORDS SUMMARY | 2024-10-26 08:29 | XMS_ITS | Encounter Summary ---
Author Organization [facility] Address [address] [place] [address] Care Team Providers Care Bank Analyst Name Role Phone Martha De Jesus Primary Care Provider [phone] Reason for Referral * Consultation (Routine) - Closed Specialty Diagnoses / Procedures Referred By Contac t Referred To Contact Rheumatology Diagnoses Elevated C-reactive protein Elevated sed rate Martha De Jesus PA [address] [place] [address] Phone: tel: fax: Referral ID Status Reason Start Date Expiration Date V isits Requested Visits Authorized [id number] Closed Specialty Services Required 11/14/2020 05/13/2021 1 1 Encounter Details Date Type Department Care Team (Late st Contact Info) Description 11/14/2020 Community [facility] [address] [place] [address] Martha De Jesus PA [address] [place] [address] Elevated C-reactive protein (Primary Dx); Elevated sed rate Social History Tobacco Use Types Packs/Day Years Used Date Smoking Tobacco: Never Assessed Comments Unknown Sex and Gender Information Value Date Recorded Sex Assigned at Not on file Legal Sex Female 7:30 PM EDT Gender Identity Not on file Sexual Orientation Not on file documented as of this encounter Plan of Treatment Upcoming Encounters Date Type Department Care Team (Late st Contact Info) Description 07/02/2025 1:20 PM EST Office Visit [facility] [address] [place] [address] Surgeon, Transplant Liver Scheduled Referrals Name Type Priority Associated Diagnoses Order Schedule Ambulatory referral to Rheumatology Outpatient Referral Routine Elevated C-reactive protein Elevated sed rate Expected: 11/14/2020 (Approximate), Expires: 05/17/2021 documented as of this encounter Visit Diagnoses Diagnosis Elevated C-reactive protein- Primary Elevated C-reactive protein (CRP) Elevated sed rate Elevated sedimentation rate documented in this encounter Additional Health Concerns Infection Onset Date Last Indicated Resolved Time 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 Patient will require contact precautions for the duration of the hospital admission. 07/01/2023 07/01/2023 documented as of this encounter Care Teams Bank Analyst Relationship Specialty Start Date End Date Martha De Jesus PA [address] [place] [address] PCP - General 09/19/20 documented as of this encounter
--- OUTSIDE RECORDS SUMMARY | 2024-10-26 08:29 | XMS_ITS | Encounter Summary ---
Author Organization [facility] Address [address] [place] [address] Care Team Providers Care Computer Installer Name Role Phone Martha De Jesus Primary Care Provider [phone] Encounter Details Date Type Department Care Team (Late st Contact Info) Description 09/20/2024 Telephone [facility] [address] [place] [address] Benedicto Cardoza, PharmD Social History Tobacco Use Types Packs/Day Years Used Date Smoking Tobacco: Never Smokeless Tobacco: Never Alcohol Use Standard Drinks/Week Comments Not Currently 0 (1 standard drink = 0.6 oz pur e alcohol) Last drink Humiliation, Afraid, Rape, and Kick questionnair e Answer Date Recorded Within the last year, have y ou been afraid of your partner or ex-partner? No 05/10/2023 Within the last year, have y ou been humiliated or emotionally abused in other ways by your partner or ex-partner? No Within the last year, have y ou been kicked, hit, slapped, or otherwise physically hurt by your partner or ex-partner? No 05/10/2023 Within the last year, have y ou been raped or forced to have any kind of sexual activity by your partner or ex-partner? No 05/10/2023 AUDIT-C Answer Date Recorded Q1: How often do you have a drink containing alcohol? Never 05/10/2023 Q2: How many drinks containi ng alcohol do you have on a typical day when you are drinking? Patient does not drink Q3: How often do you have si x or more drinks on one occasion? Never 05/10/2023 PHQ-2 Answer Date Recorded Patient Health Questionnaire-2 Score 0 07/03/2024 Hunger Vital Sign Answer Date Recorded Within the past 12 months, y ou worried that your food would run out before you got the money to buy more. Never true 05/10/19 24 Within the past 12 months, t he food you bought just didn't last and you didn't have money to get more. Never true 05/10/2023 PRAPARE - Transportation Answer Date Re corded In the past 12 months, has l ack of transportation kept you from medical appointments or from getting medications? No 06/2023 In the past 12 months, has l ack of transportation kept you from meetings, work, or from getting things needed for daily living? No 05/10/2023 Housing Stability Vital Sign Answer Babar e Recorded In the last 12 months, was t here a time when you were not able to pay the mortgage or rent on time? No 05/10/2023 In the last 12 months, how many places have you lived? 1 05/10/2023 In the last 12 months, was t here a time when you did not have a steady place to sleep or slept in a prison (including now)? No 05/10/2023 PHQ-9 Answer Date Recorded Patient Health Questionnaire-9 Score 2 07/03/2024 CAGE ASSESSMENT Answer Date Recorded Cage unable to access Not on file 05/11/2023 Cage max number of drinks Not on file 2023 Cage Beverages a week Not on file 05/11/2023 Have you ever felt you should CUT down on your d rinking? 1 05/11/2023 Have you been ANNOYED by people criticizing your drinking? 1 05/11/2023 Have you felt GUILTY about your drinking? 1 05/11/2023 Have you had a drink first t marika in the morning (EYE-TORPEDO MAN) to steady your nerves or to get rid of a hangover? 1 05/11/2023 CAGE Questionnaire Score 4 024 Utilities Answer Date Recorded In the past 12 months has th e [employer], oil, or water [employer] threatened to shut off services in your home? No 05/10/2023 PHQ-2A Answer Date Recorded Patient Health Questionnaire-2 Score 0 02/11/2023 Comments Unknown Sex and Gender Information Value Date Recorded Sex Assigned at Not on file Legal Sex Female 7:30 PM EDT Gender Identity Not on file Sexual Orientation Not on file documented as of this encounter Miscellaneous Notes * Telephone Encounter - Benedicto Cardoza PharmD - 09/20/2024 11:53 AM EDT [facility] Plan of Care - [facility] Review Reviewed patient's current medication list for drug interaction with specialty medication: No interaction identified Adherence Summary: No issues identified Adverse events/side effect summary: No adverse events/side effects identified Storage, disposal, and administration summary: No issues identified Condition Summary: Stable Plan of care goal: Achieve custodial survival of patient, Minimize/manage side effects or toxicities, and Preventing acute/chronic graft rejection Therapeutic Goal Summary: Patient is achieving progress toward goal Patients therapy is appropriate to: Continue Did the patient have any additional questions or needs to be coordinated with additional members ofthe care team (Physical therapy, Social Work, etc)? no Summary: Dose Change Care Plan The patient was contacted to discuss a change to their medication care plan. Patient's dose of Tacrolimus (Prograf) was changed from 1/1 to 2/2 per MD order on 09/14/24. Patient/caregiver already notified and aware of dose change. Patient treatment goals of therapy remain unchanged. Assessment is based on communication with patient/caregiver who is agreeable and understanding of the care plan. Benedicto Cardoza PharmD 09/20/24 11:54 AM documented in this encounter Plan of Treatment Upcoming Encounters Date Type Department Care Team (Late st Contact Info) Description 07/02/2025 1:20 PM EST Office Visit [facility] [address] [place] [address] Surgeon, Transplant Liver documented as of this encounter Visit Diagnoses Not on filedocumented in this encounter Additional Health Concerns Infection Onset Date Last Indicated Resolved Time 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 Patient will require contact precautions for the duration of the hospital admission. 07/01/2023 07/01/2023 Assessment Noted Time PHQ-9 Depression Total Score: 2 07/03/19 25 1:58 PM EST A fall risk assessment has been complete d for the patient 07/03/2024 2:01 PM EST A Body Mass Index follow-up plan has been documented for the patient 07/03/2024 2:55 PM EST documented as of this encounter Care Teams Computer Installer Relationship Specialty Start Date End Date Martha De Jesus PA [address] [place] [address] PCP - General 09/19/20 documented as of this encounter
--- OUTSIDE RECORDS SUMMARY | 2024-10-26 08:29 | XMS_ITS | Encounter Summary ---
Author Organization Healthcare Address [address] [place] [address] Care Team Providers Care Physical Anthropologist Name Role Phone Martha De Jesus Primary Care Provider [phone] Encounter Details Date Type Department Care Team (Late st Contact Info) Description 09/10/2024 Results Follow-Up [facility] [address] [facility] [address] [place] [address] Yumiko Benz, [facility]U [facility] LIVER [id number] [address] [id number] Social History Tobacco Use Types Packs/Day Years [...] place to sleep or slept in a fdc (including now)? No 05/10/2023 PHQ-9 Answer Date [...] drink first t marika in the morning (EYE-RETIREMENT ADMINISTRATOR) to steady your nerves or to get rid of a hangover? 1 05/11/2023 CAGE Questionnaire Score 4 024 Utilities Answer Date Recorded In the past 12 months has [employer] electric, gas, oil, or water company threatened to shut off services in your home? No 05/10/2023 PHQ-2A Answer Date Recorded Patient Health Questionnaire-2 Score 0 02/11/2023 Comments Unknown Sex and Gender Information Value Date Recorded Sex Assigned at Not on file Legal Sex Female 7:30 PM EDT Gender Identity Not on file Sexual Orientation Not on file documented as of this encounter Miscellaneous Notes * Telephone Encounter - uYmiko Benz RN - 09/14/2024 2:08 PM EDT Addendum: Pt returned call confirming to increase FK 2/2 and rpt labs next week. Left vm for pt to increase FK to 2/2. Requested call back to confirm. ----- Message from Abi Lyles APRN, DNP sent at 09/14/2024 9:18 AM EDT ----- Fk 3.6 on 05/09 with elevated LFTs. Please increase her to 2/2. MAR updated. ----- Message ----- From: Yumiko Benz RN Sent: 09/14/2024 9:17 AM EDT To: Post-Liver Transplant Results Review FK resulted, 3.6 ----- Message ----- From: Yumiko Benz RN Sent: 09/10/2024 2:59 PM EDT To: Yumiko Benz RN * Result Encounter Note - Abi Lyles APRN, DNP - 09/14/2024 9:18 AM EDT Fk 3.6 on 05/09 with elevated LFTs. Please increase her to 2/2. MAR updated. * Result Encounter Note - Yumiko Benz RN - 09/14/2024 9:17 AM EDT FK resulted, 3.6 * Result Encounter Note - Abi Lyles APRN, DNP - 09/11/2024 9:55 AM EDT Please send her in a pred taper - 60x 3 days, 50x 3 days, 40x 3 days, 30x 3 days and stop at 20mg for now. Repeat labs 1 week please. Awaiting most recent FK. * Result Encounter Note - Yumiko Benz RN - 09/11/2024 9:23 AM EDT Labs completed. Ready to review. FK pending. LFTs elevated. Spoke with pt, she denies recent illness, no ETOH use. Pt recently started omega 3 vit and Vit B 12. Pt confirmed she is taking FK 1mg BID and MMF 250mg BID. * Telephone Encounter - Yumiko Benz RN - 09/10/2024 4:02 PM EDT Left 2 vm's for pt to contact me regarding elevated liver enzymes. documented in this encounter Plan of Treatment Upcoming Encounters Date Type Department Care Team (Late st Contact Info) Description 07/02/2025 1:20 PM EST Office Visit [facility] [address] [place] [phone] Surgeon, Transplant Liver documented as of this [...] Time PHQ-9 Depression Total Score: 2 07/03/19 1:58 PM EST A fall risk assessment has been complete d for the patient 07/03/2024 2:01 PM EST A Body Mass Index follow-up plan has been documented for the patient 07/03/2024 2:55 PM EST documented as of this encounter Care Teams Physical Anthropologist Relationship Specialty Start Date End Date Martha De Jesus PA [address] [place] [address] PCP - General 09/19/20 documented as of this encounter
--- OUTSIDE RECORDS SUMMARY | 2024-10-26 08:29 | XMS_ITS | Encounter Summary ---
Author Organization Healthcare Address [address] [place] [address] Care Team Providers Care Organ Tuner Electronic Name Role Phone Martha De Jesus Primary Care Provider [phone] Encounter Details Date Type Department Care Team (Late st Contact Info) Description 09/21/2024 Results Follow-Up [facility] [address] [facility] [address] [place] [phone] Yumiko Benz, [facility] LIVER [id number] [address] [phone] Social History Tobacco Use Types Packs/Day Years [...] place to sleep or slept in a senior care (including now)? No 05/10/2023 PHQ-9 Answer Date [...] drink first t marika in the morning (EYE-IRON PELLET TESTER) to steady your nerves or to get rid of a hangover? 1 05/11/2023 CAGE Questionnaire Score 4 024 Utilities Answer Date Recorded In the past 12 months has th e electric, gas, oil, or water company threatened [...] as of this encounter Miscellaneous Notes * Result Encounter Note - Anitra Hanna APRN - 09/21/2024 4:07 PM EDT 09/18 labs reviewed, tacrolimus level 5.2, creatinine 0.7, liver enzymes greatly improved from a previous of 09/10 on a prednisone taper. Continue with current prednisone taper and tacrolimus and CellCept at current dosing. Repeat labs in 2 weeks * Result Encounter Note - Yumiko Benz RN - 09/21/2024 4:01 PM EDT Labs completed. Ready to review. documented in this encounter Plan of Treatment Upcoming Encounters Date Type Department Care Team (Late st Contact Info) Description 07/02/2025 1:20 PM EST Office Visit [facility] [address] [facility] [address] [place] [address] Surgeon, Transplant Liver documented as of this [...] documented as of this encounter Care Teams Organ Tuner Electronic Relationship Specialty Start Date End Date Martha De Jesus PA [address] [place] [address] PCP - General 09/19/20 documented as of this encounter
--- OUTSIDE RECORDS SUMMARY | 2024-10-26 08:29 | XMS_ITS | Encounter Summary ---
Author Organization Healthcare Address [address] [place] [address] Care Team Providers Care Threat Monitoring Analyst Name Role Phone Martha De Jesus Primary Care Provider [phone] Encounter Details Date Type Department Care Team (Late st Contact Info) Description 10/16/2024 Results Follow-Up [facility] [address] [facility] [address] [place] [address] Yumiko Benz, R[facility]U [facility] LIVER [id number] [address] [phone] Social History Tobacco Use Types Packs/Day Years [...] place to sleep or slept in a nursing home (including now)? No 05/10/2023 PHQ-9 Answer Date [...] drink first t marika in the morning (EYE-PATHOLOGIST ASSISTANT) to steady your nerves or to get rid of a hangover? 1 05/11/2023 CAGE Questionnaire Score 4 024 Utilities Answer Date Recorded In the past 12 months has [employer], gas, oil, or water company threatened [...] encounter Miscellaneous Notes * Telephone Encounter - Yumiko Benz RN - 10/17/2024 12:40 PM EDT Left vm for pt to decrease her pred to 10mg daily. Requested call back to confirm. ----- Message from Abi Lyles APRN, DNP sent at 10/16/2024 4:28 PM EDT ----- FK 7.0 on 06/10 with improving Lfts. Please decrease her pred to 10mg for now. ----- Message ----- From: Yumiko Benz RN Sent: 10/16/2024 12:53 PM EDT To: Post-Liver Transplant Results Review Labs completed. Ready to review. ----- Message ----- From: Connie Little RN Sent: 10/12/2024 9:39 PM EDT To: Yumiko Benz RN * Result Encounter Note - Abi Lyles APRN, DNP - 10/16/2024 4:28 PM EDT FK 7.0 on 06/10 with improving Lfts. Please decrease her pred to 10mg for now. * Result Encounter Note - Yumiko Benz RN - 10/16/2024 12:53 PM EDT Labs completed. Ready to review. documented in this encounter Plan of Treatment Upcoming Encounters Date Type Department Care Team (Late st Contact Info) Description 07/02/2025 1:20 PM EST Office Visit [facility] [address] [place] [address] Surgeon, Transplant Liver documented as of this [...] documented as of this encounter Care Teams Threat Monitoring Analyst Relationship Specialty Start Date End Date Martha De Jesus PA [address] [place] [address] PCP - General 09/19/20 documented as of this encounter
--- OUTSIDE RECORDS SUMMARY | 2024-10-26 08:29 | XMS_ITS | Encounter Summary ---
Author Organization [facility] Address [address] [place] [address] Care Team Providers Care Cnc Manufacturing Engineer Name Role Phone Martha De Jesus Primary Care Provider [phone] Encounter Details Date Type Department Care Team (Late st Contact Info) Description 06/27/2020 Legacy OTTR Encounter Historical OTTR [address] [place] [address] [place] [address] Social History Tobacco Use Types Packs/Day Years Used Date Smoking Tobacco: Never Assessed Comments Unknown Sex and Gender Information Value Date Recorded Sex Assigned at Not on file Legal Sex Female 7:30 PM EDT Gender Identity Not on file Sexual Orientation Not on file documented as of this encounter Miscellaneous Notes * Progress Notes - Lulu Restrepo - 09/30/2020 9:42 AM EDT Pt called and left vm stating that she has strep and will be unable to come in for eval today and tomorrow. Will cx in [facility]. Reschedule pending. * Progress Notes - Vanessa Wolf RN - 08/25/2020 10:38 AM EDT Rec'd ph call from patient. She would like results from autoimmune testing. Will review with provider. * Progress Notes - Marjorie Rahman - 08/22/2020 9:28 AM EDT Ms. Hendricks appears to be an appropriate social candidate for liver transplant evaluation at this time. Pt is NOT cleared for listing. Primary Transit Planning Director will need to follow up to establish sobriety date. * Progress Notes - ProviderLuis Fernando MD - 08/20/2020 7:33 AM EDT DOS 09/30/[address] Liver 14815 CTA Cardiac 41185 Echo 29536 EVALUATION AUTHORIZATION: Evaluation authorization #[id number] expires on 12/11/2020. Authorization can be extended as needed. DOS 10/01/2020 Chest Xray 25959 Mandible Panorex 62693, 83678 BMD Dexa Scan 30945 EVALUATION AUTHORIZATION: Evaluation authorization #[id number] expires on 12/11/2020. Authorization can be extended as needed. Updating IAuth and nurse. * Progress Notes - Lulu Restrepo - 08/19/2020 4:35 PM EDT Pt is scheduled for Standard Liver Eval on 09/30 for Labs/Surgeon ICE/Echo/CTA and CT Liver/PFT ABG/Pharm arriving at Transplant at 8:00am and 10/01 for CXR Panorex/BMD/Hep/SW/Diet arriving at first floor radiology in the [facility] at 7:15am. Spoke to the pt and confirmed dates and times with her. Ptstated that she is having a PFT done tomorrow as fu from [facility] in May. She asked if she would need to have both tests done. Advised pt to keep PFT tomorrow as this was ordered by a different physician and that we could look over the results to determine if she would need the one in September. Pt verbalized understanding. Note to TH to check on pre-cert. * Progress Notes - Vanessa Wolf RN - 08/19/2020 1:06 PM EDT Patient to RTC 10-01-20. Will need to schedule patient for a standard eval. Orders in SCM< msg to CBB to schedule. Patient will need to have Surgeon ICE. * Progress Notes - Luis Fernando Bishop MD - 08/19/2020 7:44 AM EDT Financial clearance letter saved to All Docs. 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 NOt evaled yet. Decompensated alcohol-related cirrhosis Alcohol use disorder, last drink 02/2020, relapsed after doing rehab Elevated AMA, IgM and ALP, on Ursodiol Elevated LEONEL level of unclear significance No evidence of AIH (normal ALT and IgG) No h/o liver biopsy - Added LAUREN, ASMA and repeat AMA today, normal IGG and elevated IgM today. 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 Alcohol related hepatitis can cause cholestatic picture as well and it's hard to know which one is predominant at this time. She has been sober for 6 month, but still have elevated bili and ALP. At this time, I will keep her on Ursodioland treat as PBC, Jim 13-15mg/kg/day. - I advised seeking counseling/rehab to maintain sobriety. She is seeing SW as well today - I counseled the patient and her son about cirrhosis, natural history, prognosis, potential complications of cirrhosis and management of complications of cirrhosis, indications/contraindications forliver transplant, benefits/risks of transplant including process of transplant evaluation. - Will need DEXA and vit D level - Start standard evaluation if cleared by SW today. Ascites, leg edema- Resolved Had ascites in 03/2020, currently off diuretics low salt diet advised never LVP HCC screening- Recent outside imaging with no suspicious liver lesions Add HCC surveillance imaging to next visit. AFP normal Esophageal varices: NO prior bleed EGD 04/07/20: small gr 1 esophageal varices, possible mid mary esophagitis, bile reflux with mild reactive gastropathy Repeat in one year if remained compensated Educated about SandS of variceal bleed, advised to report to ER should they occur Risk for protein-calorie malnutrition- Counseled again on high protein diet, risk of sarcopenia Advised bedtime snack/late evening snack such as nutritional supplement Health maintenance- Immune to hep A, will need hep B vaccine ( currently taking COVID vaccine) colonoscopy 03/2020: left-sided diverticulosis and gr 1-2 internal hemorrhoids RTC 6 weeks, start standard eval if cleared by SW. * Progress Notes - Philippe Santoro MD - 08/13/2020 5:46 PM EDT start standard evaluation pending SW evaluation today. * Progress Notes - Lulu Restrepo - 07/17/2020 1:14 PM EST Added SW to pt's RTC on 08/13. No changes to pt's arrival time of 6:45am. Mailing schedule for pt's review. * Progress Notes - Vanessa Wolf RN - 07/16/2020 3:02 PM EST Patient to RTC 08-13-2020, will need to add SW consult to visit. Msg to CBB to schedule. * Progress Notes - Yesenia Hernandez MD - 07/08/2020 1:38 PM EST 4 y/o F with decompensated alcohol-related cirrhosis, here for initial transplant evaluation Decompensated alcohol-related cirrhosis History of persistent elevated alkaline phosphatase up to 300s Hyperbilirubinemia, total bilirubin of 3 Positive AMA 51.4; elevated LEONEL level Alcohol use disorder hx of covid19 pneumonia in 05/14/2020 - In March she had AST 161, ALT 43, Tbili 3.7, alk phos 364 and due to positive AMA and elevatedACE level-- she was started on solumedrol by her health care liaison, as well as UDCA. 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 I do not have LAUREN, IgG, ASMA results, toassess if she had concern for autoimmune hepatitis. She did not have liver biopsy prior to steroid initiation. Her ALT was only 43 at the time of steroid initiation. There was a plan for liver biopsyin May, but she developed covid19 in May. Although primary biliary cholangitis can cause positive AMA and alkaline phosphatase elevation, alcohol-related hepatitis, can also cause AST elevation, as well as a cholestatic picture. Her alkalinephosphatase did not respond to few months of steroids or UDCA. Today, her alkaline phosphatase has improved to 160s. In May, still had alk phos elevation, but infection can also cause alkaline phosphatase elevation. Unclear if this was just AH-related cholestasis or there is a component of primary biliary cholangitis but I could not completely rule out PBC component. Since her ALT was only 43(before steroids), AIH is less likely. Her ALT is currently 14. I would not recommend a biopsy at this time, given normal ALT to 14 (from 43 when she was first ) and alk phos down to 162. Uncertain if LEONEL level is nonspecific in the alcohol-related liver disease. - Will obtain Ig profile, repeat AMA, LAUREN,ASMA, LEONEL level next visit. - MELD score 15 today - She has had prior attempt at alcohol rehab in 2016, but relapsed after 3- 4months and she has stopped alcohol since February 2020 (when she was told to have cirrhosis) She did not hx of cirrhosis when she resumed drinking a few months after rehab. I advised her to start counseling to maintain sobriety from alcohol and I gave her resources through [facility] alcohol treatment navigator. - Her ascites/edema has resolved and not recurred, even off diuretics for 3 weeks. - Will bring her back in 1month and reassess her MELD score and have her see transplant social work case manager. If MELD remains 15 and above, despite 6months of abstinence, will start transplant evaluation, but will need clearance from our txp social work case manager. * Progress Notes - Aimee Bishop - 07/07/2020 9:22 AM EST Called pt to go over covid screening, all answers were negative. Pt had covid back in 05/2020, May 20, 2020 pt was released from hospital and tested covid free at that point. Reminded pt to bring photo ID, insurance card, list of meds, and filled out liver questionnaire. Reminded pt to wear a mask covering her nose and mouth at the same time. * Progress Notes - Aimee Bishop - 06/27/2020 2:37 PM EST CD images received from YAHAIRA Matamoros took disk to radiology for upload. * Progress Notes - Aimee Bishop - 06/13/2020 2:40 PM EST Called referring drs office, spoke with Kaye and advised pt is scheduled to be seen at 07/08/2020 arriving at 6:15am. * Progress Notes - Aimee Bsihop - 06/13/2020 12:15 PM EST ICE packet mailed USPS with no tracking. Faxed CD images request to [facility]. * Progress Notes - Aimee Bishop - 06/13/2020 11:39 AM EST Called pt to schedule ICE apt, spoke with pt and scheduled ICE apt for 07/08/2020 arriving at 6:15am. * Progress Notes - Provider, MD Luis Fernando - 06/13/2020 10:57 AM EST Pt is financially clear for ICE. [facility] evaluation authorization #[id number] expires on 12/11/2020. * Progress Notes - Aimee Bishop - 06/11/2020 3:04 PM EST Called referring drs office, spoke with Kaye and requested most recent labs be faxed over. * Progress Notes - Aimee Bishop - 06/11/2020 2:43 PM EST Received new referral, 54 yo with ETOH cirrhosis and lesion. Images at [facility]. MRI report from 02/25/2020 impression states, There is diffuse heterogenous signal intensity of the liver which shows some mild signal dropout of the out phase images consistent with heterogenous fatty liver replacement. The nodular area in the left hepatic lobe does not show any typical enhancement patternand may be due to a regenerating nodule with an area of focal fatty infiltration. * Progress Notes - Aimee Bishop - 06/11/2020 2:37 PM EST Received new referral, pt with [employer] insurance. Requesting financial clearance before scheduling ICE apt. Sending note to [facility]. documented in this encounter Plan of Treatment Upcoming Encounters Date Type Department Care Team (Late st Contact Info) Description 07/02/2025 1:20 PM EST Office Visit [facility] [place] [id number] Surgeon, Transplant Liver documented as of this encounter Procedures Procedure Name Priority Date/Time Associated Diagnosis Comments OTTR LAB RESULTS (MANUAL) Routine 08/13/2020 6:44 AM EDT OTTR LAB RESULTS (MANUAL) Routine 05/29/2020 12:00 AM EST OTTR LAB RESULTS (MANUAL) Routine 05/12/2020 12:00 AM EST documented in this encounter Results * OTTR LAB RESULTS (MANUAL) (08/13/2020 6:44 AM EDT) External Estimated GFR 96.42 EXTERNAL LAB 08/13/2020 6:44 AM EDT Narrative EXTERNAL LAB - 08/13/2020 7:49 AM EDT Automated LAB Interface us Historical Provider LAB BLOOD ORDERABLES Nicci l Result EXTERNAL LAB * OTTR LAB RESULTS (MANUAL) (05/29/2020 12:00 AM EST) External Glucose 130 mg/dL EXTERNAL LAB External BUN 12 mg/dL EXTERNAL LAB External Creatinine Blood 0.60 mg/dL EXTERNAL LAB External Sodium (Na) 127 mmol/L EXTERNAL LAB External Potassium (K) 3.4 mmol/L EXTERNAL LAB External Chloride (Cl) 88 mmol/L EXTERNAL LAB External Carbon Dioxide (CO2) 40 mmol/L EXTERNAL LAB External Calcium (Ca) 9.5 mg/dL EXTERNAL LAB External AST (SGOT) 67 units/L EXTERNAL LAB External ALT (SGPT) 37 units/L EXTERNAL LAB External Alkaline Phosphatase 321 U/L EXTERNAL LAB External Bilirubin Total 3.7 mg/dL EXTERNAL LAB External Total Protein 6.2 g/dL EXTERNAL LAB External Albumin 3.0 g/dL EXTERNAL LAB External Estimated GFR 109.52 EXTERNAL LAB 05/29/2020 Narrative EXTERNAL LAB - 06/11/2020 3:37 PM EST Other Historical Provider MD LAB BLOOD ORDERABLES Nicci l Result Performing Organization Address City/[facility]/ZIP Co de Phone Number EXTERNAL LAB * OTTR LAB RESULTS (MANUAL) (05/12/2020 12:00 AM EST) External Prothrombin Time (PT) 14.3 seconds EXTERNAL LAB External INR - Internormal Ratio 1.32 EXTERNAL LAB 05/12/2020 Narrative EXTERNAL LAB - 06/11/2020 3:36 PM EST Other Historical Provider MD LAB BLOOD ORDERABLES Nicci l Result Performing Organization Address [facility] Co de Phone Number EXTERNAL LAB documented in this encounter Visit Diagnoses Not on filedocumented in this encounter Additional Health Concerns Infection Onset Date Last Indicated Resolved Time 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 Patient will require contact precautions for the duration of the hospital admission. 07/01/2023 07/01/2023 documented as of this encounter Care Teams Cnc Manufacturing Engineer Relationship Specialty Start Date End Date Martha De Jesus PA [address] [place] [address] PCP - General 09/19/20 documented as of this encounter
--- OUTSIDE RECORDS SUMMARY | 2024-10-26 08:29 | XMS_ITS | Encounter Summary ---
Author Organization Healthcare Address [address] [place] [address] Care Team Providers Care Canine Service Instructor Trainer Name Role Phone Martha De Jesus Primary Care Provider [phone] Encounter Details Date Type Department Care Team (Late st Contact Info) Description 10/18/2024 Telephone [facility] [address] [facility] [address] [place] [phone] Yumiko Benz, RENU [facility] LIVER [id number] [address] [place] [address] Social History Tobacco Use Types Packs/Day Years [...] place to sleep or slept in a assisted (including now)? No 05/10/2023 PHQ-9 Answer Date [...] drink first t marika in the morning (EYE-CONDITIONER TUMBLER OPERATOR) to steady your nerves or to get [...] Telephone Encounter - Yumiko Benz RN - 10/18/2024 9:38 AM EDT Pt returned call confirming instructions to decrease Pred to 10mg daily and rpt labs in 2 wks. documented in this encounter Plan of Treatment Upcoming Encounters Date Type Department Care Team (Late st Contact Info) Description 07/02/2025 1:20 PM EST Office Visit [facility] [address] [place] [phone] Surgeon, Transplant Liver documented as of this [...] documented as of this encounter Care Teams Canine Service Instructor Trainer Relationship Specialty Start Date End Date Martha De Jesus PA [address] [place] [address] PCP - General 09/19/20 documented as of this encounter
--- OUTSIDE RECORDS SUMMARY | 2024-10-26 08:29 | XMS_ITS | Encounter Summary ---
Author Organization Healthcare Address [address] [place] [address] Care Team Providers Care Transportation Economics Teacher Name Role Phone Martha De Jesus Primary Care Provider [phone] Encounter Details Date Type Department Care Team (Late st Contact Info) Description 08/06/2024 Results Follow-Up [facility] [address] [facility] [address] [place] [address] Yumiko Benz, RENU [facility] LIVER [id number] [address] [place] [id number] Social History Tobacco Use Types Packs/Day Years [...] place to sleep or slept in a snf (including now)? No 05/10/2023 PHQ-9 Answer Date [...] drink first t marika in the morning (EYE-GUEST RELATIONS MANAGER) to steady your nerves or to get [...] Miscellaneous Notes * Result Encounter Note - Angeles Jacobsen APRN - 08/06/2024 1:32 PM EDT Labs: stable LFTs/ Cr. No changes in tacro or MMF. If remain stable, may stop MMF in near future. * Result Encounter Note - Yumiko Benz RN - 08/06/2024 8:16 AM EDT Labs completed. Ready to review. documented in this encounter Plan of Treatment Upcoming Encounters Date Type Department Care Team (Late st Contact Info) Description 07/02/2025 1:20 PM EST Office Visit [facility] [address] [place], [place] [address]estone [facility] [address] [place] [phone] Surgeon, Transplant Liver documented as of this [...] documented as of this encounter Care Teams Transportation Economics Teacher Relationship Specialty Start Date End Date Martha De Jesus PA [address] [place] [address] PCP - General 09/19/20 documented as of this encounter
--- OUTSIDE RECORDS SUMMARY | 2024-10-26 08:29 | XMS_ITS | Encounter Summary ---
Author Organization Healthcare Address [address] [place] [address] Care Team Providers Care Nurse Educator Name Role Phone Martha De Jesus Primary Care Provider [phone] Encounter Details Date Type Department Care Team (Late st Contact Info) Description 09/14/2024 Orders Only [facility] [address] [address] Abi Lyles, GRILL ATTENDANT, DNP [address] [facility] [place] [address] Status post liver transplantation (CMS/HCC) Social History Tobacco Use Types Packs/Day Years [...] place to sleep or slept in a intermediate (including now)? No 05/10/2023 PHQ-9 Answer Date [...] drink first t marika in the morning (EYE-BONE PLANT SUPERVISOR) to steady your nerves or to get [...] Description 07/02/2025 1:20 PM EST Office Visit [facility] [address] [place] [address] Surgeon, Transplant Liver documented as of this encounter Visit Diagnoses Diagnosis Status post liver transplantation (CMS/HCC) Liver replaced by transplant documented in this encounter Additional Health Concerns [...] documented as of this encounter Care Teams Nurse Educator Relationship Specialty Start Date End Date Martha De Jesus PA [address] [place] [address] PCP - General 09/19/20 documented as of this encounter
--- OUTSIDE RECORDS SUMMARY | 2024-10-26 08:29 | XMS_ITS ---
Author Organization [facility] Address [address] [place] [address] Care Team Providers Care Washtub Worker Helper Name Role Phone Martha De Jesus Primary Care Provider Transplant Episode Liver Recipient [facility] ([place], [place]) [facility] Organ Received: Liver Transplanted on 06/29/2023 Marked as Active Follow-up on 06/29/2023 Liver CoordinatorYumiko Benz RN Fax: N/A Email: N/A [place] Organ Diagnosis Organ Primary Contributory Liver Acute Alcohol-Associ ated Hepatitis With or Without Cirrhosis Primary Biliary Cirrhosis (PBC) Donor Information Organ ABO Source Meets Risk Criteria HLA Match Mismatches Cross Match Liver Transplanted B DCD No A: B: DR: Liver Donor Serology Results Anti-CMV CMV IgG: Positive EBV IgG EBV VCA IgG: Positive Anti-HBcAb HBC Total: Negative HBsAg HBsAg: Negative HBV DNA HBV ANIVAL: Negative Anti-HCV HCV: Negative Anti-HIV I/II HIV-1: Negative Anti-HTLV I/II HTLV: Not Done RPR/VDRL RPR: Negative EBV IgM EBV VCA IgM: Positive HBsAb HBsAb: Not Done EBNA No results on file SARS CoV-2 No results on file Care Team Name Role Phone Fax Email Yumiko Benz RN Liver Coordinator [phone] N/A N /A Liseth Shin APRN Referring Physician [phone] N/A Gloria Gutierrez Metal Fabricating Supervisor [phone] N/A N/A Events Post-Transplant Pre-Transplant Admitted: 06/28/2023 Referred: 06/11/2020 Transplanted: 06/29/2023 Evaluation began: 3 Discharged: 07/05/2023 Committee: 09/13/2022 Center waitlisted: 3
--- OUTSIDE RECORDS SUMMARY | 2024-10-26 08:29 | XMS_ITS | Clinical Summary ---
Author Organization [facility] Address [address] [place] [address] Care Team Providers Care Learning Disabilities Specialist Name Role Phone Martha De Jesus Primary Care Provider [phone] Allergies No known active allergies Medications levothyroxine (Synthroid, Levoxyl) 25 MCG tablet Take 1 tablet (25 mcg) by mouth daily before breakfast. Active levocetirizine (Xyzal) 5 MG tablet Take 1 tablet (5 mg) by mouth at night as needed for allergies. Active albuterol 108 (90 Base) MCG/ACT inhaler Inhale 2 puffs every 6 hours as needed for shortness of breath or wheezing. Active Calcium Carbonate-Conchita min D (CALCIUM-CARB 600 + D PO) Take 1 tablet by mouth 1 (one) time each day. Active famotidine (Pepcid) 20 MG tablet Take 1 tablet (20 mg) by mouth 2 (two) times a day if needed for heartburn. 09/27/19 24 Active NIFEdipine XL (Procardia XL) 60 MG 24 hr tablet Take 1 tablet (60 mg) by mouth 1 (one) time each day. Do not crush, chew, or split. 30 tablet 1 11/17/19 24 Active carvedilol (Coreg) 6.25 MG tablet Take 1 tablet (6.25 mg) by mouth 2 (two) times a day with meals. 60 tablet 05/18/19 25 Active mycophenolate (CellCept) 250 MG capsule Take 1 capsule (250 mg) by mouth 2 (two) times a day. Z94.4. Txp Date: 06/29/23 60 capsule 11 07/03/19 25 026 Active magnesium oxide (Mag-Ox) 400 MG tablet Take 2 tablets by mouth in the morning and 2 tablets before bedtime. 120 tablet 11 08/17/19 25 Active Multiple Vitamins-Iron (Tab-A-Rigoberto/Ir on/Beta Carotene) tablet Take 1 tablet by mouth daily. 30 tablet 11 08/17/19 25 Active tacrolimus 1 MG PO capsuleIndicat ions:Liver Transplant Status Take 2 capsules by mouth every morning AND 2 capsules every evening. Z94.4. 120 capsule 11 09/15/19 25 026 Active cholestyramine (Questran) 4 g packet Take 1 packet by mouth 1 (one) time each day. 022 Discontinued predniSONE (Deltasone) 20 MG tablet Take 3 tablets by mouth daily for 3 days, THEN 2.5 tablets daily for 3 days, THEN 2 tablets daily for 3 days, THEN 1.5 tablets daily for 3 days, THEN 1 tablet daily. 57 tablet 09/12/19 25 025 Active Problems Problem Noted Date Diagnosed Date Vitamin D deficiency 06/30/2023 Overview (06/30/2023): Hold home calcium carb-vitamin D Overweight (BMI 25.0-29.9) 06/29/2023 Overview (06/29/2023): Complicates all aspects of care. Anxiety and depression 06/29/2023 Hypertension 06/29/2023 Overview (06/30/2023): Hold home medications Continue metoprolol 12.5mg PRN hydralazine, labetolol Hypothyroidism 05/11/2023 Overview (06/29/2023): Continue home synthroid Neuropathy 01/25/2022 Bilateral leg edema 12/21/2021 Osteopenia 12/05/2020 Primary osteoarthritis of knees, bilateral 11/27 Resolved Problems Problem Noted Date Diagnosed Date Resolved Date Hyperglycemia 06/30/2023 07/04/2023 Overview (06/30/2023): A1C 4.1 Likely 2/2 steroids SSI and monitoring per ICU protocol Post-operative pain 06/30/2023 07/04/19 Overview (06/30/2023): PRN dilaudid, oxycodone Decompensation of cirrhosis of liver 06/29/2023 06/30/2023 Overview (06/29/2023): See end stage liver disease overview On mechanically assisted ventilation 06/29/2023 06/30/2023 Overview (06/29/2023): Adjust ventilator for oxygen and ventilation needs Wean Fi02 for SAT>90% PRN ABG and CXR Continue vent bundle components Daily PST ABLA (acute blood loss anemia) 06/29/2023 07/04/2023 Overview (06/29/2023): Stable Will continue to monitor Transfuse as appropriate for Hgb>8 Iron, Folate, B12 as appropriate Electrolyte abnormality 06/29/202306/10 Overview (06/29/2023): Replace per ICU sliding scale policy Continue close assessment Thrombocytopenia 06/29/2023 07/04/2023 Overview (06/30/2023): Due to ESLD, stable Continue to closely monitor Liver disease 05/10/2023 06/29/2023 Moderate protein-calorie malnutrition 01/25/2022 07/04/2023 Overview (06/30/2023): Likely 2/2 chronic illness, postoperative CLD, advance as tolerated Nutrition following, appreciate recs Other ascites 12/21/2021 06/29/2023 Hepatic encephalopathy 12/21/202106/29 Leg wound, left, initial encounter 12/21/2021 07/04/2023 Hypervolemia, unspecified hypervolemia type 12/09/2021 06/29/2023 Pre-liver transplant, listed 04/08/2021 06/29/2023 End-stage liver disease 12/05/202006/10 Overview (06/30/2023): 06/10 ETOh vs. Possible primary biliary cirrhosis S/P OLT 06/29--received 1L 5% albumin, 3L crystalloid, and 1 FFP intraoperatively MELD 16 Drain and immunosuppression per primary Zosyn post-operatively, end 06/30 Serial labs Post-operative liver US pending Pre-transplant evaluation fo r liver transplant 12/05/2020 06/29/2023 Elevated liver enzymes 12/05/202007/04 Overview (06/29/2023): See end stage liver disease overview Secondary esophageal varices without bleeding 12/06/1906/29/2023 Overview (06/29/2023): History of esophageal varices w/o bleed Hyperlipidemia 12/05/2020 06/29/2023 Overview (06/29/2023): Hold home medications Alcoholic cirrhosis of liver without ascites 04/07/2021 LAUREN positive 11/27/2020 07/04/2023 Encounters Date Type Department Care Team Description 10/18/2024 Telephone [facility] [address] [phone] Yumiko Benz, RENU 10/16/2024 Results Follow-Up [facility] [address] [place] [phone] Yumiko Benz, RENU 09/21/2024 Results Follow-Up [facility] [address] [place] [phone] Yumiko Benz, RENU 09/20/2024 Telephone [facility] [address] [place] [address] Benedicto Cardoza, PharmD 09/14/2024 Orders Only [facility] [address] [place] [phone] Abi Lyles, MANAGER IT SECURITY, DNP Status post liver transplantation (CMS/HCC) 09/10/2024 Results Follow-Up [facility] [address] [place] [phone] Yumiko Benz, RENU 08/16/2024 Refill [facility] [address] [phone] Anitra Hanna APRN 08/06/2024 Results Follow-Up [facility] [address] [place] [phone] Yumiko Benz, RENU from Last 3 Months Immunizations Immunization Administration Dates Next Due Influenza, seasonal, injectable, preservative fr ee 07/03/2024 Family History Medical History Relation Name Comments Cancer Father Cancer Mother Relation Name Status Comments Father Mother Social History Tobacco Use Types Packs/Day Years Used Date Smoking Tobacco: Never Smokeless Tobacco: Never Tobacco Cessation:Counseling Given: Not Answered Alcohol Use Standard Drinks/Week Comments Not Currently [...] place to sleep or slept in a skilled nursing (including now)? No 05/10/2023 PHQ-9 Answer Date [...] drink first t marika in the morning (EYE-NURSE EDUCATOR) to steady your nerves or to get [...] on file Sexual Orientation Not on file Last Filed Vital Signs Vital Sign Reading Time Taken Comments Blood Pressure 121/77 07/03/2024 1:50 PM EST Pulse 71 07/03/2024 1:50 PM EST Temperature 36.4 C (97.6 F) 07/03/2024 1:50 PM EST Respiratory Rate 18 07/03/2024 1:50 PM EST Oxygen Saturation 97% 07/03/2024 1:50 PM EST Inhaled Oxygen Concentration - - Weight 79.9 kg (176 lb 2.4 oz) 07/03/2024 1:50 P M EST Height 165.1 cm (5' 5 ) 07/03/2024 1:50 PM EST Body Mass Index 29.31 07/03/2024 1:50 PM EST Plan of Treatment Upcoming Encounters Date Type Department Care Team (Late st Contact Info) Description 07/02/2025 1:20 PM EST Office Visit [facility] [address] [phone] Surgeon, Transplant Liver Health Maintenance Due Date Last Done Comments [facility]-Medicare Annual Wellness (AWV) 1965 [facility]-/Child/Adol SDOH Screenings 1965 [facility]- SDOH Screenings 08/14/1981 [facility]-Adult SDOH Screenings 08/14/1981 [facility]-Zoster Vaccines (1 of 2) 08/14/1982 [facility]-Pap Smear 08/14/1984 [facility]-Cervical Cancer Screening 08/14/1993 [facility]-HPV/Cotest 08/14/1993 CT Colonography 08/14/2008 Colonoscopy 08/14/2008 FIT-DNA 08/14/2008 FIT 08/14/2008 FOBT 08/14/2008 Sigmoidoscopy 08/14/2008 [facility]-Colorectal Cancer Screening 08/14/2008 [facility]-Breast Cancer Screening 08/14/2013 [id number] Vaccine (3 - Moderna risk series) 09/17/2020 08/20/2020, 07/23/2020 [facility]-Pneumococcal Vaccine: 50+ Years (2 of 2 - PCV) 04/10/2021 04/10/2020 [facility]-RSV Vaccine: 60+ Years or (1 - Risk 60-74 years 1-dose series) 2023 [facility]-Depression Screening 07/03/2025 025, 07/03/2024, 12/21/2021 [facility]-DTaP,Tdap,and Td Vaccines (2 - Td or Tdap) 11/18/2030 11/18/2020 [facility]-Hepatitis A Vaccines Aged Out 06/15/2021, 10/08 No longer eligible based on patient's age to complete this topic [facility]-HIV Screening Completed 08/02/2023, , 05/10/2023, Additional history exists [facility]-Hepatitis C Screening Completed 2023, 06/28/2023, 06/28/2023, Additional history exists [facility]-Influenza Vaccine Completed 07/03/2024 , 02/26/2021, 04/10/2020 [facility]-Obesity Intervention Completed 025, 12/27/2023, 09/27/2023, Additional history exists HPV Vaccines Aged Out No longer eligi ble based on patient's age to complete this topic [facility]-HIB Vaccines Aged Out No longer e ligible based on patient's age to complete this topic [facility]-IPV Vaccines Aged Out No longer e ligible based on patient's age to complete this topic [facility]-Rotavirus Vaccines Aged Out No lo nger eligible based on patient's age to complete this topic Procedures Procedure Name Priority Date/Time Associated Diagnosis Comments CBC WITH AUTO DIFFERENTIAL Routine 10/11/2024 7:33 AM EDT COMPREHENSIVE METABOLIC PANEL, PLASMA Routine 10/11/2024 7:33 AM EDT MAGNESIUM, PLASMA Routine 10/11/2024 7:3 3 AM EDT GAMMA GLUTAMYLTRANSFERASE, PLASMA Routine 10/11/2024 7:33 AM EDT TACROLIMUS LEVEL Routine 10/11/2024 TACROLIMUS LEVEL Routine 09/18/2024 CBC W/O DIFFERENTIAL Routine 09/18/2024 COMPREHENSIVE METABOLIC PANEL, PLASMA Routine 09/18/2024 MAGNESIUM, PLASMA Routine 09/18/2024 GAMMA GLUTAMYLTRANSFERASE, PLASMA Routine 09/18/2024 TACROLIMUS LEVEL Routine 09/13/2024 COMPREHENSIVE METABOLIC PANEL, PLASMA Routine 09/10/2024 MAGNESIUM, PLASMA Routine 09/10/2024 GAMMA GLUTAMYLTRANSFERASE, PLASMA Routine 09/10/2024 CBC W/O DIFFERENTIAL Routine 09/10/2024 TACROLIMUS LEVEL Routine 07/31/2024 8:51 AM EDT COMPREHENSIVE METABOLIC PANEL, PLASMA Routine 07/31/2024 MAGNESIUM, PLASMA Routine 07/31/2024 GAMMA GLUTAMYLTRANSFERASE, PLASMA Routine 07/31/2024 CBC W/O DIFFERENTIAL Routine 07/31/2024 HEPATITIS C VIRUS (HCV) QUANTITATIVE PCR Routine 08/02/2023 7:43 AM EDT Status post liver transplantation (CMS/HCC) HUMAN IMMUNODEFICIENCY VIRUS (HIV-1) QUANTITATIVE PCR Routine 08/02/2023 7:43 AM EDT Status post liver transplantation (CMS/HCC) from Last 3 Months or Most Recently Relevant to Health Maintenance Results * CBC and Differential (10/11/2024 7:33 AM EDT) External WBC 9.5 External Red Blood Cell (RBC) 5.11 External Hemoglobin (Hgb) 14.60 External Hematocrit (Hct) 44.2 External Platelet Count (Plt) 254 Blood Venous blood specimen / Unknown 10/11/2024 7:33 AM EDT Result [facility] Provider MD LAB BLOOD ORDERABLES Nicci l Result * Magnesium, Plasma (10/11/2024 7:33 AM EDT) Only the most recent of4 resultswithin the time period is included. External Magnesium (Mg) 1.8 Blood Venous blood specimen / Unknown 10/11/2024 7:33 AM EDT Result [facility] MD LAB BLOOD ORDERABLES Nicci l Result * GGT, Plasma (10/11/2024 7:33 AM EDT) Only the most recent of4 resultswithin the time period is included. External Gamma Glutamyl Transpeptidase (GGT) 156 Blood Venous blood specimen / Unknown 10/11/2024 7:33 AM EDT Result [facility] MD LAB BLOOD ORDERABLES Nicci l Result * Comprehensive Metabolic Panel, Plasma (10/11/2024 7:33 AM EDT) Only the most recent of4 resultswithin the time period is included. External Glucose 142 External BUN 19 External Creatinine Blood 0.70 mg/dL External Sodium (Na) 136 mEq/L External Potassium (K) 4.6 External Chloride (Cl) 104 External Carbon Dioxide (CO2) 25 External Anion Gap (AG) 11.6 External Calcium (Ca) 9.2 External Total Protein 7.1 External Albumin 4.3 g/dL External AST (SGOT) 37 External ALT (SGPT) 53 External Alkaline Phosphatase 152 External Bilirubin Total 0.7 mg/dL External Estimated GFR 103 Blood Venous blood specimen / Unknown 10/11/2024 7:33 AM EDT Result [facility] MD LAB BLOOD ORDERABLES Nicci l Result * Tacrolimus (10/11/2024) Only the most recent of4 resultswithin the time period is included. External FK506 (Prograf, Tacrolimus) 7.0 Blood Venous blood specimen / Unknown 10/11/2024 [facility] Provider MD LAB BLOOD ORDERABLES Nicci l Result * CBC W/O Differential (09/18/2024) Only the most recent of3 resultswithin the time period is included. Pathologist [facility] External WBC 7.9 External Hemoglobin (Hgb) 14.50 External Hematocrit (Hct) 45.0 External Platelet Count (Plt) 274 Blood Venous blood specimen / Unknown 09/18/2024 Result [facility] Provider [place] LAB BLOOD ORDERABLES Nicci l Result * Hepatitis C Virus (HCV) Quantitative PCR (08/02/2023 7:43 AM EDT) Pathologist [facility] Hepatitis C Virus (HCV) Quantitative Interpretation Not Detected Not Detected . 08/03/2023 5:25 AM EDT [facility] Hepatitis C Virus (HCV) Quantitative Viral Load Log Result <1.08 <1.08 log10 IU/mL 08/03/2023 5:25 AM EDT [facility] Hepatitis C Virus (HCV) Quantitative IU/mL Result <12 <12 IU/mL 08/03/2023 5:25 AM EDT [facility] Blood Venous blood specimen / Unknown Venipuncture / Unknown 08/02/2023 7:43 AM EDT 08/02/2023 8:08 AM EDT Narrative [facility] - 08/03/2023 5:25 AM EDT The Estrada M2000 HCV test is a Real Time in vitro nucleic acid amplification test for the quantitation of Hepatitis C Viral (HCV) RNA in human serum in HCV-infected individuals. It is intended for use as an aid in the management of HCV-infected individuals undergoing anti-viral therapy. The dynamic range for this test is log10 = 1.08 to 8.00 and/or 12 to 100,000,000 IU/mL. The limit of detection (LOD) for this assay is 12 IU/mL and the limit of quantitation (LOQ) is 12 IU/mL. This assay is FDA approved for clinical use. Angeles R Ann-Marei MANAGER IT SECURITY LAB BLOOD ORDERABLES Final R esult Performing Organization Address [facility] de Phone Number [facility] [address] [place] [address] * Human Immunodeficiency Virus (HIV) Quantitative PCR (08/02/2023 7:43 AM EDT) Human Immunodeficiency Virus (HIV-1) Quant Interpretation Not Detected Not Detected 08/03/2023 8:46 AM EDT [facility] Human Immunodeficiency Virus (HIV-1) Quant Log Result <1.60 <1.60 log10 copies/mL 08/03/2023 8:46 AM EDT [facility] Human Immunodeficiency Virus (HIV-1) Quant copies/mL Result <40 <40 copies/mL 08/03/2023 8:46 AM EDT [facility] Blood Venous blood specimen / Unknown Venipuncture / Unknown 08/02/2023 7:43 AM EDT 08/02/2023 8:09 AM EDT Narrative [facility] - 08/03/2023 8:46 AM EDT The Estrada M2000 HIV test is a Real Time in vitro nucleic acid amplification test for the quantitation of Human Immunodeficiency Virus (HIV) RNA in human plasma in HIV-infected individuals. It is intended to quantify HIV in patients who are infected with the virus. The dynamic range for this test is log10 = 1.60 to 7.00 and/or 40 to 10,000,000 copies/mL. The limit of detection (LOD) for this assay is 40 copies/mL and the limit of quantitaion (LOQ) is 40 copies/mL. This assay is FDA approved for clinical use. Angeles Jacobsen APRN LAB BLOOD ORDERABLES Final R esult Performing Organization Address [facility] Co de Phone Number [facility] [address] [place] [address] from Last 3 Months or Most Recently Relevant to Health Maintenance Additional Health Concerns Infection Onset Date Last Indicated 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 Patient will require contact precautions for the duration of the hospital admission. 07/01/2023 07/01/2023 Insurance [employer] MEDIC[employer] Advance Directives * Full Code (Latest Code Status on File) Date Activated Date Inactivated Comments 06/29/2023 3:17 PM 07/05/2023 5:29 PM Question Answer Comments Patient has decision-making capacity? Yes Care Teams Learning Disabilities Specialist Relationship Specialty Start Date End Date Martha De Jesus PA [address] [place] [address] PCP - General 09/19/20
--- OUTSIDE RECORDS SUMMARY | 2024-10-26 08:29 | XMS_ITS | Encounter Summary ---
Author Organization [facility] Address [address] [id number] Care Team Providers Care Rover Tender Name Role Phone Martha De Jesus Primary Care Provider [phone] Encounter Details Date Type Department Care Team (Late st Contact Info) Description 08/18/2020 [facility] [address] [place] [address] Amaya Clemons, RN [facility] LIVER [id number] [address] [place] [address] Social History Tobacco Use Types Packs/Day Years Used Date Smoking Tobacco: Never Assessed Comments Unknown Sex and Gender Information Value Date Recorded Sex Assigned at Not on file Legal Sex Female 7:30 PM EDT Gender Identity Not on file Sexual Orientation Not on file documented as of this encounter Miscellaneous Notes * Progress Notes - Amaya Clemons RN [...] cleared by SW. * Progress Notes - Yesenia Hernandez MD [...] she was started on solumedrol by her licensed architect, as well as [employer]. Per patient and [...] had prior attempt at alcohol rehab in 2015, but relapsed after 3- 4months and she has stopped alcohol since February 2020 (when she was told to have cirrhosis) She did not hx of cirrhosis when she resumed drinking a few months after rehab. I advised her to start counseling to maintain sobriety from alcohol and I gave her resources through [facility] alcohol treatment navigator. - Her ascites/edema has resolved and not recurred, even off diuretics for 3 weeks. - Will bring her back in 1month and reassess her MELD score and have her see transplant social security assessor. If MELD remains 15 and above, despite 6months of abstinence, will start transplant evaluation, but will need clearance from our txp social security assessor. documented in this encounter Plan of Treatment Upcoming Encounters Date Type Department Care Team (Late st Contact Info) Description 07/02/2025 1:20 PM EST Office Visit [facility] [address] [facility] [address] [place] [address] Surgeon, Transplant Liver documented as of this encounter Visit Diagnoses Not on filedocumented in this encounter Additional Health Concerns Infection Onset Date Last Indicated Resolved Time 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 Patient will require contact precautions for the duration of the hospital admission. 07/01/2023 07/01/2023 documented as of this encounter Care Teams Rover Tender Relationship Specialty Start Date End Date Martha De Jesus PA [address] [place] [address] PCP - General 09/19/20 documented as of this encounter
[2024-10-26 09:28] LABS: Hemoglobin 14.6 g/dL (12.2-16.2); Mean Corpuscular HGB Conc 32.4 g/dL (31.8-35.4); Mean Corpuscular Hemoglobin 27.8 pg (27.0-31.2); Mean Corpuscular Volume 85.7 fl (81-99); Nucleated Red Blood Cells # 0 10^3/uL; Nucleated Red Blood Cells % 0 %; Platelet Count 216 K/mm3 (142-424); Red Blood Count 5.25 M/mm3 (4.20-5.40); Red Cell Distribution Width 12.7 % (11.5-17.5); Red Cell Distribution Width-SD 39.5 fL; White Blood Count 7.6 K/mm3 (4.8-10.8)
[2024-10-26 11:53] LABS: Alanine Aminotransferase 39 U/L (12-78); Albumin Level 3.9 g/dl (3.5-5.0); Albumin/Globulin Ratio 1.3 (1.1-1.8); Alkaline Phosphatase 117 U/L (38-126); Anion Gap 12.7 mEq/L (5-15); Aspartate Amino Transferase 38 U/L (14-36); Blood Urea Nitrogen 15 mg/dl (7-17); Calcium 9.5 mg/dl (8.4-10.2); Carbon Dioxide 27 mmol/L (22.0-30.0); Chloride 98 mmol/L (98-107); Estimated Glomerular Filt Rate 73 ml/min (>60); GFR (African American) 88 ML/MIN (>60); Gamma Glutamyl Transpeptidase 94 U/L (12-43); Globulin 2.9 g/dL (1.3-3.2); Glucose 143 mg/dl (74-100); Magnesium 1.7 mg/dl (1.6-2.3); Potassium 4.7 mmoL/L (3.5-5.1); Sodium 133 mmol/L (136-145); Total Protein,Serum 6.8 g/dl (6.3-8.2)
[2024-10-31 07:11] LABS: Tacrolimus (FK506), Blood 9.5 ng/mL (5.0-20.0)
== END 2024-10-26 23:59 | disposition home or self-care (01) ==
LOC: LAB 08:27
PROVIDERS: PCP Nurse Practitioner Family; Visit Provider Nurse Practitioner Acute Care
DX: Z94.4 Liver transplant status (principal)
CPT/HCPCS: 36415; 80053; 80197; 82977; 83735; 85027

== ENCOUNTER 2024-11-12 08:19 | Outpatient (CLI) | payer MEDICARE, SELFPAY ==
--- OUTSIDE RECORDS SUMMARY | 2024-11-12 08:21 | XMS_ITS | Continuity of Care Document ---
Author Organization [facility]. If a dditional information is needed, contact Health Information Management at [phone] Address [address] [place] [address] Phone Care Team Providers Care Paraffin Machine Operator Name Role Phone Unavailable Unavailable Unavailable
--- OUTSIDE RECORDS SUMMARY | 2024-11-12 08:31 | XMS_ITS | Encounter Summary ---
Author Organization [facility] Address [address] [id number] Care Team Providers Care Traffic Analyst Name Role Phone Martha De Jesus Primary Care Provider [phone] Encounter Details Date Type Department Care Team (Late st Contact Info) Description 08/18/2020 [facility] [address] [place] [address] Amaya Clemons, RN [facility] LIVER [id number] [address] [place] [address] Social History Tobacco Use Types Packs/Day Years [...] she was started on solumedrol by her marketing finance manager, as well as [employer]. Per patient and [...] alcohol and I gave her resources through [facility] alcohol treatment navigator. - Her ascites/edema has resolved and not recurred, even off diuretics for 3 weeks. - Will bring her back in 1month and reassess her MELD score and have her see transplant outreach and education social worker. If MELD remains 15 and above, despite 6months of abstinence, will start transplant evaluation, but will need clearance from our txp outreach and education social worker. documented in this encounter Plan of Treatment Upcoming Encounters Date Type Department Care Team (Late st Contact Info) Description 07/02/2025 1:20 PM EST Office Visit [facility] [address] [place] [address] Surgeon, Transplant Liver documented as of this encounter Visit Diagnoses Not on filedocumented in this encounter Additional Health Concerns Infection Onset Date Last Indicated Resolved Time 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 Patient will require contact precautions for the duration of the hospital admission. 07/01/2023 07/01/2023 documented as of this encounter Care Teams Traffic Analyst Relationship Specialty Start Date End Date Martha De Jesus PA [address] [place] [address] PCP - General 09/19/20 documented as of this encounter
--- OUTSIDE RECORDS SUMMARY | 2024-11-12 08:31 | XMS_ITS | Encounter Summary ---
Author Organization [facility] Address [address] [place] [address] Care Team Providers Care Aviation Boatswain'S Mate Name Role Phone Martha De Jesus Primary Care Provider [phone] Encounter Details Date Type Department Care Team (Late st Contact Info) Description 10/16/2024 Results Follow-Up [facility] [address] [facility] [address] [place] [phone] Yumiko Benz, [facility] [id number] [address] [phone] Social History Tobacco Use Types Packs/Day Years [...] place to sleep or slept in a detention (including now)? No 05/10/2023 PHQ-9 Answer Date [...] drink first t marika in the morning (EYE-DOUGHNUT MAKER) to steady your nerves or to get rid of a hangover? 1 05/11/2023 CAGE Questionnaire Score 4 024 Utilities Answer Date Recorded In the past 12 months has [employer] electric, gas, oil, or water company threatened [...] Description 07/02/2025 1:20 PM EST Office Visit [facility] [address] [place] [address] Surgeon, Transplant Liver documented as of this [...] documented as of this encounter Care Teams Aviation Boatswain'S Mate Relationship Specialty Start Date End Date Martha De Jesus PA [address] [place] [address] PCP - General 09/19/20 documented as of this encounter
--- OUTSIDE RECORDS SUMMARY | 2024-11-12 08:31 | XMS_ITS | Clinical Summary ---
Author Organization [facility] Address [address] [place] [address] Care Team Providers Care Skidder Operator Name Role Phone Martha De Jesus Primary Care Provider [phone] Allergies No known active allergies Medications levothyroxine [...] 2 capsules by mouth every morning AND 1 capsule every evening. Z94.4. 90 capsule 11 11/02/19 25 026 Active predniSONE (Deltasone) 5 MG tablet Take 1 tablet by mouth daily. 30 tablet 1 11/02/19 25 025 Active cholestyramine (Questran) 4 g packet Take 1 packet by mouth 1 (one) time each day. 022 Discontinued predniSONE (Deltasone) 20 MG tablet Take 3 tablets by mouth daily for 3 days, THEN 2.5 tablets daily for 3 days, THEN 2 tablets daily for 3 days, THEN 1.5 tablets daily for 3 days, THEN 1 tablet daily. 57 tablet 09/12/19 25 025 tacrolimus 1 MG PO capsuleIndicat ions:Liver Transplant Status Take 2 capsules by mouth every morning AND 2 capsules every evening. Z94.4. 120 capsule 11 09/15/19 25 025 Discontinued Active Problems Problem Noted Date Diagnosed Date [...] per ICU protocol Post-operative pain 06/30/2023 07/04/19 24 Overview (06/30/2023): PRN dilaudid, oxycodone Decompensation of [...] Encounters Date Type Department Care Team Description 11/01/2024 Orders Only [facility] [place] [address] [place] [address] Abi Lyles, EXECUTIVE BUSINESS COACH, DNP Status post liver transplantation (CMS/HCC) 10/31/2024 Results Follow-Up [facility] [place] [address] [place] [address] Yumiko Benz RN 10/18/2024 Telephone [facility] [place] [address] [place] [address] Yumiko Benz, RENU 10/16/2024 Results Follow-Up [facility] [address] [place] [address] Yumiko Benz, RENU 09/21/2024 Results Follow-Up [facility] [address] [place] [phone] Yumiko Benz, RENU 09/20/2024 Telephone [facility] [address] [place] [address] Benedicto Cardoza, PharmD 09/14/2024 Orders Only [facility] [address] [address] Abi Lyles, ERIS, DNP Status post liver transplantation (CMS/HCC) 09/10/2024 Results Follow-Up [facility] [address] [address] Yumiko Benz, RENU 08/16/2024 Refill [facility] [place] [id number] [address] Anitra Hanna, ERIS from Last 3 Months Immunizations Immunization Administration [...] place to sleep or slept in a residential (including now)? No 05/10/2023 PHQ-9 Answer Date [...] drink first t marika in the morning (EYE-PROVIDER RELATIONS REPRESENTATIVE) to steady your nerves or to get rid of a hangover? 1 05/11/2023 CAGE Questionnaire Score 4 024 Utilities Answer Date Recorded In the past 12 months has e electric, gas, oil, or water company [...] Visit [facility] [address] [facility] [address] [place] [phone] Surgeon, Transplant Liver Health Maintenance Due Date Last Done Comments [facility]-Medicare Annual Wellness (AWV) 1965 [facility]-/Child/Adol SDOH Screenings 1965 [facility]- SDOH Screenings 08/14/1981 [facility]-Adult SDOH Screenings 08/14/1981 [facility]-Zoster Vaccines (1 of 2) 08/14/1982 [facility]-Pap Smear 08/14/1984 [facility]-Cervical Cancer Screening 08/14/1993 [facility]-HPV/Cotest 08/14/1993 CT Colonography 08/14/2008 Colonoscopy 08/14/2008 FIT-DNA 08/14/2008 FIT 08/14/2008 FOBT 08/14/2008 Sigmoidoscopy 08/14/2008 [facility]-Colorectal Cancer Screening 08/14/2008 [facility]-Breast Cancer Screening 08/14/2013 [id number] Vaccine (3 - Moderna risk series) 09/17/2020 08/20/2020, 07/23/2020 [facility]-Pneumococcal Vaccine: 50+ Years (2 of 2 - PCV) 04/10/2021 04/10/2020 [facility]-RSV Vaccine: 60+ Years or (1 - Risk 60-74 years 1-dose series) 2023 [facility]-Influenza Vaccine (#1) 01/07/202507/03, 02/26/2021, 04/10/2020 [facility]-Depression Screening 07/03/2025 025, 07/03/2024, 12/21/2021 [facility]-DTaP,Tdap,and Td Vaccines (2 - Td or Tdap) 11/18/2030 11/18/2020 [facility]-Hepatitis A Vaccines Aged Out 06/15/2021, 10/08 No longer eligible based on patient's age to complete this topic [facility]-HIV Screening Completed 08/02/2023, , 05/10/2023, Additional history exists [facility]-Hepatitis C Screening Completed 2023, 06/28/2023, 06/28/2023, Additional history exists [facility]-Obesity Intervention Completed 025, 12/27/2023, 09/27/2023, Additional [...] Procedure Name Priority Date/Time Associated Diagnosis Comments COMPREHENSIVE METABOLIC PANEL, PLASMA Routine 10/26/2024 8:39 AM EDT MAGNESIUM, PLASMA Routine 10/26/2024 8:3 9 AM EDT GAMMA GLUTAMYLTRANSFERASE, PLASMA Routine 10/26/2024 8:39 AM EDT CBC W/O DIFFERENTIAL Routine 10/26/2024 8:39 AM EDT TACROLIMUS LEVEL Routine 10/26/2024 CBC WITH AUTO DIFFERENTIAL Routine 10/11/2024 7:33 [...] Routine 09/10/2024 CBC W/O DIFFERENTIAL Routine 09/10/2024 HEPATITIS C VIRUS (HCV) QUANTITATIVE PCR Routine 08/02/2023 7:43 AM EDT Status post liver transplantation (CMS/HCC) HUMAN IMMUNODEFICIENCY VIRUS (HIV-1) QUANTITATIVE PCR Routine 08/02/2023 7:43 AM EDT Status post liver transplantation (CMS/HCC) from Last 3 Months or Most Recently Relevant to Health Maintenance Results * CBC W/O Differential (10/26/2024 8:39 AM EDT) Only the most recent of3 resultswithin the time period is included. External WBC 7.6 External Red Blood Cell (RBC) 5.25 External Hemoglobin (Hgb) 14.60 External Hematocrit (Hct) 45.0 External Platelet Count (Plt) 216 Blood Venous blood specimen / Unknown 10/26/2024 8:39 AM EDT Result [facility] Provider MD LAB BLOOD ORDERABLES Nicci l Result * Magnesium, Plasma (10/26/2024 8:39 AM EDT) Only the most recent of4 resultswithin the time period is included. External Magnesium (Mg) 1.7 Blood Venous blood specimen / Unknown 10/26/2024 8:39 AM EDT Result [facility] Provider LAB BLOOD ORDERABLES Nicci l Result * GGT, Plasma (10/26/2024 8:39 AM EDT) Only the most recent of4 resultswithin the time period is included. External Gamma Glutamyl Transpeptidase (GGT) 94 Blood Venous blood specimen / Unknown 10/26/2024 8:39 AM EDT [facility] Provider MD LAB BLOOD ORDERABLES Nicci l Result * Comprehensive Metabolic Panel, Plasma (10/26/2024 8:39 AM EDT) Only the most recent of4 resultswithin the time period is included. External Glucose 143 External BUN 15 External Creatinine Blood 0.80 mg/dL External Sodium (Na) 133 mEq/L External Potassium (K) 4.7 External Chloride (Cl) 98 External Carbon Dioxide (CO2) 27 External Anion Gap (AG) 12.7 External Calcium (Ca) 9.5 External Total Protein 6.8 External Albumin 3.9 g/dL External AST (SGOT) 38 External ALT (SGPT) 39 External Alkaline Phosphatase 117 External Bilirubin Total 1.0 mg/dL External Estimated GFR 73 Blood Venous blood specimen / Unknown 10/26/2024 8:39 AM EDT [facility] Provider MD LAB BLOOD ORDERABLES Nicci l Result * Tacrolimus (10/26/2024) Only the most recent of4 resultswithin the time period is included. [facility] External FK506 (Prograf, Tacrolimus) 9.5 Blood Venous blood specimen / Unknown 10/26/2024 [facility] Provider MD LAB BLOOD ORDERABLES Nicci l Result * CBC and Differential (10/11/2024 7:33 AM EDT) [facility] External WBC 9.5 External Red Blood Cell (RBC) 5.11 External Hemoglobin (Hgb) 14.60 External Hematocrit (Hct) 44.2 External Platelet Count (Plt) 254 Blood Venous blood specimen / Unknown 10/11/2024 7:33 AM EDT [facility] Provider MD LAB BLOOD ORDERABLES Nicci l Result * Hepatitis C Virus (HCV) Quantitative PCR (08/02/2023 7:43 AM EDT) [facility] Hepatitis C Virus (HCV) Quantitative Interpretation Not Detected Not Detected . 08/03/2023 5:25 AM EDT [facility] Hepatitis C Virus (HCV) Quantitative Viral Load Log Result <1.08 <1.08 log10 IU/mL 08/03/2023 5:25 AM EDT [facility] Hepatitis C Virus (HCV) Quantitative IU/mL Result <12 <12 IU/mL 08/03/2023 5:25 AM EDT [facility] Blood Venous blood specimen / Unknown [...] FDA approved for clinical use. Angeles Jacobsen EXECUTIVE BUSINESS COACH LAB BLOOD ORDERABLES Final [facility] [address] [place] [address] * Human Immunodeficiency Virus (HIV) Quantitative PCR (08/02/2023 7:43 AM EDT) [facility] Human Immunodeficiency Virus (HIV-1) Quant Interpretation Not Detected Not Detected 08/03/2023 8:46 AM EDT [facility] Human Immunodeficiency Virus (HIV-1) Quant Log Result <1.60 <1.60 log10 copies/mL 08/03/2023 8:46 AM EDT [facility] Human Immunodeficiency Virus (HIV-1) Quant copies/mL Result <40 <40 copies/mL 08/03/2023 8:46 AM EDT [facility] Blood Venous blood specimen / Unknown [...] assay is FDA approved for clinical use. 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 Patient will require contact precautions for the duration of the hospital admission. 07/01/2023 07/01/2023 Insurance [facility] MEDIC[facility] Advance Directives * Full Code (Latest Code Status on File) Date Activated Date Inactivated Comments 06/29/2023 3:17 PM 07/05/2023 5:29 PM Question Answer Comments Patient has decision-making capacity? Yes Care Teams Skidder Operator Relationship Specialty Start Date End Date Martha De Jesus PA [address] [place] [address] PCP - General 09/19/20
--- OUTSIDE RECORDS SUMMARY | 2024-11-12 08:31 | XMS_ITS | Encounter Summary ---
Author Organization Healthcare Address [address] [place] [address] Care Team Providers Care Oncology Radiation Physician Name Role Phone Martha De Jesus Primary Care Provider [phone] Encounter Details Date Type Department Care Team (Late st Contact Info) Description 11/01/2024 Orders Only [facility] [address] [address] Abi Lyles, PAYROLL TAX SPECIALIST, DNP [address] [facility] [place] [address] Status post liver transplantation (CMS/HCC) [...] place to sleep or slept in a alf (including now)? No 05/10/2023 PHQ-9 Answer Date [...] drink first t marika in the morning (EYE-ORE WASHER) to steady your nerves or to get [...] Description 07/02/2025 1:20 PM EST Office Visit [facility] [address] [place] [address] Surgeon, Transplant Liver documented as of this [...] documented as of this encounter Care Teams Oncology Radiation Physician Relationship Specialty Start Date End Date Martha De Jesus PA [address] [place] [address] PCP - General 09/19/20 documented as of this encounter
--- OUTSIDE RECORDS SUMMARY | 2024-11-12 08:31 | XMS_ITS | Encounter Summary ---
Author Organization Healthcare Address [address] [place] [address] Care Team Providers Care Nozzle Worker Name Role Phone Martha De Jesus Primary Care Provider [phone] Encounter Details Date Type Department Care Team (Late st Contact Info) Description 10/18/2024 Telephone [facility] [address] [facility] [address] [place] [phone] Yumiko Benz, RENU [facility] LIVER [id number] [address] [place] [address] Social History Tobacco Use Types [...] place to sleep or slept in a mcfp (including now)? No 05/10/2023 PHQ-9 Answer Date [...] drink first t marika in the morning (EYE-BENDING ROLL HAND) to steady your nerves or to get [...] 07/02/2025 1:20 PM EST Office Visit [facility] [address] [place] [phone] Surgeon, Transplant Liver documented as of this [...] documented as of this encounter Care Teams Nozzle Worker Relationship Specialty Start Date End Date Martha De Jesus PA [address] [place] [address] PCP - General 09/19/20 documented as of this encounter
--- OUTSIDE RECORDS SUMMARY | 2024-11-12 08:31 | XMS_ITS | Encounter Summary ---
Author Organization Healthcare Address [address] [place] [address] Care Team Providers Care Communications Engineer Name Role Phone Martha De Jesus Primary Care Provider [phone] Encounter Details Date Type Department Care Team (Late st Contact Info) Description 09/21/2024 Results Follow[facility]Up [facility] [address] [facility] [address] [place] [phone] Yumiko Benz, RENU [facility] LIVER [id number] [address] [place] [phone] Social History Tobacco Use Types Packs/Day Years [...] place to sleep or slept in a long-term (including now)? No 05/10/2023 PHQ-9 Answer Date [...] drink first t marika in the morning (EYE-KILN TENDER) to steady your nerves or to get [...] 1:20 PM EST Office Visit [facility] [address] [facility] [address] [place] [phone] Surgeon, Transplant Liver documented as of this [...] documented as of this encounter Care Teams Communications Engineer Relationship Specialty Start Date End Date Martha De Jesus PA [address] [place] [address] PCP - General 09/19/20 documented as of this encounter
--- OUTSIDE RECORDS SUMMARY | 2024-11-12 08:31 | XMS_ITS | Encounter Summary ---
Author Organization [facility] Address [address] [place] [address] Care Team Providers Care Box Machine Operator Name Role Phone Martha De Jesus Primary Care Provider [phone] Encounter Details Date Type Department Care Team (Late st Contact Info) Description 06/27/2020 Legacy OTTR Encounter Historical OTTR [address] [place] [address] [place] [address] Social History Tobacco Use Types Packs/Day Years [...] Pt is NOT cleared for listing. Primary Analog Device Designer will need to follow up to establish sobriety date. * Progress Notes - ProviderLuis Fernando MD - 08/20/2020 7:33 AM EDT DOS 09/30/[address] Liver [address] CTA Cardiac 92978 Echo 52640 EVALUATION AUTHORIZATION: Evaluation authorization #[id number] expires on 12/11/2020. Authorization can be extended as needed. DOS 10/01/2020 Chest Xray 27504 Mandible Panorex 82511, 09321 BMD Dexa Scan 17320 EVALUATION AUTHORIZATION: Evaluation authorization #[id number] expires on 12/11/2020. Authorization can be extended as needed. Updating IAuth and nurse. * Progress Notes - Lulu Restrepo - 08/19/2020 4:35 PM EDT Pt is scheduled for Standard Liver Eval on 09/30 for Labs/Surgeon ICE/Echo/CTA and CT Liver/PFT ABG/Pharm arriving at Transplant at 8:00am and 10/01 for CXR Panorex/BMD/Hep/SW/Diet arriving at first floor radiology in the [facility] at 7:15am. Spoke to the pt and confirmed dates and times with her. Ptstated that she is having a PFT done tomorrow as fu from [facility] in May. She asked if she would [...] ICE. * Progress Notes - Luis Fernando Bsihop MD - 08/19/2020 7:44 AM EDT Financial [...] she was started on solumedrol by her bottle tester, as well as UDCA. Per patient and [...] alcohol and I gave her resources through [facility] alcohol treatment navigator. - Her ascites/edema has resolved and not recurred, even off diuretics for 3 weeks. - Will bring her back in 1month and reassess her MELD score and have her see transplant social economist. If MELD remains 15 and above, despite 6months of abstinence, will start transplant evaluation, but will need clearance from our txp social economist. * Progress Notes - Aimee Bisohp - 07/07/2020 9:22 AM EST Called pt [...] at 6:15am. * Progress Notes - Aimee Bishop - 06/13/2020 12:15 PM EST ICE packet mailed USPS with no tracking. Faxed CD images request to [facility]. * Progress Notes - Aimee Bishop - 06/13/2020 11:39 AM EST Called pt to schedule ICE apt, spoke with pt and scheduled ICE apt for 07/08/2020 arriving at 6:15am. * Progress Notes - Provider, MD Luis Fernando - 06/13/2020 10:57 AM EST Pt is financially clear for ICE. [facility] [employer] evaluation authorization #[id number] expires on 12/11/2020. * Progress Notes - Aimee Bishop - 06/11/2020 3:04 PM EST Called referring drs office, spoke with Kaye and requested most recent labs be faxed over. * Progress Notes - Aimee Bishop - 06/11/2020 2:43 PM EST Received new referral, 54 yo with ETOH cirrhosis and lesion. Images at [facility]. MRI report from 02/25/2020 impression [...] PM EST Received new referral, pt with [employer] insurance. Requesting financial clearance before scheduling ICE apt. Sending note to [facility]. documented in this encounter Plan of Treatment Upcoming Encounters Date Type Department Care Team (Late st Contact Info) Description 07/02/2025 1:20 PM EST Office Visit [facility] Transplant [place] [phone] Surgeon, Transplant Liver documented as of this [...] ORDERABLES Nicci l Result Performing Organization Address City/[facility]/ZIP Co de Phone Number EXTERNAL LAB * OTTR LAB RESULTS (MANUAL) (05/12/2020 12:00 AM EST) External Prothrombin Time (PT) 14.3 seconds EXTERNAL LAB External INR - Internormal Ratio 1.32 EXTERNAL LAB 05/12/2020 Narrative EXTERNAL LAB - 06/11/2020 3:36 PM EST Other Historical Provider MD LAB BLOOD ORDERABLES Nicci l Result Performing Organization Address [facility] Co de Phone Number EXTERNAL LAB documented [...] documented as of this encounter Care Teams Box Machine Operator Relationship Specialty Start Date End Date Martha De Jesus PA [address] [place] [address] PCP - General 09/19/20 documented as of this encounter
--- OUTSIDE RECORDS SUMMARY | 2024-11-12 08:31 | XMS_ITS | Encounter Summary ---
Author Organization [facility] Address [address] [place] [address] Care Team Providers Care Painter Helper Sign Name Role Phone Martha De Jesus Primary Care Provider [phone] Encounter Details Date Type Department Care Team (Late st Contact Info) Description 09/20/2024 Telephone [facility] [address] [place] [address] Benedicto Cardoza, PharmD Social History [...] place to sleep or slept in a longterm (including now)? No 05/10/2023 PHQ-9 Answer Date [...] drink first t marika in the morning (EYE-AUTOMOTIVE SERVICE CONSULTANT) to steady your nerves or to get rid of a hangover? 1 05/11/2023 CAGE Questionnaire Score 4 024 Utilities Answer Date Recorded In the past 12 months has th e [employer], oil, or water [employer] threatened to shut off services in your [...] Cardoza PharmD - 09/20/2024 11:53 AM EDT [facility] Plan of Care - [facility] Review Reviewed patient's current medication list for drug interaction with specialty medication: No interaction identified Adherence Summary: No issues identified Adverse events/side effect summary: No adverse events/side effects identified Storage, disposal, and administration summary: No issues identified Condition Summary: Stable Plan of care goal: Achieve computer terminal operator survival of patient, Minimize/manage side effects or [...] Description 07/02/2025 1:20 PM EST Office Visit [facility] Center [address] [place] [address] Surgeon, Transplant Liver documented as of this [...] documented as of this encounter Care Teams Painter Helper Sign Relationship Specialty Start Date End Date Martha De Jesus PA [address] [place] [address] PCP - General 09/19/20 documented as of this encounter
--- OUTSIDE RECORDS SUMMARY | 2024-11-12 08:31 | XMS_ITS | Encounter Summary ---
Author Organization Healthcare Address [address] [place] [address] Care Team Providers Care Broadcast Chief Engineer Name Role Phone Martha De Jesus Primary Care Provider [phone] Encounter Details Date Type Department Care Team (Late st Contact Info) Description 09/10/2024 Results Follow-Up [facility] Transplant Center [address] [facility] [address] [place] [phone] Yumiko Benz, RENU [facility] LIVER [id number] [address] [place] [phone] Social History Tobacco Use Types Packs/Day Years [...] place to sleep or slept in a care home (including now)? No 05/10/2023 PHQ-9 Answer [...] drink first t marika in the morning (EYE-PROMOTIONS FIRM ACCOUNTS MANAGER) to steady your nerves or to get rid of a hangover? 1 05/11/2023 CAGE Questionnaire Score 4 024 Utilities Answer Date Recorded In the past 12 months has [employer] electric, gas, oil, or water company threatened [...] Telephone Encounter - Yumiko Benz RN - 09/14/2024 2:08 PM EDT [...] Description 07/02/2025 1:20 PM EST Office Visit [facility] Transplant Center [address] [place] [phone] Surgeon, Transplant Liver documented as of this [...] documented as of this encounter Care Teams Broadcast Chief Engineer Relationship Specialty Start Date End Date Martha De Jesus PA [address] [place] [address] PCP - General 09/19/20 documented as of this encounter
--- OUTSIDE RECORDS SUMMARY | 2024-11-12 08:31 | XMS_ITS | Encounter Summary ---
Author Organization Healthcare Address [address] [place] [address] Care Team Providers Care Painter Structural Steel Name Role Phone Martha De Jesus Primary Care Provider [phone] Encounter Details Date Type Department Care Team (Late st Contact Info) Description 08/06/2024 Results Follow-Up [facility]plant Center [address] [facility] [address] [place] [address] Yumiko Benz, RENU [facility] LIVER [id number] [address] [place] [phone] Social History Tobacco Use Types Packs/Day Years [...] place to sleep or slept in a halfway (including now)? No 05/10/2023 PHQ-9 Answer Date [...] drink first t marika in the morning (EYE-SCHOOL BUS MECHANIC) to steady your nerves or to get [...] 07/02/2025 1:20 PM EST Office [facility] Transplant Center [address] [place], [place] [address]estone [facility] [address] [place] [phone] Surgeon, Transplant Liver documented as of this [...] as of this encounter Care Teams Painter Structural Steel Relationship Specialty Start Date End Date Martha De Jesus PA [address] [place] [address] PCP - General 09/19/20 documented as of this encounter
--- OUTSIDE RECORDS SUMMARY | 2024-11-12 08:31 | XMS_ITS | Encounter Summary ---
Author Organization [facility] Address [address] [place] [address] Care Team Providers Care Line Director Name Role Phone Martha De Jesus Primary Care Provider [phone] Reason for Referral * Consultation (Routine) - Closed Specialty Diagnoses / Procedures Referred By Contac t Referred To Contact Rheumatology Diagnoses Elevated C-reactive protein Elevated sed rate Martha De Jesus PA [address] [place] [address] Phone: tel: fax: Referral ID Status Reason Start Date Expiration Date V isits Requested Visits Authorized [id number] Closed Specialty Services Required 11/14/2020 05/13/2021 1 1 Encounter Details Date Type Department Care Team (Late st Contact Info) Description 11/14/2020 Community [facility] [address] [place] [address] Martha De Jesus PA [address] [place] [address] Elevated C-reactive protein (Primary Dx); [...] Description 07/02/2025 1:20 PM EST Office Visit [facility] [address] [place] [address] Surgeon, Transplant Liver Scheduled Referrals Name Type [...] documented as of this encounter Care Teams Line Director Relationship Specialty Start Date End Date Martha De Jesus PA [address] [place] [address] PCP - General 09/19/20 documented as of this encounter
--- OUTSIDE RECORDS SUMMARY | 2024-11-12 08:31 | XMS_ITS ---
Author Organization [facility] Address [address] [place] [address] Care Team Providers Care Manager Cardiology Name Role Phone Martha De Jesus Primary Care Provider Transplant Episode Liver Recipient [facility] ([place], [place]) [facility] Organ Received: Liver Transplanted on 06/29/2023 Marked as Active Follow-up on 06/29/2023 Liver CoordinatorYumiko Benz RN Fax: N/A Email: N/A [place] Organ Diagnosis Organ Primary Contributory Liver Acute [...] Fax Email Yumiko Benz RN Liver Coordinator [phone] N/A N /A Liseth Shin APRN Referring Physician [phone] N/A Gloria Gutierrez Prefabricator [phone] N/A N/A Events Post-Transplant Pre-Transplant Admitted: 06/28/2023 Referred: 06/11/2020 Transplanted: 06/29/2023 Evaluation began: 3 Discharged: 07/05/2023 Committee: 09/13/2022 Center waitlisted: 3
--- OUTSIDE RECORDS SUMMARY | 2024-11-12 08:31 | XMS_ITS | Encounter Summary ---
Author Organization Healthcare Address [address] [place] [address] Care Team Providers Care Press Set Up Person Name Role Phone Martha De Jesus Primary Care Provider [phone] Encounter Details Date Type Department Care Team (Late st Contact Info) Description 10/31/2024 Results Follow-Up [facility] [address] [facility] [address] [place] [phone] Yumiko Benz, RENU [facility] LIVER [id number] [address] [phone] Social History Tobacco Use Types Packs/Day Years [...] place to sleep or slept in a long term (including now)? No 05/10/2023 PHQ-9 Answer Date [...] drink first t marika in the morning (EYE-ACADEMIC SERVICES PROFESSIONAL) to steady your nerves or to get [...] Telephone Encounter - Yumiko Benz RN - 11/01/2024 2:44 PM EDT Spoke with pt, instructed to decrease FK to 06/09, pred 5mg daily. Pt verbalized understanding. ----- Message from Abi Lyles APRN, DNP sent at 11/01/2024 9:39 AM EDT ----- FK 7.9 on 06/10. Decrease to 06/09. LFTs improved to 30s with stable bili. Pred decreased to 5mg please. ----- Message ----- From: Yumiko Benz RN Sent: 10/31/2024 12:52 PM EDT To: Post-Liver Transplant Results Review Labs completed. Ready to review. ----- Message ----- From: Connie Little RN Sent: 10/28/2024 7:31 AM EDT To: Yumiko Benz RN * Result Encounter Note - Abi Lyles APRN, DNP - 11/01/2024 9:39 AM EDT FK 7.9 on 06/10. Decrease to 06/09. LFTs improved to 30s with stable bili. Pred decreased to 5mg please. * Result Encounter Note - Yumiko Benz RN - 10/31/2024 12:52 PM EDT Labs completed. Ready to review. documented in this encounter Plan of Treatment Upcoming Encounters Date Type Department Care Team (Late st Contact Info) Description 07/02/2025 1:20 PM EST Office Visit [facility] [address] [place] [address] Surgeon, Transplant Liver documented as of this [...] documented as of this encounter Care Teams Press Set Up Person Relationship Specialty Start Date End Date Martha De Jesus PA [address] [place] [address] PCP - General 09/19/20 documented as of this encounter
--- OUTSIDE RECORDS SUMMARY | 2024-11-12 08:31 | XMS_ITS | Encounter Summary ---
Author Organization Healthcare Address [address] [place] [address] Care Team Providers Care Cookee Name Role Phone Martha De Jesus Primary Care Provider [phone] Encounter Details Date Type Department Care Team (Late st Contact Info) Description 09/14/2024 Orders Only [facility] [address] [address] Abi Lyles, SURVEY TECHNOLOGIST, DNP [address] [facility] [place] [address] Status post liver transplantation (CMS/HCC) [...] place to sleep or slept in a mcc (including now)? No 05/10/2023 PHQ-9 Answer Date [...] drink first t marika in the morning (EYE-PAPER WOOD CUTTER) to steady your nerves or to get [...] Description 07/02/2025 1:20 PM EST Office Visit [facility] [address] [place] [address] Surgeon, Transplant Liver documented as of this [...] documented as of this encounter Care Teams [place]okee Relationship Specialty Start Date End Date Martha De Jesus PA [address] [place] [address] PCP - General 09/19/20 documented as of this encounter
[2024-11-12 08:44] LABS: Hematocrit 42.3 % (37.0-47.0); Hemoglobin 13.9 g/dL (12.2-16.2); Mean Corpuscular HGB Conc 32.9 g/dL (31.8-35.4); Mean Corpuscular Hemoglobin 28.1 pg (27.0-31.2); Mean Corpuscular Volume 85.5 fl (81-99); Nucleated Red Blood Cells % 0 %; Platelet Count 248 K/mm3 (142-424); Red Blood Count 4.95 M/mm3 (4.20-5.40); Red Cell Distribution Width-SD 40.7 fL; White Blood Count 7.1 K/mm3 (4.8-10.8)
[2024-11-12 09:19] LABS: Alanine Aminotransferase 27 U/L (12-78); Albumin Level 4.3 g/dl (3.5-5.0); Albumin/Globulin Ratio 1.5 (1.1-1.8); Alkaline Phosphatase 118 U/L (38-126); Anion Gap 14.6 mEq/L (5-15); Aspartate Amino Transferase 32 U/L (14-36); Bilirubin,Total 0.7 mg/dl (0.2-1.3); Blood Urea Nitrogen 13 mg/dl (7-17); Calcium 9.4 mg/dl (8.4-10.2); Carbon Dioxide 28 mmol/L (22.0-30.0); Chloride 101 mmol/L (98-107); Creatinine,Serum 0.70 mg/dl (0.52-1.04); Estimated Glomerular Filt Rate 85 ml/min (>60); GFR (African American) 103 ML/MIN (>60); Gamma Glutamyl Transpeptidase 58 U/L (12-43); Globulin 2.8 g/dL (1.3-3.2); Glucose 109 mg/dl (74-100); Magnesium 1.6 mg/dl (1.6-2.3); Potassium 4.6 mmoL/L (3.5-5.1); Sodium 139 mmol/L (136-145); Total Protein,Serum 7.1 g/dl (6.3-8.2)
[2024-11-15 19:26] LABS: Tacrolimus (FK506), Blood 7.0 ng/mL (5.0-20.0)
== END 2024-11-12 23:59 | disposition home or self-care (01) ==
LOC: LAB 08:20
PROVIDERS: PCP Nurse Practitioner Family; Visit Provider Nurse Practitioner Acute Care
DX: Z94.4 Liver transplant status (principal)
CPT/HCPCS: 36415; 80053; 80197; 82977; 83735; 85027

== ENCOUNTER 2024-12-03 10:06 | Outpatient (CLI) | payer MEDICARE, SELFPAY ==
--- OUTSIDE RECORDS SUMMARY | 2024-12-03 10:07 | XMS_ITS | Continuity of Care Document ---
Author Organization [facility]. If a dditional information is needed, contact Health Information Management at [phone] Address [address] [place] [address] Phone Care Team Providers Care Handle Attacher Name Role Phone Unavailable Unavailable Unavailable
--- OUTSIDE RECORDS SUMMARY | 2024-12-03 10:11 | XMS_ITS | Encounter Summary ---
Author Organization Healthcare Address [address] [place] [address] Care Team Providers Care Small Business Director Name Role Phone Martha De Jesus Primary Care Provider [phone] Encounter Details Date Type Department Care Team (Late st Contact Info) Description 11/16/2024 Results Follow-Up [facility]plant [facility] [address] [facility] [address] [place] [phone] Yumiko Benz, RENU [facility] LIVER [id number] [address] [phone] Social History Tobacco Use Types Packs/Day Years [...] drink first t marika in the morning (EYE-LINEWORKER) to steady your nerves or to get [...] Encounter Note - Angeles Jacobsen APRN - 11/16/2024 8:33 AM EDT Labs: LFTs normalized, stop pred. No change to tacro or MMF at this time, repeat in 3 weeks. * Result Encounter Note - Yumiko Benz RN - 11/16/2024 8:20 AM EDT Labs completed. Ready to review. documented in this encounter Plan of Treatment Upcoming Encounters Date Type Department Care Team (Late st Contact Info) Description 07/02/2025 1:20 PM EST Office Visit [facility] [address] [facility] [address] [place] [phone] Surgeon, Transplant Liver documented as of this [...] documented as of this encounter Care Teams Small Business Director Relationship Specialty Start Date End Date Martha De Jesus PA [address] [place] [address] PCP - General 09/19/20 documented as of this encounter
--- OUTSIDE RECORDS SUMMARY | 2024-12-03 10:11 | XMS_ITS | Encounter Summary ---
Author Organization Healthcare Address [address] [place] [address] Care Team Providers Care Bow Maker Custom Name Role Phone Martha De Jesus Primary Care Provider [phone] Encounter Details Date Type Department Care Team (Late st Contact Info) Description 11/16/2024 Orders Only [facility] [address] [facility] [address] [place] [address] Angeles Jacobsen, CONSTRUCTION JOB COST ESTIMATOR [address] [facility] [address] [place] [address] Social History Tobacco Use Types Packs/Day Years [...] drink first t marika in the morning (EYE-BOX LINER) to steady your nerves or to get [...] Visit [facility] [address] [address] Surgeon, Transplant Liver documented as of this [...] documented as of this encounter Care Teams Bow Maker Custom Relationship Specialty Start Date End Date Martha De Jesus PA [address] [place] [address] PCP - General 09/19/20 documented as of this encounter
--- OUTSIDE RECORDS SUMMARY | 2024-12-03 10:11 | XMS_ITS | Clinical Summary ---
Author Organization [facility] Address [address] [place] [address] Care Team Providers Care Chemical Instrumentation Officer Name Role Phone Martha De Jesus Primary Care Provider [phone] Allergies No known active allergies Medications levothyroxine [...] 90 capsule 11 11/02/19 25 026 Active cholestyramine (Questran) 4 g packet Take 1 packet by mouth 1 (one) time each day. 022 Discontinued predniSONE (Deltasone) 5 MG tablet Take 1 tablet by mouth daily. 30 tablet 1 11/02/19 25 025 Discontinued(Th erapy completed) Active Problems Problem Noted Date Diagnosed Date [...] 06/29/2023 End-stage liver disease 12/05/202006/10 Overview (06/30/2023): 2/2 ETOh vs. Possible primary biliary cirrhosis S/P [...] Encounters Date Type Department Care Team Description 11/16/2024 Orders Only [facility] [place] [address] [place] [address] Angeles Jacobsen, TRAIN BRAKEMAN 11/16/2024 Results Follow-Up [facility] [place] [address] [address] Yumiko Benz RN 11/01/2024 Orders Only [facility] [place] [address] [place] [address] Abi Lyles, TRAIN BRAKEMAN, DNP Status post liver transplantation (CMS/HCC) 10/31/2024 Results Follow-Up [facility] [place] [address] [place] [address] Yumiko Benz RN 10/18/2024 Telephone [facility] [place] [address] [place] [address] Yumiko Benz RN 10/16/2024 Results Follow-Up [facility] [address] [place] [phone] Yumiko Benz, RENU 09/21/2024 Results Follow-Up [facility] [address] [place] [phone] Yumiko Benz, RN 09/20/2024 Telephone [facility] [address] [place] [address] Benedicto Cardoza, PharmD 09/14/2024 Orders Only [facility] [address] [phone] Abi Lyles, TRAIN BRAKEMAN, DNP Status post liver transplantation (CMS/HCC) 09/10/2024 Results Follow-Up [facility] Transplant [place] [address] [phone] Yumiko Benz, RN from Last 3 Months Immunizations Immunization Administration [...] place to sleep or slept in a correction (including now)? No 05/10/2023 PHQ-9 Answer Date [...] drink first t marika in the morning (EYE-MOWER SHARPENER) to steady your nerves or to get [...] Description 07/02/2025 1:20 PM EST Office Visit [facility] [address] [place] [phone] Surgeon, Transplant Liver Health Maintenance Due Date Last Done Comments [facility]-Medicare Annual Wellness (AWV) 1965 [facility]-/Child/Adol SDOH Screenings 1965 [facility]- SDOH Screenings 08/14/1981 [facility]-Adult SDOH Screenings 08/14/1981 [facility]-Zoster Vaccines (1 of 2) 08/14/1982 [facility]-Pap Smear 08/14/1984 [facility]-Cervical Cancer Screening 08/14/1993 [facility]-HPV/Cotest 08/14/1993 CT Colonography 08/14/2008 Colonoscopy 08/14/2008 FIT-DNA 08/14/2008 FIT 08/14/2008 FOBT 08/14/2008 Sigmoidoscopy 08/14/2008 [facility]-Colorectal Cancer Screening 08/14/2008 [facility]-Breast Cancer Screening 08/14/2013 [id number] Vaccine (3 - Moderna risk series) 09/17/2020 [...] Name Priority Date/Time Associated Diagnosis Comments CBC W/O DIFFERENTIAL Routine 11/12/2024 8:23 AM EDT COMPREHENSIVE METABOLIC PANEL, PLASMA Routine 11/12/2024 8:23 AM EDT GAMMA GLUTAMYLTRANSFERASE, PLASMA Routine 11/12/2024 8:23 AM EDT MAGNESIUM, PLASMA Routine 11/12/2024 8:2 3 AM EDT TACROLIMUS LEVEL Routine 11/12/2024 COMPREHENSIVE METABOLIC PANEL, PLASMA Routine 10/26/2024 8:39 [...] Health Maintenance Results * CBC W/O Differential (11/12/2024 8:23 AM EDT) Only the most recent of4 resultswithin the time period is included. External WBC 7.1 External Red Blood Cell (RBC) 4.95 External Hemoglobin (Hgb) 13.90 External Hematocrit (Hct) 42.3 External Platelet Count (Plt) 248 Blood Venous blood specimen / Unknown 11/12/2024 8:23 AM EDT Historical Provider LAB BLOOD ORDERABLES Nicci l Result * Magnesium, Plasma (11/12/2024 8:23 AM EDT) Only the most recent of5 resultswithin the time period is included. External Magnesium (Mg) 1.6 Blood Venous blood specimen / Unknown 11/12/2024 8:23 AM EDT Historical Provider MD LAB BLOOD ORDERABLES Nicci l Result * GGT, Plasma (11/12/2024 8:23 AM EDT) Only the most recent of5 resultswithin the time period is included. External Gamma Glutamyl Transpeptidase (GGT) 58 Blood Venous blood specimen / Unknown 11/12/2024 8:23 AM EDT Result [facility] Provider MD LAB BLOOD ORDERABLES Nicci l Result * Comprehensive Metabolic Panel, Plasma (11/12/2024 8:23 AM EDT) Only the most recent of5 resultswithin the time period is included. External Glucose 109 External BUN 13 External Creatinine Blood 0.70 mg/dL External Sodium (Na) 139 mEq/L External Potassium (K) 4.6 External Chloride (Cl) 101 External Carbon Dioxide (CO2) 28 External Anion Gap (AG) 14.6 External Calcium (Ca) 9.4 External Total Protein 7.1 External Albumin 4.3 g/dL External AST (SGOT) 32 External ALT (SGPT) 27 External Alkaline Phosphatase 118 External Bilirubin Total 0.7 mg/dL External Estimated GFR 103 Blood Venous blood specimen / Unknown 11/12/2024 8:23 AM EDT Result [facility] Provider MD LAB BLOOD ORDERABLES Nicci l Result * Tacrolimus (11/12/2024) Only the most recent of5 resultswithin the time period is included. External FK506 (Prograf, Tacrolimus) 7.0 Blood Venous blood specimen / Unknown 11/12/2024 Result [facility] Provider MD LAB BLOOD ORDERABLES Nicci l Result * CBC and Differential (10/11/2024 7:33 AM EDT) External WBC 9.5 External Red Blood Cell (RBC) 5.11 External Hemoglobin (Hgb) 14.60 External Hematocrit (Hct) 44.2 External Platelet Count (Plt) 254 Blood Venous blood specimen / Unknown 10/11/2024 7:33 AM EDT Result [facility] Provider MD LAB BLOOD ORDERABLES Nicci l Result * Hepatitis C Virus (HCV) Quantitative PCR (08/02/2023 7:43 AM EDT) Hepatitis C Virus (HCV) Quantitative Interpretation Not Detected Not Detected . 08/03/2023 5:25 AM EDT [facility] Hepatitis C Virus (HCV) Quantitative Viral Load Log Result <1.08 <1.08 log10 IU/mL 08/03/2023 5:25 AM EDT [facility] Hepatitis C Virus (HCV) Quantitative IU/mL Result <12 <12 IU/mL 08/03/2023 5:25 AM EDT [facility] Blood Venous blood specimen / Unknown Venipuncture / Unknown 08/02/2023 7:43 AM EDT 08/02/2023 8:08 AM EDT [facility] - 08/03/2023 5:25 AM EDT [employer] M2000 HCV test is a Real Time [...] approved for clinical use. us Angeles Jacobsen APRN LAB BLOOD ORDERABLES Final R esult [facility] [address] [place] [phone] * Human Immunodeficiency Virus (HIV) Quantitative PCR (08/02/2023 7:43 AM EDT) Human Immunodeficiency Virus (HIV-1) Quant Interpretation Not Detected Not Detected 08/03/2023 8:46 AM EDT [facility] Human Immunodeficiency Virus (HIV-1) Quant Log Result <1.60 <1.60 log10 copies/mL 08/03/2023 8:46 AM EDT [facility] Human Immunodeficiency Virus (HIV-1) Quant copies/mL Result <40 <40 copies/mL 08/03/2023 8:46 AM EDT [facility] Blood Venous blood specimen / [...] approved for clinical use. us Angeles Jacobsen TRAIN BRAKEMAN LAB BLOOD ORDERABLES Final R esult [facility] [address] [place] [phone] from Last 3 Months or Most Recently Relevant to Health Maintenance Additional Health Concerns Infection Onset Date Last Indicated 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 Patient will require contact precautions for the duration of the hospital admission. 07/01/2023 07/01/2023 Insurance [facility] Advance Directives * Full Code (Latest Code Status on File) Date Activated Date Inactivated Comments 06/29/2023 3:17 PM 07/05/2023 5:29 PM Question Answer Comments Patient has decision-making capacity? Yes Care Teams Chemical Instrumentation Officer Relationship Specialty Start Date End Date Martha De Jesus PA [address] [place] [address] PCP - General 09/19/20
--- OUTSIDE RECORDS SUMMARY | 2024-12-03 10:12 | XMS_ITS | Encounter Summary ---
Author Organization Healthcare Address [address] [place] [address] Care Team Providers Care Grounds Supervisor Name Role Phone Martha De Jesus Primary Care Provider [phone] Encounter Details Date Type Department Care Team (Late st Contact Info) Description 09/21/2024 Results Follow-Up [facility] [address] [facility] [address] [place] [phone] Yumiko Benz, RENU [facility] LIVER [id number] [address] [phone] Social History Tobacco Use Types Packs/Day Years [...] place to sleep or slept in a penitentiary (including now)? No 05/10/2023 PHQ-9 Answer Date [...] drink first t marika in the morning (EYE-TRANSFORMATION MANAGER) to steady your nerves or to [...] Description 07/02/2025 1:20 PM EST Office Visit [facility] [address] [facility] [address] [place] [phone] Surgeon, Transplant Liver documented as of this [...] documented as of this encounter Care Teams Grounds Supervisor Relationship Specialty Start Date End Date Martha De Jesus PA [address] [place] [address] PCP - General 09/19/20 documented as of this encounter
--- OUTSIDE RECORDS SUMMARY | 2024-12-03 10:12 | XMS_ITS | Encounter Summary ---
Author Organization [facility] Address [address] [id number] Care Team Providers Care Street And Building Decorator Name Role Phone Martha De Jesus Primary Care Provider [phone] Encounter Details Date Type Department Care Team (Late st Contact Info) Description 08/18/2020 [facility] Historical [facility] [address] [place] [address] Amaya Clemons, RN [facility] LIVER [id number] [address] [place] [address] Social History Tobacco Use Types Packs/Day Years [...] she was started on solumedrol by her social organization professor, as well as [employer]. Per patient and [...] alcohol and I gave her resources through [facility] alcohol treatment navigator. - Her ascites/edema has resolved and not recurred, even off diuretics for 3 weeks. - Will bring her back in 1month and reassess her MELD score and have her see transplant social service liaison. If MELD remains 15 and above, despite 6months of abstinence, will start transplant evaluation, but will need clearance from our txp social service liaison. documented in this encounter Plan of Treatment Upcoming Encounters Date Type Department Care Team (Late st Contact Info) Description 07/02/2025 1:20 PM EST Office Visit [facility] [address] [facility] [address] [place] [address] Surgeon, Transplant Liver documented as of this encounter Visit Diagnoses Not on filedocumented in this encounter Additional Health Concerns Infection Onset Date Last Indicated Resolved Time 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 Patient will require contact precautions for the duration of the hospital admission. 07/01/2023 07/01/2023 documented as of this encounter Care Teams Street And Building Decorator Relationship Specialty Start Date End Date Martha De Jesus PA [address] [place] [address] PCP - General 09/19/20 documented as of this encounter
--- OUTSIDE RECORDS SUMMARY | 2024-12-03 10:12 | XMS_ITS | Encounter Summary ---
Author Organization Healthcare Address [address] [place] [address] Care Team Providers Care Professional Tutor Name Role Phone Martha De Jesus Primary Care Provider [phone] Encounter Details Date Type Department Care Team (Late st Contact Info) Description 10/18/2024 Telephone [facility] [address] [facility] [address] [place] [phone] Yumiko Benz, RENU [facility] LIVER [id number] [address] [place] [address] Social History Tobacco Use Types [...] place to sleep or slept in a [place] (including now)? No 05/10/2023 PHQ-9 Answer Date [...] drink first t marika in the morning (EYE-WHITE SOURER) to steady your nerves or to get [...] Description 07/02/2025 1:20 PM EST Office Visit [facility] [address] [place] [phone] Surgeon, Transplant Liver documented as of this [...] documented as of this encounter Care Teams Professional Tutor Relationship Specialty Start Date End Date Martha De Jesus PA [address] [place] [address] PCP - General 09/19/20 documented as of this encounter
--- OUTSIDE RECORDS SUMMARY | 2024-12-03 10:12 | XMS_ITS | Encounter Summary ---
Author Organization Healthcare Address [address] [place] [address] Care Team Providers Care Social Media Specialist Name Role Phone Martha De Jesus Primary Care Provider Encounter Details Date Type Department Care Team (Late st Contact Info) Description 11/01/2024 Orders Only [facility] [address] [address] Abi Lyles, SENIOR APPLICATION SOFTWARE ENGINEER, DNP [address] [facility] [place] [address] Status post liver transplantation (CMS/HCC) [...] drink first t marika in the morning (EYE-COST ACCOUNTANT) to steady your nerves or to get [...] Description 07/02/2025 1:20 PM EST Office Visit [facility] [address] [place] [address] Surgeon, Transplant Liver documented as of this [...] documented as of this encounter Care Teams Social Media Specialist Relationship Specialty Start Date End Date Martha De Jesus PA [address] [place] [address] PCP - General 09/19/20 documented as of this encounter
--- OUTSIDE RECORDS SUMMARY | 2024-12-03 10:12 | XMS_ITS | Encounter Summary ---
Author Organization [facility] Address [address] [place] [address] Care Team Providers Care Taxi Cab Driver Name Role Phone Martha De Jesus Primary Care Provider [phone] Reason for Referral * Consultation (Routine) - Closed Specialty Diagnoses / Procedures Referred By Contac t Referred To Contact Rheumatology Diagnoses Elevated C-reactive protein Elevated sed rate Martha De Jesus PA [address] [place] [address] Phone: tel: fax: Referral ID Status Reason Start Date Expiration Date V isits Requested Visits Authorized [id number] Closed Specialty Services Required 11/14/2020 05/13/2021 1 1 Encounter Details Date Type Department Care Team (Late st Contact Info) Description 11/14/2020 Community [facility] [address] [place] [address] Martha De Jesus PA [address] [place] [address] Elevated C-reactive protein (Primary Dx); [...] Description 07/02/2025 1:20 PM EST Office Visit [facility] [address] [place] [address] Surgeon, Transplant Liver Scheduled Referrals Name Type [...] documented as of this encounter Care Teams Taxi Cab Driver Relationship Specialty Start Date End Date Martha De Jesus PA [address] [place] [address] PCP - General 09/19/20 documented as of this encounter
--- OUTSIDE RECORDS SUMMARY | 2024-12-03 10:12 | XMS_ITS | Encounter Summary ---
Author Organization Healthcare Address [address] [place] [address] Care Team Providers Care Gluing Machine Offbearer Name Role Phone Martha De Jesus Primary Care Provider [phone] Encounter Details Date Type Department Care Team (Late st Contact Info) Description 10/16/2024 Results Follow-Up [facility] [address] [facility] [address] [place] [address] Yumiko Benz, RENU [facility] LIVER [id number] [address] [phone] Social History Tobacco Use Types Packs/Day Years [...] drink first t marika in the morning (EYE-BLOOD BANK LABORATORY PROFESSIONAL) to steady your nerves or to get rid of a hangover? 1 05/11/2023 CAGE Questionnaire Score 4 024 Utilities Answer Date Recorded In the past 12 months has [employer] electric, gas, oil, or water company threatened [...] EST Office Visit [facility] [address] [place] [address] Surgeon, Transplant Liver documented as of this [...] documented as of this encounter Care Teams Gluing Machine Offbearer Relationship Specialty Start Date End Date Martha De Jesus PA [address] [place] [address] PCP - General 09/19/20 documented as of this encounter
--- OUTSIDE RECORDS SUMMARY | 2024-12-03 10:12 | XMS_ITS | Encounter Summary ---
Author Organization Healthcare Address [address] [place] [address] Care Team Providers Care Men'S Garment Fitter Name Role Phone Martha De Jesus Primary Care Provider [phone] Encounter Details Date Type Department Care Team (Late st Contact Info) Description 10/31/2024 Results Follow-Up [facility] [address] [facility] [address] [place] [address] Yumiko Benz, RENU [facility] LIVER [id number] [address] [phone] Social History Tobacco Use Types Packs/Day Years [...] drink first t marika in the morning (EYE-TREE PLANTER) to steady your nerves or to get [...] Description 07/02/2025 1:20 PM EST Office Visit [facility] [address] [place] [address] Surgeon, Transplant Liver documented as of this [...] documented as of this encounter Care Teams Men'S Garment Fitter Relationship Specialty Start Date End Date Martha De Jesus PA [address] [place] [address] PCP - General 09/19/20 documented as of this encounter
--- OUTSIDE RECORDS SUMMARY | 2024-12-03 10:12 | XMS_ITS ---
Author Organization [facility] Address [address] [place] [address] Care Team Providers Care Quality Control Lab Tech Name Role Phone Martha De Jesus Primary Care Provider [phone] Transplant Episode Liver Recipient [facility] ([place], [place]) [facility] Organ Received: Liver Transplanted on 06/29/2023 Marked as Active Follow-up on 06/29/2023 Liver CoordinatorYumiko Benz RN Fax: N/A Email: N/A Citizen [place] Organ Diagnosis Organ Primary Contributory Liver Acute [...] Fax Email Yumiko Benz RN Liver Coordinator [phone] N/A N /A Liseth Shin APRN Referring Physician [phone] N/A Gloria Gutierrez Safe Technician [phone] N/A N/A Events Post-Transplant Pre-Transplant Admitted: 06/28/2023 Referred: 06/11/2020 Transplanted: 06/29/2023 Evaluation began: 3 Discharged: 07/05/2023 Committee: 09/13/2022 Center waitlisted: 3
--- OUTSIDE RECORDS SUMMARY | 2024-12-03 10:12 | XMS_ITS | Encounter Summary ---
Author Organization Healthcare Address [address] [place] [address] Care Team Providers Care Obstetric Anaesthetist Name Role Phone Martha De Jesus Primary Care Provider [phone] Encounter Details Date Type Department Care Team (Late st Contact Info) Description 08/06/2024 Results Follow-Up [facility] Transplant [facility] [address] [facility] [address] [place] [address] Yumiko Benz, RENU [facility] LIVER [id number] [address] [phone] Social History Tobacco Use Types Packs/Day Years [...] drink first t marika in the morning (EYE-OPHTHALMIC TECH) to steady your nerves or to get [...] Description 07/02/2025 1:20 PM EST Office Visit [facility] Transplant Center [address] [place], [place] [address]estone [facility] [address] [place] [address] Surgeon, Transplant Liver documented as of this [...] documented as of this encounter Care Teams Obstetric Anaesthetist Relationship Specialty Start Date End Date Martha De Jesus PA [address] [place] [address] PCP - General 09/19/20 documented as of this encounter
--- OUTSIDE RECORDS SUMMARY | 2024-12-03 10:12 | XMS_ITS | Encounter Summary ---
Author Organization [facility] Address [address] [place] [address] Care Team Providers Care Platform Operations Director Name Role Phone Martha De Jesus Primary Care Provider [phone] Encounter Details Date Type Department Care Team (Late st Contact Info) Description 06/27/2020 Legacy OTTR Encounter Historical OTTR [address] [place] [address] [place] [address] Social History Tobacco Use Types Packs/Day Years [...] Pt is NOT cleared for listing. Primary Tree Puller will need to follow up to establish sobriety date. * Progress Notes - ProviderLuis Fernando MD - 08/20/2020 7:33 AM EDT DOS 09/30/[address] Liver [address] CTA Cardiac 72427 Echo 92142 EVALUATION AUTHORIZATION: Evaluation authorization #[id number] expires on 12/11/2020. Authorization can be extended as needed. DOS 10/01/2020 Chest Xray 27363 Mandible Panorex 47387, 23830 BMD Dexa Scan 05722 EVALUATION AUTHORIZATION: Evaluation authorization #[id number] expires on 12/11/2020. Authorization can be extended as needed. Updating IAuth and nurse. * Progress Notes - Lulu Restrepo - 08/19/2020 4:35 PM EDT Pt is scheduled for Standard Liver Eval on 09/30 for Labs/Surgeon ICE/Echo/CTA and CT Liver/PFT ABG/Pharm arriving at Transplant at 8:00am and 10/01 for CXR Panorex/BMD/Hep/SW/Diet arriving at first floor radiology in the [facility] at 7:15am. Spoke to the pt and confirmed dates and times with her. Ptstated that she is having a PFT done tomorrow as fu from [facility] in May. She asked [...] she was started on solumedrol by her change control analyst, as well as UDCA. Per patient and [...] alcohol and I gave her resources through [facility] alcohol treatment navigator. - Her ascites/edema has resolved and not recurred, even off diuretics for 3 weeks. - Will bring her back in 1month and reassess her MELD score and have her see transplant director social service. If MELD remains 15 and above, despite 6months of abstinence, will start transplant evaluation, but will need clearance from our txp director social service. * Progress Notes - Aimee Bishop - [...] no tracking. Faxed CD images request to [facility]. * Progress Notes - Aimee Bishop - 06/13/2020 11:39 AM EST Called pt to schedule ICE apt, spoke with pt and scheduled ICE apt for 07/08/2020 arriving at 6:15am. * Progress Notes - Provider, MD Luis Fernando - 06/13/2020 10:57 AM EST Pt is financially clear for ICE. [facility] evaluation authorization #[id number] expires on 12/11/2020. * Progress Notes - Aimee Bishop - 06/11/2020 3:04 PM EST Called referring drs office, spoke with Kaye and requested most recent labs be faxed over. * Progress Notes - Aimee Bishop - 06/11/2020 2:43 PM EST Received new referral, 54 yo with ETOH cirrhosis and lesion. Images at [facility]. MRI report from 02/25/2020 impression states, There [...] PM EST Received new referral, pt with [employer] insurance. Requesting financial clearance before scheduling ICE apt. Sending note to [facility]. documented in this encounter Plan of Treatment Upcoming Encounters Date Type Department Care Team (Late st Contact Info) Description 07/02/2025 1:20 PM EST Office Visit [facility] [address] Surgeon, Transplant Liver documented as of this [...] ORDERABLES Nicci l Result Performing Organization Address City/[facility]/ZIP Co de Phone Number EXTERNAL LAB * OTTR LAB RESULTS (MANUAL) (05/12/2020 12:00 AM EST) External Prothrombin Time (PT) 14.3 seconds EXTERNAL LAB External INR - Internormal Ratio 1.32 EXTERNAL LAB 05/12/2020 Narrative EXTERNAL LAB - 06/11/2020 3:36 PM EST Other Historical Provider MD LAB BLOOD ORDERABLES Nicci l Result Performing Organization Address [facility] Co de Phone Number EXTERNAL LAB documented [...] documented as of this encounter Care Teams Platform Operations Director Relationship Specialty Start Date End Date Martha De Jesus PA [address] [place] [address] PCP - General 09/19/20 documented as of this encounter
[2024-12-03 10:37] LABS: Hematocrit 42.7 % (37.0-47.0); Hemoglobin 14.0 g/dL (12.2-16.2); Immature Granulocytes % 0.2 %; Mean Corpuscular HGB Conc 32.8 g/dL (31.8-35.4); Mean Corpuscular Hemoglobin 27.7 pg (27.0-31.2); Mean Corpuscular Volume 84.6 fl (81-99); Nucleated Red Blood Cells % 0 %; Platelet Count 244 K/mm3 (142-424); Red Blood Count 5.05 M/mm3 (4.20-5.40); Red Cell Distribution Width-SD 40.5 fL; White Blood Count 5.7 K/mm3 (4.8-10.8)
[2024-12-03 11:00] LABS: Alanine Aminotransferase 24 U/L (12-78); Albumin Level 4.3 g/dl (3.5-5.0); Albumin/Globulin Ratio 1.6 (1.1-1.8); Alkaline Phosphatase 133 U/L (38-126); Anion Gap 10.4 mEq/L (5-15); Aspartate Amino Transferase 35 U/L (14-36); Bilirubin,Total 0.9 mg/dl (0.2-1.3); Blood Urea Nitrogen 16 mg/dl (7-17); Calcium 9.8 mg/dl (8.4-10.2); Carbon Dioxide 27 mmol/L (22.0-30.0); Chloride 104 mmol/L (98-107); Creatinine,Serum 0.80 mg/dl (0.52-1.04); Estimated Glomerular Filt Rate 73 ml/min (>60); GFR (African American) 88 ML/MIN (>60); Gamma Glutamyl Transpeptidase 45 U/L (12-43); Globulin 2.7 g/dL (1.3-3.2); Glucose 119 mg/dl (74-100); Magnesium 1.5 mg/dl (1.6-2.3); Potassium 4.4 mmoL/L (3.5-5.1); Sodium 137 mmol/L (136-145); Total Protein,Serum 7.0 g/dl (6.3-8.2)
[2024-12-05 19:22] LABS: Tacrolimus (FK506), Blood 6.7 ng/mL (5.0-20.0)
== END 2024-12-03 23:59 | disposition home or self-care (01) ==
PROVIDERS: PCP Nurse Practitioner Family; Visit Provider Nurse Practitioner Acute Care
DX: Z48.23 Encounter for aftercare following liver transplant (principal); Z94.4 Liver transplant status
CPT/HCPCS: 36415; 80053; 80197; 82977; 83735; 85025

== ENCOUNTER 2024-12-31 08:01 | Outpatient (CLI) | payer MEDICARE, SELFPAY ==
--- OUTSIDE RECORDS SUMMARY | 2024-12-31 08:08 | XMS_ITS | Encounter Summary ---
Author Organization Healthcare Address [address] [place] [address] Care Team Providers Care Tool Room Gear Machine Operator Name Role Phone Martha De Jesus Primary Care Provider [phone] Encounter Details Date Type Department Care Team (Late st Contact Info) Description 11/16/2024 Orders Only [facility] [address] [facility] [address] [place] [address] Angeles Jacobsen, CUT OFF SAW OPERATOR METAL [address] [facility] [address] [place] [address] Social History Tobacco Use Types [...] drink first t marika in the morning (EYE-MANAGER FRONT OFFICE) to steady your nerves or to get [...] Description 07/02/2025 1:20 PM EST Office Visit [facility] Transplant [facility] [address] [address] Surgeon, Transplant Liver documented as [...] documented as of this encounter Care Teams Tool Room Gear Machine Operator Relationship Specialty Start Date End Date Martha De Jesus PA [address] [place] [address] PCP - General 09/19/20 documented as of this encounter
--- OUTSIDE RECORDS SUMMARY | 2024-12-31 08:08 | XMS_ITS | Encounter Summary ---
Author Organization Healthcare Address [address] [place] [address] Care Team Providers Care Economic Development Manager Name Role Phone Martha De Jesus Primary Care Provider [phone] Encounter Details Date Type Department Care Team (Late st Contact Info) Description 11/16/2024 Results Follow-Up [facility] Transplant [facility] [address] [facility] [address] [place] [address] Yumiko Benz, RENU [facility] LIVER [id number] [address] [phone] Social History Tobacco Use Types Packs/Day Years [...] drink first t marika in the morning (EYE-SPECIAL SERVICE REPRESENTATIVE) to steady your nerves or to [...] Description 07/02/2025 1:20 PM EST Office Visit [facility] Trans[facility] [address] [facility] [address] [place] [address] Surgeon, Transplant Liver documented as of this [...] documented as of this encounter Care Teams Economic Development Manager Relationship Specialty Start Date End Date Martha De Jesus PA [address] [place] [address] PCP - General 09/19/20 documented as of this encounter
--- OUTSIDE RECORDS SUMMARY | 2024-12-31 08:09 | XMS_ITS | Encounter Summary ---
Author Organization Healthcare Address [address] [place] [address] Care Team Providers Care Land Department Head Name Role Phone Martha De Jesus Primary Care Provider [phone] Encounter Details Date Type Department Care Team (Late st Contact Info) Description 09/21/2024 Results Follow-Up [facility] Transplant Center [address] [facility] [address] [place] [address] Yumiko Benz, RENU [facility] LIVER [id number] [address] [phone] Social History Tobacco Use Types Packs/Day Years [...] place to sleep or slept in a fpc (including now)? No 05/10/2023 PHQ-9 Answer Date [...] drink first t marika in the morning (EYE-MASTER ELECTRICIAN) to steady your nerves or to get [...] Description 07/02/2025 1:20 PM EST Office Visit [facility] Transplant Center [address] [facility] [address] [place] [address] Surgeon, Transplant Liver documented as of this [...] documented as of this encounter Care Teams Land Department Head Relationship Specialty Start Date End Date Martha De Jesus PA [address] [place] [address] PCP - General 09/19/20 documented as of this encounter
--- OUTSIDE RECORDS SUMMARY | 2024-12-31 08:09 | XMS_ITS | Clinical Summary ---
Author Organization [facility] Address [address] [place] [address] Care Team Providers Care Environmental Sampling Technician Name Role Phone Martha De Jesus Primary Care Provider [phone] Allergies No known active allergies Medications levothyroxine [...] 1 (one) time each day. 022 Discontinued Active Problems Problem Noted Date Diagnosed [...] Encounters Date Type Department Care Team Description 12/07/2024 Results Follow-Up [facility] [address] [place] [address] Yumiko Benz RN 11/16/2024 Orders Only [facility] Transplant [place] [address] [place] [address], [place] [address] Angeles Jacobsen, RIGGING AND CONTROLS AIRCRAFT MECHANIC 11/16/2024 Results Follow-Up [facility] Trans[facility] [place] [address] [place] [address] Yumiko Benz RN 11/01/2024 Orders Only [facility] [address] [place] [address] Abi Lyles, RIGGING AND CONTROLS AIRCRAFT MECHANIC, DNP Status post liver transplantation (CMS/HCC) 10/31/2024 Results Follow-Up [facility] [address] [place] [address] Yumiko Benz RN 10/18/2024 Telephone [facility] [place] [address] [place] [address] Yumiko Benz, RN 10/16/2024 Results Follow-Up [facility] [address] [place] [address] Yumiko Benz RN from Last 3 Months Immunizations Immunization [...] drink first t marika in the morning (EYE-TESTER ROCKET ENGINE) to steady your nerves or to get [...] 07/02/2025 1:20 PM EST Office Visit [facility] [address] [place] [address] Surgeon, Transplant Liver Health Maintenance Due Date Last Done Comments [facility]-Medicare Annual Wellness (AWV) 1965 [facility]-Infant/Child/Adol SDOH Screenings 1965 [facility]- SDOH Screenings 08/14/1981 [facility]-Adult SDOH Screenings 08/14/1981 [facility]-Zoster Vaccines (1 of 2) 08/14/1982 [facility]-Pap Smear 08/14/1984 [facility]-Cervical Cancer Screening 08/14/1993 [facility]-HPV/Cotest 08/14/1993 CT Colonography 08/14/2008 Colonoscopy 08/14/2008 FIT-DNA 08/14/2008 FIT 08/14/2008 FOBT 08/14/2008 Sigmoidoscopy 08/14/2008 [facility]-Colorectal Cancer Screening 08/14/2008 [facility]-Breast Cancer Screening 08/14/2013 [id number] Vaccine (3 - Moderna risk series) 09/17/2020 [...] Procedure Name Priority Date/Time Associated Diagnosis Comments TACROLIMUS LEVEL Routine 12/03/2024 COMPREHENSIVE METABOLIC PANEL, PLASMA Routine 12/03/2024 MAGNESIUM, PLASMA Routine 12/03/2024 GAMMA GLUTAMYLTRANSFERASE, PLASMA Routine 12/03/2024 CBC WITH AUTO DIFFERENTIAL Routine 12/03/2024 CBC W/O DIFFERENTIAL Routine 11/12/2024 8:23 AM [...] 7:33 AM EDT TACROLIMUS LEVEL Routine 10/11/2024 HEPATITIS C VIRUS (HCV) QUANTITATIVE PCR Routine 08/02/2023 7:43 AM EDT Status post liver transplantation (CMS/HCC) HUMAN IMMUNODEFICIENCY VIRUS (HIV-1) QUANTITATIVE PCR Routine 08/02/2023 7:43 AM EDT Status post liver transplantation (CMS/HCC) from Last 3 Months or Most Recently Relevant to Health Maintenance Results * Tacrolimus (12/03/2024) Only the most recent of4 resultswithin the time period is included. External FK506 (Prograf, Tacrolimus) 6.7 Blood Venous blood specimen / Unknown 12/03/2024 us Historical Provider LAB BLOOD ORDERABLES Final R esult * CBC and Differential (12/03/2024) Only the most recent of2 resultswithin the time period is included. External WBC 5.7 External Hemoglobin (Hgb) 14.00 External Hematocrit (Hct) 42.7 External Platelet Count (Plt) 244 Blood Venous blood specimen / Unknown 12/03/2024 Result [employer] Provider LAB BLOOD ORDERABLES Final R esult * Magnesium, Plasma (12/03/2024) Only the most recent of4 resultswithin the time period is included. External Magnesium (Mg) 1.5 Blood Venous blood specimen / Unknown 12/03/2024 Result [facility] LAB BLOOD ORDERABLES Final R esult * GGT, Plasma (12/03/2024) Only the most recent of4 resultswithin the time period is included. External Gamma Glutamyl Transpeptidase (GGT) 45 Blood Venous blood specimen / Unknown 12/03/2024 Result [facility] LAB BLOOD ORDERABLES Final R esult * Comprehensive Metabolic Panel, Plasma (12/03/2024) Only the most recent of4 resultswithin the time period is included. External Glucose 119 External BUN 16 External Creatinine Blood 0.80 mg/dL External Sodium (Na) 137 mEq/L External Potassium (K) 4.4 External Chloride (Cl) 104 External Carbon Dioxide (CO2) 27 External Calcium (Ca) 9.8 External Total Protein 7.0 External Albumin 0.3 g/dL External AST (SGOT) 35 External ALT (SGPT) 24 External Alkaline Phosphatase 133 External Bilirubin Total 0.9 mg/dL Blood Venous blood specimen / Unknown 12/03/2024 Result [facility] LAB BLOOD ORDERABLES Final R esult * CBC W/O Differential (11/12/2024 8:23 AM EDT) Only the most recent of2 resultswithin the time period is included. External WBC 7.1 External Red Blood Cell (RBC) 4.95 External Hemoglobin (Hgb) 13.90 External Hematocrit (Hct) 42.3 External Platelet Count (Plt) 248 Blood Venous blood specimen / Unknown 11/12/2024 8:23 AM EDT [facility] Provider LAB BLOOD ORDERABLES Final R esult * Hepatitis C Virus (HCV) Quantitative PCR (08/02/2023 7:43 AM EDT) Hepatitis C Virus (HCV) Quantitative Interpretation Not Detected Not Detected . 08/03/2023 5:25 AM EDT [facility] Hepatitis C Virus (HCV) Quantitative Viral Load Log Result <1.08 <1.08 log10 IU/mL 08/03/2023 5:25 AM EDT [facility] Hepatitis C Virus (HCV) Quantitative IU/mL Result <12 <12 IU/mL 08/03/2023 5:25 AM EDT [facility] Blood Venous blood specimen / Unknown Venipuncture / Unknown 08/02/2023 7:43 AM EDT 08/02/2023 8:08 AM EDT Narrative [facility] - 08/03/2023 5:25 AM EDT The [...] FDA approved for clinical use. Angeles Jacobsen RIGGING AND CONTROLS AIRCRAFT MECHANIC LAB BLOOD ORDERABLES Final R esult [facility] [address] [place] [id number] * Human Immunodeficiency Virus (HIV) Quantitative PCR (08/02/2023 7:43 AM EDT) Human Immunodeficiency Virus (HIV-1) Quant Interpretation Not Detected Not Detected 08/03/2023 8:46 AM EDT [facility] Human Immunodeficiency Virus (HIV-1) Quant Log Result <1.60 <1.60 log10 copies/mL 08/03/2023 8:46 AM EDT [facility] Human Immunodeficiency Virus (HIV-1) Quant copies/mL Result <40 <40 copies/mL 08/03/2023 8:46 AM EDT [facility] Blood Venous blood specimen / Unknown Venipuncture / Unknown 08/02/2023 7:43 AM EDT 08/02/2023 8:09 AM EDT [facility] - 08/03/2023 8:46 AM EDT [...] approved for clinical use. us Angeles Jacobsen RIGGING AND CONTROLS AIRCRAFT MECHANIC LAB BLOOD ORDERABLES Final R esult [facility] [address] [place] [address] from Last 3 Months or Most Recently Relevant to Health Maintenance Additional Health Concerns Infection Onset Date Last Indicated 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 Patient will require contact precautions for the duration of the hospital admission. 07/01/2023 07/01/2023 Insurance [employer] MEDICARE Advance Directives * Full Code (Latest Code Status on File) Date Activated Date Inactivated Comments 06/29/2023 3:17 PM 07/05/2023 5:29 PM Question Answer Comments Patient has decision-making capacity? Yes Care Teams Environmental Sampling Technician Relationship Specialty Start Date End Date Martha De Jesus PA [address] [place] [address] PCP - General 09/19/20
--- OUTSIDE RECORDS SUMMARY | 2024-12-31 08:10 | XMS_ITS | Encounter Summary ---
Author Organization [facility] Address [address] [place] [address] Care Team Providers Care Deputy Director Of Nursing Name Role Phone Martha De Jesus Primary Care Provider [phone] Reason for Referral * Consultation (Routine) - Closed Specialty Diagnoses / Procedures Referred By Contac t Referred To Contact Rheumatology Diagnoses Elevated C-reactive protein Elevated sed rate Martha De Jesus PA [address] [place] [address] Phone: tel: fax: Referral ID Status Reason Start Date Expiration Date V isits Requested Visits Authorized [id number] Closed Specialty Services Required 11/14/2020 05/13/2021 1 1 Encounter Details Date Type Department Care Team (Late st Contact Info) Description 11/14/2020 Community [facility] Community Practice [address] [place] [address] Martha De Jesus PA [address] [place] [address] Elevated C-reactive protein (Primary Dx); [...] and Hospital Transplant [facility] [address] [place] [address] Surgeon, Transplant Liver Scheduled Referrals Name Type [...] documented as of this encounter Care Teams Deputy Director Of Nursing Relationship Specialty Start Date End Date Martha De Jesus PA [address] [place] [address] PCP - General 09/19/20 documented as of this encounter
--- OUTSIDE RECORDS SUMMARY | 2024-12-31 08:10 | XMS_ITS | Encounter Summary ---
Author Organization [facility] Address [address] [place] [address] Care Team Providers Care Quality Cloth Tester Name Role Phone Martha De Jesus Primary Care Provider [phone] Encounter Details Date Type Department Care Team (Late st Contact Info) Description 06/27/2020 [facility] OTTR Encounter Historical OTTR [address] [place] [address] [place] [address] Social History Tobacco Use Types Packs/Day Years [...] Pt is NOT cleared for listing. Primary Companion Caregiver will need to follow up to establish sobriety date. * Progress Notes - ProviderLuis Fernando MD - 08/20/2020 7:33 AM EDT DOS 09/30/[address] Liver [address] CTA Cardiac 24686 Echo 54953 EVALUATION AUTHORIZATION: Evaluation authorization #[id number] expires on 12/11/2020. Authorization can be extended as needed. DOS 10/01/2020 Chest Xray 27993 Mandible Panorex 51484, 24773 BMD Dexa Scan 57390 EVALUATION AUTHORIZATION: Evaluation authorization #[id number] expires on 12/11/2020. Authorization can be extended as needed. Updating IAuth and nurse. * Progress Notes - Lulu Restrepo - 08/19/2020 4:35 PM EDT Pt is scheduled for Standard Liver Eval on 09/30 for Labs/Surgeon ICE/Echo/CTA and CT Liver/PFT ABG/Pharm arriving at Transplant at 8:00am and 10/01 for CXR Panorex/BMD/Hep/SW/Diet arriving at first floor radiology in the [facility] at 7:15am. Spoke to the pt and confirmed dates and times with her. Ptstated that she is having a PFT done tomorrow as fu from [facility] in May. She asked if she [...] she was started on solumedrol by her champagne maker, as well as UDCA. Per patient and [...] alcohol and I gave her resources through [facility] alcohol treatment navigator. - Her ascites/edema has resolved and not recurred, even off diuretics for 3 weeks. - Will bring her back in 1month and reassess her MELD score and have her see transplant social media community manager. If MELD remains 15 and above, despite 6months of abstinence, will start transplant evaluation, but will need clearance from our txp social media community manager. * Progress Notes - Aimee Bishop [...] no tracking. Faxed CD images request to [facility]. * Progress Notes - Aimee Bishop - 06/13/2020 11:39 AM EST Called pt to schedule ICE apt, spoke with pt and scheduled ICE apt for 07/08/2020 arriving at 6:15am. * Progress Notes - Provider, MD Luis Fernando - 06/13/2020 10:57 AM EST Pt is financially clear for ICE. [facility] [employer] evaluation authorization #[id number] expires on 12/11/2020. * Progress Notes - Aimee Bishop - 06/11/2020 3:04 PM EST Called referring drs office, spoke with Kaye and requested most recent labs be faxed over. * Progress Notes - Aimee Bishop - 06/11/2020 2:43 PM EST Received new referral, 54 yo with ETOH cirrhosis and lesion. Images at [facility]. MRI report from 02/25/2020 impression states, There [...] PM EST Received new referral, pt with [employer]. Requesting financial clearance before scheduling ICE apt. Sending note to [facility]. documented in this encounter Plan of Treatment Upcoming Encounters Date Type Department Care Team (Late st Contact Info) Description 07/02/2025 1:20 PM EST Office Visit [facility] [place] [id number] Surgeon, Transplant Liver documented as of this [...] Interface us Historical Provider LAB BLOOD ORDERABLES Final R esult EXTERNAL LAB * OTTR LAB RESULTS (MANUAL) [...] LAB - 06/11/2020 3:37 PM EST Other [facility] Provider LAB BLOOD ORDERABLES Final R esult Performing Organization Address City/[facility]/ZIP Co de Phone Number EXTERNAL LAB * OTTR LAB RESULTS (MANUAL) (05/12/2020 12:00 AM EST) External Prothrombin Time (PT) 14.3 seconds EXTERNAL LAB External INR - Internormal Ratio 1.32 EXTERNAL LAB 05/12/2020 Narrative EXTERNAL LAB - 06/11/2020 3:36 PM EST Other [facility] Provider LAB BLOOD ORDERABLES Final R esult Performing Organization Address City/[facility]/ZIP Co de Phone Number EXTERNAL LAB documented [...] documented as of this encounter Care Teams Quality Cloth Tester Relationship Specialty Start Date End Date Martha De Jesus PA [address] [place] [id number] PCP - General 09/19/20 documented as of this encounter
--- OUTSIDE RECORDS SUMMARY | 2024-12-31 08:10 | XMS_ITS ---
Author Organization [facility] Address [address] [place] [address] Care Team Providers Care Tank Washer Name Role Phone Martha De Jesus Primary Care Provider [phone] Transplant Episode Liver Recipient [facility] ([place], [place]) [facility] Organ Received: Liver Transplanted on 06/29/2023 Marked as Active Follow-up on 06/29/2023 Liver CoordinatorYumiko Benz RN Fax: N/A Email: N/A [place] Organ Diagnosis Organ Primary Contributory Liver Acute [...] Fax Email Yumiko Benz RN Liver Coordinator [phone] N/A N /A Liseth Shin APRN Referring Physician [phone] N/A Gloria Gutierrez LCSW Drywall Stripper [phone] N/A N/A Events Post-Transplant Pre-Transplant Admitted: 06/28/2023 Referred: 06/11/2020 Transplanted: 06/29/2023 Evaluation began: 3 Discharged: 07/05/2023 Committee: 09/13/2022 Center waitlisted: 3
--- OUTSIDE RECORDS SUMMARY | 2024-12-31 08:10 | XMS_ITS | Encounter Summary ---
Author Organization Healthcare Address [address] [place] [address] Care Team Providers Care Picking Machine Operator Name Role Phone Martha De Jesus Primary Care Provider [phone] Encounter Details Date Type Department Care Team (Late st Contact Info) Description 12/07/2024 Results Follow-Up [facility] [address] [place] [address] Yumiko Benz, RENU [facility] LIVER [id number] [address] [place] [id number] Social History Tobacco Use Types Packs/Day Years [...] drink first t marika in the morning (EYE-CUFF SETTER LOCKSTITCH) to steady your nerves or to get [...] Encounter Note - Anitra Hanna APRN - 12/07/2024 3:46 PM EDT 12/03 labs reviewed, tacrolimus level 6.7, magnesium level 1.5, creatinine 0.8, stable liver enzymes. No changes to current immunosuppression, recent elevated liver enzymes now normalized, continue with current tacrolimus and CellCept dosing. Repeat labs in 3 weeks * Result Encounter Note - Yumiko Benz RN - 12/07/2024 2:48 PM EDT Labs completed. Ready to review. documented in this encounter Plan of Treatment Upcoming Encounters Date Type Department Care Team (Late st Contact Info) Description 07/02/2025 1:20 PM EST Office Visit [facility] [address] [place] [address] Surgeon, Transplant Liver documented as of this [...] documented as of this encounter Care Teams Picking Machine Operator Relationship Specialty Start Date End Date Martha De Jesus PA [address] [place] [address] PCP - General 09/19/20 documented as of this encounter
--- OUTSIDE RECORDS SUMMARY | 2024-12-31 08:10 | XMS_ITS | Encounter Summary ---
Author Organization Healthcare Address [address] [place] [address] Care Team Providers Care Sourcing Analyst Name Role Phone Martha De Jesus Primary Care Provider Encounter Details Date Type Department Care Team (Late st Contact Info) Description 10/31/2024 Results Follow-Up [facility] [address] [place] [phone] Yumiko Benz, RENU [facility] LIVER [id number] [address] [place] [phone] Social History Tobacco Use Types Packs/Day Years [...] drink first t marika in the morning (EYE-FUR DYER) to steady your nerves or to get [...] Telephone Encounter - uYmiko Benz RN - 11/01/2024 2:44 PM EDT [...] Visit [facility] [address] [place] [address] Surgeon, Transplant Liver documented as of this [...] documented as of this encounter Care Teams Sourcing Analyst Relationship Specialty Start Date End Date Martha De Jesus PA [address] [place] [address] PCP - General 09/19/20 documented as of this encounter
--- OUTSIDE RECORDS SUMMARY | 2024-12-31 08:10 | XMS_ITS | Encounter Summary ---
Author Organization Healthcare Address [address] [place] [address] Care Team Providers Care Shorer Name Role Phone Martha De Jesus Primary Care Provider [phone] Encounter Details Date Type Department Care Team (Late st Contact Info) Description 11/01/2024 Orders Only [facility] [address] [address] Abi Lyles, SHODER FILLER, DNP [address] [facility] [place] [address] Status post liver transplantation (CMS/HCC) [...] drink first t marika in the morning (EYE-JUNIOR PROJECT COORDINATOR) to steady your nerves or to get [...] [facility] [address] [place] [address] Surgeon, Transplant Liver documented as of this [...] documented as of this encounter Care Teams Shorer Relationship Specialty Start Date End Date Martha De Jesus PA [address] [place] [address] PCP - General 09/19/20 documented as of this encounter
--- OUTSIDE RECORDS SUMMARY | 2024-12-31 08:11 | XMS_ITS | Encounter Summary ---
Author Organization [facility] Address [address] [place] [phone] Care Team Providers Care Curbing Stonecutter Name Role Phone Martha De Jesus Primary Care Provider [phone] Encounter Details Date Type Department Care Team (Late st Contact Info) Description 08/18/2020 [facility] OTTR Committee Historical OTTR [address] [place] [address] Amaya Clemons, RN [facility] LIVER [id number] [address] [place] [address] Social History Tobacco Use Types Packs/Day Years [...] she was started on solumedrol by her oxygen plant operator, as well as UDCA. Per patient and [...] MELD score and have her see transplant rn social work. If MELD remains 15 and above, despite 6months of abstinence, will start transplant evaluation, but will need clearance from our txp rn social work. documented in this encounter Plan of Treatment Upcoming Encounters Date Type Department Care Team (Late st Contact Info) Description 07/02/2025 1:20 PM EST Office Visit [facility] Center [address] [facility] [address] [place] [address] Surgeon, Transplant Liver documented as of this encounter Visit Diagnoses Not on filedocumented in this encounter Additional Health Concerns Infection Onset Date Last Indicated Resolved Time 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 Patient will require contact precautions for the duration of the hospital admission. 07/01/2023 07/01/2023 documented as of this encounter Care Teams Curbing Stonecutter Relationship Specialty Start Date End Date Martha De Jesus PA [address] [place] [address] PCP - General 09/19/20 documented as of this encounter
[2024-12-31 08:34] LABS: Hematocrit 41.0 % (37.0-47.0); Hemoglobin 13.9 g/dL (12.2-16.2); Mean Corpuscular HGB Conc 33.9 g/dL (31.8-35.4); Mean Corpuscular Hemoglobin 28.8 pg (27.0-31.2); Mean Corpuscular Volume 85.1 fl (81-99); Nucleated Red Blood Cells % 0 %; Platelet Count 237 K/mm3 (142-424); Red Blood Count 4.82 M/mm3 (4.20-5.40); Red Cell Distribution Width-SD 39.7 fL; White Blood Count 4.8 K/mm3 (4.8-10.8)
[2024-12-31 09:17] LABS: Albumin Level 4.4 g/dl (3.5-5.0); Chloride 108 mmol/L (98-107); Potassium 4.3 mmoL/L (3.5-5.1); Sodium 140 mmol/L (136-145)
[2024-12-31 09:20] LABS: Alanine Aminotransferase 24 U/L (12-78); Albumin/Globulin Ratio 1.6 (1.1-1.8); Alkaline Phosphatase 121 U/L (38-126); Anion Gap 12.3 mEq/L (5-15); Aspartate Amino Transferase 38 U/L (14-36); Bilirubin,Total 0.6 mg/dl (0.2-1.3); Calcium 9.3 mg/dl (8.4-10.2); Carbon Dioxide 24 mmol/L (22.0-30.0); Globulin 2.8 g/dL (1.3-3.2); Glucose 112 mg/dl (74-100); Total Protein,Serum 7.2 g/dl (6.3-8.2)
[2024-12-31 09:21] LABS: Magnesium 1.8 mg/dl (1.6-2.3)
[2024-12-31 12:59] LABS: Blood Urea Nitrogen 13 mg/dl (7-17); Creatinine,Serum 0.70 mg/dl (0.52-1.04); Estimated Glomerular Filt Rate 85 ml/min (>60); GFR (African American) 103 ML/MIN (>60); Gamma Glutamyl Transpeptidase 31 U/L (12-43)
== END 2024-12-31 23:59 | disposition home or self-care (01) ==
LOC: LAB 08:02
PROVIDERS: PCP Nurse Practitioner Family; Visit Provider Nurse Practitioner Acute Care
DX: Z94.4 Liver transplant status (principal)
CPT/HCPCS: 36415; 80053; 80197; 82977; 83735; 85027

== ENCOUNTER 2025-02-05 07:57 | Outpatient (CLI) | payer MEDICARE, SELFPAY ==
--- OUTSIDE RECORDS SUMMARY | 2025-02-05 07:59 | XMS_ITS | Encounter Summary ---
Author Organization Healthcare Address [address] [place] [address] Care Team Providers Care Home Security Professional Name Role Phone Martha De Jesus Primary Care Provider [phone] Encounter Details Date Type Department Care Team (Late st Contact Info) Description 11/16/2024 Results Follow-Up [facility] [address] [facility] [address] [place] [phone] Yumiko Benz, RENU [facility] LIVER [id number] [address] [place] [phone] Social History Tobacco Use Types Packs/Day Years [...] No 05/10/2023 Housing Stability Vital Sign Answer Baabr e Recorded In the last 12 months, [...] place to sleep or slept in a usp (including now)? No 05/10/2023 PHQ-9 Answer Date [...] drink first t marika in the morning (EYE-COMMERCIAL BANKER) to steady your nerves or to get [...] Description 07/02/2025 1:20 PM EST Office Visit [facility] [address] [facility] [address] [place] [address] Surgeon, Transplant Liver documented as of this [...] documented as of this encounter Care Teams Home Security Professional Relationship Specialty Start Date End Date Martha De Jesus PA [address] [place] [address] PCP - General 09/19/20 documented as of this encounter
--- OUTSIDE RECORDS SUMMARY | 2025-02-05 08:00 | XMS_ITS | Encounter Summary ---
Author Organization [facility] Address [address] [place] [address] Care Team Providers Care Showroom Executive Director Name Role Phone Martha De Jesus Primary Care Provider [phone] Reason for Referral * Consultation (Routine) - Closed Specialty Diagnoses / Procedures Referred By Contac t Referred To Contact Rheumatology Diagnoses Elevated C-reactive protein Elevated sed rate Martha De Jesus PA [address] [place] [address] Phone: tel: fax: Referral ID Status Reason Start Date Expiration Date V isits Requested Visits Authorized [id number] Closed Specialty Services Required 11/14/2020 05/13/2021 1 1 Encounter Details Date Type Department Care Team (Late st Contact Info) Description 11/14/2020 Community [facility] [address] [place] [address] Martha De Jesus PA [address] [place] [address] Elevated C-reactive protein (Primary Dx); [...] Description 07/02/2025 1:20 PM EST Office Visit [facility] [address] [place] [address] Surgeon, Transplant Liver Scheduled Referrals Name Type [...] documented as of this encounter Care Teams Showroom Executive Director Relationship Specialty Start Date End Date Martha De Jesus PA [address] [place] [address] PCP - General 09/19/20 documented as of this encounter
--- OUTSIDE RECORDS SUMMARY | 2025-02-05 08:00 | XMS_ITS | Encounter Summary ---
Author Organization Healthcare Address [address] [place] [address] Care Team Providers Care Cartridge Gauger Name Role Phone Martha De Jesus Primary Care Provider [phone] Encounter Details Date Type Department Care Team (Late st Contact Info) Description 01/04/2025 Results Follow-Up [facility] [address] [facility] [address] [place] [address] Yumiko Benz, RENU [facility] LIVER [id number] [address] [place] [phone] Social History Tobacco Use Types Packs/Day Years [...] place to sleep or slept in a half-way (including now)? No 05/10/2023 PHQ-9 Answer Date [...] drink first t marika in the morning (EYE-JOB TRACER) to steady your nerves or to get [...] Encounter Note - Anitra Hanna APRN - 01/04/2025 4:07 PM EDT 12/31 labs reviewed, creatinine 0.7, stable liver enzymes, tacrolimus level 3.8. No changes to current immunosuppression, repeat labs in 1 month * Result Encounter Note - Yumiko Benz RN - 01/04/2025 9:21 AM EDT Labs completed. Ready to review. documented in this encounter Plan of Treatment Upcoming Encounters Date Type Department Care Team (Late st Contact Info) Description 07/02/2025 1:20 PM EST Office Visit [facility] [address] [facility] [address] [place] [phone] Surgeon, Transplant Liver documented as of this [...] documented as of this encounter Care Teams Cartridge Gauger Relationship Specialty Start Date End Date Martha De Jesus PA [address] [place] [address] PCP - General 09/19/20 documented as of this encounter
--- OUTSIDE RECORDS SUMMARY | 2025-02-05 08:00 | XMS_ITS | Clinical Summary ---
Author Organization [facility] Address [address] [place] [address] Care Team Providers Care Algorithm Design Engineer Name Role Phone Martha De Jseus Primary Care Provider [phone] Allergies No known active allergies Medications levothyroxine [...] Overview (06/30/2023): Hold home calcium carb-vitamin D Anxiety and depression 06/29/2023 Hypertension 06/29/2023 Overview (06/30/2023): Hold home medications Continue metoprolol 12.5mg PRN hydralazine, labetolol Hypothyroidism 05/11/2023 Overview (06/29/2023): Continue home synthroid Neuropathy 01/25/2022 Osteopenia 12/05/2020 Primary osteoarthritis of knees, bilateral 11/27 Resolved Problems Problem Noted Date Diagnosed Date Resolved Date Hyperglycemia 06/30/2023 07/04/2023 Overview (06/30/2023): A1C 4.1 Likely 2/2 steroids SSI and monitoring per ICU protocol Post-operative pain 06/30/2023 07/04/19 24 Overview (06/30/2023): PRN dilaudid, oxycodone Overweight (BMI 25.0-29.9) 06/29/2023 0 01/27/2025 Overview (06/29/2023): Complicates all aspects of care. Decompensation of cirrhosis of liver 06/29/2023 06/30/2023 [...] following, appreciate recs Other ascites 12/21/2021 06/29/2023 Bilateral leg edema 12/21/2021 01/28/20 25 Hepatic encephalopathy 12/21/202106/29 Leg wound, left, initial encounter 12/21/2021 07/04/2023 Hypervolemia, unspecified hypervolemia type 12/09/2021 06/29/2023 Pre-liver transplant, listed 04/08/2021 06/29/2023 End-stage liver disease 12/05/202006/10 Overview (06/30/2023): 2/2 ETOh vs. Possible primary biliary cirrhosis S/P OLT 2/21--received 1L 5% albumin, 3L crystalloid, and 1 FFP intraoperatively MELD 16 Drain and immunosuppression per primary Zosyn post-operatively, end 06/30 Serial labs Post-operative liver US pending Pre-transplant evaluation fo r liver transplant 12/05/2020 06/29/2023 Elevated liver enzymes 12/05/202007/04 Overview (06/29/2023): See end stage liver disease overview Secondary esophageal varices without bleeding 12/06/19 21 06/29/2023 Overview (06/29/2023): History of esophageal varices w/o bleed Hyperlipidemia 12/05/2020 06/29/2023 Overview (06/29/2023): Hold home medications Alcoholic cirrhosis of liver without ascites 04/07/2021 LAUREN positive 11/27/2020 07/04/2023 Encounters Date Type Department Care Team Description 01/04/2025 Results Follow-Up [facility] [address] [place] [phone] Yumiko Benz, RENU 12/07/2024 Results Follow-Up [facility] [address] [place] [address] Yumiko Benz, RENU 11/16/2024 Orders Only [facility] [address] [place] [phone] Angeles Jacobsen, SPINNER TENDER 11/16/2024 Results Follow-Up [facility] [address] [address] Yumiko Benz, RN from Last 3 Months [...] drink first t marika in the morning (EYE-RIDING INSTRUCTOR) to steady your nerves or to get rid of a hangover? 1 05/11/2023 CAGE Questionnaire Score 4 024 Utilities Answer Date Recorded In the past 12 months has th [employer] electric, gas, oil, or water company threatened [...] Office Visit [facility] [address] [place] [address] Surgeon, Transplant Liver Health Maintenance Due Date Last Done Comments [facility]-Medicare Annual Wellness (AWV) 1965 [facility]-/Child/Adol SDOH Screenings 1965 [facility]- SDOH Screenings 08/14/1981 [facility]-Adult SDOH Screenings 08/14/1981 [facility]-Zoster Vaccines (1 of 2) 08/14/1982 [facility]-Pap Smear 08/14/1984 [facility]-Cervical Cancer Screening 08/14/1993 [facility]-HPV/Cotest 08/14/1993 CT Colonography 08/14/2008 Colonoscopy 08/14/2008 FIT-DNA 08/14/2008 FIT 08/14/2008 FOBT 08/14/2008 Sigmoidoscopy 08/14/2008 [facility]-Colorectal Cancer Screening 08/14/2008 [facility]-Breast Cancer Screening 08/14/2013 [id number] Vaccine (3 - Moderna risk series) 09/17/2020 [...] Diagnosis Comments COMPREHENSIVE METABOLIC PANEL, PLASMA Routine 12/31/2024 8:06 AM EDT MAGNESIUM, PLASMA Routine 12/31/2024 8:0 6 AM EDT GAMMA GLUTAMYLTRANSFERASE, PLASMA Routine 12/31/2024 8:06 AM EDT CBC W/O DIFFERENTIAL Routine 12/31/2024 8:06 AM EDT TACROLIMUS LEVEL Routine 12/31/2024 TACROLIMUS LEVEL Routine 12/03/2024 COMPREHENSIVE METABOLIC PANEL, PLASMA Routine 12/03/2024 MAGNESIUM, PLASMA Routine 12/03/2024 GAMMA GLUTAMYLTRANSFERASE, PLASMA Routine 12/03/2024 CBC WITH AUTO DIFFERENTIAL Routine 12/03/2024 CBC W/O DIFFERENTIAL Routine 11/12/2024 8:23 AM EDT COMPREHENSIVE METABOLIC PANEL, PLASMA Routine 11/12/2024 8:23 AM EDT GAMMA GLUTAMYLTRANSFERASE, PLASMA Routine 11/12/2024 8:23 AM EDT MAGNESIUM, PLASMA Routine 11/12/2024 8:2 3 AM EDT TACROLIMUS LEVEL Routine 11/12/2024 HEPATITIS C VIRUS (HCV) QUANTITATIVE PCR Routine 08/02/2023 7:43 AM EDT Status post liver transplantation (CMS/HCC) HUMAN IMMUNODEFICIENCY VIRUS (HIV-1) QUANTITATIVE PCR Routine 08/02/2023 7:43 AM EDT Status post liver transplantation (CMS/HCC) from Last 3 Months or Most Recently Relevant to Health Maintenance Results * CBC W/O Differential (12/31/2024 8:06 AM EDT) Only the most recent of2 resultswithin the time period is included. External WBC 4.8 External Red Blood Cell (RBC) 4.82 External Hemoglobin (Hgb) 13.90 External Hematocrit (Hct) 41.0 External Platelet Count (Plt) 237 Blood Venous blood specimen / Unknown 12/31/2024 8:06 AM EDT [facility] Provider LAB BLOOD ORDERABLES Final R esult * Magnesium, Plasma (12/31/2024 8:06 AM EDT) Only the most recent of3 resultswithin the time period is included. External Magnesium (Mg) 1.8 Blood Venous blood specimen / Unknown 12/31/2024 8:06 AM EDT [facility] Provider LAB BLOOD ORDERABLES Edited Result - Final * GGT, Plasma (12/31/2024 8:06 AM EDT) Only the most recent of3 resultswithin the time period is included. External Gamma Glutamyl Transpeptidase (GGT) 31 Blood Venous blood specimen / Unknown 12/31/2024 8:06 AM EDT [facility] Provider LAB BLOOD ORDERABLES Edited Result - Final * Comprehensive Metabolic Panel, Plasma (12/31/2024 8:06 AM EDT) Only the most recent of3 resultswithin the time period is included. External Glucose 112 External BUN 13 External Creatinine Blood 0.70 mg/dL External Sodium (Na) 140 mEq/L External Potassium (K) 4.3 External Chloride (Cl) 108 External Carbon Dioxide (CO2) 24 External Anion Gap (AG) 12.3 External Calcium (Ca) 9.3 External Total Protein 7.2 External Albumin 4.4 g/dL External AST (SGOT) 38 External ALT (SGPT) 24 External Alkaline Phosphatase 121 External Bilirubin Total 0.6 mg/dL External Estimated GFR 103 Blood Venous blood specimen / Unknown 12/31/2024 8:06 AM EDT Result [facility] LAB BLOOD ORDERABLES Edited Result - Final * Tacrolimus (12/31/2024) Only the most recent of3 resultswithin the time period is included. [facility] External FK506 (Prograf, Tacrolimus) 3.8 Blood Venous blood specimen / Unknown 12/31/2024 Result [facility] LAB BLOOD ORDERABLES Final R esult * CBC and Differential (12/03/2024) [facility] External WBC 5.7 External Hemoglobin (Hgb) 14.00 External Hematocrit (Hct) 42.7 External Platelet Count (Plt) 244 Blood Venous blood specimen / Unknown 12/03/2024 Result [facility] LAB BLOOD ORDERABLES Final R esult * Hepatitis C Virus (HCV) Quantitative PCR (08/02/2023 7:43 AM EDT) [facility] Hepatitis C Virus (HCV) Quantitative Interpretation Not Detected Not Detected . 08/03/2023 5:25 AM EDT [facility] Hepatitis C Virus (HCV) Quantitative Viral Load Log Result <1.08 <1.08 log10 IU/mL 08/03/2023 5:25 AM EDT [facility] Hepatitis C Virus (HCV) Quantitative IU/mL Result <12 <12 IU/mL 08/03/2023 5:25 AM EDT [facility] Blood Venous blood specimen / Unknown Venipuncture / Unknown 08/02/2023 7:43 AM EDT 08/02/2023 8:08 AM EDT [facility] - 08/03/2023 5:25 AM EDT [...] FDA approved for clinical use. Angeles Jacobsen SPINNER TENDER LAB BLOOD ORDERABLES Final R esult [facility] [address] [place] [address] * Human Immunodeficiency Virus (HIV) Quantitative PCR (08/02/2023 7:43 AM EDT) [facility] Human Immunodeficiency Virus (HIV-1) Quant Interpretation Not Detected Not Detected 08/03/2023 8:46 AM EDT [facility] Human Immunodeficiency Virus (HIV-1) Quant Log Result <1.60 <1.60 log10 copies/mL 08/03/2023 8:46 AM EDT [facility] Human Immunodeficiency Virus (HIV-1) Quant copies/mL Result <40 <40 copies/mL 08/03/2023 8:46 AM EDT [facility] Blood Venous blood specimen / Unknown Venipuncture / Unknown 08/02/2023 7:43 AM EDT 08/02/2023 8:09 AM EDT [facility] - 08/03/2023 8:46 AM EDT [...] approved for clinical use. us Angeles Jacobsen SPINNER TENDER LAB BLOOD ORDERABLES Final R esult [facility] [address] [place] [phone] from Last 3 Months or Most Recently Relevant to Health Maintenance Additional Health Concerns Infection Onset Date Last Indicated 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 Patient will require contact precautions for the duration of the hospital admission. 07/01/2023 07/01/2023 Insurance [facility] MEDICARE Advance Directives * Full Code (Latest Code Status on File) Date Activated Date Inactivated Comments 06/29/2023 3:17 PM 07/05/2023 5:29 PM Question Answer Comments Patient has decision-making capacity? Yes Care Teams Algorithm Design Engineer Relationship Specialty Start Date End Date Martha De Jesus PA [address] [place] [address] [facility] - General 09/19/20
--- OUTSIDE RECORDS SUMMARY | 2025-02-05 08:00 | XMS_ITS | Encounter Summary ---
Author Organization [facility] Address [address] [id number] Care Team Providers Care Thread Machine Operator Name Role Phone Martha De Jesus Primary Care Provider [phone] Encounter Details Date Type Department Care Team (Late st Contact Info) Description 08/18/2020 [facility] Historical OTTR [address] [place] [address] Amaya Clemons, RN [facility] LIVER [id number] [address] [place] [address] Social History Tobacco Use Types Packs/Day Years [...] she was started on solumedrol by her bank operations officer, as well as UDCA. Per patient and [...] alcohol and I gave her resources through [facility] alcohol treatment navigator. - Her ascites/edema has resolved and not recurred, even off diuretics for 3 weeks. - Will bring her back in 1month and reassess her MELD score and have her see transplant health and social care teacher. If MELD remains 15 and above, despite 6months of abstinence, will start transplant evaluation, but will need clearance from our txp health and social care teacher. documented in this encounter Plan of Treatment Upcoming Encounters Date Type Department Care Team (Late st Contact Info) Description 07/02/2025 1:20 PM EST Office Visit [facility] [address] [facility] [address] [place] [address] Surgeon, Transplant Liver documented as of this encounter Visit Diagnoses Not on filedocumented in this encounter Additional Health Concerns Infection Onset Date Last Indicated Resolved Time 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 Patient will require contact precautions for the duration of the hospital admission. 07/01/2023 07/01/2023 documented as of this encounter Care Teams Thread Machine Operator Relationship Specialty Start Date End Date Martha De Jesus PA [address] [place] [address] PCP - General 09/19/20 documented as of this encounter
--- OUTSIDE RECORDS SUMMARY | 2025-02-05 08:00 | XMS_ITS | Encounter Summary ---
Author Organization [facility] Address [address] [place] [address] Care Team Providers Care Electric Wirer Name Role Phone Martha De Jesus Primary Care Provider [phone] Encounter Details Date Type Department Care Team (Late st Contact Info) Description 12/07/2024 Results Follow-Up [facility] [address] [facility] [address] [place] [address] Yumiko Benz, RENU [facility] LIVER [id number] [address] [id number] Social History Tobacco Use Types Packs/Day Years [...] drink first t marika in the morning (EYE-PIPE LINER) to steady your nerves or to [...] Description 07/02/2025 1:20 PM EST Office Visit [facility] [address] [facility] [address] [place] [address] Surgeon, Transplant Liver documented as of this [...] documented as of this encounter Care Teams Electric Wirer Relationship Specialty Start Date End Date Martha De Jesus PA [address] [place] [address] PCP - General 09/19/20 documented as of this encounter
--- OUTSIDE RECORDS SUMMARY | 2025-02-05 08:00 | XMS_ITS | Encounter Summary ---
Author Organization [facility] Address [address] [place] [address] Care Team Providers Care Highway Painter Name Role Phone Martha De Jesus Primary Care Provider Encounter Details Date Type Department Care Team (Late st Contact Info) Description 06/27/2020 [facility] OTTR Encounter Historical OTTR [address] [place] [address] [place] [address] Social History Tobacco Use Types Packs/Day Years [...] Pt is NOT cleared for listing. Primary Bullet Swaging Machine Adjuster will need to follow up to establish sobriety date. * Progress Notes - ProviderLuis Fernando MD - 08/20/2020 7:33 AM EDT DOS 09/30/[address] Liver [address] CTA Cardiac 01055 Echo 48413 EVALUATION AUTHORIZATION: Evaluation authorization #[id number] expires on 12/11/2020. Authorization can be extended as needed. DOS 10/01/2020 Chest Xray 64465 Mandible Panorex 40344, 61719 BMD Dexa Scan 66406 EVALUATION AUTHORIZATION: Evaluation authorization #[id number] expires on 12/11/2020. Authorization can be extended as needed. Updating IAuth and nurse. * Progress Notes - Lulu Restrepo - 08/19/2020 4:35 PM EDT Pt is scheduled for Standard Liver Eval on 09/30 for Labs/Surgeon ICE/Echo/CTA and CT Liver/PFT ABG/Pharm arriving at Transplant at 8:00am and 10/01 for CXR Panorex/BMD/Hep/SW/Diet arriving at first floor radiology in the [facility] at 7:15am. Spoke to the pt and confirmed dates and times with her. Ptstated that she is having a PFT done tomorrow as fu from [facility] in May. She asked if she would [...] she was started on solumedrol by her night clerk auditor, as well as UDCA. Per patient and [...] score and have her see transplant director social. If MELD remains 15 and above, despite 6months of abstinence, will start transplant evaluation, but will need clearance from our txp director social. * Progress Notes - Aimee Bishop - [...] no tracking. Faxed CD images request to [facility]. * Progress Notes - Aimee Bishop - 06/13/2020 11:39 AM EST Called pt to schedule ICE apt, spoke with pt and scheduled ICE apt for 07/08/2020 arriving at 6:15am. * Progress Notes - Provider, MD Luis Fernando - 06/13/2020 10:57 AM EST Pt is financially clear for ICE. [facility] [employer] evaluation authorization #[id number] expires on 12/11/2020. * Progress Notes - Aimee Bishop - 06/11/2020 3:04 PM EST Called referring drs office, spoke with Kaye and requested most recent labs be faxed over. * Progress Notes - Aimee Bishop - 06/11/2020 2:43 PM EST Received new referral, 54 yo with ETOH cirrhosis and lesion. Images at [facility]. MRI report from 02/25/2020 impression states, There [...] fatty infiltration. * Progress Notes - Aimee Bihsop - 06/11/2020 2:37 PM EST Received new referral, pt with [employer] insurance. Requesting financial clearance before scheduling ICE apt. Sending note to [facility]. documented in this encounter Plan of Treatment Upcoming Encounters Date Type Department Care Team (Late st Contact Info) Description 07/02/2025 1:20 PM EST Office Visit [facility] [phone] Surgeon, Transplant Liver documented as of this [...] LAB - 06/11/2020 3:37 PM EST Other [facility] Provider LAB BLOOD ORDERABLES Final R esult Performing Organization Address City/[facility]/ZIP Co de Phone Number EXTERNAL LAB * OTTR LAB RESULTS (MANUAL) (05/12/2020 12:00 AM EST) External Prothrombin Time (PT) 14.3 seconds EXTERNAL LAB External INR - Internormal Ratio 1.32 EXTERNAL LAB 05/12/2020 Narrative EXTERNAL LAB - 06/11/2020 3:36 PM EST Other [facility] Provider LAB BLOOD ORDERABLES Final R esult Performing Organization Address City/[facility]/ZIP Co de Phone Number EXTERNAL LAB documented [...] documented as of this encounter Care Teams Highway Painter Relationship Specialty Start Date End Date Martha De Jesus PA [address] [place] [id number] PCP - General 09/19/20 documented as of this encounter
--- OUTSIDE RECORDS SUMMARY | 2025-02-05 08:00 | XMS_ITS ---
Author Organization [facility] Address [address] [place] [address] Care Team Providers Care Architect Internship Name Role Phone Martha De Jesus Primary Care Provider [phone] Transplant Episode Liver Recipient [facility] ([place], [place]) [facility] Organ Received: Liver Transplanted on 06/29/2023 Marked as Active Follow-up on 06/29/2023 Liver CoordinatorYumiko Benz RN Fax: N/A Email: N/A [place] Organ Diagnosis Organ Primary Contributory Liver Acute [...] file SARS CoV-2 No results on file HCV ANIVAL HCV ANIVAL: Negative HIV ANIVAL HIV ANIVAL: Negative HBV ANIVAL HBV ANIVAL: Negative Care Team Name Role Phone Fax Email Yumiko Benz RN Liver Coordinator [phone] N/A N /A Liseth Shin APRN Referring Physician [phone] N/A Gloria Gutierrez LCSW Interpretative Dancer [phone] N/A N/A Events Post-Transplant Pre-Transplant Admitted: 06/28/2023 Referred: 06/11/2020 Transplanted: 06/29/2023 Evaluation began: 3 Discharged: 07/05/2023 Committee: 09/13/2022 Center waitlisted: 3
[2025-02-05 08:21] LABS: Hematocrit 41.4 % (37.0-47.0); Hemoglobin 13.7 g/dL (12.2-16.2); Mean Corpuscular HGB Conc 33.1 g/dL (31.8-35.4); Mean Corpuscular Hemoglobin 28.9 pg (27.0-31.2); Mean Corpuscular Volume 87.3 fl (81-99); Nucleated Red Blood Cells % 0 %; Platelet Count 222 K/mm3 (142-424); Red Blood Count 4.74 M/mm3 (4.20-5.40); Red Cell Distribution Width-SD 39.2 fL; White Blood Count 5.3 K/mm3 (4.8-10.8)
[2025-02-05 08:57] LABS: Chloride 104 mmol/L (98-107); Potassium 4.4 mmoL/L (3.5-5.1); Sodium 135 mmol/L (136-145)
[2025-02-05 08:58] LABS: Alanine Aminotransferase 30 U/L (12-78); Albumin Level 3.9 g/dl (3.5-5.0); Albumin/Globulin Ratio 1.6 (1.1-1.8); Alkaline Phosphatase 102 U/L (38-126); Anion Gap 11.4 mEq/L (5-15); Aspartate Amino Transferase 31 U/L (14-36); Bilirubin,Total 0.5 mg/dl (0.2-1.3); Blood Urea Nitrogen 9 mg/dl (7-17); Calcium 9.1 mg/dl (8.4-10.2); Carbon Dioxide 24 mmol/L (22.0-30.0); Creatinine,Serum 0.70 mg/dl (0.52-1.04); Estimated Glomerular Filt Rate 85 ml/min (>60); GFR (African American) 103 ML/MIN (>60); Gamma Glutamyl Transpeptidase 33 U/L (12-43); Globulin 2.5 g/dL (1.3-3.2); Glucose 148 mg/dl (74-100); Magnesium 1.5 mg/dl (1.6-2.3); Total Protein,Serum 6.4 g/dl (6.3-8.2)
[2025-02-05 15:36] LABS: Free T4 (Free Thyroxine) 1.02 ng/dl (0.78-2.19)
[2025-02-05 15:51] LABS: Thyroid Stimulating Hormone 2.33 uIU/mL (0.465-4.68)
== END 2025-02-05 23:59 | disposition home or self-care (01) ==
PROVIDERS: PCP Nurse Practitioner Family; Visit Provider Nurse Practitioner Acute Care
DX: E03.9 Hypothyroidism, unspecified (principal); Z94.4 Liver transplant status
CPT/HCPCS: 36415; 80053; 80197; 82977; 83735; 84439; 84443; 85027

== ENCOUNTER 2025-02-15 13:20 | Outpatient (CLI) | payer MEDICARE, SELFPAY ==
--- NOTE | 2025-02-15 13:30 | CT_ITS ---
FINAL REPORT TECHNIQUE: Thin section axial CT images with coronal and sagittal reformats were performed after the administration of IV contrast. This study was performed with techniques to keep radiation doses as low as reasonably achievable (ALARA). Individualized dose reduction techniques using automated exposure control or adjustment of mA and/or kV according to the patient's size were employed. CLINICAL HISTORY: Nodule R Neck COMPARISON: None FINDINGS: CT NECK SOFT TISSUE WITH CONTRAST: The nasopharynx is unremarkable. There is abnormal enhancement in the right tonsillar pillar, which extends inferiorly to the right aryepiglottic fold. There is a nodular density anterior to the epiglottis and the preepiglottic space, which measures 14 mm in size, best seen on image #45. The epiglottis is otherwise unremarkable. The larynx is unremarkable. The salivary glands and thyroid are also unremarkable in appearance. There is enlargement of upper right cervical nodes, the largest measuring 19 mm in size. No other cervical adenopathy is noted. Limited evaluation of the lung apices is unremarkable. The paranasal sinuses and mastoid air cells are clear. No acute osseous abnormality is identified. IMPRESSION: 1. Abnormal soft tissue involving the right tonsillar pillar, the right aryepiglottic fold, and the preepiglottic soft tissues, malignancy not excluded. Recommend direct visualization. 2. Right cervical lymphadenopathy, could be reactive or metastatic. Reviewed, Interpreted and Dictated by Nicky England MD Transcribed by Leonila Chavez Authenticated and [facility]
[2025-02-15] MEDS: SODIUM CHLORIDE 0.9% 10ML SYR (RAD ONLY) 10 ML IV (13:54)
[2025-02-15] MEDS: IOPAMIDOL-370 (76%);100ML BOTTLE 75 ML IV (13:54)
== END 2025-02-15 23:59 | disposition home or self-care (01) ==
LOC: RAD 13:20
PROVIDERS: Visit Provider Nurse Practitioner Family
DX: R59.0 Localized enlarged lymph nodes (principal); R93.89 Abnormal findings on diagnostic imaging of other specified body structures
CPT/HCPCS: 70491; Q9967

== ENCOUNTER 2025-03-11 07:59 | Outpatient (CLI) | payer MEDICARE, SELFPAY ==
[2025-03-11 08:26] LABS: Hematocrit 41.9 % (37.0-47.0); Hemoglobin 14.2 g/dL (12.2-16.2); Mean Corpuscular HGB Conc 33.9 g/dL (31.8-35.4); Mean Corpuscular Hemoglobin 29.1 pg (27.0-31.2); Mean Corpuscular Volume 85.9 fl (81-99); Nucleated Red Blood Cells % 0 %; Platelet Count 224 K/mm3 (142-424); Red Blood Count 4.88 M/mm3 (4.20-5.40); Red Cell Distribution Width-SD 37.6 fL; White Blood Count 6.1 K/mm3 (4.8-10.8)
[2025-03-11 09:24] LABS: Alanine Aminotransferase 27 U/L (12-78); Albumin Level 4.2 g/dl (3.5-5.0); Albumin/Globulin Ratio 1.3 (1.1-1.8); Anion Gap 8.5 mEq/L (5-15); Aspartate Amino Transferase 34 U/L (14-36); Blood Urea Nitrogen 18 mg/dl (7-17); Calcium 9.3 mg/dl (8.4-10.2); Carbon Dioxide 26 mmol/L (22.0-30.0); Chloride 104 mmol/L (98-107); Creatinine,Serum 0.70 mg/dl (0.52-1.04); Estimated Glomerular Filt Rate 85 ml/min (>60); GFR (African American) 103 ML/MIN (>60); Gamma Glutamyl Transpeptidase 24 U/L (12-43); Globulin 3.2 g/dL (1.3-3.2); Glucose 101 mg/dl (74-100); Magnesium 1.7 mg/dl (1.6-2.3); Potassium 4.5 mmoL/L (3.5-5.1); Sodium 134 mmol/L (136-145); Total Protein,Serum 7.4 g/dl (6.3-8.2)
[2025-03-11 12:03] LABS: Alkaline Phosphatase 118 U/L (38-126); Bilirubin,Total 0.7 mg/dl (0.2-1.3)
[2025-03-14 18:48] LABS: Tacrolimus (FK506), Blood 2.7 ng/mL (5.0-20.0)
== END 2025-03-11 23:59 | disposition home or self-care (01) ==
LOC: LAB 08:01
PROVIDERS: PCP Nurse Practitioner Family; Visit Provider Nurse Practitioner Acute Care
DX: Z48.23 Encounter for aftercare following liver transplant (principal); Z94.4 Liver transplant status; Z79.620 Long term (current) use of immunosuppressive biologic
CPT/HCPCS: 36415; 80053; 80197; 82977; 83735; 85027

== ENCOUNTER 2025-03-12 08:40 | Outpatient (CLI) | payer MEDICARE, SELFPAY ==
--- OUTSIDE RECORDS SUMMARY | 2025-03-12 08:43 | XMS_ITS | Encounter Summary ---
Author Organization [facility] Address [address] [place] [address] Care Team Providers Care Can Crimper Name Role Phone Martha De Jesus Primary Care Provider [phone] Encounter Details Date Type Department Care Team (Late st Contact Info) Description 01/04/2025 Results Follow-Up [facility] [address] [facility] [address] [place] [address] Yuimko Benz, RENU [facility] LIVER [id number] [address] [id number] Social History Tobacco Use Types Packs/Day Years [...] drink first t marika in the morning (EYE-LANGUAGE THERAPIST) to steady your nerves or to get [...] 07/02/2025 1:20 PM EST Office Visit [facility] [address] [facility] [address] [place] [address] Surgeon, Transplant Liver documented as of this [...] documented as of this encounter Care Teams Can Crimper Relationship Specialty Start Date End Date Martha De Jesus PA [address] [place] [address] PCP - General 09/19/20 documented as of this encounter
--- OUTSIDE RECORDS SUMMARY | 2025-03-12 08:43 | XMS_ITS | Encounter Summary ---
Author Organization [facility] Address [address] [place] [address] Care Team Providers Care Tub Wash Operator Name Role Phone Martha De Jesus Primary Care Provider [phone] Reason for Referral * Consultation (Routine) - Closed Specialty Diagnoses / Procedures Referred By Contac t Referred To Contact Rheumatology Diagnoses Elevated C-reactive protein Elevated sed rate Martha De Jesus PA [address] [place] [address] Phone: tel: fax: Referral ID Status Reason Start Date Expiration Date V isits Requested Visits Authorized [id number] Closed Specialty Services Required 11/14/2020 05/13/2021 1 1 Encounter Details Date Type Department Care Team (Late st Contact Info) Description 11/14/2020 [facility] [address] [place] [address] Martha De Jesus PA [address] [place] [address] Elevated C-reactive protein (Primary Dx); [...] 07/02/2025 1:20 PM EST Office Visit [facility] Transplant [facility] [address] [place] [address] Surgeon, Transplant Liver Scheduled Referrals Name Type [...] documented as of this encounter Care Teams Tub Wash Operator Relationship Specialty Start Date End Date Martha De Jesus PA [address] [place] [address] PCP - General 09/19/20 documented as of this encounter
--- OUTSIDE RECORDS SUMMARY | 2025-03-12 08:43 | XMS_ITS ---
Author Organization [facility] Address [address] [place] [address] Care Team Providers Care Buttonhole Tacker Name Role Phone Martha De Jesus Primary Care Provider [phone] Transplant Episode Liver Recipient [facility] ([place], [place]) [facility] Organ Received: Liver Transplanted on 06/29/2023 Marked as Active Follow-up on 06/29/2023 Liver CoordinatorYumiko Benz RN Fax: N/A Email: N/A [place] Organ Diagnosis Organ Primary Contributory Liver Acute [...] Fax Email Yumiko Benz RN Liver Coordinator [phone] N/A N /A Liseth Shin APRN Referring Physician [phone] N/A Gloria Gutierrez LCSW [place] [phone] N/A N/A Events Post-Transplant Pre-Transplant Admitted: 06/28/2023 Referred: 06/11/2020 Transplanted: 06/29/2023 Evaluation began: 3 Discharged: 07/05/2023 Committee: 09/13/2022 Center waitlisted: 3
--- OUTSIDE RECORDS SUMMARY | 2025-03-12 08:43 | XMS_ITS | Encounter Summary ---
Author Organization Healthcare Address [address] [place] [address] Care Team Providers Care Language Asst Name Role Phone Martha De Jesus Primary Care Provider [phone] Encounter Details Date Type Department Care Team (Late st Contact Info) Description 12/07/2024 Results Follow-Up [facility] [address] [facility] [address] [place] [address] Yumiko Benz, RENU [facility] LIVER [id number] [address] [id number] Social History Tobacco Use Types Packs/Day Years [...] drink first t marika in the morning (EYE-MAJOR LEAGUE BASEBALL PLAYER) to steady your nerves or to get [...] 1:20 PM EST Office Visit [facility] [address] [facility] [address] [place] [address] Surgeon, Transplant Liver documented as of this [...] documented as of this encounter Care Teams Language Asst Relationship Specialty Start Date End Date Martha De Jesus PA [address] [place] [address] PCP - General 09/19/20 documented as of this encounter
--- OUTSIDE RECORDS SUMMARY | 2025-03-12 08:43 | XMS_ITS | Encounter Summary ---
Author Organization [facility] Address [address] [place] [address] Care Team Providers Care Aluminum Siding Applicator Name Role Phone Martha De Jesus Primary Care Provider [phone] Encounter Details Date Type Department Care Team (Late st Contact Info) Description 06/27/2020 [facility] OTTR Encounter Historical OTTR [address] [place] [address] [place] [address] Social History Tobacco Use Types Packs/Day Years [...] with provider. * Progress Notes - Marjorie Ramhan - 08/22/2020 9:28 AM EDT Ms. Hendricks appears to be an appropriate social candidate for liver transplant evaluation at this time. Pt is NOT cleared for listing. Primary Mis Specialist will need to follow up to establish sobriety date. * Progress Notes - ProviderLuis Fernando MD - 08/20/2020 7:33 AM EDT DOS 09/30/[address] Liver 69985 CTA Cardiac 40007 Echo 72111 EVALUATION AUTHORIZATION: Evaluation authorization #[id number] expires on 12/11/2020. Authorization can be extended as needed. DOS 10/01/2020 Chest Xray 69429 Mandible Panorex 66077, 26124 BMD Dexa Scan 06966 EVALUATION AUTHORIZATION: Evaluation authorization #[id number] expires on 12/11/2020. Authorization can be extended as needed. Updating IAuth and nurse. * Progress Notes - Lulu Restrepo - 08/19/2020 4:35 PM EDT Pt is scheduled for Standard Liver Eval on 09/30 for Labs/Surgeon ICE/Echo/CTA and CT Liver/PFT ABG/Pharm arriving at Transplant at 8:00am and 10/01 for CXR Panorex/BMD/Hep/SW/Diet arriving at first floor radiology in the [facility] at 7:15am. Spoke to the pt and confirmed dates and times with her. Ptstated that she is having a PFT done tomorrow as fu from [facility] in May. She asked if she would [...] she was started on solumedrol by her sterile processing tech, as well as UDCA. Per patient and [...] MELD score and have her see transplant clinical social work therapist. If MELD remains 15 and above, despite 6months of abstinence, will start transplant evaluation, but will need clearance from our txp clinical social work therapist. * Progress Notes - Aimee Bishop - [...] EST Pt is financially clear for ICE. [facility] [employer] evaluation authorization #[id number] expires on 12/11/2020. * Progress Notes - [...] PM EST Received new referral, pt with scrible insurance. Requesting financial clearance before scheduling ICE apt. Sending note to [facility]. documented in this encounter Plan of Treatment Upcoming Encounters Date Type Department Care Team (Late st Contact Info) Description 07/02/2025 1:20 PM EST Office Visit [facility] [place] [phone] Surgeon, Transplant Liver documented as of this [...] LAB - 06/11/2020 3:37 PM EST Other [facility] Provider LAB BLOOD ORDERABLES Final R esult Performing Organization Address City/[facility]/ZIP Co de Phone Number EXTERNAL LAB * OTTR LAB RESULTS (MANUAL) (05/12/2020 12:00 AM EST) External Prothrombin Time (PT) 14.3 seconds EXTERNAL LAB External INR - Internormal Ratio 1.32 EXTERNAL LAB 05/12/2020 Narrative EXTERNAL LAB - 06/11/2020 3:36 PM EST Other [facility] Provider LAB BLOOD ORDERABLES Final R esult Performing Organization Address City/[facility]/ZIP Co de Phone Number EXTERNAL LAB [...] documented as of this encounter Care Teams Aluminum Siding Applicator Relationship Specialty Start Date End Date Martha De Jesus PA [address] [place] [id number] PCP - General 09/19/20 documented as of this encounter
--- OUTSIDE RECORDS SUMMARY | 2025-03-12 08:43 | XMS_ITS | Clinical Summary ---
Author Organization [facility] Address [address] [place] [address] Care Team Providers Care Truss Assembler Name Role Phone Martha De Jesus Primary Care Provider [phone] Allergies No known active allergies Medications levothyroxine [...] MG PO capsuleIndicat ions:Liver Transplant Status Take 1 capsule by mouth every morning AND 1 capsule every evening. Z94.4. 60 capsule 11 02/14/20 25 026 Active cholestyramine (Questran) 4 g packet Take 1 packet by mouth 1 (one) time each day. 022 Discontinued tacrolimus 1 MG PO capsuleIndicat ions:Liver Transplant Status Take 2 capsules by mouth every morning AND 1 capsule every evening. Z94.4. 90 capsule 11 11/02/19 25 025 Discontinued Active Problems Problem Noted [...] Encounters Date Type Department Care Team Description 02/11/2025 Results Follow-Up [facility] [address] [place] [address] Yumiko Benz RN 01/04/2025 Results Follow-Up [facility] [address] [address] Yumiko Benz RN from Last 3 Months [...] drink first t marika in the morning (EYE-MICRO LAB ANALYST) to steady your nerves or to get rid of a hangover? 1 05/11/2023 CAGE Questionnaire Score 4 024 Utilities Answer Date Recorded In the past 12 months has th e [employer], gas, oil, or water company threatened to [...] 07/02/2025 1:20 PM EST Office Visit [facility] [address] [place] [phone] Surgeon, Transplant Liver Health Maintenance Due Date Last Done Comments [facility]-Medicare Annual Wellness (AWV) 1965 [facility]-Infant/Child/Adol SDOH Screenings 1965 [facility]- SDOH Screenings 08/14/1981 [facility]-Adult SDOH Screenings 08/14/1981 [facility]-Zoster Vaccines (1 of 2) 08/14/1982 [facility]-Pap Smear 08/14/1984 [facility]-Cervical Cancer Screening 08/14/1993 [facility]-HPV/Cotest 08/14/1993 CT Colonography 08/14/2008 Colonoscopy 08/14/2008 FIT-DNA 08/14/2008 FIT 08/14/2008 FOBT 08/14/2008 Sigmoidoscopy 08/14/2008 [facility]-Colorectal Cancer Screening 08/14/2008 [facility]-Breast Cancer Screening 08/14/2013 [id number] Vaccine (3 - Moderna risk series) 09/17/2020 [...] Diagnosis Comments CBC WITH AUTO DIFFERENTIAL Routine 03/11/2025 8:05 AM EST COMPREHENSIVE METABOLIC PANEL, PLASMA Routine 03/11/2025 8:05 AM EST GAMMA GLUTAMYLTRANSFERASE, PLASMA Routine 03/11/2025 8:05 AM EST MAGNESIUM, PLASMA Routine 03/11/2025 8:0 5 AM EST TACROLIMUS LEVEL Routine 02/05/2025 CBC W/O DIFFERENTIAL Routine 02/05/2025 COMPREHENSIVE METABOLIC PANEL, PLASMA Routine 02/05/2025 MAGNESIUM, PLASMA Routine 02/05/2025 GAMMA GLUTAMYLTRANSFERASE, PLASMA Routine 02/05/2025 COMPREHENSIVE METABOLIC PANEL, PLASMA Routine 12/31/2024 8:06 AM EDT MAGNESIUM, PLASMA Routine 12/31/2024 8:0 6 AM EDT GAMMA GLUTAMYLTRANSFERASE, PLASMA Routine 12/31/2024 8:06 AM EDT CBC W/O DIFFERENTIAL Routine 12/31/2024 8:06 AM EDT TACROLIMUS LEVEL Routine 12/31/2024 HEPATITIS C VIRUS (HCV) QUANTITATIVE PCR Routine 08/02/2023 7:43 AM EDT Status post liver transplantation (CMS/HCC) HUMAN IMMUNODEFICIENCY VIRUS (HIV-1) QUANTITATIVE PCR Routine 08/02/2023 7:43 AM EDT Status post liver transplantation (CMS/HCC) from Last 3 Months or Most Recently Relevant to Health Maintenance Results * CBC and Differential (03/11/2025 8:05 AM EST) External WBC 6.1 External Red Blood Cell (RBC) 4.88 External Hemoglobin (Hgb) 14.20 External Hematocrit (Hct) 41.9 External Platelet Count (Plt) 224 Blood Venous blood specimen / Unknown 03/11/2025 8:05 AM EST [facility] Provider LAB BLOOD ORDERABLES Final R esult * Magnesium, Plasma (03/11/2025 8:05 AM EST) Only the most recent of3 resultswithin the time period is included. Pathologist [facility] External Magnesium (Mg) 1.7 Blood Venous blood specimen / Unknown 03/11/2025 8:05 AM EST [facility] LAB BLOOD ORDERABLES Final R esult * GGT, Plasma (03/11/2025 8:05 AM EST) Only the most recent of3 resultswithin the time period is included. Pathologist [facility] External Gamma Glutamyl Transpeptidase (GGT) 24 Blood Venous blood specimen / Unknown 03/11/2025 8:05 AM EST [facility] Provider LAB BLOOD ORDERABLES Final R esult * Comprehensive Metabolic Panel, Plasma (03/11/2025 8:05 AM EST) Only the most recent of3 resultswithin the time period is included. External Glucose 101 External BUN 18 External Creatinine Blood 0.70 mg/dL External Sodium (Na) 134 mEq/L External Potassium (K) 4.5 External Chloride (Cl) 104 External Carbon Dioxide (CO2) 26 External Calcium (Ca) 8.5 External Total Protein 7.4 External Albumin 4.2 g/dL External AST (SGOT) 34 External ALT (SGPT) 24 External Alkaline Phosphatase 118 External Bilirubin Total 0.7 mg/dL External Estimated GFR 85 Blood Venous blood specimen / Unknown 03/11/2025 8:05 AM EST [facility] Provider LAB BLOOD ORDERABLES Final R esult * Tacrolimus (02/05/2025) Only the most recent of2 resultswithin the time period is included. External FK506 (Prograf, Tacrolimus) 7.4 Blood Venous blood specimen / Unknown 02/05/2025 [facility] Provider LAB BLOOD ORDERABLES Final R esult * CBC W/O Differential (02/05/2025) Only the most recent of2 resultswithin the time period is included. External WBC 5.3 External Hemoglobin (Hgb) 13.70 External Hematocrit (Hct) 41.4 External Platelet Count (Plt) 222 Blood Venous blood specimen / Unknown 02/05/2025 [facility] Provider LAB BLOOD ORDERABLES Final R esult * Hepatitis C Virus (HCV) Quantitative PCR (08/02/2023 7:43 AM EDT) Hepatitis C Virus (HCV) Quantitative Interpretation Not Detected Not Detected . 08/03/2023 5:25 AM EDT [facility] Hepatitis C Virus (HCV) Quantitative Viral Load Log Result <1.08 <1.08 log10 IU/mL 08/03/2023 5:25 AM EDT [facility] Hepatitis C Virus (HCV) Quantitative IU/mL Result <12 <12 IU/mL 08/03/2023 5:25 AM EDT [facility] Blood Venous blood specimen / Unknown Venipuncture / Unknown 08/02/2023 7:43 AM EDT 08/02/2023 8:08 AM EDT Narrative [facility] - 08/03/2023 5:25 AM EDT The [email or web address] M2000 HCV test is a Real Time [...] assay is FDA approved for clinical use. [employer] LAB BLOOD ORDERABLES Final R esult [facility] [address] [place] [address] * Human Immunodeficiency Virus (HIV) Quantitative PCR (08/02/2023 7:43 AM EDT) [facility] Human Immunodeficiency Virus (HIV-1) Quant Interpretation Not Detected Not Detected 08/03/2023 8:46 AM EDT [facility] Human Immunodeficiency Virus (HIV-1) Quant Log Result <1.60 <1.60 log10 copies/mL 08/03/2023 8:46 AM EDT [facility] Human Immunodeficiency Virus (HIV-1) Quant copies/mL Result <40 <40 copies/mL 08/03/2023 8:46 AM EDT [facility] Blood Venous blood specimen / Unknown Venipuncture / Unknown 08/02/2023 7:43 AM EDT 08/02/2023 8:09 AM EDT Narrative [facility] - 08/03/2023 8:46 AM EDT The [...] FDA approved for clinical use. [place] [facility] Ann[facility] HEEL SORTER LAB BLOOD ORDERABLES Final R esult [facility] [address] [place] [address] from Last 3 Months or Most Recently Relevant to Health Maintenance Additional Health Concerns Infection Onset Date Last Indicated 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 Patient will require contact precautions for the duration of the hospital admission. 07/01/2023 07/01/2023 Insurance [facility] MEDIC[facility] Advance Directives * Full Code (Latest Code Status on File) Date Activated Date Inactivated Comments 06/29/2023 3:17 PM 07/05/2023 5:29 PM Question Answer Comments Patient has decision-making capacity? Yes Care Teams Truss Assembler Relationship Specialty Start Date End Date Martha De Jesus PA [address] [place] [address] PCP - General 09/19/20
--- OUTSIDE RECORDS SUMMARY | 2025-03-12 08:43 | XMS_ITS | Encounter Summary ---
Author Organization Healthcare Address [address] [place] [address] Care Team Providers Care Adjustment Examiner Name Role Phone Martha De Jesus Primary Care Provider [phone] Encounter Details Date Type Department Care Team (Late st Contact Info) Description 11/16/2024 Results Follow-Up [facility] [address] [facility] [address] [place] [phone] Yumiko Benz, RENU [facility] LIVER [id number] [address] [phone] Social History Tobacco Use Types Packs/Day Years [...] drink first t marika in the morning (EYE-DISTRIBUTION ENGINEER) to steady your nerves or to get [...] Office Visit [facility] [address] [facility] [address] [place] [address] Surgeon, Transplant Liver documented as of this [...] documented as of this encounter Care Teams Adjustment Examiner Relationship Specialty Start Date End Date Martha De Jesus PA [address] [place] [address] PCP - General 09/19/20 documented as of this encounter
--- OUTSIDE RECORDS SUMMARY | 2025-03-12 08:43 | XMS_ITS | Encounter Summary ---
Author Organization [facility] Address [address] [id number] Care Team Providers Care Window And Door Installer Name Role Phone Martha De Jesus Primary Care Provider [phone] Encounter Details Date Type Department Care Team (Late st Contact Info) Description 08/18/2020 [facility] OT[facility] Committee Historical OTTR [address] [place] [address] Amaya Clemons, RN [facility] LIVER [id number] [address] [place] [address] Social History Tobacco Use Types Packs/Day Years [...] she was started on solumedrol by her boil off worker, as well as UDCA. Per patient and [...] alcohol and I gave her resources through [facility] alcohol treatment navigator. - Her ascites/edema has resolved and not recurred, even off diuretics for 3 weeks. - Will bring her back in 1month and reassess her MELD score and have her see transplant social worker health services. If MELD remains 15 and above, despite 6months of abstinence, will start transplant evaluation, but will need clearance from our txp social worker health services. documented in this encounter Plan of Treatment Upcoming Encounters Date Type Department Care Team (Late st Contact Info) Description 07/02/2025 1:20 PM EST Office Visit [facility] [address] [facility] [address] [place] [address] Surgeon, Transplant Liver documented as of this encounter Visit Diagnoses Not on filedocumented in this encounter Additional Health Concerns Infection Onset Date Last Indicated Resolved Time 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 Patient will require contact precautions for the duration of the hospital admission. 07/01/2023 07/01/2023 documented as of this encounter Care Teams Window And Door Installer Relationship Specialty Start Date End Date Martha De Jesus PA [address] [place] [address] PCP - General 09/19/20 documented as of this encounter
--- OUTSIDE RECORDS SUMMARY | 2025-03-12 08:43 | XMS_ITS | Encounter Summary ---
Author Organization [facility] Address [address] [place] [address] Care Team Providers Care Boiler Plant Worker Name Role Phone Martha De Jesus Primary Care Provider [phone] Reason for Referral * Medications - Closed Specialty Diagnoses / Procedures Referred By Contac t Referred To Contact Diagnoses Status post liver transplantation (CMS/HCC) Anitra Hanna APRN [address] [address] Phone: tel: fax: Referral ID Status Reason Start Date Expiration Date Visits Re quested Visits Authorized [id number] Closed 1 1 Encounter Details Date Type Department Care Team (Late st Contact Info) Description 02/11/2025 Results Follow-Up [facility] [address] [phone] Yumiko Benz RN [facility] LIVER [id number] [address] [place] [address] Social History Tobacco Use Types [...] drink first t marika in the morning (EYE-PET TRAINING INSTRUCTOR) to steady your nerves or to get rid of a hangover? 1 05/11/2023 CAGE Questionnaire Score 4 024 Utilities Answer Date Recorded In the past 12 months has [employer] electric, gas, oil, or water company threatened [...] Telephone Encounter - Yumiko Benz RN - 02/14/2025 2:26 PM EDT Spoke with pt, instructed to decrease tacrolimus to 1 mg twice daily and repeat labs in 3 weeks. Ptverbalized understanding. ----- Message from Anitra Hanna APRN sent at 02/13/2025 11:23 AM EDT ----- 02/05 labs reviewed, tacrolimus level 7.4, magnesium level 1.5, creatinine 0.7, stable liver enzymes. Please have patient decrease tacrolimus to 1 mg twice daily and repeat labs in 3 weeks. Continue with current magnesium oxide supplementation. ----- Message ----- From: Yumiko Benz RN Sent: 02/11/2025 11:51 AM EDT To: Post-Liver Transplant Results Review Labs completed. Ready to review. ----- Message ----- From: Yumiko Benz RN Sent: 02/06/2025 2:20 PM EDT To: Yumiko Benz RN * Result Encounter Note - Anitra Hanna APRN - 02/13/2025 11:23 AM EDT 02/05 labs reviewed, tacrolimus level 7.4, magnesium level 1.5, creatinine 0.7, stable liver enzymes. Please have patient decrease tacrolimus to 1 mg twice daily and repeat labs in 3 weeks. Continue with current magnesium oxide supplementation. * Result Encounter Note - Yumiko Benz RN - 02/11/2025 11:51 AM EDT Labs completed. Ready to review. documented in this encounter Plan of Treatment Upcoming Encounters Date Type Department Care Team (Late st Contact Info) Description 07/02/2025 1:20 PM EST Office Visit [facility] [address] [facility] [address] [place] [address] Surgeon, Transplant Liver documented as of this [...] documented as of this encounter Care Teams Boiler Plant Worker Relationship Specialty Start Date End Date Martha De Jesus PA [address] [place] [address] PCP - General 09/19/20 documented as of this encounter
--- NOTE | 2025-03-12 09:00 | US_ITS ---
FINAL REPORT CLINICAL HISTORY: evaluation OF NODES OF RT NECK COMPARISON: CT 02/15/2025 FINDINGS: Limited sonographic images were obtained of the soft tissues of the neck. There are bilateral cervical lymph nodes [id number]-left. The largest on the right measures 1.8 cm. These are indeterminate by ultrasound and could be reactive but neoplasm not excluded. IMPRESSION: Indeterminate bilateral cervical lymph nodes could be reactive but neoplasm not excluded. Reviewed, Interpreted and Dictated by Nicky England MD Transcribed by Suzanne Lewis Authenticated and [facility]
--- NOTE | 2025-03-12 09:30 | US_ITS ---
FINAL REPORT CLINICAL HISTORY: ENLARGED NODE OF RT NECK -- RT NECK NODE FNA -- CLARENCE ROBBINS FINDINGS: ULTRASOUND GUIDED RIGHT NECK LYMPH NODE BIOPSY HISTORY: Right neck lymph node. TECHNIQUE: Informed consent was obtained from the patient. Timeout procedure was performed prior to beginning. Limited sonographic evaluation of the rght neck was performed to localize lesion of interest. The neck was prepped in a routine sterile fashion and locally anesthetized with 1% lidocaine. FNA was performed with 25-gauge needle under direct sonographic visualization. 4 passes were made. Cytology is pending. Procedure was well tolerated. CONCLUSION: Technically successful right neck lymph node FNA. Reviewed, Interpreted and Dictated by Nicky England MD Transcribed by Yanni Valencia PA-C Authenticated and [facility]
== END 2025-03-12 23:59 | disposition home or self-care (01) ==
LOC: RAD 08:41
PROVIDERS: PCP Nurse Practitioner Family; Visit Provider Nurse Practitioner
DX: R59.0 Localized enlarged lymph nodes (principal)
CPT/HCPCS: 10005; 76536

== ENCOUNTER 2025-04-15 07:26 | Outpatient (CLI) | payer MEDICARE, SELFPAY ==
--- OUTSIDE RECORDS SUMMARY | 2025-04-15 07:29 | XMS_ITS | Clinical Summary ---
Author Organization [facility] Address [address] [place] [address] Care Team Providers Care Gear Shaper Set Up Operator Name Role Phone Martha De Jesus Primary Care Provider [phone] Allergies No known active allergies Medications levothyroxine [...] capsule every evening. Z94.4. 90 capsule 11 03/15/20 25 026 Active cholestyramine (Questran) 4 g [...] Encounters Date Type Department Care Team Description 03/15/2025 Results Follow-Up [facility] [address] [address] Yumiko Benz V, RN 02/11/2025 Results Follow-Up [facility] [address] [address] Yumiko Benz V, RN from Last 3 Months Immunizations Immunization [...] drink first t marika in the morning (EYE-WREATH MACHINE TENDER) to steady your nerves or to get rid of a hangover? 1 05/11/2023 CAGE Questionnaire Score 4 024 Utilities Answer Date Recorded In the past 12 months has [employer], gas, oil, or water [employer] threatened to shut off services in your [...] Hospital Transplant [facility] [address] [place] [address] Surgeon, Transplant Liver Health Maintenance Due Date Last Done Comments [facility]-Medicare Annual Wellness (AWV) 1965 [facility]-/Child/Adol SDOH Screenings 1965 [facility]- SDOH Screenings 08/14/1981 [facility]-Adult SDOH Screenings 08/14/1981 [facility]-Zoster Vaccines (1 of 2) 08/14/1982 [facility]-Pap Smear 08/14/1984 [facility]-Cervical Cancer Screening 08/14/1993 [facility]-HPV/Cotest 08/14/1993 CT Colonography 08/14/2008 Colonoscopy 08/14/2008 FIT-DNA 08/14/2008 FIT 08/14/2008 FOBT 08/14/2008 Sigmoidoscopy 08/14/2008 [facility]-Colorectal Cancer Screening 08/14/2008 [facility]-Breast Cancer Screening 08/14/2013 OTC-[id number]-92 Vaccine (3 - Moderna risk series) 09/17/2020 [...] 8:0 5 AM EST TACROLIMUS LEVEL Routine 03/11/2025 TACROLIMUS LEVEL Routine 02/05/2025 CBC W/O DIFFERENTIAL Routine 02/05/2025 COMPREHENSIVE METABOLIC PANEL, PLASMA Routine 02/05/2025 MAGNESIUM, PLASMA Routine 02/05/2025 GAMMA GLUTAMYLTRANSFERASE, PLASMA Routine 02/05/2025 HEPATITIS C VIRUS (HCV) QUANTITATIVE PCR Routine [...] specimen / Unknown 03/11/2025 8:05 AM EST us Historical Provider LAB BLOOD ORDERABLES Final R esult * Magnesium, Plasma (03/11/2025 8:05 AM EST) Only the most recent of2 resultswithin the time period is included. External Magnesium (Mg) 1.7 Blood Venous blood specimen / Unknown 03/11/2025 8:05 AM EST Result [facility] Provider LAB BLOOD ORDERABLES Final R esult * GGT, Plasma (03/11/2025 8:05 AM EST) Only the most recent of2 resultswithin the time period is included. External Gamma Glutamyl Transpeptidase (GGT) 24 Blood Venous blood specimen / Unknown 03/11/2025 8:05 AM EST Result [facility] LAB BLOOD ORDERABLES Final R esult * Comprehensive Metabolic Panel, Plasma (03/11/2025 8:05 AM EST) Only the most recent of2 resultswithin the [...] specimen / Unknown 03/11/2025 8:05 AM EST Result [facility] LAB BLOOD ORDERABLES Final R esult * Tacrolimus (03/11/2025) Only the most recent of2 resultswithin the time period is included. External FK506 (Prograf, Tacrolimus) 2.7 Blood Venous blood specimen / Unknown 03/11/2025 Result [facility] Provider LAB BLOOD ORDERABLES Final R esult * CBC W/O Differential (02/05/2025) External WBC 5.3 External Hemoglobin (Hgb) 13.70 External Hematocrit (Hct) 41.4 External Platelet Count (Plt) 222 Blood Venous blood specimen / Unknown 02/05/2025 [facility] Provider LAB BLOOD ORDERABLES Final R esult * Hepatitis C Virus (HCV) Quantitative PCR (08/02/2023 7:43 AM EDT) Hepatitis C Virus (HCV) Quantitative Interpretation Not Detected Not Detected . 08/03/2023 5:25 AM EDT [facility] Hepatitis C Virus (HCV) Quantitative Viral Load Log Result <1.08 <1.08 log10 IU/mL 08/03/2023 5:25 AM EDT [facility] Hepatitis C Virus (HCV) Quantitative IU/mL Result <12 <12 IU/mL 08/03/2023 5:25 AM EDT [facility] Blood Venous blood specimen / Unknown Venipuncture / Unknown 08/02/2023 7:43 AM EDT 08/02/2023 8:08 AM EDT Narrative [facility] - 08/03/2023 5:25 AM EDT The [...] APRN LAB BLOOD ORDERABLES Final R esult [facility] [address] [place] [id number] * Human Immunodeficiency Virus (HIV) Quantitative PCR (08/02/2023 7:43 AM EDT) Human Immunodeficiency Virus (HIV-1) Quant Interpretation Not Detected Not Detected 08/03/2023 8:46 AM EDT [facility] Human Immunodeficiency Virus (HIV-1) Quant Log Result <1.60 <1.60 log10 copies/mL 08/03/2023 8:46 AM EDT [facility] Human Immunodeficiency Virus (HIV-1) Quant copies/mL Result <40 <40 copies/mL 08/03/2023 8:46 AM EDT [facility] Blood Venous blood specimen / Unknown Venipuncture / Unknown 08/02/2023 7:43 AM EDT 08/02/2023 8:09 AM EDT [facility] - 08/03/2023 8:46 AM EDT [employer] M2000 HIV test is a Real Time [...] approved for clinical use. us Angeles Jacobsen TOMATO GRADER LAB BLOOD ORDERABLES Final R esult [facility] [address] [place] [phone] from Last 3 Months or Most Recently Relevant to Health Maintenance Additional Health Concerns Infection Onset Date Last Indicated 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 Patient will require contact precautions for the duration of the hospital admission. 07/01/2023 07/01/2023 Insurance [employer] MEDICARE Advance Directives * Full Code (Latest Code Status on File) Date Activated Date Inactivated Comments 06/29/2023 3:17 PM 07/05/2023 5:29 PM Question Answer Comments Patient has decision-making capacity? Yes Care Teams Gear Shaper Set Up Operator Relationship Specialty Start Date End Date Martha De Jesus PA [address] [place] [address] PCP - General 09/19/20
--- OUTSIDE RECORDS SUMMARY | 2025-04-15 07:29 | XMS_ITS | Encounter Summary ---
Author Organization Healthcare Address [address] [place] [address] Care Team Providers Care Net Sorter Name Role Phone Martha De Jesus Primary Care Provider [phone] Encounter Details Date Type Department Care Team (Late st Contact Info) Description 02/11/2025 Results Follow-Up [facility] [address] [facility] [address] [place] [address] Yumiko Benz V, [facility] LIVER [id number] [address] [id number] Social History Tobacco Use Types Packs/Day Years [...] place to sleep or slept in a group home (including now)? No 05/10/2023 PHQ-9 Answer [...] drink first t marika in the morning (EYE-MAINTENANCE OF WAY FOREMAN) to steady your nerves or to get rid of a hangover? 1 05/11/2023 CAGE Questionnaire Score 4 024 Utilities Answer Date Recorded In the past 12 months has [employer], [employer], oil, or water [employer] threatened to shut off services in your [...] Description 07/02/2025 1:20 PM EST Office Visit [facility] [address] [facility] [address] [place] [address] Surgeon, Transplant Liver documented as of this [...] documented as of this encounter Care Teams Net Sorter Relationship Specialty Start Date End Date Martha De Jesus PA [address] [place] [address] PCP - General 09/19/20 documented as of this encounter
--- OUTSIDE RECORDS SUMMARY | 2025-04-15 07:30 | XMS_ITS ---
Author Organization [facility] Address [address] [place] [address] Care Team Providers Care Admitting Clerk Name Role Phone Martha De Jesus Primary Care Provider [phone] Transplant Episode Liver Recipient [facility] ([place], [place]) [facility] Organ Received: Liver Transplanted on 06/29/2023 Marked as Active Follow-up on 06/29/2023 Liver CoordinatorYumiko Mercado RN Phone: N/A Fax: N/A Email: N/A [place] Organ Diagnosis Organ Primary Contributory Liver Acute [...] Team Name Role Phone Fax Email Yumiko Mercado RN Liver Coordinator N/A N/A N /A Liseth Shin APRN Referring Physician [phone] N/A Gloria L Matt, STATION CHIEF Metal Miner N/A N/A N/A Events Post-Transplant Pre-Transplant Admitted: 06/28/2023 Referred: 06/11/2020 Transplanted: 06/29/2023 Evaluation began: 3 Discharged: 07/05/2023 Committee: 09/13/2022 Center waitlisted: 3
--- OUTSIDE RECORDS SUMMARY | 2025-04-15 07:30 | XMS_ITS | Encounter Summary ---
Author Organization [facility] Address [address] [id number] Care Team Providers Care Burr Filer Name Role Phone Martha De Jesus Primary Care Provider [phone] Encounter Details Date Type Department Care Team (Late st Contact Info) Description 08/18/2020 [facility] Historical OTTR [address] [place] [address] Amaya Clemons, RN [facility] LIVER [id number] [address] [place] [address] Social History Tobacco Use Types Packs/Day Years [...] she was started on solumedrol by her surgical scrub technician, as well as UDCA. Per patient and [...] score and have her see transplant social secretary. If MELD remains 15 and above, despite 6months of abstinence, will start transplant evaluation, but will need clearance from our txp social secretary. documented in this encounter Plan of Treatment Upcoming Encounters Date Type Department Care Team (Late st Contact Info) Description 07/02/2025 1:20 PM EST Office Visit [facility] [address] [facility] [address] [place] [address] Surgeon, Transplant Liver documented as of this encounter Visit Diagnoses Not on filedocumented in this encounter Additional Health Concerns Infection Onset Date Last Indicated Resolved Time 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 Patient will require contact precautions for the duration of the hospital admission. 07/01/2023 07/01/2023 documented as of this encounter Care Teams Burr Filer Relationship Specialty Start Date End Date Martha De Jesus PA [address] [place] [address] PCP - General 09/19/20 documented as of this encounter
--- OUTSIDE RECORDS SUMMARY | 2025-04-15 07:30 | XMS_ITS | Encounter Summary ---
Author Organization [facility] Address [address] [place] [address] Care Team Providers Care Tar Man Name Role Phone Martha De Jesus Primary Care Provider [phone] Reason for Referral * Medications - Closed Specialty Diagnoses / Procedures Referred By Contac t Referred To Contact Diagnoses Status post liver transplantation (CMS/HCC) Abi Lyles APRN, DNP [address] [address] Phone: tel: fax: Referral ID Status Reason Start Date Expiration Date Visits Re quested Visits Authorized [id number] Closed 1 1 Encounter Details Date Type Department Care Team (Late st Contact Info) Description 03/15/2025 Results Follow-Up [facility] [address] [phone] Yumiko Benz RN HOSPITAL LIVER [id number] [address] [place] [address] Social History Tobacco Use Types Packs/Day Years [...] drink first t marika in the morning (EYE-HEALTH INSURANCE AGENT) to steady your nerves or to get rid of a hangover? 1 05/11/2023 CAGE Questionnaire Score 4 024 Utilities Answer Date Recorded In the past 12 months has [employer] electric, gas, oil, or water company threatened [...] Miscellaneous Notes * Result Encounter Note - Abi Lyles APRN, DNP - 03/15/2025 10:24 AM EST FK 2.7, with stable LFTs on 1mg PO BID with MMF 250mg PO BID . FK goal 4-6. Increase dose to 2mg inthe Am and 1mg in the PM please. * Result Encounter Note - Yumiko Benz RN - 03/15/2025 10:01 AM EST Labs completed. Ready to review. documented in this encounter Plan of Treatment Upcoming Encounters Date Type Department Care Team (Late st Contact Info) Description 07/02/2025 1:20 PM EST Office Visit [facility] [address] [phone] Surgeon, Transplant Liver documented as of this [...] documented as of this encounter Care Teams Tar Man Relationship Specialty Start Date End Date Martha De Jesus PA [address] [place] [address] PCP - General 09/19/20 documented as of this encounter
--- OUTSIDE RECORDS SUMMARY | 2025-04-15 07:30 | XMS_ITS | Encounter Summary ---
Author Organization [facility] Address [address] [place] [address] Care Team Providers Care Grain Trader Name Role Phone Martha De Jesus Primary Care Provider [phone] Reason for Referral * Consultation (Routine) - Closed Specialty Diagnoses / Procedures Referred By Contac t Referred To Contact Rheumatology Diagnoses Elevated C-reactive protein Elevated sed rate Martha De Jesus PA [address] [place] [address] Phone: tel: fax: Referral ID Status Reason Start Date Expiration Date V isits Requested Visits Authorized [id number] Closed Specialty Services Required 11/14/2020 05/13/2021 1 1 Encounter Details Date Type Department Care Team (Late st Contact Info) Description 11/14/2020 [facility] [address] [place] [address] Martha De Jesus PA [address] [place] [address] Elevated C-reactive protein (Primary Dx); [...] [facility] [address] [place] [address] Surgeon, Transplant Liver Scheduled Referrals Name Type [...] documented as of this encounter Care Teams Grain Trader Relationship Specialty Start Date End Date Martha De Jesus PA [address] [place] [address] PCP - General 09/19/20 documented as of this encounter
--- OUTSIDE RECORDS SUMMARY | 2025-04-15 07:30 | XMS_ITS | Encounter Summary ---
Author Organization [facility] Address [address] [place] [address] Care Team Providers Care Promotions Executive Name Role Phone Martha De Jesus Primary Care Provider [phone] Encounter Details Date Type Department Care Team (Late st Contact Info) Description 06/27/2020 [facility] Encounter Historical OTTR [address] [place] [address] Aimee Bishop [address] Social History Tobacco Use Types Packs/Day Years [...] Pt is NOT cleared for listing. Primary Rehabilitation Case Coordinator will need to follow up to establish sobriety date. * Progress Notes - ProviderLuis Fernando MD - 08/20/2020 7:33 AM EDT DOS 09/30/[address] Liver [address] CTA Cardiac 18614 Echo 17433 EVALUATION AUTHORIZATION: Evaluation authorization #[id number] expires on 12/11/2020. Authorization can be extended as needed. DOS 10/01/2020 Chest Xray 71218 Mandible Panorex [address], [address] BMD Dexa Scan 97421 EVALUATION AUTHORIZATION: Evaluation authorization #[id number] expires on 12/11/2020. Authorization can be extended as needed. Updating IAuth and nurse. * Progress Notes - Lulu Restrepo - 08/19/2020 4:35 PM EDT Pt is scheduled for Standard Liver Eval on 09/30 for Labs/Surgeon ICE/Echo/CTA and CT Liver/PFT ABG/Pharm arriving at Transplant at 8:00am and 10/01 for CXR Panorex/BMD/Hep/SW/Diet arriving at first floor radiology in [facility] at 7:15am. Spoke to the pt and confirmed dates and times with her. Ptstated that she is having a PFT done tomorrow as fu from [facility] in May. She asked if she would [...] she was started on solumedrol by her wood ski maker, as well as UDCA. Per patient [...] alcohol and I gave her resources through [facility] alcohol treatment navigator. - Her ascites/edema has resolved and not recurred, even off diuretics for 3 weeks. - Will bring her back in 1month and reassess her MELD score and have her see transplant social secretary. If MELD remains 15 and above, despite 6months of abstinence, will start transplant evaluation, but will need clearance from our txp social secretary. * Progress Notes - Aimee Bishop - [...] no tracking. Faxed CD images request to [facility]. * Progress Notes - DarioAimee Gigi - 06/13/2020 11:39 AM EST Called pt to schedule ICE apt, spoke with pt and scheduled ICE apt for 07/08/2020 arriving at 6:15am. * Progress Notes - Provider, MD Luis Fernando - 06/13/2020 10:57 AM EST Pt is financially clear for ICE. [facility] [employer]. evaluation authorization #[id number] expires on 12/11/2020. * Progress Notes - Dario Aimee Gigi - 06/11/2020 3:04 PM EST Called referring drs office, spoke with Kaye and requested most recent labs be faxed over. * Progress Notes - Dario Aimee Gigi - 06/11/2020 2:43 PM EST Received new referral, 54 yo with ETOH cirrhosis and lesion. Images at [facility]. MRI report from 02/25/2020 impression states, There [...] focal fatty infiltration. * Progress Notes - Dario Aimee Gigi - 06/11/2020 2:37 PM EST Received new referral, pt with [employer] insurance. Requesting financial clearance before scheduling ICE apt. Sending note to [facility]. documented in this encounter Plan of Treatment Upcoming Encounters Date Type Department Care Team (Late st Contact Info) Description 07/02/2025 1:20 PM EST Office Visit [facility] [place] [phone] Surgeon, Transplant Liver documented as of this [...] 06/11/2020 3:37 PM EST Other Historical Provider LAB BLOOD ORDERABLES Final R esult EXTERNAL LAB * OTTR LAB RESULTS (MANUAL) (05/12/2020 12:00 AM EST) External Prothrombin Time (PT) 14.3 seconds EXTERNAL LAB External INR - Internormal Ratio 1.32 EXTERNAL LAB 05/12/2020 Narrative EXTERNAL LAB - 06/11/2020 3:36 PM EST Other [facility] Provider LAB BLOOD ORDERABLES Final R esult EXTERNAL LAB documented in this encounter Visit Diagnoses Not on filedocumented in this encounter Additional Health Concerns Infection Onset Date Last Indicated Resolved Time 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 Patient will require contact precautions for the duration of the hospital admission. 07/01/2023 07/01/2023 documented as of this encounter Care Teams Promotions Executive Relationship Specialty Start Date End Date Martha De Jesus PA [address] [place], [place] [id number] PCP - General 09/19/20 documented as of this encounter
--- OUTSIDE RECORDS SUMMARY | 2025-04-15 07:30 | XMS_ITS | Encounter Summary ---
Author Organization [facility] Address [address] [place] [address] Care Team Providers Care Weed Cooking Operator Name Role Phone Martha De Jesus Primary Care Provider Encounter Details Date Type Department Care Team (Late st Contact Info) Description 01/04/2025 Results Follow-Up [facility] [address] [facility] [address] [place] [address] Yumiko Benz V, [facility] LIVER [id number] [address] [place] [address] Social History Tobacco Use Types Packs/Day Years [...] drink first t marika in the morning (EYE-AIRCRAFT NAVIGATOR) to steady your nerves or to get rid of a hangover? 1 05/11/2023 CAGE Questionnaire Score 4 024 Utilities Answer Date Recorded In the past 12 months has e [employer], gas, oil, or water [employer] threatened to shut off services in your [...] Description 07/02/2025 1:20 PM EST Office Visit [facility] [address] [place], [place] [address]estone [facility] [address] [place] [address] Surgeon, Transplant Liver documented as of this [...] documented as of this encounter Care Teams Weed Cooking Operator Relationship Specialty Start Date End Date Martha De Jesus PA [address] [place] [address] PCP - General 09/19/20 documented as of this encounter
[2025-04-15 08:11] LABS: Hematocrit 43.2 % (37.0-47.0); Hemoglobin 14.1 g/dL (12.2-16.2); Mean Corpuscular HGB Conc 32.6 g/dL (31.8-35.4); Mean Corpuscular Hemoglobin 27.8 pg (27.0-31.2); Mean Corpuscular Volume 85.2 fl (81-99); Nucleated Red Blood Cells % 0 %; Platelet Count 220 K/mm3 (142-424); Red Blood Count 5.07 M/mm3 (4.20-5.40); Red Cell Distribution Width-SD 38.4 fL; White Blood Count 5.0 K/mm3 (4.8-10.8)
[2025-04-15 09:05] LABS: Albumin Level 4.4 g/dl (3.5-5.0); Chloride 104 mmol/L (98-107); Potassium 4.4 mmoL/L (3.5-5.1); Sodium 140 mmol/L (136-145)
[2025-04-15 09:07] LABS: Blood Urea Nitrogen 16 mg/dl (7-17); Creatinine,Serum 0.70 mg/dl (0.52-1.04); Estimated Glomerular Filt Rate 85 ml/min (>60); GFR (African American) 103 ML/MIN (>60)
[2025-04-15 09:08] LABS: Alanine Aminotransferase 32 U/L (12-78); Albumin/Globulin Ratio 1.5 (1.1-1.8); Alkaline Phosphatase 125 U/L (38-126); Anion Gap 16.4 mEq/L (5-15); Aspartate Amino Transferase 38 U/L (14-36); Bilirubin,Total 0.6 mg/dl (0.2-1.3); Calcium 9.4 mg/dl (8.4-10.2); Carbon Dioxide 24 mmol/L (22.0-30.0); Gamma Glutamyl Transpeptidase 34 U/L (12-43); Globulin 2.9 g/dL (1.3-3.2); Glucose 98 mg/dl (74-100); Magnesium 1.7 mg/dl (1.6-2.3); Total Protein,Serum 7.3 g/dl (6.3-8.2)
[2025-04-18 01:23] LABS: Tacrolimus (FK506), Blood 5.5 ng/mL (5.0-20.0)
== END 2025-04-15 23:59 | disposition home or self-care (01) ==
LOC: LAB 07:28
PROVIDERS: PCP Nurse Practitioner Family; Visit Provider Nurse Practitioner Acute Care
DX: Z94.4 Liver transplant status (principal)
CPT/HCPCS: 36415; 80053; 80197; 82977; 83735; 85027